=== PATIENT | female | born 1980 | race Caucasian/White ===

== ENCOUNTER 2022-03-02 19:25 | Emergency (ER) | payer MEDICAID, SELFPAY ==
[2022-03-02 19:26] VITALS: BP 137/86; PULSE 93; RESP 18; TEMP 36.4; O2SAT 100; BMI 21.9
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
--- NOTE | 2022-03-02 20:25 | RAD_ITS ---
EXAM: XR RIGHT RIBS AND AP CHEST, 3 OR MORE VIEWS CLINICAL INDICATION: Pain TECHNIQUE: Frontal and oblique views of the right ribs and frontal view of the chest. This report was created using [employer] report generation technology. COMPARISON: None. FINDINGS: LUNGS AND PLEURAL SPACES: Unremarkable. No consolidation or edema. No pneumothorax. No effusion. HEART: Unremarkable. Cardiac silhouette not enlarged. MEDIASTINUM: Central airways and mediastinal contour are unremarkable. BONES/JOINTS: Healed right rib fractures. RAD/Ribs Uni Min 3V w/PA Chest IMPRESSION: Healed right rib fractures. Electronically Signed: Tomer Hampton MD at 20:47 EST ,
--- NOTE | 2022-03-02 22:33 | ED.RN ---
Pt. requests pain medication, neck x rays and hip x rays when this RN went into discharge patient. Pt. educated that does not feel that these x rays are necessary and she can take ibuprofen for pain control.
== END 2022-03-02 22:34 | disposition home or self-care (01) ==
PROVIDERS: Emergency Provider Emergency Medicine; Visit Provider Emergency Medicine
DX: R07.81 Pleurodynia (principal); M79.672 Pain in left foot; M25.511 Pain in right shoulder; S16.1XXA Strain of muscle, fascia and tendon at neck level, initial encounter; F17.210 Nicotine dependence, cigarettes, uncomplicated; V89.2XXA Person injured in unspecified motor-vehicle accident, traffic, initial encounter
CPT/HCPCS: 71101; 73030; 73610; 99284

== ENCOUNTER 2022-03-04 13:25 | Emergency (ER) | payer MEDICAID, SELFPAY ==
[2022-03-04 13:27] VITALS: BP 126/85; PULSE 102; RESP 18; TEMP 36.4; O2SAT 99; BMI 22.8
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
[2022-03-04 15:50] VITALS: BP 110/76; PULSE 100; RESP 16; O2SAT 100
--- NOTE | 2022-03-04 16:16 | CM.ED ---
Social Work Consult: Resources Referral source: Dr. Stanley This social media director met with patient in room. Introduced self and social media director role. Patient agreeable to speak with this social media director. Patient reports to be homeless and to be looking for a group home that will accept patient and patient girlfriend along with patient therapy dog. Patient reports to have documentation to support patient therapy dog. Patient states to have been staying with patient father but patient father is unable to have them live in the home much longer due to landlord policy. Patient reports to have called multiple shelters in the surround area and no one has openings or will let my dog stay. This social media director contacting [facility], no openings, [facility], no openings, and [facility], no openings. This social media director provided patient with local resource guide and counseling resources. Patient reports to have recently moved to the area from [place]. This social media director encouraged patient to complete application with [employer] Patient voiced to have connection with a neurologist and to be working on getting set up with a psychiatrist. Patient reports to have transportation back to patient fathers home today. Patient plans to keep reaching out to shelters. Medical team updated. Mayito DURAND, ROSA
[2022-03-04] MEDS: Ibuprofen 600 MG Tablet PO (16:32)
[2022-03-04 16:34] VITALS: BP 111/86; PULSE 85; O2SAT 99
== END 2022-03-04 16:48 | disposition home or self-care (01) ==
PROVIDERS: Emergency Provider Emergency Medicine; Visit Provider Emergency Medicine
DX: S06.0X0A Concussion without loss of consciousness, initial encounter (principal); S40.021A Contusion of right upper arm, initial encounter; S70.311A Abrasion, right thigh, initial encounter; F17.210 Nicotine dependence, cigarettes, uncomplicated; Y04.8XXA Assault by other bodily force, initial encounter
CPT/HCPCS: 70450; 99285

== ENCOUNTER 2022-03-24 15:04 | Emergency (ER) | payer MEDICAID, SELFPAY ==
[2022-03-24] VITALS (8 sets, daily range): BP systolic 155–180; BP diastolic 79–120; PULSE 89–100; RESP 14–18; TEMP 36.4; O2SAT 99–100; BMI 19.4
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
[2022-03-24] MEDS: Ibuprofen 600 MG Tablet PO (16:18)
[2022-03-24] MEDS: clonazePAM 1 MG Tablet 2 MG PO (16:18)
[2022-03-24 16:34] LABS: Absolute Lymphocyte Count 2.05 X10^3/uL (0.83-4.51); Absolute Neutrophil Count 5.3 X10^3/uL (2.0-7.7); Basophil# 0.05 X10^3/uL; Basophil% 0.6 % (0-1); Eosinophil# 0.12 X10^3/uL; Eosinophils% 1.5 % (0-5); Hematocrit 43.9 % (37-47); Hemoglobin 15.8 g/dL (12.0-15.0); Lymphocyte # 2.05 X10^3/ul (0.83-4.51); Lymphocyte % 24.9 % (19-41); Mean Corpuscular Hgb 32.3 pg (27.0-32.0); Mean Corpuscular Volume 89.8 fL (81-99); Mean Platelet Vol. 11.2 fl (6.2-12.0); Monocyte# 0.66 X10^3/uL; NRBC Flagged by Analyzer 0 % (0-5); Neutrophil # 5.33 X10^3/uL (2.7-7.7); Neutrophil % 64.8 % (47-70); Platelet Count 384 K/mm3 (150-450); RBC Distribution Width CV 13.2 % (11.6-14.6); RBC Distribution Width SD 43.2 fl (35.1-43.9); Red Blood Count 4.89 M/mm3 (4.2-5.4); White Blood Count 8.2 K/mm3 (4.4-11.0)
[2022-03-24 16:49] LABS: Alcohol, Blood (Medical)-Serum < 3.0 mg/dL
[2022-03-24 16:55] LABS: Internal QC Validated? YES +Cl - CLEAR BKGD; Pregnancy, Serum, hCG Quali. NEGATIVE Negative
[2022-03-24 17:00] LABS: ALB/GLOB Ratio 1.2 RATIO (0.9-2.4); AST(SGOT) 17 U/L (15-37); Alanine Aminotransfer ALT/SGPT 30 U/L (13-56); Albumin, Serum 4.7 g/dL (3.2-5.0); Alkaline Phosphatase 83 U/L (45-117); Anion Gap 12 (5-15); BUN 21 mg/dL (7-18); BUN/Creat Ratio 22.1 RATIO (10-20); Calcium,Total 9.8 mg/dL (8.5-10.1); Chloride 109 mmol/L (98-107); Creatinine, Serum 0.95 mg/dL (0.55-1.02); EST Glomerular Filtration Rate 69 mL/min (>60); Est Glom Filt Rate - Afr Amer 83 mL/min (>60); Estimated Creatinine Clearance 65.29 ml/min; Globulin 3.9 g/dL (2.2-4.2); Glucose 110 mg/dL (74-106); Potassium 3.3 mmol/L (3.5-5.1); Protein, Total 8.6 g/dL (6.4-8.2); Sodium Level 139 mmol/L (136-145); Thyroid Stim Hormone (TSH) 1.21 uIU/mL (0.358-3.74)
[2022-03-24 17:59] LABS: Amphetamine Urine VISTA NEGATIVE (<1000 ng/mL); Barbiturate Urine VISTA NEGATIVE (< 200 ng/mL); Benzodiazepine Urine VISTA POSITIVE (< 200 ng/mL); Cocaine Urine VISTA NEGATIVE (< 300 ng/mL); Ecstacy Urine VISTA NEGATIVE (< 500 ng/mL); Methadone Urine VISTA NEGATIVE (< 300 ng/mL); PCP Urine VISTA NEGATIVE (< 25 ng/mL); THC Urine VISTA NEGATIVE (< 50 ng/mL); Vista UDS pH Range 4
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
--- NOTE | 2022-03-24 19:29 | CM.ED ---
Addendum entered by Jaycee Knight 03/24/22 22:22: Patient inquiring if she can smoke here; SW explained it is a smoke free campus but she could have something else like a patch. Patient declined. Patient inquired if SW could take her to the hospital with EMS, SW explained she would not be able to but explained the staff taking her will take good care of her. Patient was whispering something SW was unable to understand. Emotional support provided. CAROLINA Cisneros Addendum entered by Jaycee Knight 03/24/22 21:21: Patient accepted at [facility] per RN Aniceto. SW encouraged female EMS as patient's paranoia seems to be with men. SW met with patient to inform her she was accepted at [facility] in [place]. Patient was seated on hospital bed in street clothes and reported an understanding. Patient states she wants no one to be aware of where she is going and wants to meet whoever is transporting her. Patient whispered more but SW unable to understand, patient did not want to repeat. SW met with patient per patient's request. Patient held hospital phone in her hand to cover the oswaldo and only spoke in a whisper. SW unable to understand patient. Patient making statements about someone changing their name, a man still listening to her conversation and wanting to know where another hsopital patient went. SW informed patient she could not talk about other patients and remained patient she was getting transferred to another hospital. SW informed patient staff was trying to get female EMS to transport patient; patient stated she would go with females otherwise she wanted to meet the drivers. SW encouraged patient to change into hospital gown. Patient was tearful and continued to talk to manager social in whisper. ANDREW informed patient she was working on getting patient transported to another hospital. Plan: CAROLINA Bo Original Note: ANDREW Note ANDREW contacted [facility] to inquire about bed availability, informed some beds available and can fax referral. ANDREW contacted [facility] to inquire about bed availability, no beds available. ANDREW contacted [facility] twice, both times tried to connect to intake and the phone hung up after several rings. ANDREW contacted [facility] to inquire about bed availability, was informed the intake staff were not answering so an RN would contact ANDREW to review availability. ANDREW contacted [facility] to inquire about bed availability, informed there were beds available and referral can be sent via fax. Plan: referrals faxed to [facility] for review Jaycee DURAND, CAROLINA
[2022-03-24] MEDS: LORazepam 1 MG Tablet PO (22:18)
[2022-03-25 01:00] VITALS: BP 149/88; PULSE 89; RESP 19; O2SAT 100
[2022-03-25] MEDS: LORazepam 1 MG Tablet PO (01:55)
[2022-03-25 02:03] VITALS: RESP 16; O2SAT 99
--- NOTE | 2022-03-25 02:04 | ED.RN ---
report called to [facility] at [facility].
== END 2022-03-25 02:05 ==
PROVIDERS: Emergency Provider Emergency Medicine; Visit Provider Emergency Medicine
DX: R45.851 Suicidal ideations (principal); F22 Delusional disorders; F41.9 Anxiety disorder, unspecified; F17.210 Nicotine dependence, cigarettes, uncomplicated
CPT/HCPCS: 80053; 80307; 82077; 84443; 84703; 85025; 87811; 99285

== ENCOUNTER 2022-09-08 17:13 | Emergency (ER) | payer MEDICAID, SELFPAY ==
[2022-09-08 17:14] VITALS: BP 93/58; PULSE 75; RESP 16; TEMP 36.2; O2SAT 95
--- NOTE | 2022-09-08 17:20 | RAD_ITS ---
STUDY: X-RAY - LEFT KNEE REASON FOR EXAM: Female, 42 years old. FALL TECHNIQUE: 5 view(s) of the knee. COMPARISON: None. FINDINGS: Normal visualized distal femur. Normal visualized proximal tibia and fibula. Normal proximal tibiofibular articulation. Normal medial femorotibial compartment. Normal lateral femorotibial compartment. Normal patellofemoral articulation. The soft tissue structures are unremarkable. RAD/Knee 4 or More Views IMPRESSION: Normal x-ray examination of the knee. Electronically Signed: Kimo Mays MD at 17:52 EDT ,
--- NOTE | 2022-09-08 17:25 | RAD_ITS ---
STUDY: X-RAY - RIGHT ANKLE REASON FOR EXAM: Female, 42 years old. FALL TECHNIQUE: 3 view(s) of the ankle. COMPARISON: None. FINDINGS: Normal visualized distal tibia and fibula. Normal medial and lateral malleoli. Normal tibiotalar articulation and ankle mortise. Normal visualized talus and calcaneus. The visualized subtalar, talonavicular, calcaneocuboid and tarsal articulations are normal. Diffuse bimalleolar soft tissue swelling is noted.. RAD/Ankle min 3 Views IMPRESSION: Bimalleolar sprain. No acute fracture or dislocation. Electronically Signed: Kimo Mays MD at 17:50 EDT ,
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
--- NOTE | 2022-09-08 19:59 | ED.RN ---
Pt continues to ask for discharge paperwork, Dr. Delgado notified. Pt requesting pain medications yet pt is falling asleep in bed and refusing to walk with crutches. Discussed this with MD and MD aware of pt condition. RN went to discuss pain management @ home with pt and pt not in room, family took pt out of department before paperwork and instruction could be given.
--- NOTE | 2022-09-09 00:16 | EDS_ITS ---
HPI HPI - Fall History of Present Illness Chief Complaint: Fall Occured/Mechanism Occurred: Days Mechanism/Context: Yes same level fall Pain/Injury Location: Right ankle, left knee Worsened by: Weightbearing Relieved by: Nothing Associated Symptoms Associated Symptoms: Negative for Parasthesias, Weakness, Loss of function, Inability to ambulate or Loss of consciousness Narrative Narrative: Patient presents after a fall that occurred 2 days ago. Patient complains of pain in her right ankle and left knee. Patient did not hit her head or lose consciousness. Patient is sleeping on examination and does not answer questions. Patient does awaken to tactile stimuli. However, she still does not answer questions. Friend denies any fevers or chills. Friend states that the patient did not take any medications prior to arrival. [facility] Medical History PTSD (post-traumatic stress disorder) Home Medications ibuprofen 600 mg tablet 600 mg PO Q6H PRN PRN pain #20 TABLETS 03/04/22 [Rx Last Taken Unknown] Allergy/AdvReac Type Severity Reaction Status Date / Time acetaminophen [From Tylenol] Allergy Angioedema Verified 09/08/22 17:17 amoxicillin Allergy Anaphylaxis Verified 09/08/22 17:17 hydrocodone [From Vicodin] Allergy Angioedema Verified 09/08/22 17:17 morphine Allergy Hives Verified 09/08/22 17:17 no surgical history Social History household members: significant other Smoking Status: Current every day smoker tobacco type: cigarettes alcohol intake: current ROS ROS ED Review of Systems ROS Unobtainable: due to mental condition EXAM Physical Exam Const Vital Signs: 09/08/22 17:14 09/08/22 18:03 Temperature 97.2 F L Temperature Source Temporal Pulse Rate 75 Respiratory Rate 16 Respiratory Effort Normal Respiratory Depth Normal Respiratory Pattern Normal Blood Pressure 93/58 L Blood Pressure Mean 69 Pulse Ox 95 Oxygen Delivery Method Room Air Positive well nourished and well developed General Appearance ED: well developed and NAD HEENT Reports normocephalic Extremity Extremity Narrative: There is tenderness, erythema, and warmth over the anterior aspect of the left knee. There is no fluctuance. There is a superficial abrasion that is healing over this area. There is no active bleeding noted. There is tenderness, edema, and ecchymosis of the lateral aspect of the right ankle. There is no deformity noted. There is no pain with dorsiflexion and plantarflexion. There is some pain and laxity with inversion of the ankle. Pedal pulses are equal bilaterally. Neuro CN's II-XII intact bilaterally and no focal motor deficits Lonny Coma Scale: document GCS findings To Voice Localizes to Pain None 9 Motor Exam: general weakness Psych Psych Narrative: Patient is sleeping on examination and refuses to answer any questions or talk. Skin Skin Narrative: There is a superficial abrasion of the anterior of the left knee. There is no active bleeding noted. There is some surrounding erythema and warmth. MDM MDM MDM Narrative Medical decision making narrative: Differential diagnosis includes cellulitis, right ankle fracture, right ankle sp rain, left patella fracture, and left knee sprain. X-rays of the right ankle will be obtained to assess for fracture. X-rays of the left knee will be obtained to assess for fracture. Radiography Diagnostic Testing: Clinical Impression(s) from Imaging Studies Knee X-Ray 09/08/22 17:20 IMPRESSION: Normal x-ray examination of the knee. Electronically Signed: Kimo Mays MD at 17:52 EDT , Ankle X-Ray 09/08/22 17:25 IMPRESSION: Bimalleolar sprain. No acute fracture or dislocation. Electronically Signed: Kimo Mays MD at 17:50 EDT , X-rays of the left knee were obtained. There are 5 views. On my independent interpretation, there is no acute fracture or dislocation noted. There is no evidence of osteomyelitis. Radiologist also interpreted the x-rays and agrees. X-rays of the right ankle were obtained. There are 3 views. On my independent interpretation, there is no acute fracture or dislocation. There is moderate soft tissue swelling noted. Radiologist also interpreted the x-rays and agrees. Treatment and Re-Evaluation Narrative: Patient and significant other were advised of her findings. Patient was given an Aircast for her right ankle and crutches. I discussed the need for antibiotics for the cellulitis of her left leg. Patient and significant other left prior to receiving any antibiotics. Patient and significant other were instructed to keep the area clean. They were instructed return if worse in any way. Discharge Plan Triage Chief Complaint: Fall ED Provider: James Delgado Dx/Rx/DC Orders Clinical Impression: Contusion of left knee, Right ankle sprain, Cellulitis of knee, left Instructions: ED Cellulitis, ED Ankle Sprain (Adult) Prescriptions: No Action ibuprofen 600 mg tablet 600 mg PO Q6H PRN PRN (Reason: pain) Qty: 20 0RF Primary Care Provider: Care Physician,No Primary Referrals: Care Physician,No Primary [Primary Care Provider] - Disposition Disposition: Home, Self Care Discharge Date/Time: 09/08/22 20:01
== END 2022-09-08 20:01 | disposition home or self-care (01) ==
PROVIDERS: Emergency Provider Emergency Medicine; Visit Provider Emergency Medicine
DX: S80.02XA Contusion of left knee, initial encounter (principal); S93.401A Sprain of unspecified ligament of right ankle, initial encounter; L03.115 Cellulitis of right lower limb; F17.210 Nicotine dependence, cigarettes, uncomplicated; W18.30XA Fall on same level, unspecified, initial encounter
CPT/HCPCS: 73564; 73610; 99285

== ENCOUNTER 2022-09-13 10:38 | Inpatient (IN) | payer MEDICAID, SELFPAY ==
[2022-09-13] VITALS (11 sets, daily range): BP systolic 78–106; BP diastolic 44–65; PULSE 53–110; RESP 12–20; TEMP 36–37.1; O2SAT 97–98; BMI 23.7; BMI 21.7
--- NOTE | 2022-09-13 11:37 | ED.VIS.LOWEX ---
HPI History of Present Illness HPI Narrative: Patient presents with right ankle and left knee pain that began after a fall 3 days ago. Patient was seen here at that time. Patient had x-rays of her ankle done at that time which were negative. Patient left prior to receiving prescription for antibiotics. Patient states her pain has been getting progressively worse. Patient states her pain is sharp and stabbing. Patient states it is worse with any movement. Patient denies any paresthesias or weakness. Patient denies any other injuries. Chief Complaint: Lower Extremity Injury Informant: patient Occured/Mechanism Mechanism/Context: Yes fall Onset/Context/Timing Onset: Days (3) Context: Sudden Onset Timing: Continuous Quality of Pain: Sharp and Stabbing Location: Right ankle, left knee Worsened by: Movement, weightbearing Relieved by: Nothing Associated Symptoms Associated Symptoms: Negative for Parasthesia, Weakness or Loss of Funtion PFSH PFS Medical History PTSD (post-traumatic stress disorder) Home Medications ibuprofen 600 mg tablet 600 mg PO Q6H PRN PRN pain #20 TABLETS 03/04/22 [Rx Last Taken Unknown] Allergy/AdvReac Type Severity Reaction Status Date / Time amoxicillin Allergy Anaphylaxis Verified 09/13/22 10:46 hydrocodone [From Vicodin] Allergy Angioedema Verified 09/13/22 10:46 morphine Allergy Hives Verified 09/13/22 10:46 acetaminophen [From Tylenol] AdvReac Other Verified 09/13/22 10:47 no surgical history Social History household members: significant other Smoking Status: Current every day smoker tobacco type: cigarettes alcohol intake: current ROS ROS ED Constitutional Constitutional ED: Reports fever(s) and subjective; Denies chills Eyes Eyes: Denies blurry vision or change in vision ENT ENT ED: Denies rhinorrhea or sore throat Cardiovascular Cardiovascular: Denies chest pain or palpitations Respiratory/Chest Respiratory/Chest: Denies cough or dyspnea Gastrointestinal Gastrointestinal: Denies nausea or vomiting Genitourinary Genitourinary ED: Denies dysuria or hematuria Musculoskeletal Musculoskeletal: Denies back pain or neck pain Integumentary Denies abscess or rash Neurologic Neurologic: Denies headache(s) or weakness Allergic/Immunologic Allergic/Immunologic ED: Denies mouth swelling or urticaria EXAM Physical Exam Const Vital Signs: 09/13/22 10:39 Temperature 97.6 F L Temperature Source Oral Pulse Rate 53 L Respiratory Rate 16 Blood Pressure 78/49 L Blood Pressure Mean 58 Pulse Ox 98 Oxygen Delivery Method Room Air Positive well nourished and well developed General Appearance ED: well developed and NAD HEENT Reports moist mucous membranes Neck full ROM and supple Extremity Extremity Narrative: There is edema, ecchymosis, and erythema over the right ankle. There is no obvious deformity noted. Range of motion was limited in all motions of the right ankle secondary to pain. There is mild tenderness over the anterior aspect of the left knee. There is no effusion noted. There is no erythema or warmth noted. Range of motion was somewhat limited in complete flexion of the left knee secondary to pain. There is no laxity appreciated. Pedal pulses are equal bilaterally. Sensation was intact to light touch in all digits bilaterally. Strength is 5/5 bilaterally. Neuro oriented x3, CN's II-XII intact bilaterally, moves all extremities and no sensory deficits noted Sensorium / Orientation: alert Motor Exam: strength 5/5 throughout Psych Mood & Affect: anxious MDM MDM MDM Narrative Medical decision making narrative: Differential diagnosis includes occult fracture, cellulitis, sprain, and contusion. X-rays of the right ankle will be obtained to assess for fracture. X-rays of the left knee will be obtained to assess for fracture. CBC will be obtained to assess for leukocytosis and anemia. Basic metabolic profile will be obtained to assess for electrolyte abnormality and renal function. Treatment and Re-Evaluation Narrative: Patient was given a dose of ibuprofen here. Patient is allergic to morphine and hydrocodone. Patient was given a dose of clindamycin. Patient was given IV fluids. Discharge Plan Triage Chief Complaint: Lower Extremity Injury ED Provider: James Delgado Dx/Rx/DC Orders Prescriptions: No Action ibuprofen 600 mg tablet 600 mg PO Q6H PRN PRN (Reason: pain) Qty: 20 0RF Primary Care Provider: Care Physician,No Primary Referrals: Care Physician,No Primary [Primary Care Provider] -
--- NOTE | 2022-09-13 11:43 | RAD_ITS ---
STUDY: X-RAY - LEFT KNEE REASON FOR EXAM: Female, 42 years old. Injury/Pain TECHNIQUE: 4 view(s) of the knee. COMPARISON: None. FINDINGS: Normal visualized distal femur. Normal visualized proximal tibia and fibula. Normal proximal tibiofibular articulation. Normal medial femorotibial compartment. Normal lateral femorotibial compartment. Normal patellofemoral articulation. The soft tissue structures are unremarkable. RAD/Knee 4 or More Views IMPRESSION: Normal x-ray examination of the knee. Electronically Signed: Josef Alcazar MD at 12:52 EDT ,
[2022-09-13] MEDS: Ibuprofen 600 MG Tablet PO (12:04)
[2022-09-13] MEDS: Clindamycin 600 MG/50 ML BAG 100 MG IV (12:05)
[2022-09-13] MEDS: 0.9% Normal Saline 1,000 ML 1000 ML IV ×2 (12:05→13:06)
[2022-09-13 12:09] LABS: Absolute Lymphocyte Count 1.26 X10^3/uL (0.83-4.51); Absolute Neutrophil Count 11.7 X10^3/uL (2.0-7.7); Basophil% 0.7 % (0-1); Eosinophil# 0.28 X10^3/uL; Eosinophils% 1.9 % (0-5); Hematocrit 36.6 % (37-47); Hemoglobin 12.5 g/dL (12.0-15.0); Lymphocyte # 1.26 X10^3/ul (0.83-4.51); Lymphocyte % 8.5 % (19-41); Mean Corp Hgb Conc 34.2 g/dL (32-36); Mean Corpuscular Hgb 30.7 pg (27.0-32.0); Mean Corpuscular Volume 89.9 fL (81-99); Mean Platelet Vol. 11.7 fl (6.2-12.0); Monocyte# 1.31 X10^3/uL; Monocyte% 8.8 % (0-10); NRBC Flagged by Analyzer 0 % (0-5); Neutrophil # 11.67 X10^3/uL (2.7-7.7); Neutrophil % 78.8 % (47-70); Platelet Count 327 K/mm3 (150-450); RBC Distribution Width CV 13.1 % (11.6-14.6); RBC Distribution Width SD 43.2 fl (35.1-43.9); Red Blood Count 4.07 M/mm3 (4.2-5.4); White Blood Count 14.8 K/mm3 (4.4-11.0)
--- NOTE | 2022-09-13 12:22 | RAD_ITS ---
STUDY: X-RAY - RIGHT ANKLE REASON FOR EXAM: Female, 42 years old. Injury/Pain following a fall. TECHNIQUE: 3 view(s) of the ankle. COMPARISON: None. FINDINGS: Normal visualized distal tibia and fibula. Normal medial and lateral malleoli. Normal tibiotalar articulation and ankle mortise. Normal visualized talus and calcaneus. The visualized subtalar, talonavicular, calcaneocuboid and tarsal articulations are normal. Lateral soft tissue swelling. RAD/Ankle min 3 Views IMPRESSION: Lateral soft tissue swelling. Electronically Signed: Josef Alcazar MD at 12:50 EDT ,
[2022-09-13 12:26] LABS: Anion Gap 6 (5-15); BUN 26 mg/dL (7-18); BUN/Creat Ratio 15.7 RATIO (10-20); Calcium,Total 8.5 mg/dL (8.5-10.1); Chloride 103 mmol/L (98-107); Creatinine, Serum 1.66 mg/dL (0.55-1.02); EST Glomerular Filtration Rate 36 mL/min (>60); Est Glom Filt Rate - Afr Amer 44 mL/min (>60); Estimated Creatinine Clearance 39.73 ml/min; Glucose 116 mg/dL (74-106); Potassium 2.3 mmol/L (3.5-5.1); Sodium Level 138 mmol/L (136-145)
[2022-09-13] MEDS: Potassium Chloride Oral Tablet 20 MEQ 40 MEQ PO (13:06)
[2022-09-13 13:30] LABS: Erythrocyte Sedimentation Rate 95 mm/hr (0-30)
--- NOTE | 2022-09-13 14:52 | NURSING ---
DR TIFFANY MCCLAIN
--- NOTE | 2022-09-13 14:56 | HP.PCM.HOS_ITS ---
HPI - General General Date of Admission: 09/13/22 Date of Service: 09/13/22 Chief Complaint: Severe pain on the right ankle after fall 3 days ago HPI Narrative RAHEL MCKEON, is a 42 F came to ED with severe right ankle pain after she fa ll 3 days ago. She also has left knee pain but right ankle is the most painful and therefore coming to ED. She was seen in ED 3 days ago and x-rays are negative and therefore was supposed to be discharged but left before antibiotics were prescribed for cellulitis. She is crying with the pain, sudden onset, continuous 10/10 intensity, progressive, sharp in quality and stabbing and has been getting worse over last 3 days. She also had fever 102 Fahrenheit as per the patient. She has mild pain in the left knee. Right ankle especially the lateral side is very swollen, tender and red suggesti ve of cellulitis. Patient blood pressure was low but was also low 93/57 on 09/08/2022.Today, EMS vitals shows BP 80/50, 92/54 but normal heart rate and EGD BP 7 8/49, heart rate 53. Afebrile in ED. She also has headache and nausea but denies vomiting. [facility] Medical History (Updated 09/13/22 @ 16:[address] Geo Davila MD) Cellulitis PTSD (post-traumatic stress disorder) Home Medications Ambien 7.5 mg PO .hs promote sleep 09/13/22 [History Last Taken Unknown] clonazepam 2 mg tablet 2 mg PO TID mental health 09/13/22 [History Last Taken 09/13/22 10:00] duloxetine 60 mg capsule,delayed release (Cymbalta) 60 mg PO BID mental health 09/13/22 [History Last Taken Unknown] pregabalin 150 mg capsule (Lyrica) 150 mg PO BID pain 09/13/22 [History Last Taken Unknown] Allergy/AdvReac Type Severity Reaction Status Date / Time amoxicillin Allergy Anaphylaxis Verified 09/13/22 10:46 hydrocodone [From Vicodin] Allergy Angioedema Verified 09/13/22 10:46 morphine Allergy Hives Verified 09/13/22 10:46 acetaminophen [From Tylenol] AdvReac Other Verified 09/13/22 10:47 Surgical History no surgical history Social History household members: significant other Smoking Status: Current every day smoker tobacco type: cigarettes alcohol intake: current ROS ROS Narrative Constitutional: Reports fatigue and weakness. No fever. HEENT: Reports systems reviewed and no addt'l complaints, except as documented Respiratory/Chest: No acute shortness of breath or respiratory distress or wheezing. CVS: No chest pain or tightness. Gastrointestinal: Mild nausea. Denies coffee ground emesis, hematemesis or vomiting Genitourinary: Denies burning urination or new urinary tract symptoms Musculoskeletal: Severe right ankle pain and mild left knee pain as described in HPI. After recent fall. Neurologic: Denies seizure-like symptoms. Psychiatry: History of anxiety and depression on clonazepam. PTSD. skin: Redness over right ankle. Endocrinology: Reports systems reviewed and no addt'l complaints, except as documented Hematologic/Lymphatic: Reports systems reviewed and no addt'l complaints, except as documented Rest 14 ROS are negative except as mentioned in HPI Vital Signs Vital Signs Vital Signs: 09/13/22 10:39 09/13/22 12:07 09/13/22 13:02 Temperature 97.6 F L Temperature Source Oral Pulse Rate 53 L 57 L 59 L Respiratory Rate 16 Blood Pressure 78/49 L 84/59 L 82/45 L Blood Pressure Mean 58 67 57 Pulse Ox 98 Oxygen Delivery Method Room Air 09/13/22 13:03 09/13/22 13:26 09/13/22 13:26 Temperature 97.2 F L 96.8 F L Temperature Source Temporal Temporal Pulse Rate 59 L 61 61 Respiratory Rate 14 12 Blood Pressure 82/57 L 99/64 99/64 Blood Pressure Mean 65 75 75 Pulse Ox Oxygen Delivery Method 09/13/22 14:09 Temperature 97.1 F L Temperature Source Temporal Pulse Rate 63 Respiratory Rate 14 Blood Pressure 96/63 Blood Pressure Mean 74 Pulse Ox Oxygen Delivery Method Weight Weight: 142 lb 10.225 oz Body Mass Index (BMI) 23.7 Physical Exam Narrative General: Alert, Oriented x3, Cooperative HEENT: Atraumatic, PERRLA, EOMI, Normocephalic Oral: Oral mucosa dry. No Gingival or Mucosal Lesions/ Ulcerations Neck: Supple, No JVD, Negative Carotid Bruits Lungs: Air entry diminished in bilateral lung bases. No crepitation/rhonchi Cardiovascular: Regular rate, Regular Rhythm, Normal S1, Normal S2, No murmurs Abdomen: Bowel Sounds Present, Soft, Non Tender, Non-Distended : No renal angle tenderness. No suprapubic tenderness. Extremities: No edema, Capillary Refill Less than 3 Seconds Skin: Erythematous rash over right ankle predominantly over lateral aspect. Musculoskeletal: Large swelling redness tenderness over lateral aspect of right ankle. ROM of right ankle not attempted due to tenderness. History of left ankle surgery in the past. Neurological: Cranial nerves II-XII grossly intact, DTR 2+/4. No acute focal neurological defic Psych/Mental Status: Normal Affect, Appropriate. Results Lab / Micro Data 09/13/22 12:00 09/13/22 12:00 Labs: Laboratory Results - last 24 hr 09/13/22 12:00: WBC 14.8 H, RBC 4.07 L, Hgb 12.5, Hct 36.6 L, MCV 89.9, MCH 30.7, MCHC 34.2, RDW Std Deviation 43.2, RDW Coeff of Sylvia 13.1, Plt Count 327, MPV 11.7, Immature Gran % (Auto) 1.300 H, Neut % (Auto) 78.8 H, Lymph % (Auto) 8.5 L, [place] % (Auto) 8.8, Eos % (Auto) 1.9, Baso % (Auto) 0.7, Absolute Neuts (auto) 11.7 H, Absolute Lymphs (auto) 1.26, Nucleated RBC % 0, ESR 95 H, Sodium 138, Potassium 2.3 L*, Chloride 103, Carbon Dioxide 29.0, Anion Gap 6, BUN 26 H, Creatinine 1.66 H, Estim Creat Clear Calc 39.73, Est GFR (MDRD) Af Amer 44 L, Est GFR (MDRD) Non-Af 36 L, BUN/Creatinine Ratio 15.7, Glucose 116 H, Calcium 8.5, C-React Prot Ext Range 330.00 H Radiology Impression Knee X-Ray 09/13/22 11:43 IMPRESSION: Normal x-ray examination of the knee. Electronically Signed: Josef Alcazar MD at 12:52 EDT , Ankle X-Ray 09/13/22 12:22 IMPRESSION: Lateral soft tissue swelling. Electronically Signed: Josef Alcazar MD at 12:50 EDT , Assessment & Plan Assessment/Plan (1) Cellulitis: QUALIFIERS: Site of cellulitis: extremity Site of cellulitis of extremity: lower extremity Laterality: right Qualified Code(s): L03.115 - Cellulitis of right lower limb PLAN: Plan This is 42-year-old female who came to ED for fever pain, swelling, redness and tenderness over right ankle consistent with cellulitis 1. Right ankle cellulitis of skin and soft tissue: Patient is being admitted in PCU. She does not look toxic or very sick but BP is low probably due to high dose of clonazepam, pregabalin and duloxetine and Ambien. She got tramadol in ED. Patient has leukocytosis venous duplex ordered. Drill Sharpener Operator is consulted because of severe pain and soft tissue swelling, unable to bear weight but x-ray does not show fracture. Patient is allergic to amoxicillin with anaphylaxis, started on IV vancomycin and continue clindamycin started in ED. 2. Low blood pressure probably medication induced: BP is 92/44-99/64. It was 78/49 with heart rate 53 when she came to ED but her pressure was low 3 days ago when she came to ED.. Monitor BP. Clonazepam decreased to 1 mg 3 times daily. 3. History of PTSD, anxiety and depression, chronic cigarette smoking alcohol intake: As per the nursing staff in ED, patient girlfriend has substance use history but patient denies herself. U tox is ordered. Full code. Laboratory Results 09/13/22 12:00: WBC 14.8 H, RBC 4.07 L, Hgb 12.5, Hct 36.6 L, MCV 89.9, MCH 30.7, MCHC 34.2, RDW Std Deviation 43.2, RDW Coeff of Sylvia 13.1, Plt Count 327, MPV 11.7, Immature Gran % (Auto) 1.300 H, Neut % (Auto) 78.8 H, Lymph % (Auto) 8.5 L, [place] % (Auto) 8.8, Eos % (Auto) 1.9, Baso % (Auto) 0.7, Absolute Neuts (auto) 11.7 H, Absolute Lymphs (auto) 1.26, Nucleated RBC % 0, ESR 95 H, Sodium 138, Potassium 2.3 L*, Chloride 103, Carbon Dioxide 29.0, Anion Gap 6, BUN 26 H, Creatinine 1.66 H, Estim Creat Clear Calc 39.73, Est GFR (MDRD) Af Amer 44 L, Est GFR (MDRD) Non-Af 36 L, BUN/Creatinine Ratio 15.7, Glucose 116 H, Calcium 8.5, Phosphorus Pending, Magnesium Pending, C-React Prot Ext Range 330.00 H Clinical Impression(s) from Imaging Studies Knee X-Ray 09/13/22 11:43 IMPRESSION: Normal x-ray examination of the knee. Ankle X-Ray 09/13/22 12:22
[2022-09-13] MEDS: levoFLOXacin IV 750 MG/150 ML BAG 100 MG IV (15:07)
[2022-09-13] MEDS: traMADol 50 MG Tablet PO (15:17)
--- NOTE | 2022-09-13 15:40 | CM.ED ---
Social Work Patient or family member had entered doctor's station to request [employer] information and reported needing a phone. Physician referred patient to this SW. SW introduced self and role to patient and significant other. Pt very tearful and can barely be understood. SO reports they live in [employer] housing and it has bed bugs. SO requests specific director case management number. SW does not know who the individual is but provided [employer] pamphlet with contact numbers. Pt continues to cry and asks for food and pain meds. Pt then asks SW to sign a paper for the courts since she was supposed to be in court today. SW does not feel comfortable filling out such paperwork and is not familiar with the documentation. SW encouraged patient to discuss with medical staff. SO requests a phone to call [employer]. SW provided hospital portable phone to SO. Pt requesting pain meds again and food. Nurse notified. Pt asked nursing to get bilingual social worker to come sign court documents. SW informed nurse that this was explained to patient and it presents as being out of SW scope of practice. Jaleesa Gonzalez VALVE MECHANIC, SILVER LAP MACHINE TENDER
--- NOTE | 2022-09-13 16:32 | VDLE_ITS ---
Reason For Study: RLE Swelling RIGHT LEFT GSV is normal. GSV is normal. CFV is compressible, spontaneous, phasic, CFV is compressible, spontaneous, phasic, competent and demonstrates normal competent, and demonstrates normal augmentation. augmentation. FV is compressible, spontaneous, phasic, FV is compressible, spontaneous, phasic, competent and demonstrates normal competent and demonstrates normal augmentation. augmentation. POP V is compressible, spontaneous, phasic, POP V is compressible, spontaneous, phasic, competent and demonstrates normal competent and demonstrates normal augmentation. augmentation. T/P Trunk is compressible. T/P Trunk is compressible. PTV is compressible. PTV is compressible. RT PerV is compressible. LT PerV is compressible. Procedure This is a venous duplex using B-mode, color flow and spectral Doppler. Exam performed portable in patient room. The exam was diagnostic. A preliminary report was called and/or faxed to PCU production solderer Alex. VL/Venous Duplex US - Marcelo Extrem Interpretation Summary No evidence for acute deep venous thrombosis bilateral lower extremities with p atent and compressible bilateral great saphenous veins. Ordering Physician: Geo Davila Referring Physician: N/A Performed By: Donald Artis RVT
[2022-09-13 16:43] LABS: Phosphorus 3.8 mg/dL (2.5-4.9)
[2022-09-13 16:57] LABS: CPK Total, Creatine Kinase 38 U/L (26-192)
[2022-09-13] MEDS: HYDROmorphone 0.5 MG/0.5 ML SYRINGE IV ×2 (17:01→22:15)
[2022-09-13] MEDS: 0.9% Saline Lock 10 ML Syringe IV ×2 (17:02→17:31)
[2022-09-13] MEDS: Lactated Ringers 1,000 ML 999 ML IV ×2 (17:23→18:39)
[2022-09-13 17:24] LABS: AST(SGOT) 13 U/L (15-37); Alanine Aminotransfer ALT/SGPT 16 U/L (13-56); Albumin, Serum 1.9 g/dL (3.2-5.0); Alkaline Phosphatase 102 U/L (45-117); Bilirubin, Direct 0.43 mg/dL (0.00-0.30); GGTP 14 U/L (5-55); Globulin 4.4 g/dL (2.2-4.2); Protein, Total 6.3 g/dL (6.4-8.2)
[2022-09-13 17:29] LABS: International Normalized Ratio 1.3; Prothrombin Time (Protime)PT. 16.5 SECONDS (11.7-14.9)
[2022-09-13] MEDS: Vancomycin IV 1,000 MG/200 ML BAG 200 MG IV (17:31)
[2022-09-13] MEDS: Potassium Chloride 10mEq/100mL 10 MEQ/100 ML IV.SOLN. 100 MEQ IV BOLUS ×4 (17:34→22:12)
--- NOTE | 2022-09-13 17:39 | PCM.RX.CS ---
Consult Antibiotic Management Pharmacy has been consulted to manage selected antiobiotic: Vancomycin Type of Intervention Type of Consult: New start Suspected Infection Suspected Infection: Skin/Soft tissue Labs Labs: Sodium 138 mmol/L (136-145) 09/13/22 12:00 Potassium 2.3 mmol/L (3.5-5.1) L* 09/13/22 12:00 Chloride 103 mmol/L (98-107) 09/13/22 12:00 Carbon Dioxide 29.0 mmol/L (21.0-32.0) 09/13/22 12:00 Anion Gap 6 (5-15) 09/13/22 12:00 BUN 26 mg/dL (7-18) H 09/13/22 12:00 Creatinine 1.66 mg/dL (0.55-1.02) H 09/13/22 12:00 Est GFR (MDRD) Af Amer 44 mL/min (>60) L 09/13/22 12:00 Est GFR (MDRD) Non-Af 36 mL/min (>60) L 09/13/22 12:00 BUN/Creatinine Ratio 15.7 RATIO (10-20) 09/13/22 12:00 Glucose 116 mg/dL (74-106) H 09/13/22 12:00 Dosing Weight Weight used for dosin lb 4.691 oz Estimated Creatinine Clearance Estimated Creatinine Clearance: 39.7ML/MIN Goal Trough Goal Trough: 15-20 mcg/mL Pharmacy Plan for Drug Dosing Pharmacy Plan for Drug Dosing: Give standard initial dose of 1000mg IV x1, then continue with 500mg IV q12h per [facility] dosing protocol. Check a trough before the 4th total dose. Pharmacy Service will continue to monitor and adjust dosing as required. Follow-Up Labs Follow-Up Labs: Trough: Vancomycin Date/Time Labs Ordered Labs to be done on [date and time ordered]: 09/15/22 05:30
--- NOTE | 2022-09-13 18:14 | PCM.CONS.GEN ---
Assessment & Plan Assessment/Plan (1) Cellulitis of right lower limb: (2) Other secondary gout, right ankle and foot: (3) Ankle pain, right: PLAN: Plan Evaluation performed. Reviewed diagnostic data. Right ankle gout vs cellulitis/abscess - further evaluation is indicated. MRI right ankle was ordered. Also consent was obtained for aspiration of right ankle - details below. Patient has been started on IV antibiotics. Will follow closely. Thank you for consultation. Right ankle aspiration: After consent was obtained, the skin was cleansed with 70% Isopropyl alcohol. The right ankle was injected for a nerve block with 10mL of Lidocaine plain. The right ankle was aspirated and obtained 20mL of white chalky fluid - possible gout vs infection. This was sent to microbiology and pathology for further evaluation. Dexamethasone was not injected - we will consider a corticosteroid injection pending results of further testing. HPI Consult Data Date of Consult: 09/13/22 HPI Narrative Reason for Consultation: Right ankle pain HPI Narrative: RAHEL MCKEON, is a 42 F who presents with red, swollen, painful right ankle. She relates she did twist ankle several days ago. She was treated in ER. She presented back due to worsening pain and swelling. She relates pain is severe. She is resting in bed. WBC is elevated. Right ankle xrays have been obtained, negative for fracture. Her sister is at bedside. No fever. PFSH Medical History Bipolar disorder Cellulitis Depression Migraines Non-smoker Osteoporosis PTSD (post-traumatic stress disorder) Smoker Home Medications Ambien 7.5 mg PO .hs promote sleep 09/13/22 [History Last Taken Unknown] clonazepam 2 mg tablet 2 mg PO TID mental health 09/13/22 [History Last Taken 09/13/22 10:00] duloxetine 60 mg capsule,delayed release (Cymbalta) 60 mg PO BID mental health 09/13/22 [History Last Taken Unknown] pregabalin 150 mg capsule (Lyrica) 150 mg PO BID pain 09/13/22 [History Last Taken Unknown] Allergy/AdvReac Type Severity Reaction Status Date / Time amoxicillin Allergy Anaphylaxis Verified 09/13/22 10:46 hydrocodone [From Vicodin] Allergy Angioedema Verified 09/13/22 10:46 morphine Allergy Hives Verified 09/13/22 10:46 acetaminophen [From Tylenol] AdvReac Other Verified 09/13/22 10:47 Surgical History (Updated 09/13/22 @ 17:24 by Millicent Martinez) History of appendectomy History of cholecystectomy Surgical History no surgical history Social History household members: significant other Smoking Status: Current every day smoker tobacco type: cigarettes alcohol intake: current Physical Exam Narrative Right ankle with swelling, redness/erythema, and significant pain on palpation. There are no open lesions, no drainage, no maloder, no necrosis, no crepitus, no fluctuance to the right foot, ankle or leg. CFT < 2 seconds to all toes on the right foot with pedal pulses intact, sensation intact to the right foot/ankle. Left foot with no swelling, no open lesions, no drainage, no erythema. Const alert and oriented x3 Lab / Micro Data 09/13/22 12:00 09/13/22 12:00 Labs: Laboratory Results - last 24 hr 09/13/22 12:00: WBC 14.8 H, RBC 4.07 L, Hgb 12.5, Hct 36.6 L, MCV 89.9, MCH 30.7, MCHC 34.2, RDW Std Deviation 43.2, RDW Coeff of Sylvia 13.1, Plt Count 327, MPV 11.7, Immature Gran % (Auto) 1.300 H, Neut % (Auto) 78.8 H, Lymph % (Auto) 8.5 L, [place] % (Auto) 8.8, Eos % (Auto) 1.9, Baso % (Auto) 0.7, Absolute Neuts (auto) 11.7 H, Absolute Lymphs (auto) 1.26, Nucleated RBC % 0, ESR 95 H, Sodium 138, Potassium 2.3 L*, Chloride 103, Carbon Dioxide 29.0, Anion Gap 6, BUN 26 H, Creatinine 1.66 H, Estim Creat Clear Calc 39.73, Est GFR (MDRD) Af Amer 44 L, Est GFR (MDRD) Non-Af 36 L, BUN/Creatinine Ratio 15.7, Glucose 116 H, Calcium 8.5, Phosphorus 3.8, Magnesium 2.0, Total Bilirubin 0.80, Direct Bilirubin 0.43 H, GGT 14, AST 13 L, ALT 16, Alkaline Phosphatase 102, Total Creatine Kinase 38, C-React Prot Ext Range 330.00 H, Total Protein 6.3 L, Albumin 1.9 L, Globulin 4.4 H 09/13/22 16:57: PT 16.5 H, INR 1.3, APTT 44.0 H Radiology Impression Knee X-Ray 09/13/22 11:43 IMPRESSION: Normal x-ray examination of the knee. Electronically Signed: Josef Alcazar MD at 12:52 EDT , Ankle X-Ray 09/13/22 12:22 IMPRESSION: Lateral soft tissue swelling. Electronically Signed: Josef Alcazar MD at 12:50 EDT ,
[2022-09-13 18:29] LABS: Lactic Acid 2.2 mmol/L (0.4-1.9)
--- NOTE | 2022-09-13 18:51 | NURSING ---
Reviewed and agreed on charting with Navdeep Holloway RN
[2022-09-13 19:17] LABS: Pathologist Comment May follow
[2022-09-13 19:47] LABS: Alcohol, Blood (Medical)-Serum < 3.0 mg/dL
[2022-09-13 19:58] LABS: Uric Acid 4.4 mg/dL (2.6-6.0)
[2022-09-13 20:01] LABS: AUTO B FLUID DILUENT BKGD CT WBC <0.1 RBC <0.01 (W<.1,R<.01); Color / Synovial Fluid Yellow (Pale Yellow); Source- Body Fluid SYNOVIAL
[2022-09-13 20:02] LABS: Appearance /Synovial Fluid Turbid (CLEAR)
[2022-09-13 20:03] LABS: RBC /Synovial Fluid 0.056 10^6/uL (0)
[2022-09-13 20:05] LABS: Synovial Fld Mononuclear WBC % 13.4 %; Synovial Fld Polynuclear WBC % 86.6 %
[2022-09-13 20:33] LABS: M R Staph aureus DNA By PCR POSITIVE (Negative); Probe Check PASS
[2022-09-13 21:07] LABS: CRYSTALS, BODY FLUID See PATH REV; Neutrophil 90 % (0-25)
[2022-09-13 21:08] LABS: Body Fluid QC Type(s) BF1Q,BF2Q
[2022-09-13 21:12] LABS: Reflex Lactate? Y
[2022-09-13 21:25] LABS: M R Staph aureus DNA By PCR POSITIVE (Negative); Probe Check PASS; Staph aureus DNA By PCR POSITIVE (Negative)
[2022-09-13 21:41] LABS: Lactic Acid 1.3 mmol/L (0.4-1.9)
[2022-09-13 21:46] LABS: Lymph 0 %
[2022-09-13 21:47] LABS: Monocyte /Synovial Fluid 10 %
[2022-09-13] MEDS: clonazePAM 1 MG Tablet PO (22:15)
[2022-09-13] MEDS: Pregabalin 75 MG Capsule 150 MG PO (22:15)
[2022-09-13] MEDS: Zolpidem Tartrate 5 MG Tablet PO (22:52)
[2022-09-13 23:12] LABS: Red Blood Cells-Urine 0 SEEN /hpf (0-5)
[2022-09-13 23:13] LABS: Color, Urine Yellow (Yellow); Glucose, Dipstick Normal (Normal); Ketone-Dipstick Negative (Negative); Leukocyte Esterase-Dipstick 100 /ul (Negative); Nitrite-Dipstick Negative (Negative); Occult Blood-Urine Negative /ul (Negative); Protein-Dipstick 15 mg/dl (Negative); Specific Gravity, Urine 1.015 (1.002-1.030); Urine Bilirubin Dipstick Negative (Negative); Urine Clarity Clear (Clear); Urine Urobilinogen Normal (Normal)
[2022-09-13 23:19] LABS: Bacteria 1+ /hpf (None Seen); Mucous, Urine 1+ /hpf (<or=2+); Squamous Epithelial Cells - UA 0-5 SEEN /hpf (5-10); White Blood Cells 10-25 SEEN /hpf (0-5)
[2022-09-14] VITALS (18 sets, daily range): BP systolic 127–146; BP diastolic 70–96; PULSE 115–145; RESP 16–20; TEMP 36.6–39.2; O2SAT 95–99; BMI 21.7
[2022-09-14] MEDS: LORazepam 2 MG/ML Syringe 1 MG IV (00:50)
[2022-09-14] MEDS: 0.9% Saline Lock 10 ML Syringe IV ×8 (00:51→22:19)
[2022-09-14] MEDS: HYDROmorphone 0.5 MG/0.5 ML SYRINGE IV ×4 (02:38→23:41)
[2022-09-14] MEDS: Mag Hydrox/Al Hydrox/Simeth 30 ML UDC PO (03:12)
[2022-09-14] MEDS: Vancomycin IV 500 MG/100 ML BAG 100 MG IV (06:09)
[2022-09-14] MEDS: clonazePAM 1 MG Tablet PO ×2 (06:09→22:55)
[2022-09-14 06:21] LABS: Absolute Lymphocyte Count 1.45 X10^3/uL (0.83-4.51); Absolute Neutrophil Count 14.3 X10^3/uL (2.0-7.7); Basophil# 0.11 X10^3/uL; Basophil% 0.6 % (0-1); Eosinophil# 0.12 X10^3/uL; Eosinophils% 0.7 % (0-5); Hematocrit 38.8 % (37-47); Hemoglobin 13.5 g/dL (12.0-15.0); Lymphocyte # 1.45 X10^3/ul (0.83-4.51); Lymphocyte % 8.1 % (19-41); Mean Corp Hgb Conc 34.8 g/dL (32-36); Mean Corpuscular Hgb 31.1 pg (27.0-32.0); Mean Corpuscular Volume 89.4 fL (81-99); Mean Platelet Vol. 11.5 fl (6.2-12.0); Monocyte# 1.59 X10^3/uL; Monocyte% 8.9 % (0-10); NRBC Flagged by Analyzer 0 % (0-5); Neutrophil # 14.31 X10^3/uL (2.7-7.7); Neutrophil % 80.2 % (47-70); POSITIVE DIFFERENTIAL YES; Platelet Count 428 K/mm3 (150-450); RBC Distribution Width CV 13.2 % (11.6-14.6); RBC Distribution Width SD 43.5 fl (35.1-43.9); Red Blood Count 4.34 M/mm3 (4.2-5.4); White Blood Count 17.8 K/mm3 (4.4-11.0)
[2022-09-14 06:30] LABS: Differential Indicated SCAN CRITERIA MET
[2022-09-14 06:47] LABS: Differential Comment SCANNED
[2022-09-14 06:59] LABS: Anion Gap 6 (5-15); BUN 11 mg/dL (7-18); BUN/Creat Ratio 16.9 RATIO (10-20); Calcium,Total 8.6 mg/dL (8.5-10.1); Chloride 104 mmol/L (98-107); Creatinine, Serum 0.65 mg/dL (0.55-1.02); EST Glomerular Filtration Rate 106 mL/min (>60); Est Glom Filt Rate - Afr Amer 128 mL/min (>60); Estimated Creatinine Clearance 101.46 ml/min; Glucose 124 mg/dL (74-106); Magnesium 1.8 mg/dL (1.6-2.6); Potassium 3.3 mmol/L (3.5-5.1); Sodium Level 138 mmol/L (136-145)
--- NOTE | 2022-09-14 07:05 | PN_ITS ---
Subjective Subjective Patient was seen this morning for follow up on right ankle. She relates the ankle is painful. She is resting in bed. Her sister is at bedside. Patient's temp is 99.4F. WBC is 17. MRSA PCR from right ankle aspirate is positive. Objective Data Objective Data Vital Signs: Vital Signs Temp Pulse Resp BP Pulse Ox O2 Del Method 99.4 F H 120 H 19 H 146/81 H 96 Room Air 09/14/22 06:05 09/14/22 06:05 09/14/22 06:05 09/14/22 06:05 09/14/22 06:05 09/14/22 06:05 Oxygen Delivery Method Room Air Weight: 59.109 kg Body Mass Index (BMI) 21.7 Intake & Output: Intake and Output for Last 24 Hours 09/12/22 09/13/22 09/14/22 23:59 23:59 23:59 Intake Total 4950 / 4950 Output Total 150 / 150 200 / 200 Balance 4800 / 4800 -200 / -200 Lab / Micro Data 09/14/22 06:10 09/14/22 06:10 Labs: Laboratory Results - last 24 hr 09/13/22 12:00: WBC 14.8 H, RBC 4.07 L, Hgb 12.5, Hct 36.6 L, MCV 89.9, MCH 30.7, MCHC 34.2, RDW Std Deviation 43.2, RDW Coeff of Sylvia 13.1, Plt Count 327, MPV 11.7, Immature Gran % (Auto) 1.300 H, Neut % (Auto) 78.8 H, Lymph % (Auto) 8.5 L, [place] % (Auto) 8.8, Eos % (Auto) 1.9, Baso % (Auto) 0.7, Absolute Neuts (auto) 11.7 H, Absolute Lymphs (auto) 1.26, Nucleated RBC % 0, ESR 95 H, Sodium 138, Potassium 2.3 L*, Chloride 103, Carbon Dioxide 29.0, Anion Gap 6, BUN 26 H, Creatinine 1.66 H, Estim Creat Clear Calc 39.73, Est GFR (MDRD) Af Amer 44 L, Est GFR (MDRD) Non-Af 36 L, BUN/Creatinine Ratio 15.7, Glucose 116 H, Calcium 8.5, Phosphorus 3.8, Magnesium 2.0, Total Bilirubin 0.80, Direct Bilirubin 0.43 H, GGT 14, AST 13 L, ALT 16, Alkaline Phosphatase 102, Total Creatine Kinase 38, C-React Prot Ext Range 330.00 H, Total Protein 6.3 L, Albumin 1.9 L, Globulin 4.4 H 09/13/22 16:57: PT 16.5 H, INR 1.3, APTT 44.0 H, Lactic Acid 2.2 H* 09/13/22 17:30: MRSA (PCR) POSITIVE H 09/13/22 18:29: Ethyl Alcohol < 3.0 09/13/22 18:45: Fluid Crystals See PATH REV, Fluid Crystal Source SYNOVIAL, Fl Crystal Path Review Will follow, Synovial Source RGT ANKLE, Synovial Color Yellow, Synovial Appearance Turbid, Synovial WBC 298.5500 H, Synovial RBC 0.056 H, Synovial Tot Cell Ct 300.1000 H, Synov Polynuclear WBCs 248.173, Synov Mononuclear WBCs 38.514, Synovial Neutrophils 90 H, Synovial Lymphocytes 0, Synovial Monocytes 10, Synovial Polynuclear % 86.6, Synovial Mononuclear % 13.4, Synovial Path Comment May follow, S.aureus Protein A PCR POSITIVE H, MRSA (PCR) POSITIVE H 09/13/22 20:45: Lactic Acid 1.3 09/13/22 23:00: Urine Color Yellow, Urine Clarity Clear, Urine pH 6.0, Ur Specific [place] 1.015, Urine Protein 15 H, Urine Glucose (UA) Normal, Urine Ketones Negative, Urine Occult Blood Negative, Urine Nitrite Negative, Urine Bilirubin Negative, Urine Urobilinogen Normal, Ur Leukocyte Esterase 100 H, Urine RBC 0 SEEN, Urine WBC 10-25 SEEN, Ur Squamous Epith Cells 0-5 SEEN, Urine Bacteria 1+, Urine Mucus 1+ 09/13/22 : Uric Acid 4.4 09/14/22 06:10: WBC 17.8 H, RBC 4.34, Hgb 13.5, Hct 38.8, MCV 89.4, MCH 31.1, MCHC 34.8, RDW Std Deviation 43.5, RDW Coeff of Sylvia 13.2, Plt Count 428, MPV 11.5, Immature Gran % (Auto) 1.500 H, Neut % (Auto) 80.2 H, Lymph % (Auto) 8.1 L , [place] % (Auto) 8.9, Eos % (Auto) 0.7, Baso % (Auto) 0.6, Absolute Neuts (auto) 14.3 H, Absolute Lymphs (auto) 1.45, Nucleated RBC % 0, Differential Comment SCANNED, Diff Path Review May foll, Sodium 138, Potassium 3.3 L, Chloride 104, Carbon Dioxide 28.0, Anion Gap 6, BUN 11, Creatinine 0.65, Estim Creat Clear Calc 101.46, Est GFR (MDRD) Af Amer 128, Est GFR (MDRD) Non-Af 106, BUN/Creatinine Ratio 16.9, Glucose 124 H, Calcium 8.6, Phosphorus 3.0, Magnesium 1.8 Radiography Diagnostic Testing: Radiology Impression Knee X-Ray 09/13/22 11:43 IMPRESSION: Normal x-ray examination of the knee. Electronically Signed: Josef Alcazar MD at 12:52 EDT , Ankle X-Ray 09/13/22 12:22 IMPRESSION: Lateral soft tissue swelling. Electronically Signed: Josef Alcazar MD at 12:50 EDT , Physical Exam Narrative Right ankle with swelling, redness/erythema, and significant pain on palpation. There are no open lesions, no drainage, no maloder, no necrosis, no crepitus, no fluctuance to the right foot, ankle or leg. CFT < 2 seconds to all toes on the right foot with pedal pulses intact, sensation intact to the right foot/ankle. Left foot with no swelling, no open lesions, no drainage, no erythema. Const alert and oriented x3 Assessment & Plan Assessment/Plan (1) Ankle pain, right: (2) Cellulitis of right lower limb: (3) Other secondary gout, right ankle and foot: PLAN: Plan Evaluation performed. Reviewed diagnostic data. MRI has yet to be completed. Crystal analysis still pending. Gram stain still pending. But MRSA PCR positive from right ankle. Patient is on IV antibiotics - Vanc & Levofloxacin. Discussed I+D right ankle which we will plan to proceed with today. NPO order placed.
--- NOTE | 2022-09-14 08:02 | PCM.RX.CS ---
Consult Antibiotic Management Pharmacy has been consulted to manage selected antiobiotic: Vancomycin Type of Intervention Type of Consult: Follow-up Suspected Infection Suspected Infection: Skin/Soft tissue Prior Doses of Antibiotics Prior Doses of Antibiotics Received/Current Regimen: Vancomycin 1000 mg IV X 1 dose 09/13/22 @ 1731 Vancomycin 500 mg IV x 1 dose 09/14/22 @ 0609 Labs Labs: Sodium 138 mmol/L (136-145) 09/14/22 06:10 Potassium 3.3 mmol/L (3.5-5.1) L 09/14/22 06:10 Chloride 104 mmol/L (98-107) 09/14/22 06:10 Carbon Dioxide 28.0 mmol/L (21.0-32.0) 09/14/22 06:10 Anion Gap 6 (5-15) 09/14/22 06:10 BUN 11 mg/dL (7-18) 09/14/22 06:10 Creatinine 0.65 mg/dL (0.55-1.02) 09/14/22 06:10 Est GFR (MDRD) Af Amer 128 mL/min (>60) 09/14/22 06:10 Est GFR (MDRD) Non-Af 106 mL/min (>60) 09/14/22 06:10 BUN/Creatinine Ratio 16.9 RATIO (10-20) 09/14/22 06:10 Glucose 124 mg/dL (74-106) H 09/14/22 06:10 Dosing Weight Weight used for dosin.1 kg Estimated Creatinine Clearance Estimated Creatinine Clearance: 101 mL/min Goal Trough Goal Trough: 15-20 mcg/mL Pharmacy Plan for Drug Dosing Pharmacy Plan for Drug Dosing: Due to the significant increase in renal function will change dose from 500 mg Q12H to 750 mg Q8H starting at 1400 today. Trough prior to 5th total dose, prior to 3rd total dose of new regimen. Pharmacy Service will continue to monitor and adjust dosing as required. Follow-Up Labs Follow-Up Labs: Trough: Vancomycin Date/Time Labs Ordered Labs to be done on [date and time ordered]: 09/15/22 @ 4474
[2022-09-14] MEDS: Potassium Chloride Oral Tablet 20 MEQ 40 MEQ PO (09:23)
[2022-09-14] MEDS: levoFLOXacin IV 750 MG/150 ML BAG 100 MG IV (09:39)
--- NOTE | 2022-09-14 10:45 | CASEMGMT ---
NAHOMY CORNEJO Face to Face with patient for initial transition planning/care coordination assessment. RN CM introduced self and role at [facility]. Patient lying in bed, alert and oriented, significant other at bedside. Patient willing to participate in assessment and is able to answer all questions appropriately. Care providers, pharmacy, and demographics verified. Patient wishes to discharge home, will monitor for HHC vs SNF vs [facility] pending course of treatment. Patient states she has no further needs or concerns at this time. CM to follow for discharge planning needs that may arise. PCP: Susu Marquez Specialists: Psychiatrist at [facility] Preferred Pharmacy: [facility] Insurance: [employer] Prescription Benefit: yes Living Will/HPOA: yes, significant other Blanca Riggins LNOK: significant other, father Living Arrangements: Patient lives with significant other in a basement with 6-12 steps and railing to enter. Patient was independent at home but significant other has been helping patient with ADLs. Patient concerned with living conditions and to speak with [facility] CM, SW updated. Transportation: public or walk, NAHOMY CORNEJO updated patient regarding help with transport to appointments with insurance. DME/HHC: Patient has crutches at home. No previous HHC or SNF. Patient vapes daily, drinks 2-4 drink on weekends, and occasional marijuana use. Disposition Plan: TBD, will monitor course of treatment and progress with therapy for needs at discharge. Susu KO, RN, CM
[2022-09-14] MEDS: Bupivacaine 0.5% PF 10 ML VIAL ×2 (13:00→13:12)
[2022-09-14 13:04] LABS: Pathologist Review Reviewed
[2022-09-14 13:10] LABS: Pathologist Review Reviewed
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
[2022-09-14 16:22] LABS: Amphetamine Urine VISTA NEGATIVE (<1000 ng/mL); Barbiturate Urine VISTA NEGATIVE (< 200 ng/mL); Benzodiazepine Urine VISTA NEGATIVE (< 200 ng/mL); Cocaine Urine VISTA NEGATIVE (< 300 ng/mL); Ecstacy Urine VISTA NEGATIVE (< 500 ng/mL); Methadone Urine VISTA NEGATIVE (< 300 ng/mL); PCP Urine VISTA NEGATIVE (< 25 ng/mL); THC Urine VISTA POSITIVE (< 50 ng/mL); Vista UDS pH Range 5
--- NOTE | 2022-09-14 18:34 | PN.HOSP_ITS ---
Reason for Visit Reason for Visit: Diagnoses Cellulitis of right lower limb (09/13/22) Other secondary gout, right ankle and foot (09/13/22) Pain in right ankle and joints of right foot (09/13/22) Subjective Subjective Patient was seen and examined today, she underwent drainage of a right ankle abscess today, her blood cultures resulted positive for gram-positive cocci, patient's preliminary wound culture was positive for Staph aureus. Sensit ivities are to follow. Objective Data Objective Data Vital Signs: Vital Signs Temp Pulse Resp BP Pulse Ox O2 Del Method O2 Flow Rate 98.8 F 123 H 18 134/82 H 97 Room Air 1 09/14/22 17:02 09/14/22 17:02 09/14/22 17:02 09/14/22 17:02 09/14/22 17:02 09/14/22 17:02 09/14/22 15:03 Oxygen Flow Rate (L/min) 1 Oxygen Delivery Method Room Air Weight: 59.109 kg Body Mass Index (BMI) 21.7 Intake & Output: Intake and Output for Last 24 Hours 09/12/22 09/13/22 09/14/22 23:59 23:59 23:59 Intake Total 4950 / 4950 515 / 515 Output Total 150 / 150 200 / 200 Balance 4800 / 4800 315 / 315 Lab / Micro Data 09/14/22 06:10 09/14/22 06:10 Labs: Laboratory Results - last 24 hr 09/13/22 17:30: MRSA (PCR) POSITIVE H 09/13/22 18:29: Ethyl Alcohol < 3.0 09/13/22 18:45: Fluid Crystals See PATH REV, Fluid Crystal Source SYNOVIAL, Fl Crystal Path Review Reviewed, Synovial Source RGT ANKLE, Synovial Color Yellow, Synovial Appearance Turbid, Synovial WBC 298.5500 H, Synovial RBC 0.056 H, Synovial Tot Cell Ct 300.1000 H, Synov Polynuclear WBCs 248.173, Synov Mononuc lear WBCs 38.514, Synovial Neutrophils 90 H, Synovial Lymphocytes 0, Synovial Monocytes 10, Synovial Polynuclear % 86.6, Synovial Mononuclear % 13.4, Synovial Path Comment May follow, S.aureus Protein A PCR POSITIVE H, MRSA (PCR) POSITIVE H 09/13/22 20:45: Lactic Acid 1.3 09/13/22 23:00: Urine Color Yellow, Urine Clarity Clear, Urine pH 6.0, Ur Specific [place] 1.015, Urine Protein 15 H, Urine Glucose (UA) Normal, Urine Ketones Negative, Urine Occult Blood Negative, Urine Nitrite Negative, Urine Bilirubin Negative, Urine Urobilinogen Normal, Ur Leukocyte Esterase 100 H, Urine RBC 0 SEEN, Urine WBC 10-25 SEEN, Ur Squamous Epith Cells 0-5 SEEN, Urine Bacteria 1+, Urine Mucus 1+, Urine Opiates Screen POSITIVE H, Urine Methadone Screen NEGATIVE, Ur Barbiturates Screen NEGATIVE, Ur Phencyclidine Scrn NEGATIVE, Ur Amphetamines Screen NEGATIVE, MDMA (Ecstasy) Screen NEGATIVE, U Benzodiazepines Scrn NEGATIVE, Urine Cocaine Screen NEGATIVE, U Cannabinoids Screen POSITIVE H, Ur Drug Screen Comment 09/13/22 : Uric Acid 4.4 09/14/22 06:10: WBC 17.8 H, RBC 4.34, Hgb 13.5, Hct 38.8, MCV 89.4, MCH 31.1, MCHC 34.8, RDW Std Deviation 43.5, RDW Coeff of Sylvia 13.2, Plt Count 428, MPV 11.5, Immature Gran % (Auto) 1.500 H, Neut % (Auto) 80.2 H, Lymph % (Auto) 8.1 L , [place] % (Auto) 8.9, Eos % (Auto) 0.7, Baso % (Auto) 0.6, Absolute Neuts (auto) 14.3 H, Absolute Lymphs (auto) 1.45, Nucleated RBC % 0, Differential Comment SCANNED, Diff Path Review Reviewed, Sodium 138, Potassium 3.3 L, Chloride 104, Carbon Dioxide 28.0, Anion Gap 6, BUN 11, Creatinine 0.65, Estim Creat Clear Calc 101.46, Est GFR (MDRD) Af Amer 128, Est GFR (MDRD) Non-Af 106, BUN/Creatinine Ratio 16.9, Glucose 124 H, Calcium 8.6, Phosphorus 3.0, Magnesium 1.8 Micro: Microbiology 09/13/22 16:57 Blood Culture (Wb) - Other Blood Culture - Preliminary 09/13/22 18:45 Aspirate - Ankle Gram Stain - Final 09/13/22 18:45 Aspirate - Ankle Wound Culture - Preliminary Staphylococcus aureus Radiography Diagnostic Testing: Radiology Impression Venous Doppler Study 09/13/22 16:32 Interpretation Summary No evidence for acute deep venous thrombosis bilateral lower extremities with patent and compressible bilateral great saphenous veins. Ordering Physician: Geo Davila Referring Physician: N/A Performed By: Donald Artis RVT Physical Exam Const alert and oriented x3 Constitutional Narrative: Patient appears much older than her stated age General Appearance: cooperative and well developed Orientation / Consciousness: awake, oriented to person, oriented to place and oriented to time HEENT normocephalic, head/scalp atraumatic and moist oral mucous membranes Eyes PERRL, EOMs intact bilaterally and conjunctivae normal Neck supple, no JVD, thyroid normal and no carotid bruits General: trachea midline Resp normal respiratory effort, no retractions, no use of accessory muscles and clear to auscultation bilaterally Auscultation: Negative for rales, rhonchi or wheezes Cardio regular rate, regular rhythm, S1 normal heart sound, S2 normal heart sound, no murmurs, no rub and no gallops GI normal to inspection, nondistended, normoactive bowel sounds, soft to palpation, non-tender and non-distended Extremity Extremity Narrative: Swelling and tenderness of the right ankle area is noted on palpation Skin no rashes or lesions noted General Skin Exam: no breakdown Neuro oriented x3, CN's II-XII intact bilaterally, moves all extremities, no focal motor deficits and no sensory deficits noted Sensorium / Orientation: awake, alert, oriented to person and oriented to place Speech: speech normal Psych Psych Narrative: Patient appears anxious Assessment & Plan Assessment/Plan (1) Cellulitis: QUALIFIERS: Site of cellulitis: extremity Site of cellulitis of extremity: lower extremity Laterality: right Qualified Code(s): L03.115 - Cellulitis of right lower limb PLAN: Plan 1. Right ankle cellulitis/abscess-again patient underwent incision and drainage today by podiatry, I have elected to stop her Levaquin and place her on meropenem along with her vancomycin, I had nursing talk to her about what kind of reaction she had to amoxicillin, she could not recall any but she stated that she was unable to take amoxicillin, I also checked with pharmacy and they have no documentation that they were able to find that she has an anaphylactic reaction to amoxicillin. I will start the meropenem tonight and nursing will watch for any untoward reactions. #2 bacteremia with gram-positive cocci-this is likely staph, patient will remain on her present antibiotic coverage #3 bipolar disorder-complicates care, medical course, recovery, and prognosis, p misty is currently not on any medication for bipolar disorder Total clinical time spent by myself addressing the patient's medical issues, reviewing all of her data, and collaborating with patient's care team: 35 minutes Charges/Coding Visit Charges Inpatient E&M: 28484 Subs Hosp L2
--- NOTE | 2022-09-14 19:32 | NURSING ---
Reviewed charting with Navdeep Holloway RN
[2022-09-14] MEDS: Pregabalin 75 MG Capsule 150 MG PO (22:55)
[2022-09-14] MEDS: Zolpidem Tartrate 5 MG Tablet PO (22:55)
[2022-09-14] MEDS: DULoxetine Hcl 60 MG Capsule PO (22:55)
[2022-09-15] VITALS (11 sets, daily range): BP systolic 109–144; BP diastolic 73–114; PULSE 120–145; RESP 14–18; TEMP 37.1–39.6; O2SAT 92–96
[2022-09-15] MEDS: HYDROmorphone 0.5 MG/0.5 ML SYRINGE IV ×5 (03:49→21:38)
[2022-09-15] MEDS: 0.9% Saline Lock 10 ML Syringe IV ×3 (03:50→11:48)
[2022-09-15 05:07] LABS: Vancomycin, Trough Level 10.2 ug/mL (5.0-15.0)
[2022-09-15] MEDS: clonazePAM 1 MG Tablet PO ×2 (05:33→21:38)
--- NOTE | 2022-09-15 05:48 | PCM.RX.CS ---
Consult Antibiotic Management Pharmacy has been consulted to manage selected antiobiotic: Vancomycin Type of Intervention Type of Consult: Follow-up Suspected Infection Suspected Infection: Skin/Soft tissue Labs Labs: Sodium 138 mmol/L (136-145) 09/14/22 06:10 Potassium 3.3 mmol/L (3.5-5.1) L 09/14/22 06:10 Chloride 104 mmol/L (98-107) 09/14/22 06:10 Carbon Dioxide 28.0 mmol/L (21.0-32.0) 09/14/22 06:10 Anion Gap 6 (5-15) 09/14/22 06:10 BUN 11 mg/dL (7-18) 09/14/22 06:10 Creatinine 0.65 mg/dL (0.55-1.02) 09/14/22 06:10 Est GFR (MDRD) Af Amer 128 mL/min (>60) 09/14/22 06:10 Est GFR (MDRD) Non-Af 106 mL/min (>60) 09/14/22 06:10 BUN/Creatinine Ratio 16.9 RATIO (10-20) 09/14/22 06:10 Glucose 124 mg/dL (74-106) H 09/14/22 06:10 Vancomycin Trough 10.2 ug/mL (5.0-15.0) 09/15/22 04:36 Microbiology Microbiology: Microbiology 09/13/22 16:57 Blood Culture (Wb) - Other Bacteria Detection (PCR) - Preliminary Staphylococcus aureus mecA Resistance Marker 09/13/22 16:57 Blood Culture (Wb) - Other Blood Culture - Preliminary 09/13/22 18:45 Aspirate - Ankle Gram Stain - Final 09/13/22 18:45 Aspirate - Ankle Wound Culture - Preliminary Staphylococcus aureus Dosing Weight Weight used for dosin.1 kg Estimated Creatinine Clearance Estimated Creatinine Clearance: 101 Goal Trough Goal Trough: 15-20 mcg/mL Pharmacy Plan for Drug Dosing Pharmacy Plan for Drug Dosing: Vancomycin trough level of 10.2 was below the target range of 15-20. Will increase dose to 1250mg q8h, and re-draw a trough prior to 4th dose of the new regimen. Pharmacy Service will continue to monitor and adjust dosing as required. Follow-Up Labs Follow-Up Labs: Trough: Vancomycin Date/Time Labs Ordered Labs to be done on [date and time ordered]: 09/16/22 @1300
--- NOTE | 2022-09-15 05:50 | PCM.RX.CS ---
Consult Antibiotic Management Pharmacy has been consulted to manage selected antiobiotic: Vancomycin Type of Intervention Type of Consult: Follow-up Suspected Infection Suspected Infection: Skin/Soft tissue Labs Labs: Sodium 138 mmol/L (136-145) 09/14/22 06:10 Potassium 3.3 mmol/L (3.5-5.1) L 09/14/22 06:10 Chloride 104 mmol/L (98-107) 09/14/22 06:10 Carbon Dioxide 28.0 mmol/L (21.0-32.0) 09/14/22 06:10 Anion Gap 6 (5-15) 09/14/22 06:10 BUN 11 mg/dL (7-18) 09/14/22 06:10 Creatinine 0.65 mg/dL (0.55-1.02) 09/14/22 06:10 Est GFR (MDRD) Af Amer 128 mL/min (>60) 09/14/22 06:10 Est GFR (MDRD) Non-Af 106 mL/min (>60) 09/14/22 06:10 BUN/Creatinine Ratio 16.9 RATIO (10-20) 09/14/22 06:10 Glucose 124 mg/dL (74-106) H 09/14/22 06:10 Vancomycin Trough 10.2 ug/mL (5.0-15.0) 09/15/22 04:36 Microbiology Microbiology: Microbiology 09/13/22 16:57 Blood Culture (Wb) - Other Bacteria Detection (PCR) - Preliminary Staphylococcus aureus mecA Resistance Marker 09/13/22 16:57 Blood Culture (Wb) - Other Blood Culture - Preliminary 09/13/22 18:45 Aspirate - Ankle Gram Stain - Final 09/13/22 18:45 Aspirate - Ankle Wound Culture - Preliminary Staphylococcus aureus Dosing Weight Weight used for dosin.1 kg Estimated Creatinine Clearance Estimated Creatinine Clearance: 108 Goal Trough Goal Trough: 15-20 mcg/mL Pharmacy Plan for Drug Dosing Pharmacy Plan for Drug Dosing: Vancomycin random level which was drawn 16 hours post-dose was down to 8.7 from the high level of 22.4 earlier in the day. Per dosing calculator, a new dose of 1000mg, keeping the q8h schedule, should give an estimated trough of 16.9. Another level will be drawn prior to the fourth dose of the new regimen. Pharmacy Service will continue to monitor and adjust dosing as required. Follow-Up Labs Follow-Up Labs: Trough: Vancomycin Date/Time Labs Ordered Labs to be done on [date and time ordered]: 09/19/22 @2200
--- NOTE | 2022-09-15 06:57 | PN_ITS ---
Subjective Subjective Patient was seen this morning for follow up on right ankle. She is resting in bed. Temp is 99F. She relates ankle is painful. Objective Data Objective Data Vital Signs: Vital Signs Temp Pulse Resp BP Pulse Ox O2 Del Method O2 Flow Rate 100.2 F H 127 H 18 141/86 H 96 Nasal Cannula 2 09/15/22 05:28 09/15/22 05:28 09/15/22 05:28 09/15/22 05:28 09/15/22 05:28 09/15/22 05:28 09/15/22 05:28 Oxygen Flow Rate (L/min) 2 Oxygen Delivery Method Nasal Cannula Weight: 59.109 kg Body Mass Index (BMI) 21.7 Intake & Output: Intake and Output for Last 24 Hours 09/13/22 09/14/22 09/15/22 23:59 23:59 23:59 Intake Total 4950 / 4950 1180 / 1180 120 / 120 Output Total 150 / 150 200 / 200 Balance 4800 / 4800 980 / 980 120 / 120 Lab / Micro Data 09/14/22 06:10 09/14/22 06:10 Labs: Laboratory Results - last 24 hr 09/13/22 16:57: Lactic Acid 2.2 H* 09/13/22 18:45: Fl Crystal Path Review Reviewed, S.aureus Protein A PCR POSITIVE H, MRSA (PCR) POSITIVE H 09/13/22 23:00: Urine Opiates Screen POSITIVE H, Urine Methadone Screen NEGATIVE, Ur Barbiturates Screen NEGATIVE, Ur Phencyclidine Scrn NEGATIVE, Ur Amphetamines Screen NEGATIVE, MDMA (Ecstasy) Screen NEGATIVE, U Benzodiazepines Scrn NEGATIVE, Urine Cocaine Screen NEGATIVE, U Cannabinoids Screen POSITIVE H, Ur Drug Screen Comment 09/14/22 06:10: Diff Path Review Reviewed, Sodium 138, Potassium 3.3 L, Chloride 104, Carbon Dioxide 28.0, Anion Gap 6, BUN 11, Creatinine 0.65, Estim Creat Clear Calc 101.46, Est GFR (MDRD) Af Amer 128, Est GFR (MDRD) Non-Af 106, BUN/Creatinine Ratio 16.9, Glucose 124 H, Calcium 8.6, Phosphorus 3.0, Magnesium 1.8 09/15/22 04:36: Vancomycin Trough 10.2 Micro: Microbiology 09/13/22 16:57 Blood Culture (Wb) - Other Bacteria Detection (PCR) - Preliminary Staphylococcus aureus mecA Resistance Marker 09/13/22 16:57 Blood Culture (Wb) - Other Blood Culture - Preliminary 09/13/22 18:45 Aspirate - Ankle Gram Stain - Final 09/13/22 18:45 Aspirate - Ankle Wound Culture - Preliminary Staphylococcus aureus Radiography Diagnostic Testing: Radiology Impression Venous Doppler Study 09/13/22 16:32 Interpretation Summary No evidence for acute deep venous thrombosis bilateral lower extremities with patent and compressible bilateral great saphenous veins. Ordering Physician: Geo Davila Referring Physician: N/A Performed By: Donald Artis, [place] Physical Exam Narrative s/p right ankle I+D with incision medial and lateral ankle, there is noted to be swelling and redness/erythema but appears improved, she continues to relate to significant pain to site. Tissues right ankle do appear health and viable, no purulence, no maloder, no necrosis, no crepitus, no fluctuance to the right foot, ankle or leg. CFT < 2 seconds to all toes on the right foot with pedal pulses intact, sensation intact to the right foot/ankle. Left foot with no sw elling, no open lesions, no drainage, no erythema. Const alert and oriented x3 Assessment & Plan Assessment/Plan (1) Ankle pain, right: (2) Cellulitis of right lower limb: (3) Other secondary gout, right ankle and foot: PLAN: Plan Evaluation performed. s/p right ankle I+D on 09/14/22. Reviewed diagnostic data. Crystal analysis - no monosodium crystals noted per pathology report - culture growing MRSA. Patient is on IV antibiotics - Vanc & Meropenem. Wound care right ankle - dakin's gauze wet to dry daily dressing changes. Wound likely benefit from wound vac in the future. Keep right foot elevated. No weightbearing right foot. Podiatry will continue to follow.
[2022-09-15] MEDS: DAKIN'S SOL HALF STRENGTH (=0.25%) 1 APPLIC TOPICAL (07:54)
[2022-09-15 08:18] LABS: Absolute Lymphocyte Count 2.29 X10^3/uL (0.83-4.51); Absolute Neutrophil Count 9.9 X10^3/uL (2.0-7.7); Basophil# 0.06 X10^3/uL; Basophil% 0.4 % (0-1); Eosinophil# 0.12 X10^3/uL; Eosinophils% 0.8 % (0-5); Hematocrit 36.2 % (37-47); Hemoglobin 12.1 g/dL (12.0-15.0); Lymphocyte # 2.29 X10^3/ul (0.83-4.51); Lymphocyte % 16.1 % (19-41); Mean Corp Hgb Conc 33.4 g/dL (32-36); Mean Corpuscular Hgb 30.6 pg (27.0-32.0); Mean Corpuscular Volume 91.4 fL (81-99); Mean Platelet Vol. 11.4 fl (6.2-12.0); Monocyte# 1.62 X10^3/uL; Monocyte% 11.4 % (0-10); NRBC Flagged by Analyzer 0 % (0-5); Neutrophil # 9.88 X10^3/uL (2.7-7.7); Neutrophil % 69.4 % (47-70); POSITIVE DIFFERENTIAL YES; Platelet Count 438 K/mm3 (150-450); RBC Distribution Width CV 14.1 % (11.6-14.6); RBC Distribution Width SD 47.7 fl (35.1-43.9); Red Blood Count 3.96 M/mm3 (4.2-5.4); White Blood Count 14.2 K/mm3 (4.4-11.0)
[2022-09-15 08:20] LABS: Differential Indicated SCAN CRITERIA MET
--- NOTE | 2022-09-15 08:47 | WOUNDNOTE ---
wound photo: right medial ankle
--- NOTE | 2022-09-15 08:48 | WOUNDNOTE ---
wound photo: right lateral ankle
[2022-09-15] MEDS: DULoxetine Hcl 60 MG Capsule PO ×2 (11:48→22:25)
[2022-09-15] MEDS: Pregabalin 75 MG Capsule 150 MG PO ×2 (11:48→21:38)
--- NOTE | 2022-09-15 14:41 | ECHOD_ITS ---
Reason For Study: MURMUR Procedure This was a 2D Doppler, Color Flow transthoracic echocardiogram. Exam performed portable in patient room. Left Ventricle Normal LV size. The estimated ejection fraction is 70 %. No evidence for diastolic dysfunction. No regional wall motion abnormalities noted. Right Ventricle Normal RV size. Normal systolic function. Atria Normal left atrium. Normal right atrium. No doppler evidence for ASD. Mitral Valve There is no mitral valve stenosis. No mitral valve insufficiency. Tricuspid Valve There is no tricuspid stenosis. Mild tricuspid valve insufficiency. Pulmonary artery systolic pressure is 60 mmHg. Aortic Valve Trisinus/trileaflet aortic valve. There is no aortic stenosis. No aortic valve insufficiency. Pulmonic Valve There is no pulmonic valvular stenosis. No pulmonic valve insufficiency. Great Vessels Normal aortic root. Pericardium/Pleural No pericardial effusion. MMode/2D Measurements & Calculations LVIDd: 4.0 cm IVSd: 0.88 cm Ao root diam: 2.5 cm LVIDs: 2.8 cm LVPWd: 0.88 cm FS: 30.6 % LAV(MOD-bp): 36.0 ml LA A4 area: 13.8 cm2 LA dimension(2D): 3.2 cm LAV(MOD-bp) Indexed: 21.7 ml/m2 LAV(MOD-sp2): 32.8 ml LAV(MOD-sp4): 37.2 ml RA A4 area: 10.6 cm2 Time Measurements MV dec time: 0.13 sec Doppler Measurements & Calculations MV E max cornelius: 50.3 cm/sec Lat Peak E' Cornelius: 12.2 cm/sec Med Peak E' Cornelius: 9.4 cm/sec MV A max cornelius: 90.2 cm/sec E/E' lat: 4.1 E/E' med: 5.3 MV E/A: 0.56 MV dec slope: 601.4 cm/sec2 Ao V2 max: 156.6 cm/sec LV V1 max: 137.8 cm/sec Ao max P.8 mmHg LV V1 max P.6 mmHg Ao V2 mean: 116.5 cm/sec LV V1 mean P.5 mmHg Ao mean P.1 mmHg LV V1 mean: 100.7 cm/sec Ao V2 VTI: 24.0 cm LV V1 VTI: 18.0 cm AV (velocity ratio): 0.75 PA V2 max: 123.3 cm/sec TR max cornelius: 369.3 cm/sec TR max P.6 mmHg ECHO/Echo Complete Interpretation Summary The estimated ejection fraction is 70 %. No evidence for diastolic dysfunction. Pulmonary artery systolic pressure is 60 mmHg. Ordering Physician: Aidan Starks Referring Physician: OTD Performed By: Malika Hughes RDCS, RVT
--- NOTE | 2022-09-15 15:29 | PCM.CONS.GEN ---
Assessment & Plan Assessment/Plan (1) MRSA bacteremia: PLAN: MRSA bacteremia due to L ankle septic arthritis. Taken to OR 09/14/[address] Quinonez for I&D. Will stop slim. Cont vanc. Will check repeat bcx and TTE. Will follow, thank you (2) Septic arthritis of ankle: HPI Consult Data Date of Consult: 09/15/22 HPI Narrative Reason for Consultation: bacteremia HPI Narrative: RAHEL MCKEON, is a 42 F who presented 09/13 with 3 days of progressive L ankle pain, redness, swelling. Had associated fever and chills, also c/o L knee pain. No drainage present, no n/v/d. Admitted here, started on vanc/levaquin, then vanc/slim. Taken to OR by Dr. Quinonez 09/14 for I&D of L ankle. C/o ongoing pain. Full ROS performed and neg except as noted above. PFSH Medical History Bipolar disorder Cellulitis Depression Migraines Non-smoker Osteoporosis PTSD (post-traumatic stress disorder) Smoker Home Medications Ambien 7.5 mg PO .hs promote sleep 09/13/22 [History Last Taken Unknown] clonazepam 2 mg tablet 2 mg PO TID mental health 09/13/22 [History Last Taken 09/13/22 10:00] duloxetine 60 mg capsule,delayed release (Cymbalta) 60 mg PO BID mental health 09/13/22 [History Last Taken Unknown] pregabalin 150 mg capsule (Lyrica) 150 mg PO BID pain 09/13/22 [History Last Taken Unknown] Allergy/AdvReac Type Severity Reaction Status Date / Time amoxicillin Allergy Anaphylaxis Verified 09/14/22 11:18 hydrocodone [From Vicodin] Allergy Angioedema Verified 09/14/22 11:18 morphine Allergy Hives Verified 09/14/22 11:18 acetaminophen [From Tylenol] AdvReac Other Verified 09/14/22 11:18 Surgical History (Updated 09/13/22 @ 17:24 by Millicent Martinez) History of appendectomy History of cholecystectomy Surgical History no surgical history Social History household members: significant other Smoking Status: Current every day smoker tobacco type: cigarettes alcohol intake: current Physical Exam Const alert and oriented x3 Constitutional Narrative: in pain HEENT normocephalic and head/scalp atraumatic Eyes PERRL and EOMs intact bilaterally Neck supple and No nodes Resp normal air movement and clear to auscultation bilaterally Cardio no murmurs Rate: tachycardic GI soft to palpation, non-tender and non-distended Extremity General Extremity: Negative for edema Skin Skin Narrative: R ankle wrapped. L knee tender, no swelling/redness. No splinter hemorrhages on fingers. Neuro CN's II-XII intact bilaterally Lab / Micro Data Attestation: I reviewed the patient's lab results. 09/15/22 04:36 09/14/22 06:10 Labs: Laboratory Results - last 24 hr 09/13/22 16:57: Lactic Acid 2.2 H* 09/13/22 23:00: Urine Opiates Screen POSITIVE H, Urine Methadone Screen NEGATIVE, Ur Barbiturates Screen NEGATIVE, Ur Phencyclidine Scrn NEGATIVE, Ur Amphetamines Screen NEGATIVE, MDMA (Ecstasy) Screen NEGATIVE, U Benzodiazepines Scrn NEGATIVE, Urine Cocaine Screen NEGATIVE, U Cannabinoids Screen POSITIVE H, Ur Drug Screen Comment 09/15/22 04:36: WBC 14.2 H, RBC 3.96 L, Hgb 12.1, Hct 36.2 L, MCV 91.4, MCH 30.6, MCHC 33.4, RDW Std Deviation 47.7 H, RDW Coeff of Sylvia 14.1, Plt Count 438, MPV 11.4, Immature Gran % (Auto) 1.900 H, Neut % (Auto) 69.4, Lymph % (Auto) 16.1 L, [place] % (Auto) 11.4 H, Eos % (Auto) 0.8, Baso % (Auto) 0.4, Absolute Neuts (auto) 9.9 H, Absolute Lymphs (auto) 2.29, Nucleated RBC % 0, Differential Comment COMMENT, Diff Path Review May foll, Vancomycin Trough 10.2 Micro: Microbiology 09/14/22 13:07 Wound Abcess - Ankle Gram Stain - Final 09/14/22 13:07 Wound Abcess - Ankle Wound Culture - Preliminary Staphylococcus aureus 09/13/22 18:45 Aspirate - Ankle Gram Stain - Final 09/13/22 18:45 Aspirate - Ankle Wound Culture - Final Meth. resistant Staph. aureus 09/13/22 16:57 Blood Culture (Wb) - Other Bacteria Detection (PCR) - Final Meth. resistant Staph. aureus mecA Resistance Marker 09/13/22 16:57 Blood Culture (Wb) - Other Blood Culture - Preliminary
--- NOTE | 2022-09-15 17:53 | PN.HOSP_ITS ---
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) Pain in right ankle and joints of right foot (09/13/22) Bacteremia (09/13/22) Subjective Subjective Patient was seen and examined today, she requested pain medications, I had infectious diseases see the patient, they stopped her meropenem and maintained her on vancomycin. Objective Data Objective Data Vital Signs: Vital Signs Temp Pulse Resp BP Pulse Ox O2 Del Method O2 Flow Rate 98.8 F 123 H 16 116/88 H 92 Room Air 2 09/15/22 13:56 09/15/22 13:56 09/15/22 13:56 09/15/22 13:56 09/15/22 13:56 09/15/22 14:00 09/15/22 05:28 Oxygen Flow Rate (L/min) 2 Oxygen Delivery Method Room Air Weight: 59.109 kg Body Mass Index (BMI) 21.7 Intake & Output: Intake and Output for Last 24 Hours 09/13/22 09/14/22 09/15/22 23:59 23:59 23:59 Intake Total 4950 / 4950 1180 / 1180 1045.45 / 1045.45 Output Total 150 / 150 200 / 200 Balance 4800 / 4800 980 / 980 1045.45 / 1045.45 Lab / Micro Data 09/15/22 04:36 09/14/22 06:10 Labs: Laboratory Results - last 24 hr 09/13/22 16:57: Lactic Acid 2.2 H* 09/15/22 04:36: WBC 14.2 H, RBC 3.96 L, Hgb 12.1, Hct 36.2 L, MCV 91.4, MCH 30.6, MCHC 33.4, RDW Std Deviation 47.7 H, RDW Coeff of Sylvia 14.1, Plt Count 438, MPV 11.4, Immature Gran % (Auto) 1.900 H, Neut % (Auto) 69.4, Lymph % (Auto) 16.1 L, [place] % (Auto) 11.4 H, Eos % (Auto) 0.8, Baso % (Auto) 0.4, Absolute Neuts (auto) 9.9 H, Absolute Lymphs (auto) 2.29, Nucleated RBC % 0, Differential Comment COMMENT, Diff Path Review June foll, Vancomycin Trough 10.2 Micro: Microbiology 09/14/22 13:07 Wound Abcess - Ankle Gram Stain - Final 09/14/22 13:07 Wound Abcess - Ankle Wound Culture - Preliminary Staphylococcus aureus 09/13/22 18:45 Aspirate - Ankle Gram Stain - Final 09/13/22 18:45 Aspirate - Ankle Wound Culture - Final Meth. resistant Staph. aureus 09/13/22 16:57 Blood Culture (Wb) - Other Bacteria Detection (PCR) - Final Meth. resistant Staph. aureus mecA Resistance Marker 09/13/22 16:57 Blood Culture (Wb) - Other Blood Culture - Preliminary Radiography Diagnostic Testing: Radiology Impression Echocardiogram 09/15/22 14:41 Interpretation Summary The estimated ejection fraction is 70 %. No evidence for diastolic dysfunction. Pulmonary artery systolic pressure is 60 mmHg. Ordering Physician: Aidan Starks Referring Physician: OTD Performed By: Malika Hughes, DINH, RVT Physical Exam Narrative alert and oriented x3 Constitutional Narrative: Patient appears much older than her stated age General Appearance: cooperative and well developed Orientation / Consciousness: awake, oriented to person, oriented to place and oriented to time HEENT normocephalic, head/scalp atraumatic and moist oral mucous membranes Eyes PERRL, EOMs intact bilaterally and conjunctivae normal Neck supple, no JVD, thyroid normal and no carotid bruits General: trachea midline Resp normal respiratory effort, no retractions, no use of accessory muscles and clear to auscultation bilaterally Auscultation: Negative for rales, rhonchi or wheezes Cardio regular rate, regular rhythm, S1 normal heart sound, S2 normal heart sound, no murmurs, no rub and no gallops GI normal to inspection, nondistended, normoactive bowel sounds, soft to palpation, non-tender and non-distended Extremity Extremity Narrative: Patient's right ankle is wrapped with surgical dressing, this was not removed for examination of the area Skin There is generalized edema noted over the patient's right ankle and foot area, this area is covered with surgical dressing which was not removed for examination of the area Neuro oriented x3, CN's II-XII intact bilaterally, moves all extremities, no focal motor deficits and no sensory deficits noted Sensorium / Orientation: awake, alert, oriented to person and oriented to place Speech: speech normal Psych Psych Narrative: Patient appears anxious Assessment & Plan Assessment/Plan (1) Septic arthritis of ankle: (2) Cellulitis: QUALIFIERS: Site of cellulitis: extremity Site of cellulitis of extremity: lower extremity Laterality: right Qualified Code(s): L03.115 - Cellulitis of right lower limb PLAN: Plan 1. Sepsis secondary to septic right ankle with MRSA-continue antibiotic coverage per infectious diseases, podiatry is participating in her care #2 Chronic depression-patient is on Cymbalta #3 bipolar disorder-complicates care, medical course, recovery, and prognosis, patient is currently not on any medication for bipolar disorder Total clinical time spent by myself addressing the patient's medical issues, reviewing all of her data, and collaborating with patient's care team: 35 minutes Charges/Coding Visit Charges Inpatient E&M: 15025 Subs Hosp L2
[2022-09-15] MEDS: Zolpidem Tartrate 5 MG Tablet PO (21:38)
[2022-09-16] VITALS (8 sets, daily range): BP systolic 104–139; BP diastolic 63–94; PULSE 115–133; RESP 14–18; TEMP 37.3–38.2; O2SAT 92–96
[2022-09-16] MEDS: HYDROmorphone 0.5 MG/0.5 ML SYRINGE IV ×6 (01:43→22:59)
[2022-09-16] MEDS: clonazePAM 1 MG Tablet PO ×3 (05:52→21:07)
--- NOTE | 2022-09-16 07:44 | PN_ITS ---
Subjective Subjective Patient was seen this morning for follow up on right ankle. Patient is resting in bed. She relates to pain to the ankle. Temp is 100.2F. She is on Vancomycin. Objective Data Objective Data Vital Signs: Vital Signs Temp Pulse Resp BP Pulse Ox O2 Del Method O2 Flow Rate 100.7 F H 133 H 16 139/94 H 92 Room Air 2 09/16/22 06:00 09/16/22 06:00 09/16/22 06:00 09/16/22 06:00 09/16/22 06:00 09/16/22 06:00 09/15/22 05:28 Oxygen Flow Rate (L/min) 2 Oxygen Delivery Method Room Air Weight: 59.109 kg Body Mass Index (BMI) 21.7 Intake & Output: Intake and Output for Last 24 Hours 09/14/22 09/15/22 09/16/22 23:59 23:59 23:59 Intake Total 1180 / 1180 1560.45 / 1560.45 275 / 275 Output Total 200 / 200 0 / 0 Balance 980 / 980 1560.45 / 1560.45 275 / 275 Lab / Micro Data 09/15/22 04:36 09/14/22 06:10 Labs: Laboratory Results - last 24 hr 09/13/22 16:57: Lactic Acid 2.2 H* 09/15/22 04:36: WBC 14.2 H, RBC 3.96 L, Hgb 12.1, Hct 36.2 L, MCV 91.4, MCH 30.6, MCHC 33.4, RDW Std Deviation 47.7 H, RDW Coeff of Sylvia 14.1, Plt Count 438, MPV 11.4, Immature Gran % (Auto) 1.900 H, Neut % (Auto) 69.4, Lymph % (Auto) 16.1 L, [place] % (Auto) 11.4 H, Eos % (Auto) 0.8, Baso % (Auto) 0.4, Absolute Neuts (auto) 9.9 H, Absolute Lymphs (auto) 2.29, Nucleated RBC % 0, Differential Comment COMMENT, Diff Path Review May foll Micro: Microbiology 09/13/22 16:57 Blood Culture (Wb) - Other Bacteria Detection (PCR) - Final Meth. resistant Staph. aureus mecA Resistance Marker 09/13/22 16:57 Blood Culture (Wb) - Other Blood Culture - Preliminary Staphylococcus aureus 09/14/22 13:07 Wound Abcess - Ankle Gram Stain - Final 09/14/22 13:07 Wound Abcess - Ankle Wound Culture - Preliminary Staphylococcus aureus 09/13/22 18:45 Aspirate - Ankle Gram Stain - Final 09/13/22 18:45 Aspirate - Ankle Wound Culture - Final Meth. resistant Staph. aureus Radiography Diagnostic Testing: Radiology Impression Echocardiogram 09/15/22 14:41 Interpretation Summary The estimated ejection fraction is 70 %. No evidence for diastolic dysfunction. Pulmonary artery systolic pressure is 60 mmHg. Ordering Physician: Aidan Starks Referring Physician: OTD Performed By: Malika Hughes, DINH, RVT Physical Exam Narrative s/p right ankle I+D with incision medial and lateral ankle, there is noted to be swelling and redness/erythema - resolved medial ankle erythema, there is residual erythema to the lateral ankle, but appears improved, she continues to relate to significant pain to site. Tissues right ankle do appear healthy and viable, no purulence, no maloder, no necrosis, no crepitus, no fluctuance to the right foot, ankle or leg. CFT < 2 seconds to all toes on the right foot with pedal pulses intact, sensation intact to the right foot/ankle. Left foot with no swelling, no open lesions, no drainage, no erythema. Const alert and oriented x3 Assessment & Plan Assessment/Plan (1) Ankle pain, right: (2) Cellulitis of right lower limb: PLAN: Plan Evaluation performed. s/p right ankle I+D on 09/14/22. Reviewed diagnostic data. Crystal analysis - no monosodium crystals noted per pathology report - culture growing MRSA. Overall there has been improvement clinically to right ankle. We will continue with daily dressing changes, and patient is on IV antibiotic - Vancomycin at this time. Wound care right ankle - kyle's gauze wet to dry daily dressing changes. Wound likely benefit from wound vac in the future. Keep right foot elevated. No weightbearing right foot. Podiatry will continue to follow.
[2022-09-16] MEDS: 0.9% Saline Lock 10 ML Syringe IV (09:39)
[2022-09-16] MEDS: DULoxetine Hcl 60 MG Capsule PO ×2 (09:40→21:05)
[2022-09-16] MEDS: Pregabalin 75 MG Capsule 150 MG PO ×2 (09:40→21:03)
[2022-09-16] MEDS: DAKIN'S SOL HALF STRENGTH (=0.25%) 1 APPLIC TOPICAL (09:40)
[2022-09-16] MEDS: oxyCODONE CR 15 MG Tablet PO ×2 (09:54→21:03)
[2022-09-16 10:02] LABS: Pathologist Review Reviewed
--- NOTE | 2022-09-16 13:11 | CPS ---
pt had IS/PEP at bedside. was started previously on admission on 09/13/2022
[2022-09-16 13:49] LABS: Creatinine, Serum 0.61 mg/dL (0.55-1.02); EST Glomerular Filtration Rate 114 mL/min (>60); Est Glom Filt Rate - Afr Amer 138 mL/min (>60); Estimated Creatinine Clearance 108.11 ml/min
--- NOTE | 2022-09-16 13:52 | CASEMGMT ---
SW reviewed patient's chart and noted patient may need mcc at discharge. SW met with patient and her significant other. Introduced self and role at [facility]. SW discussed d/c plan and patient said she will go home. Patient's significant other told patient she should do what the doctors tell her she should do. SW explained patient does not need to decide right now. SW provided patient with a list of retirement facility?providers including quality and resource use data and consistent with patient?s preferred geographic region, medical needs, and insurance network were provided from the [employer] Guide. SW told patient she can think about it and discuss it with the doctor and her significant other. Loren Gan [employer] TECHNICIAN [place]
[2022-09-16 14:00] LABS: Vancomycin, Trough Level 18.8 ug/mL (5.0-15.0)
--- NOTE | 2022-09-16 14:26 | PCM.RX.CS ---
Consult Antibiotic Management Pharmacy has been consulted to manage selected antiobiotic: Vancomycin Type of Intervention Type of Consult: Follow-up Prior Doses of Antibiotics Prior Doses of Antibiotics Received/Current Regimen: current dose is vanc 1250mg IV q8h Labs Labs: Sodium 138 mmol/L (136-145) 09/14/22 06:10 Potassium 3.3 mmol/L (3.5-5.1) L 09/14/22 06:10 Chloride 104 mmol/L (98-107) 09/14/22 06:10 Carbon Dioxide 28.0 mmol/L (21.0-32.0) 09/14/22 06:10 Anion Gap 6 (5-15) 09/14/22 06:10 BUN 11 mg/dL (7-18) 09/14/22 06:10 Creatinine 0.61 mg/dL (0.55-1.02) 09/16/22 13:09 Est GFR (MDRD) Af Amer 138 mL/min (>60) 09/16/22 13:09 Est GFR (MDRD) Non-Af 114 mL/min (>60) 09/16/22 13:09 BUN/Creatinine Ratio 16.9 RATIO (10-20) 09/14/22 06:10 Glucose 124 mg/dL (74-106) H 09/14/22 06:10 Vancomycin Trough 18.8 ug/mL (5.0-15.0) H 09/16/22 13:09 Microbiology Microbiology: Microbiology 09/14/22 13:07 Wound Abcess - Ankle Gram Stain - Final 09/14/22 13:07 Wound Abcess - Ankle Wound Culture - Final Meth. resistant Staph. aureus 09/14/22 13:07 Wound Abcess - Ankle Anaerobic Culture - Final No anaerobic bacteria isolated. 09/13/22 18:45 Aspirate - Ankle Gram Stain - Final 09/13/22 18:45 Aspirate - Ankle Wound Culture - Final Meth. resistant Staph. aureus 09/13/22 18:45 Aspirate - Ankle Anaerobic Culture - Final No anaerobic bacteria isolated. 09/13/22 16:57 Blood Culture (Wb) - Other Bacteria Detection (PCR) - Final Meth. resistant Staph. aureus mecA Resistance Marker 09/13/22 16:57 Blood Culture (Wb) - Other Blood Culture - Preliminary Staphylococcus aureus Dosing Weight Weight used for dosin.1 kg Estimated Creatinine Clearance Estimated Creatinine Clearance: 108 ml/min Goal Trough Goal Trough: 15-20 mcg/mL Pharmacy Plan for Drug Dosing Pharmacy Plan for Drug Dosing: The vanc trough drawn at 13:09 today (approx 7.5 hours after the previous dose) was 18.8. This is within goal range so will keep same dose. Repeat a trough in 2 days per protocol. Pharmacy Service will continue to monitor and adjust dosing as required. Follow-Up Labs Follow-Up Labs: Trough: Vancomycin Date/Time Labs Ordered Labs to be done on [date and time ordered]: 09/18/22 13:00
--- NOTE | 2022-09-16 14:56 | PCM.PN.ID ---
Physical Exam Narrative Feeling better, no fever, foot less sore Const alert and no apparent distress General Appearance: cooperative Resp normal air movement and clear to auscultation bilaterally Cardio regular rate and regular rhythm GI soft to palpation, non-tender and non-distended Skin no rashes or lesions noted Skin Narrative: ankle wrapped ID ID: Route of nutrition/ use of supplements: [] Nutritional Intake: [] IV Site: [] Mark Catheter: [] Assessment & Plan Assessment/Plan (1) MRSA bacteremia: PLAN: MRSA bacteremia due to L ankle septic arthritis. Taken to OR 09/14/[address] Quinonez for I&D. Cont vanc. Will check repeat bcx today and tomorrow. No veg seen on TTE. Will follow (2) Septic arthritis of ankle:
--- NOTE | 2022-09-16 16:27 | PN.HOSP_ITS ---
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 Patient remains on IV vancomycin for anti biotic coverage. Objective Data Objective Data Vital Signs: Vital Signs Temp Pulse Resp BP Pulse Ox O2 Del Method O2 Flow Rate 99.1 F 119 H 15 121/68 H 94 Room Air 2 09/16/22 13:57 09/16/22 13:57 09/16/22 13:57 09/16/22 13:57 09/16/22 13:57 09/16/22 14:10 09/15/22 05:28 Oxygen Flow Rate (L/min) 2 Oxygen Delivery Method Room Air Weight: 59.109 kg Body Mass Index (BMI) 21.7 Intake & Output: Intake and Output for Last 24 Hours 09/14/22 09/15/22 09/16/22 23:59 23:59 23:59 Intake Total 1180 / 1180 1560.45 / 1560.45 1170 / 1170 Output Total 200 / 200 0 / 0 Balance 980 / 980 1560.45 / 1560.45 1170 / 1170 Lab / Micro Data 09/15/22 04:36 09/16/22 13:09 Labs: Laboratory Results - last 24 hr 09/13/22 16:57: Lactic Acid 2.2 H* 09/15/22 04:36: Diff Path Review Reviewed 09/16/22 13:09: Creatinine 0.61, Estim Creat Clear Calc 108.11, Est GFR (MDRD) Af Amer 138, Est GFR (MDRD) Non-Af 114, Vancomycin Trough 18.8 H Micro: Microbiology 09/13/22 16:57 Blood Culture (Wb) - Anticubital Left Blood Culture - Preliminary No growth in 48 hours. 09/14/22 13:07 Wound Abcess - Ankle Gram Stain - Final 09/14/22 13:07 Wound Abcess - Ankle Wound Culture - Final Meth. resistant Staph. aureus 09/14/22 13:07 Wound Abcess - Ankle Anaerobic Culture - Final No anaerobic bacteria isolated. 09/13/22 18:45 Aspirate - Ankle Gram Stain - Final 09/13/22 18:45 Aspirate - Ankle Wound Culture - Final Meth. resistant Staph. aureus 09/13/22 18:45 Aspirate - Ankle Anaerobic Culture - Final No anaerobic bacteria isolated. 09/13/22 16:57 Blood Culture (Wb) - Other Bacteria Detection (PCR) - Final Meth. resistant Staph. aureus mecA Resistance Marker 09/13/22 16:57 Blood Culture (Wb) - Other Blood Culture - Preliminary Staphylococcus aureus Radiography Diagnostic Testing: Radiology Impression Echocardiogram 09/15/22 14:41 Interpretation Summary The estimated ejection fraction is 70 %. No evidence for diastolic dysfunction. Pulmonary artery systolic pressure is 60 mmHg. Ordering Physician: Aidan Starks Referring Physician: OTD Performed By: Malika Hughes, DINH, RVT Physical Exam Narrative alert and oriented x3 Constitutional Narrative: Patient appears much older than her stated age General Appearance: cooperative and well developed Orientation / Consciousness: awake, oriented to person, oriented to place and oriented to time HEENT normocephalic, head/scalp atraumatic and moist oral mucous membranes Eyes PERRL, EOMs intact bilaterally and conjunctivae normal Neck supple, no JVD, thyroid normal and no carotid bruits General: trachea midline Resp normal respiratory effort, no retractions, no use of accessory muscles and clear to auscultation bilaterally Auscultation: Negative for rales, rhonchi or wheezes Cardio regular rate, regular rhythm, S1 normal heart sound, S2 normal heart sound, no murmurs, no rub and no gallops GI normal to inspection, nondistended, normoactive bowel sounds, soft to palpation, non-tender and non-distended Extremity Extremity Narrative: Patient's right ankle is wrapped with surgical dressing, this was not removed for examination of the area Skin There is generalized edema noted over the patient's right ankle and foot area, this area is covered with surgical dressing which was not removed for examination of the area Neuro oriented x3, CN's II-XII intact bilaterally, moves all extremities, no focal motor deficits and no sensory deficits noted Sensorium / Orientation: awake, alert, oriented to person and oriented to place Speech: speech normal Psych Psych Narrative: Patient appears anxious Assessment & Plan Assessment/Plan (1) Septic arthritis of ankle: (2) Cellulitis: QUALIFIERS: Site of cellulitis: extremity Site of cellulitis of extremity: lower extremity Laterality: right Qualified Code(s): L03.115 - Cellulitis of right lower limb PLAN: Plan 1. Sepsis secondary to septic right ankle with MRSA-continue antibiotic coverage per infectious diseases, podiatry is participating in her care #2 Chronic depression-patient is on Cymbalta #3 bipolar disorder-complicates care, medical course, recovery, and prognosis, patient is currently not on any medication for bipolar disorder #4 chronic pain-patient was placed on OxyContin and Oxy IR, we will try to limit use of IV Dilaudid. Total clinical time spent by myself addressing the patient's medical issues, reviewing all of her data, and collaborating with patient's care team: 25 minutes Charges/Coding Visit Charges Inpatient E&M: 53971 Subs Hosp L2
[2022-09-16] MEDS: Zolpidem Tartrate 5 MG Tablet PO (21:03)
[2022-09-17 03:00] VITALS: BP 126/79; PULSE 124; RESP 18; TEMP 37.4; O2SAT 95
[2022-09-17] MEDS: oxyCODONE 5 MG Tablet 10 MG PO ×3 (03:36→13:48)
[2022-09-17] MEDS: clonazePAM 1 MG Tablet PO ×3 (05:52→21:03)
[2022-09-17] MEDS: HYDROmorphone 0.5 MG/0.5 ML SYRINGE IV ×2 (06:19→16:12)
[2022-09-17 06:24] VITALS: BP 120/76
--- NOTE | 2022-09-17 08:57 | PCM.PROGNOTE ---
Subjective Subjective Patient was seen this morning for follow up on right ankle. She relates she she continues to have pain to the right ankle but she is not sure if pain is better, worse or the same to right ankle. She is resting in bed. Temp is 101.8F. She is on IV Vanomycin. Objective Data Objective Data Vital Signs: Vital Signs Temp Pulse Resp BP Pulse Ox O2 Del Method O2 Flow Rate 99.3 F H 124 H 18 120/76 95 Room Air 2 09/17/22 03:00 09/17/22 03:00 09/17/22 03:00 09/17/22 06:24 09/17/22 03:00 09/17/22 08:00 09/15/22 05:28 Oxygen Flow Rate (L/min) 2 Oxygen Delivery Method Room Air Weight: 59.109 kg Body Mass Index (BMI) 21.7 Intake & Output: Intake and Output for Last 24 Hours 09/15/22 09/16/22 09/17/22 23:59 23:59 23:59 Intake Total 1560.45 / 1560.45 1445 / 1445 275 / 275 Output Total 0 / 0 Balance 1560.45 / 1560.45 1445 / 1445 275 / 275 Lab / Micro Data 09/15/22 04:36 09/16/22 13:09 Labs: Laboratory Results - last 24 hr 09/15/22 04:36: Diff Path Review Reviewed 09/16/22 13:09: Creatinine 0.61, Estim Creat Clear Calc 108.11, Est GFR (MDRD) Af Amer 138, Est GFR (MDRD) Non-Af 114, Vancomycin Trough 18.8 H Micro: Microbiology 09/13/22 16:57 Blood Culture (Wb) - Other Bacteria Detection (PCR) - Final Meth. resistant Staph. aureus mecA Resistance Marker 09/13/22 16:57 Blood Culture (Wb) - Other Blood Culture - Final Meth. resistant Staph. aureus 09/13/22 16:57 Blood Culture (Wb) - Anticubital Left Blood Culture - Preliminary No growth in 48 hours. 09/14/22 13:07 Wound Abcess - Ankle Gram Stain - Final 09/14/22 13:07 Wound Abcess - Ankle Wound Culture - Final Meth. resistant Staph. aureus 09/14/22 13:07 Wound Abcess - Ankle Anaerobic Culture - Final No anaerobic bacteria isolated. 09/13/22 18:45 Aspirate - Ankle Gram Stain - Final 09/13/22 18:45 Aspirate - Ankle Wound Culture - Final Meth. resistant Staph. aureus 09/13/22 18:45 Aspirate - Ankle Anaerobic Culture - Final No anaerobic bacteria isolated. Physical Exam Narrative s/p right ankle I+D with incision medial and lateral ankle, there is noted to be swelling and redness/erythema - resolved erythema from medial ankle erythema, there is residual erythema to the lateral ankle, but continued improvement noted, she continues to relate to significant pain to site. Tissues right ankle do appear healthy and viable, no purulence, no maloder, no necrosis, no crepitus, no fluctuance to the right foot, ankle or leg. CFT < 2 seconds to all toes on the right foot with pedal pulses intact, sensation intact to the right foot/ankle. Left foot with no swelling, no open lesions, no drainage, no erythema. Const alert and oriented x3 Assessment & Plan Assessment/Plan (1) Ankle pain, right: (2) Cellulitis of right lower limb: PLAN: Plan Evaluation performed. s/p right ankle I+D on 09/14/22. Reviewed diagnostic data. Crystal analysis - no monosodium crystals noted per pathology report - culture growing MRSA. Overall there has been continued improvement clinically to right ankle - less erythema, tissues are healthy and viable. We will continue with daily dressing changes, and patient is on IV antibiotic - Vancomycin at this time. Wound care right ankle - dakin's gauze wet to dry daily dressing changes. Wound likely benefit from wound vac in the future. Keep right foot elevated. No weightbearing right foot. Pain management per hospital medicine. Podiatry will continue to follow.
[2022-09-17 09:00] VITALS: BP 120/73; PULSE 122; RESP 16; TEMP 38.8; O2SAT 94
[2022-09-17] MEDS: oxyCODONE CR 15 MG Tablet PO (09:01)
[2022-09-17] MEDS: Pregabalin 75 MG Capsule 150 MG PO ×2 (09:01→21:04)
[2022-09-17] MEDS: DULoxetine Hcl 60 MG Capsule PO ×2 (09:02→21:03)
[2022-09-17] MEDS: DAKIN'S SOL HALF STRENGTH (=0.25%) 1 APPLIC TOPICAL (09:02)
[2022-09-17] MEDS: Acetaminophen 325 MG Tablet 650 MG PO (09:48)
--- NOTE | 2022-09-17 10:05 | PCM.PN.HOSP ---
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 Patient complains of continued pain in her right ankle, I have elected to increase her OxyContin to 20 mg twice daily. Objective Data Objective Data Vital Signs: Vital Signs Temp Pulse Resp BP Pulse Ox O2 Del Method O2 Flow Rate 101.8 F H 122 H 16 120/73 94 Room Air 2 09/17/22 09:00 09/17/22 09:00 09/17/22 09:00 09/17/22 09:00 09/17/22 09:00 09/17/22 09:00 09/15/22 05:28 Oxygen Flow Rate (L/min) 2 Oxygen Delivery Method Room Air Weight: 59.109 kg Body Mass Index (BMI) 21.7 Intake & Output: Intake and Output for Last 24 Hours 09/15/22 09/16/22 09/17/22 23:59 23:59 23:59 Intake Total 1560.45 / 1560.45 1445 / 1445 275 / 275 Output Total 0 / 0 Balance 1560.45 / 1560.45 1445 / 1445 275 / 275 Lab / Micro Data 09/15/22 04:36 09/16/22 13:09 Labs: Laboratory Results - last 24 hr 09/16/22 13:09: Creatinine 0.61, Estim Creat Clear Calc 108.11, Est GFR (MDRD) Af Amer 138, Est GFR (MDRD) Non-Af 114, Vancomycin Trough 18.8 H Micro: Microbiology 09/13/22 16:57 Blood Culture (Wb) - Other Bacteria Detection (PCR) - Final Meth. resistant Staph. aureus mecA Resistance Marker 09/13/22 16:57 Blood Culture (Wb) - Other Blood Culture - Final Meth. resistant Staph. aureus 09/13/22 16:57 Blood Culture (Wb) - Anticubital Left Blood Culture - Preliminary No growth in 48 hours. 09/14/22 13:07 Wound Abcess - Ankle Gram Stain - Final 09/14/22 13:07 Wound Abcess - Ankle Wound Culture - Final Meth. resistant Staph. aureus 09/14/22 13:07 Wound Abcess - Ankle Anaerobic Culture - Final No anaerobic bacteria isolated. 09/13/22 18:45 Aspirate - Ankle Gram Stain - Final 09/13/22 18:45 Aspirate - Ankle Wound Culture - Final Meth. resistant Staph. aureus 09/13/22 18:45 Aspirate - Ankle Anaerobic Culture - Final No anaerobic bacteria isolated. Physical Exam Narrative alert and oriented x3 Constitutional Narrative: Patient appears much older than her stated age General Appearance: cooperative and well developed Orientation / Consciousness: awake, oriented to person, oriented to place and oriented to time HEENT normocephalic, head/scalp atraumatic and moist oral mucous membranes Eyes PERRL, EOMs intact bilaterally and conjunctivae normal Neck supple, no JVD, thyroid normal and no carotid bruits General: trachea midline Resp normal respiratory effort, no retractions, no use of accessory muscles and clear to auscultation bilaterally Auscultation: Negative for rales, rhonchi or wheezes Cardio regular rate, regular rhythm, S1 normal heart sound, S2 normal heart sound, no murmurs, no rub and no gallops GI normal to inspection, nondistended, normoactive bowel sounds, soft to palpation, non-tender and non-distended Extremity Extremity Narrative: Patient's right ankle is wrapped with surgical dressing, this was not removed for examination of the area Skin There is generalized edema noted over the patient's right ankle and foot area, this area is covered with surgical dressing which was not removed for examination of the area Neuro oriented x3, CN's II-XII intact bilaterally, moves all extremities, no focal motor deficits and no sensory deficits noted Sensorium / Orientation: awake, alert, oriented to person and oriented to place Speech: speech normal Psych Psych Narrative: Patient appears anxious Assessment & Plan Assessment/Plan (1) Septic arthritis of ankle: PLAN: Plan 1. Sepsis secondary to septic right ankle with MRSA-continue antibiotic coverage per infectious diseases, podiatry is participating in her care, due to the patient's temperature spike today have decided to draw a blood culture. #2 Chronic depression-patient is on Cymbalta #3 bipolar disorder-complicates care, medical course, recovery, and prognosis, patient is currently not on any medication for bipolar disorder #4 chronic pain-I have elected to increase the patient's OxyContin today to 20 mg twice daily Total clinical time spent by myself addressing the patient's medical issues, reviewing all of her data, and collaborating with patient's care team: 25 minutes Charges/Coding Visit Charges Inpatient E&M: 46878 Subs Hosp L1
[2022-09-17 15:00] VITALS: BP 111/76; PULSE 103; RESP 16; TEMP 36.7; O2SAT 94
--- NOTE | 2022-09-17 15:00 | NURSING ---
This RN is taking over care at this time.
--- NOTE | 2022-09-17 16:06 | CASEMGMT ---
Social Work SW met with patient and introduced self and role as [facility] SW. Patient lying on hospital bed and recalls working with SW in the past; patient was apologetic about her interaction with SW previously. SW engaged patient in conversation about her current stay and recommendation for SNF. Patient states she felt threatened by therapy today because pt was told if she can't get up and walk to the chair she isn't going home. SW provided emotional support and inquired about patient's interest in going to SNF for therapy at d/c. Patient states she decided she wants to go home and not to a SNF. SW encouraged patient to consider recommendations for patient's safety. Patient adamant she will be okay at home. Patient then voiced concerns regarding pain medication. Patient informed SW of her Tylenol allergy that impacts what pain medication she can have, further stating, she is allowed to request pain medication whenever she needs it. Patient reports she is calling her PCP Monday to encourage them to call [facility] doctor about her pain medication needs. SW continued to provide support and explained she would review those concerns with the supervisor [employer]. Patient voiced no other needs. SW to continue to follow along for D/C needs. SW updated supervisor [employer] of interaction. Jaycee Knight SCALLOPER ,[place]
[2022-09-17] MEDS: 0.9% Saline Lock 10 ML Syringe IV ×3 (16:12→22:40)
[2022-09-17] MEDS: oxyCODONE HCl Cr 10 MG Tablet 20 MG PO (21:03)
[2022-09-17] MEDS: Zolpidem Tartrate 5 MG Tablet PO (21:04)
[2022-09-17 21:10] VITALS: BP 135/90; PULSE 100; RESP 18; TEMP 36.2; O2SAT 98
[2022-09-18] MEDS: HYDROmorphone 0.5 MG/0.5 ML SYRINGE IV ×2 (00:35→08:33)
[2022-09-18] MEDS: 0.9% Saline Lock 10 ML Syringe IV ×3 (00:35→23:16)
[2022-09-18 00:52] VITALS: TEMP 38.3
[2022-09-18] MEDS: Ibuprofen 200 MG Tablet PO (01:02)
[2022-09-18] MEDS: oxyCODONE 5 MG Tablet 10 MG PO ×3 (04:17→18:34)
[2022-09-18 04:25] VITALS: BP 118/85; PULSE 115; RESP 18; TEMP 38.3; O2SAT 95
[2022-09-18] MEDS: clonazePAM 1 MG Tablet PO ×3 (05:24→20:53)
[2022-09-18] MEDS: DAKIN'S SOL HALF STRENGTH (=0.25%) 1 APPLIC TOPICAL (08:50)
[2022-09-18] MEDS: oxyCODONE HCl Cr 10 MG Tablet 20 MG PO ×2 (10:09→20:52)
[2022-09-18] MEDS: DULoxetine Hcl 60 MG Capsule PO ×2 (10:09→20:54)
[2022-09-18] MEDS: Pregabalin 75 MG Capsule 150 MG PO ×2 (10:09→20:52)
[2022-09-18 10:12] VITALS: BP 113/70; PULSE 100; RESP 18; TEMP 36.2; TEMP 36.5; O2SAT 98
--- NOTE | 2022-09-18 11:28 | PCM.PROGNOTE ---
Subjective Subjective Patient was seen this morning for follow up on right ankle. She was able to eat breakfast. She did spike a fever overnight. No current f/c/n/v. Objective Data Objective Data Vital Signs: Vital Signs Temp Pulse Resp BP Pulse Ox O2 Del Method O2 Flow Rate 97.7 F L 100 18 113/70 98 Room Air 2 09/18/22 10:12 09/18/22 10:12 09/18/22 10:12 09/18/22 10:12 09/18/22 10:12 09/18/22 10:12 09/15/22 05:28 Oxygen Flow Rate (L/min) 2 Oxygen Delivery Method Room Air Weight: 59.109 kg Body Mass Index (BMI) 21.7 Intake & Output: Intake and Output for Last 24 Hours 09/16/22 09/17/22 09/18/22 23:59 23:59 23:59 Intake Total 1445 / 1445 1605 / 1845 515 / 515 Output Total 0 / 0 400 / 400 Balance 1445 / 1445 1605 / 1845 115 / 115 Lab / Micro Data 09/15/22 04:36 09/16/22 13:09 Micro: Microbiology 09/15/22 15:56 Blood Culture (Wb) - Right Hand Blood Culture - Preliminary No growth in 48 hours. 09/13/22 16:57 Blood Culture (Wb) - Other Bacteria Detection (PCR) - Final Meth. resistant Staph. aureus mecA Resistance Marker 09/13/22 16:57 Blood Culture (Wb) - Other Blood Culture - Final Meth. resistant Staph. aureus 09/13/22 16:57 Blood Culture (Wb) - Anticubital Left Blood Culture - Preliminary No growth in 48 hours. 09/14/22 13:07 Wound Abcess - Ankle Gram Stain - Final 09/14/22 13:07 Wound Abcess - Ankle Wound Culture - Final Meth. resistant Staph. aureus 09/14/22 13:07 Wound Abcess - Ankle Anaerobic Culture - Final No anaerobic bacteria isolated. 09/13/22 18:45 Aspirate - Ankle Gram Stain - Final 09/13/22 18:45 Aspirate - Ankle Wound Culture - Final Meth. resistant Staph. aureus 09/13/22 18:45 Aspirate - Ankle Anaerobic Culture - Final No anaerobic bacteria isolated. Physical Exam Narrative s/p right ankle I+D with incision medial and lateral ankle, there is noted to be swelling and redness/erythema - but overall improved noted, she continues to relate to significant pain to site, but appears less painful today. Tissues right ankle do appear healthy and viable, no purulence, no maloder, no necrosis, no crepitus, no fluctuance to the right foot, ankle or leg. CFT < 2 seconds to all toes on the right foot with pedal pulses intact, sensation intact to the right foot/ankle. Left foot with no swelling, no open lesions, no drainage, no erythema. Const alert and oriented x3 Assessment & Plan Assessment/Plan (1) Ankle pain, right: (2) Cellulitis of right lower limb: PLAN: Plan Evaluation performed. s/p right ankle I+D on 09/14/22. Reviewed diagnostic data. Crystal analysis - no monosodium crystals noted per pathology report - culture growing MRSA. Continued improvement clinically to right ankle - less erythema, tissues are healthy and viable, less swelling. We will continue with daily dressing changes, and patient is on IV antibiotic - Vancomycin at this time. Wound care right ankle - dakin's gauze wet to dry daily dressing changes. Wound likely benefit from wound vac in the future. Keep right foot elevated. No weightbearing right foot. Pain management per hospital medicine. Podiatry will continue to follow.
--- NOTE | 2022-09-18 12:29 | PN.HOSP_ITS ---
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 Patient still complains of pain but it is improved since her pain meds were increased yesterday. Objective Data Objective Data Vital Signs: Vital Signs Temp Pulse Resp BP Pulse Ox O2 Del Method O2 Flow Rate 97.7 F L 100 18 113/70 98 Room Air 2 09/18/22 10:12 09/18/22 10:12 09/18/22 10:12 09/18/22 10:12 09/18/22 10:12 09/18/22 10:12 09/15/22 05:28 Oxygen Flow Rate (L/min) 2 Oxygen Delivery Method Room Air Weight: 59.109 kg Body Mass Index (BMI) 21.7 Intake & Output: Intake and Output for Last 24 Hours 09/16/22 09/17/22 09/18/22 23:59 23:59 23:59 Intake Total 1445 / 1445 1605 / 1845 515 / 515 Output Total 0 / 0 400 / 400 Balance 1445 / 1445 1605 / 1845 115 / 115 Lab / Micro Data 09/15/22 04:36 09/16/22 13:09 Micro: Microbiology 09/15/22 15:56 Blood Culture (Wb) - Right Hand Blood Culture - Preliminary No growth in 48 hours. 09/13/22 16:57 Blood Culture (Wb) - Other Bacteria Detection (PCR) - Final Meth. resistant Staph. aureus mecA Resistance Marker 09/13/22 16:57 Blood Culture (Wb) - Other Blood Culture - Final Meth. resistant Staph. aureus 09/13/22 16:57 Blood Culture (Wb) - Anticubital Left Blood Culture - Preliminary No growth in 48 hours. 09/14/22 13:07 Wound Abcess - Ankle Gram Stain - Final 09/14/22 13:07 Wound Abcess - Ankle Wound Culture - Final Meth. resistant Staph. aureus 09/14/22 13:07 Wound Abcess - Ankle Anaerobic Culture - Final No anaerobic bacteria isolated. 09/13/22 18:45 Aspirate - Ankle Gram Stain - Final 09/13/22 18:45 Aspirate - Ankle Wound Culture - Final Meth. resistant Staph. aureus 09/13/22 18:45 Aspirate - Ankle Anaerobic Culture - Final No anaerobic bacteria isolated. Physical Exam Narrative alert and oriented x3 Constitutional Narrative: Patient appears much older than her stated age General Appearance: cooperative and well developed Orientation / Consciousness: awake, oriented to person, oriented to place and oriented to time HEENT normocephalic, head/scalp atraumatic and moist oral mucous membranes Eyes PERRL, EOMs intact bilaterally and conjunctivae normal Neck supple, no JVD, thyroid normal and no carotid bruits General: trachea midline Resp normal respiratory effort, no retractions, no use of accessory muscles and clear to auscultation bilaterally Auscultation: Negative for rales, rhonchi or wheezes Cardio regular rate, regular rhythm, S1 normal heart sound, S2 normal heart sound, no murmurs, no rub and no gallops GI normal to inspection, nondistended, normoactive bowel sounds, soft to palpation, non-tender and non-distended Extremity Extremity Narrative: Patient's right ankle is wrapped with surgical dressing, this was not removed for examination of the area Skin There is generalized edema noted over the patient's right ankle and foot area, this area is covered with surgical dressing which was not removed for examination of the area Neuro oriented x3, CN's II-XII intact bilaterally, moves all extremities, no focal mo tor deficits and no sensory deficits noted Sensorium / Orientation: awake, alert, oriented to person and oriented to place Speech: speech normal Psych Psych Narrative: Patient appears anxious Assessment & Plan Assessment/Plan (1) Septic arthritis of ankle: PLAN: Plan 1. Sepsis secondary to septic right ankle with MRSA-continue antibiotic coverage per infectious diseases, podiatry is participating in her care, due to the patient's temperature spike today have decided to draw a blood culture. Patient may have to go home on IV antibiotics, decision will have to be made by infectious diseases. #2 Chronic depression-patient is on Cymbalta #3 bipolar disorder-complicates care, medical course, recovery, and prognosis, patient is currently not on any medication for bipolar disorder #4 chronic pain-I have elected to increase the patient's OxyContin today to 20 mg twice daily Total clinical time spent by myself addressing the patient's medical issues, reviewing all of her data, and collaborating with patient's care team: 25 minutes Charges/Coding Visit Charges Inpatient E&M: 13021 Subs Hosp L1
[2022-09-18 13:17] LABS: Vancomycin, Trough Level 22.4 ug/mL (5.0-15.0)
--- NOTE | 2022-09-18 13:54 | PCM.RX.CS ---
Consult Antibiotic Management Pharmacy has been consulted to manage selected antiobiotic: Vancomycin Type of Intervention Type of Consult: Follow-up Labs Labs: Sodium 138 mmol/L (136-145) 09/14/22 06:10 Potassium 3.3 mmol/L (3.5-5.1) L 09/14/22 06:10 Chloride 104 mmol/L (98-107) 09/14/22 06:10 Carbon Dioxide 28.0 mmol/L (21.0-32.0) 09/14/22 06:10 Anion Gap 6 (5-15) 09/14/22 06:10 BUN 11 mg/dL (7-18) 09/14/22 06:10 Creatinine 0.61 mg/dL (0.55-1.02) 09/16/22 13:09 Est GFR (MDRD) Af Amer 138 mL/min (>60) 09/16/22 13:09 Est GFR (MDRD) Non-Af 114 mL/min (>60) 09/16/22 13:09 BUN/Creatinine Ratio 16.9 RATIO (10-20) 09/14/22 06:10 Glucose 124 mg/dL (74-106) H 09/14/22 06:10 Vancomycin Trough 22.4 ug/mL (5.0-15.0) H 09/18/22 12:34 Microbiology Microbiology: Microbiology 09/15/22 15:56 Blood Culture (Wb) - Right Hand Blood Culture - Preliminary No growth in 48 hours. 09/13/22 16:57 Blood Culture (Wb) - Other Bacteria Detection (PCR) - Final Meth. resistant Staph. aureus mecA Resistance Marker 09/13/22 16:57 Blood Culture (Wb) - Other Blood Culture - Final Meth. resistant Staph. aureus 09/13/22 16:57 Blood Culture (Wb) - Anticubital Left Blood Culture - Preliminary No growth in 48 hours. 09/14/22 13:07 Wound Abcess - Ankle Gram Stain - Final 09/14/22 13:07 Wound Abcess - Ankle Wound Culture - Final Meth. resistant Staph. aureus 09/14/22 13:07 Wound Abcess - Ankle Anaerobic Culture - Final No anaerobic bacteria isolated. 09/13/22 18:45 Aspirate - Ankle Gram Stain - Final 09/13/22 18:45 Aspirate - Ankle Wound Culture - Final Meth. resistant Staph. aureus 09/13/22 18:45 Aspirate - Ankle Anaerobic Culture - Final No anaerobic bacteria isolated. Goal Trough Goal Trough: 15-20 mcg/mL Pharmacy Plan for Drug Dosing Pharmacy Plan for Drug Dosing: VANCOMYCIN LEVEL RECEIVED Current Vancomycin Dose: 1250MG IV Q8H Number of Doses Received: 9 Vancomycin Level: 22.4 Hours Since Last Dose: 7HR Renal Function: 0.61 Renal Function Trend: stable Lab/Micro: WCx from 09/14 (+) MRSA, sensitive to vancomycin Vancomycin Plan/Comments: patient had a trough drawn which resulted in a value of 22.4 (Goal 15-20). Trough was ordered and drawn appropriately. Since trough is above goal, will hold current vancomycin dose at this time. Contacted nursing, the patient's 1330 dose had not been hung at time of trough result. Advised nurse to hold dose and dc'd scheduled dosing order at this time. Will HOLD current dose and recheck a trough tonight at 2100. Patient likely will need Q12hr dosing based on trend in trough values. Will restart vancomycin once trough is below 20. Pending Level: *RANDOM* level 09/18/22 @2100 Pharmacy Service will continue to monitor and adjust dosing as required.
[2022-09-18 14:00] VITALS: BP 111/53; PULSE 121; RESP 18; TEMP 36.9; O2SAT 96
--- NOTE | 2022-09-18 14:00 | NURSING ---
Report given to Kaity COREA at 1400
--- NOTE | 2022-09-18 15:04 | NURSING ---
Reviewed charting with Navdeep Holloway RN
[2022-09-18 20:50] VITALS: BP 110/68; PULSE 116; RESP 18; TEMP 36.1; O2SAT 97
[2022-09-18] MEDS: Zolpidem Tartrate 5 MG Tablet PO (20:52)
[2022-09-18 21:49] LABS: Vancomycin, Random Level 8.7 ug/mL (0.0-15.0)
[2022-09-18] MEDS: Vancomycin IV 1,000 MG/200 ML BAG 200 MG IV (23:15)
[2022-09-18] MEDS: oxyCODONE 5 MG Tablet 15 MG PO (23:18)
[2022-09-19 03:30] VITALS: BP 109/68; PULSE 106; RESP 18; TEMP 36.6; O2SAT 93
[2022-09-19] MEDS: oxyCODONE 5 MG Tablet 15 MG PO ×3 (03:37→17:00)
[2022-09-19] MEDS: Vancomycin IV 1,000 MG/200 ML BAG 200 MG IV ×2 (05:29→20:59)
[2022-09-19] MEDS: clonazePAM 1 MG Tablet PO ×3 (05:29→21:01)
[2022-09-19] MEDS: 0.9% Saline Lock 10 ML Syringe IV (05:29)
[2022-09-19 08:36] VITALS: BP 121/78; PULSE 112; RESP 20; TEMP 37.1; O2SAT 93
[2022-09-19] MEDS: HYDROmorphone 0.5 MG/0.5 ML SYRINGE IV ×2 (08:37→23:35)
[2022-09-19] MEDS: DAKIN'S SOL HALF STRENGTH (=0.25%) 1 APPLIC TOPICAL (08:43)
--- NOTE | 2022-09-19 08:45 | PN.HOSP_ITS ---
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) Pain in right ankle and joints of right foot (09/13/22) Bacteremia (09/13/22) Subjective Subjective Patient is a 42-year-old lady admitted with sepsis secondary to right ankle septic arthritis started on broad-spectrum antibiotics underwent I&D blood c ultures positive for MRSA Objective Data Objective Data Vital Signs: Vital Signs Temp Pulse Resp BP Pulse Ox O2 Del Method O2 Flow Rate 98.7 F 112 H 20 H 121/78 H 93 Room Air 2 09/19/22 08:36 09/19/22 08:36 09/19/22 08:36 09/19/22 08:36 09/19/22 08:36 09/19/22 08:36 09/15/22 05:28 Oxygen Flow Rate (L/min) 2 Oxygen Delivery Method Room Air Weight: 59.109 kg Body Mass Index (BMI) 21.7 Intake & Output: Intake and Output for Last 24 Hours 09/17/22 09/18/22 09/19/22 23:59 23:59 23:59 Intake Total 1605 / 1845 1015 / 1015 400 / 400 Output Total 400 / 400 350 / 350 Balance 1605 / 1845 615 / 615 50 / 50 Lab / Micro Data 09/15/22 04:36 09/16/22 13:09 Labs: Laboratory Results - last 24 hr 09/18/22 12:34: Vancomycin Trough 22.4 H 09/18/22 21:14: Random Vancomycin 8.7 Micro: Microbiology 09/13/22 16:57 Blood Culture (Wb) - Anticubital Left Blood Culture - Final No growth in 5 days. 09/16/22 10:40 Blood Culture (Wb) - Left Hand Blood Culture - Preliminary No growth in 48 hours. 09/15/22 15:56 Blood Culture (Wb) - Right Hand Blood Culture - Preliminary No growth in 48 hours. 09/13/22 16:57 Blood Culture (Wb) - Other Bacteria Detection (PCR) - Final Meth. resistant Staph. aureus mecA Resistance Marker 09/13/22 16:57 Blood Culture (Wb) - Other Blood Culture - Final Meth. resistant Staph. aureus 09/14/22 13:07 Wound Abcess - Ankle Gram Stain - Final 09/14/22 13:07 Wound Abcess - Ankle Wound Culture - Final Meth. resistant Staph. aureus 09/14/22 13:07 Wound Abcess - Ankle Anaerobic Culture - Final No anaerobic bacteria isolated. 09/13/22 18:45 Aspirate - Ankle Gram Stain - Final 09/13/22 18:45 Aspirate - Ankle Wound Culture - Final Meth. resistant Staph. aureus 09/13/22 18:45 Aspirate - Ankle Anaerobic Culture - Final No anaerobic bacteria isolated. Physical Exam Narrative GENERAL: cooperative HEENT: Atraumatic; normocephalic EYES; Anicteric, Normal Conjunctiva NECK; supple, normal thyroid, RESPIRATORY: Diminished to auscultation CARDIOVASCULAR: Regular S1 S2, GI: soft, normoactive bowel sounds, : No Renal angle tenderness; EXTREMITIES: Right ankle in surgical dressing MUSCULOSKELETAL: no muscle wasting NEURO: Awake; no lateralizing signs. SKIN: No Rash PSYCH; Flat affect Assessment & Plan Assessment/Plan (1) Septic arthritis of ankle: QUALIFIERS: Septic arthritis organism: staphylococcal Laterality: right Qualified Code(s): M00.071 - Staphylococcal arthritis, right ankle and foot PLAN: Plan Patient is a 42-year-old lady admitted with sepsis secondary to right ankle septic arthritis started on broad-spectrum antibiotics underwent I&D blood cultures positive for MRSA 1. Sepsis secondary to septic arthritis involving the right ankle with MRSA bacteremia ? Patient underwent Incision and drainage right ankle by Dr. Rojas on 09/14/2022. Remains on broad-spectrum antibiotic therapy. Consult placed to ID 2. Depression ? Patient is on Cymbalta discontinued 3. Bipolar disorder ? Complicating patient's care 4. DVT prophylaxis ? SC Lovenox Time spent in the patient's overall evaluation,decision-making process, review of diagnostic data, adjustment of management, discussion with other providers, nursing nursing and ancillary staff involved in patient's care documentation, 35 Minutes Charges/Coding Visit Charges Inpatient E&M: 89895 Subs Hosp L2
[2022-09-19] MEDS: Pregabalin 75 MG Capsule 150 MG PO ×2 (08:53→21:00)
--- NOTE | 2022-09-19 08:53 | PCM.PROGNOTE ---
Objective Data Objective Data Vital Signs: Vital Signs Temp Pulse Resp BP Pulse Ox O2 Del Method O2 Flow Rate 98.7 F 112 H 20 H 121/78 H 93 Room Air 2 09/19/22 08:36 09/19/22 08:36 09/19/22 08:36 09/19/22 08:36 09/19/22 08:36 09/19/22 08:36 09/15/22 05:28 Oxygen Flow Rate (L/min) 2 Oxygen Delivery Method Room Air Weight: 59.109 kg Body Mass Index (BMI) 21.7 Intake & Output: Intake and Output for Last 24 Hours 09/17/22 09/18/22 09/19/22 23:59 23:59 23:59 Intake Total 1605 / 1845 1015 / 1015 400 / 400 Output Total 400 / 400 350 / 350 Balance 1605 / 1845 615 / 615 50 / 50 Lab / Micro Data 09/15/22 04:36 09/16/22 13:09 Labs: Laboratory Results - last 24 hr 09/18/22 12:34: Vancomycin Trough 22.4 H 09/18/22 21:14: Random Vancomycin 8.7 Micro: Microbiology 09/13/22 16:57 Blood Culture (Wb) - Anticubital Left Blood Culture - Final No growth in 5 days. 09/16/22 10:40 Blood Culture (Wb) - Left Hand Blood Culture - Preliminary No growth in 48 hours. 09/15/22 15:56 Blood Culture (Wb) - Right Hand Blood Culture - Preliminary No growth in 48 hours. 09/13/22 16:57 Blood Culture (Wb) - Other Bacteria Detection (PCR) - Final Meth. resistant Staph. aureus mecA Resistance Marker 09/13/22 16:57 Blood Culture (Wb) - Other Blood Culture - Final Meth. resistant Staph. aureus 09/14/22 13:07 Wound Abcess - Ankle Gram Stain - Final 09/14/22 13:07 Wound Abcess - Ankle Wound Culture - Final Meth. resistant Staph. aureus 09/14/22 13:07 Wound Abcess - Ankle Anaerobic Culture - Final No anaerobic bacteria isolated. 09/13/22 18:45 Aspirate - Ankle Gram Stain - Final 09/13/22 18:45 Aspirate - Ankle Wound Culture - Final Meth. resistant Staph. aureus 09/13/22 18:45 Aspirate - Ankle Anaerobic Culture - Final No anaerobic bacteria isolated. Physical Exam Narrative s/p right ankle I+D with incision medial and lateral ankle, there is noted to be swelling and redness/erythema - but overall improved noted, she continues to relate to significant pain to site, but appears less painful today. Tissues right ankle do appear healthy and viable, no purulence, no maloder, no necrosis, no crepitus, no fluctuance to the right foot, ankle or leg. CFT < 2 seconds to all toes on the right foot with pedal pulses intact, sensation intact to the right foot/ankle. Left foot with no swelling, no open lesions, no drainage, no erythema. Const alert and oriented x3 Assessment & Plan Assessment/Plan (1) Ankle pain, right: (2) Cellulitis of right lower limb: PLAN: Plan Evaluation performed. s/p right ankle I+D on 09/14/22. Reviewed diagnostic data. Crystal analysis - no monosodium crystals noted per pathology report - culture growing MRSA. Continued improvement clinically to right ankle - less erythema, tissues are healthy and viable, less swelling. We will continue with daily dressing changes, and patient is on IV antibiotic - Vancomycin at this time. Wound care right ankle - dakin's gauze wet to dry daily dressing changes. Wound likely benefit from wound vac in the future. Keep right foot elevated. No weightbearing right foot. Pain management per hospital medicine. Podiatry will continue to follow.
[2022-09-19] MEDS: DULoxetine Hcl 60 MG Capsule PO ×2 (08:54→21:01)
--- NOTE | 2022-09-19 10:22 | CASEMGMT ---
NAHOMY CORNEJO: Call received from CLEMENTE Miller with [facility]. Update provided on discharge planning. Angela may be reached at [phone] if assistance is needed. Demarcus Lopez RN CM
[2022-09-19] MEDS: oxyCODONE HCl Cr 10 MG Tablet 20 MG PO ×2 (10:39→21:00)
--- NOTE | 2022-09-19 12:39 | CASEMGMT ---
Patient needed SW to fax a note indicating she is in the hospital. SW faxed a letter to [facility] indicating when patient was admitted and that her d/c date is currently unknown. SW then spoke with patient about going to a correction facility at discharge. Patient said she, her significant other and dog will all need to go somewhere. SW explained SW cannot get her significant other into a retirement it would just be for the patient. 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 SW told her the retirement would be taking care of her. Patient said she and her significant other will need to talk and SW can check back. Loren Gan PAPER SUPERVISOR [place]
[2022-09-19 13:13] VITALS: BP 114/79; PULSE 114; RESP 16; TEMP 36.8; O2SAT 93
--- NOTE | 2022-09-19 14:09 | PCM.PN.ID ---
Physical Exam Narrative C/o significant pain in leg. No fever Const alert Resp normal air movement and clear to auscultation bilaterally Cardio regular rate and regular rhythm GI soft to palpation, non-tender and non-distended Skin Skin Narrative: ankle wrapped ID ID: Route of nutrition/ use of supplements: [] Nutritional Intake: [] IV Site: [] Mark Catheter: [] Assessment & Plan Assessment/Plan (1) MRSA bacteremia: PLAN: MRSA bacteremia due to L ankle septic arthritis. Taken to OR 09/14/[address] Quinonez for I&D. Cont vanc. Bcx cleared 09/15. No veg seen on TTE. Will order picc, 4 weeks iv vanc, stop date 10/13/22 with weekly labs and ID followup in 2 weeks. Plan on ECF given ? h/o ivdu; will also check hep and hiv. Will follow, d/w division human resources manager. Wrote rx. (2) Septic arthritis of ankle: QUALIFIERS: Septic arthritis organism: staphylococcal Laterality: right Qualified Code(s): M00.071 - Staphylococcal arthritis, right ankle and foot
--- NOTE | 2022-09-19 14:19 | WOUNDNOTE ---
wound photo: right medial ankle
--- NOTE | 2022-09-19 14:20 | WOUNDNOTE ---
wound photo: right lateral ankle
--- NOTE | 2022-09-19 15:46 | CASEMGMT ---
SW met with patient and her significant other Blanca. SW asked if they have discussed patient going to a usp. Blanca said they have and their 2 choices would be [facility] and [facility]. SW let them know SW will work on referrals. ANDREW asked Antonieta sahu/tana system planning engineer to send referrals. Loren Gan MSW [place]
--- NOTE | 2022-09-19 16:06 | CASEMGMT ---
Discharge Planning Referral sent to both [facility] and [facility] via [facility]. Antonieta Cardona, Discharge Planning Asst.
--- NOTE | 2022-09-19 16:14 | CASEMGMT ---
Discharge Planning [facility] declined. SW notified. Antonieta Cardona, Discharge Planning Asst.
[2022-09-19 18:00] VITALS: BP 116/74; PULSE 110; RESP 16; TEMP 37.7; O2SAT 93
[2022-09-19 20:49] LABS: Absolute Lymphocyte Count 2.18 X10^3/uL (0.83-4.51); Absolute Neutrophil Count 5.6 X10^3/uL (2.0-7.7); Basophil# 0.07 X10^3/uL; Basophil% 0.7 % (0-1); Eosinophils% 4.2 % (0-5); Hematocrit 34.6 % (37-47); Hemoglobin 11.1 g/dL (12.0-15.0); Lymphocyte # 2.18 X10^3/ul (0.83-4.51); Lymphocyte % 22.9 % (19-41); Mean Corp Hgb Conc 32.1 g/dL (32-36); Mean Corpuscular Volume 93.5 fL (81-99); Mean Platelet Vol. 10.8 fl (6.2-12.0); Monocyte# 1.12 X10^3/uL; Monocyte% 11.8 % (0-10); NRBC Flagged by Analyzer 0 % (0-5); Neutrophil # 5.61 X10^3/uL (2.7-7.7); Neutrophil % 58.8 % (47-70); Platelet Count 673 K/mm3 (150-450); RBC Distribution Width CV 13.3 % (11.6-14.6); RBC Distribution Width SD 45.9 fl (35.1-43.9); White Blood Count 9.5 K/mm3 (4.4-11.0)
[2022-09-19] MEDS: Zolpidem Tartrate 5 MG Tablet PO (21:00)
[2022-09-19] MEDS: Senna/Docusate Sodium 1 Tablet 2 TABLET PO (21:01)
[2022-09-19 22:30] VITALS: BP 113/76; PULSE 105; RESP 16; TEMP 37.1; O2SAT 94
[2022-09-20] VITALS (7 sets, daily range): BP systolic 104–121; BP diastolic 69–77; PULSE 94–110; RESP 14–18; TEMP 36.4–37.7; O2SAT 93–95
[2022-09-20] MEDS: clonazePAM 1 MG Tablet PO ×3 (05:05→21:25)
[2022-09-20] MEDS: Vancomycin IV 1,000 MG/200 ML BAG 200 MG IV ×3 (05:05→21:25)
[2022-09-20] MEDS: HYDROmorphone 0.5 MG/0.5 ML SYRINGE IV ×2 (05:07→11:53)
[2022-09-20 06:12] LABS: Absolute Lymphocyte Count 2.58 X10^3/uL (0.83-4.51); Basophil# 0.06 X10^3/uL; Basophil% 0.7 % (0-1); Eosinophil# 0.34 X10^3/uL; Eosinophils% 3.8 % (0-5); Hematocrit 35.7 % (37-47); Hemoglobin 11.2 g/dL (12.0-15.0); Lymphocyte # 2.58 X10^3/ul (0.83-4.51); Lymphocyte % 28.7 % (19-41); Mean Corp Hgb Conc 31.4 g/dL (32-36); Mean Corpuscular Hgb 29.9 pg (27.0-32.0); Mean Corpuscular Volume 95.2 fL (81-99); Mean Platelet Vol. 11.1 fl (6.2-12.0); Monocyte# 0.95 X10^3/uL; Monocyte% 10.6 % (0-10); NRBC Flagged by Analyzer 0 % (0-5); Neutrophil # 4.95 X10^3/uL (2.7-7.7); Neutrophil % 54.9 % (47-70); Platelet Count 725 K/mm3 (150-450); RBC Distribution Width CV 13.4 % (11.6-14.6); RBC Distribution Width SD 47.4 fl (35.1-43.9); Red Blood Count 3.75 M/mm3 (4.2-5.4)
[2022-09-20 06:53] LABS: Anion Gap 6 (5-15); BUN 5 mg/dL (7-18); BUN/Creat Ratio 7.7 RATIO (10-20); Calcium,Total 8.6 mg/dL (8.5-10.1); Chloride 99 mmol/L (98-107); Creatinine, Serum 0.65 mg/dL (0.55-1.02); EST Glomerular Filtration Rate 106 mL/min (>60); Est Glom Filt Rate - Afr Amer 128 mL/min (>60); Estimated Creatinine Clearance 101.46 ml/min; Glucose 90 mg/dL (74-106); Magnesium 2.3 mg/dL (1.6-2.6); Phosphorus 3.5 mg/dL (2.5-4.9); Potassium 3.7 mmol/L (3.5-5.1); Sodium Level 135 mmol/L (136-145)
--- NOTE | 2022-09-20 08:16 | CASEMGMT ---
Discharge Planning Patient has been declined by [facility] but accepted by [facility]. Asked that pre-cert be submitted. Antonieta Cardona, Discharge Planning Asst.
[2022-09-20] MEDS: oxyCODONE 5 MG Tablet 15 MG PO ×2 (08:20→14:50)
--- NOTE | 2022-09-20 08:20 | PCM.PN.HOSP ---
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 Patient will be discharged with 4 weeks of IV antibiotics Objective Data Objective Data Vital Signs: Vital Signs Temp Pulse Resp BP Pulse Ox O2 Del Method O2 Flow Rate 99.5 F H 103 H 16 115/69 95 Room Air 2 09/20/22 06:00 09/20/22 06:00 09/20/22 06:00 09/20/22 06:00 09/20/22 06:00 09/20/22 06:00 09/15/22 05:28 Oxygen Flow Rate (L/min) 2 Oxygen Delivery Method Room Air Weight: 59.109 kg Body Mass Index (BMI) 21.7 Intake & Output: Intake and Output for Last 24 Hours 09/18/22 09/19/22 09/20/22 23:59 23:59 23:59 Intake Total 1015 / 1015 1250 / 1490 440 / 440 Output Total 400 / 400 350 / 350 Balance 615 / 615 900 / 1140 440 / 440 Lab / Micro Data 09/20/22 05:07 09/20/22 05:07 Labs: Laboratory Results - last 24 hr 09/19/22 20:20: WBC 9.5, RBC 3.70 L, Hgb 11.1 L, Hct 34.6 L, MCV 93.5, MCH 30.0, MCHC 32.1, RDW Std Deviation 45.9 H, RDW Coeff of Sylvia 13.3, Plt Count 673 H, MPV 10.8, Immature Gran % (Auto) 1.600 H, Neut % (Auto) 58.8, Lymph % (Auto) 22.9, [place] % (Auto) 11.8 H, Eos % (Auto) 4.2, Baso % (Auto) 0.7, Absolute Neuts (auto) 5.6, Absolute Lymphs (auto) 2.18, Nucleated RBC % 0, C-React Prot Ext Range 119.00 H 09/20/22 05:07: WBC 9.0, RBC 3.75 L, Hgb 11.2 L, Hct 35.7 L, MCV 95.2, MCH 29.9, MCHC 31.4 L, RDW Std Deviation 47.4 H, RDW Coeff of Sylvia 13.4, Plt Count 725 H, MPV 11.1, Immature Gran % (Auto) 1.300 H, Neut % (Auto) 54.9, Lymph % (Auto) 28.7, [place] % (Auto) 10.6 H, Eos % (Auto) 3.8, Baso % (Auto) 0.7, Absolute Neuts (auto) 5.0, Absolute Lymphs (auto) 2.58, Nucleated RBC % 0, Sodium 135 L, Potassium 3.7, Chloride 99, Carbon Dioxide 30.0, Anion Gap 6, BUN 5 L, Creatinine 0.65, Estim Creat Clear Calc 101.46, Est GFR (MDRD) Af Amer 128, Est GFR (MDRD) Non-Af 106, BUN/Creatinine Ratio 7.7 L, Glucose 90, Calcium 8.6, Phosphorus 3.5, Magnesium 2.3 Micro: Microbiology 09/17/22 10:00 Blood Culture (Wb) - Venous Blood Culture - Preliminary No growth in 48 hours. 09/13/22 16:57 Blood Culture (Wb) - Anticubital Left Blood Culture - Final No growth in 5 days. 09/16/22 10:40 Blood Culture (Wb) - Left Hand Blood Culture - Preliminary No growth in 48 hours. 09/15/22 15:56 Blood Culture (Wb) - Right Hand Blood Culture - Preliminary No growth in 48 hours. 09/13/22 16:57 Blood Culture (Wb) - Other Bacteria Detection (PCR) - Final Meth. resistant Staph. aureus mecA Resistance Marker 09/13/22 16:57 Blood Culture (Wb) - Other Blood Culture - Final Meth. resistant Staph. aureus 09/14/22 13:07 Wound Abcess - Ankle Gram Stain - Final 09/14/22 13:07 Wound Abcess - Ankle Wound Culture - Final Meth. resistant Staph. aureus 09/14/22 13:07 Wound Abcess - Ankle Anaerobic Culture - Final No anaerobic bacteria isolated. 09/13/22 18:45 Aspirate - Ankle Gram Stain - Final 09/13/22 18:45 Aspirate - Ankle Wound Culture - Final Meth. resistant Staph. aureus 09/13/22 18:45 Aspirate - Ankle Anaerobic Culture - Final No anaerobic bacteria isolated. Physical Exam Narrative GENERAL: cooperative HEENT: Atraumatic; normocephalic EYES; Anicteric, Normal Conjunctiva NECK; supple, normal thyroid, RESPIRATORY: Diminished to auscultation CARDIOVASCULAR: Regular S1 S2, GI: soft, normoactive bowel sounds, : No Renal angle tenderness; EXTREMITIES: Right ankle in surgical dressing MUSCULOSKELETAL: no muscle wasting NEURO: Awake; no lateralizing signs. SKIN: No Rash PSYCH; Flat affect Assessment & Plan Assessment/Plan (1) Septic arthritis of ankle: QUALIFIERS: Laterality: right Septic arthritis organism: staphylococcal Qualified Code(s): M00.071 - Staphylococcal arthritis, right ankle and foot PLAN: Plan Patient is a 42-year-old lady admitted with sepsis secondary to right ankle septic arthritis started on broad-spectrum antibiotics underwent I&D blood cultures positive for MRSA 1. Sepsis secondary to septic arthritis involving the right ankle with MRSA bacteremia ? Patient underwent Incision and drainage right ankle by Dr. Rojas on 09/14/2022. Remains on broad-spectrum antibiotic therapy. Consult placed to ID ? 09/20/2022 patient was seen in consultation by Dr. Starks with infectious disease recommendation is for patient to be discharged with 4 weeks of IV antibiotics?vancomycin 2. Depression ? Patient is on Cymbalta discontinued 3. Bipolar disorder ? Complicating patient's care 4. DVT prophylaxis ? SC Lovenox Time spent in the patient's overall evaluation,decision-making process, review of diagnostic data, adjustment of management, discussion with other providers, nursing nursing and ancillary staff involved in patient's care documentation, 35 Minutes Charges/Coding Visit Charges Inpatient E&M: 95140 Subs Hosp L2
[2022-09-20] MEDS: Acetaminophen 325 MG Tablet 650 MG PO ×2 (08:21→22:39)
[2022-09-20 09:19] LABS: HIV - WCH Non-Reactive (Nonreactive)
[2022-09-20] MEDS: DULoxetine Hcl 60 MG Capsule PO ×2 (10:00→21:26)
[2022-09-20] MEDS: Pregabalin 75 MG Capsule 150 MG PO ×2 (10:00→21:25)
[2022-09-20] MEDS: oxyCODONE HCl Cr 10 MG Tablet 20 MG PO ×2 (10:00→21:25)
[2022-09-20] MEDS: DAKIN'S SOL HALF STRENGTH (=0.25%) 1 APPLIC TOPICAL (10:02)
[2022-09-20] MEDS: Senna/Docusate Sodium 1 Tablet 2 TABLET PO (10:04)
[2022-09-20 13:14] LABS: Vancomycin, Trough Level 12.7 ug/mL (5.0-15.0)
--- NOTE | 2022-09-20 13:16 | PN_ITS ---
Subjective Subjective Pain improved today denies constitutionals no other changes patient adamently refusing SNF now Objective Data Objective Data Vital Signs: Vital Signs Temp Pulse Resp BP Pulse Ox O2 Del Method O2 Flow Rate 98.1 F 95 14 111/72 93 Room Air 2 09/20/22 10:00 09/20/22 10:00 09/20/22 10:00 09/20/22 10:00 09/20/22 10:00 09/20/22 10:00 09/15/22 05:28 Oxygen Flow Rate (L/min) 2 Oxygen Delivery Method Room Air Weight: 59.109 kg Body Mass Index (BMI) 21.7 Intake & Output: Intake and Output for Last 24 Hours 09/18/22 09/19/22 09/20/22 23:59 23:59 23:59 Intake Total 1015 / 1015 1250 / 1490 440 / 440 Output Total 400 / 400 350 / 350 Balance 615 / 615 900 / 1140 440 / 440 Lab / Micro Data 09/20/22 05:07 09/20/22 05:07 Labs: Laboratory Results - last 24 hr 09/19/22 20:20: WBC 9.5, RBC 3.70 L, Hgb 11.1 L, Hct 34.6 L, MCV 93.5, MCH 30.0, MCHC 32.1, RDW Std Deviation 45.9 H, RDW Coeff of Sylvia 13.3, Plt Count 673 H, MPV 10.8, Immature Gran % (Auto) 1.600 H, Neut % (Auto) 58.8, Lymph % (Auto) 22.9, [place] % (Auto) 11.8 H, Eos % (Auto) 4.2, Baso % (Auto) 0.7, Absolute Neuts (auto) 5.6, Absolute Lymphs (auto) 2.18, Nucleated RBC % 0, C-React Prot Ext Range 119.00 H 09/20/22 05:07: WBC 9.0, RBC 3.75 L, Hgb 11.2 L, Hct 35.7 L, MCV 95.2, MCH 29.9, MCHC 31.4 L, RDW Std Deviation 47.4 H, RDW Coeff of Sylvia 13.4, Plt Count 725 H, MPV 11.1, Immature Gran % (Auto) 1.300 H, Neut % (Auto) 54.9, Lymph % (Auto) 28.7, [place] % (Auto) 10.6 H, Eos % (Auto) 3.8, Baso % (Auto) 0.7, Absolute Neuts (auto) 5.0, Absolute Lymphs (auto) 2.58, Nucleated RBC % 0, Sodium 135 L, Potassium 3.7, Chloride 99, Carbon Dioxide 30.0, Anion Gap 6, BUN 5 L, Creatinine 0.65, Estim Creat Clear Calc 101.46, Est GFR (MDRD) Af Amer 128, Est GFR (MDRD) Non-Af 106, BUN/Creatinine Ratio 7.7 L, Glucose 90, Calcium 8.6, Phosphorus 3.5, Magnesium 2.3, HIV 1&2 Antibody Non-Reactive 09/20/22 12:30: Vancomycin Trough 12.7 Micro: Microbiology 09/17/22 10:00 Blood Culture (Wb) - Venous Blood Culture - Preliminary No growth in 48 hours. 09/13/22 16:57 Blood Culture (Wb) - Anticubital Left Blood Culture - Final No growth in 5 days. 09/16/22 10:40 Blood Culture (Wb) - Left Hand Blood Culture - Preliminary No growth in 48 hours. 09/15/22 15:56 Blood Culture (Wb) - Right Hand Blood Culture - Preliminary No growth in 48 hours. 09/13/22 16:57 Blood Culture (Wb) - Other Bacteria Detection (PCR) - Final Meth. resistant Staph. aureus mecA Resistance Marker 09/13/22 16:57 Blood Culture (Wb) - Other Blood Culture - Final Meth. resistant Staph. aureus 09/14/22 13:07 Wound Abcess - Ankle Gram Stain - Final 09/14/22 13:07 Wound Abcess - Ankle Wound Culture - Final Meth. resistant Staph. aureus 09/14/22 13:07 Wound Abcess - Ankle Anaerobic Culture - Final No anaerobic bacteria isolated. 09/13/22 18:45 Aspirate - Ankle Gram Stain - Final 09/13/22 18:45 Aspirate - Ankle Wound Culture - Final Meth. resistant Staph. aureus 09/13/22 18:45 Aspirate - Ankle Anaerobic Culture - Final No anaerobic bacteria isolated. Physical Exam Narrative s/p right ankle I+D with incision medial and lateral ankle, there is noted to be swelling and redness/erythema - but overall improved noted, she continues to relate to significant pain to site, but appears less painful today. Tissues right ankle do appear healthy and viable, no purulence, no maloder, no necrosis, no crepitus, no fluctuance to the right foot, ankle or leg. CFT < 2 seconds to all toes on the right foot with pedal pulses intact, sensation intact to the right foot/ankle. Left foot with no swelling, no open lesions, no drainage, no erythema. Const alert and oriented x3 Assessment & Plan Assessment/Plan (1) Ankle pain, right: (2) Cellulitis of right lower limb: PLAN: Plan Evaluation performed. s/p right ankle I+D on 09/14/22. Reviewed diagnostic data. Crystal analysis - no monosodium crystals noted per pathology report - culture growing MRSA. Continued improvement clinically to right ankle - less erythema, tissues are healthy and viable, less swelling. We will continue with daily dressing changes, and patient is on IV antibiotic - Vancomycin at this time. ID on board - PICC line ordered. leukocytosis resolved, vital signs stable Wound care right ankle - adaptic, dakin's gauze wet to dry daily dressing changes. Wound likely benefit from wound vac in the future. Keep right foot elevated. No weightbearing right foot. Pain management per hospital medicine. pain, erythema/edema improved today. patient refusing SNF placement now AMA. I discussed risk for loss of limb and loss of life if patient does not get a high level of care for her right ankle wounds/infection. Patient still refusing stating she has to get something from her house. Podiatry will continue to follow.
--- NOTE | 2022-09-20 13:39 | CASEMGMT ---
Physician and wound RN were talking with patient about her d/c plan. SW went to patient's room and let patient now [facility] is unable to take her, but [facility] is able to take her. Patient said that is not the one she chose. SW reminded patient that yesterday she and her significant other chose this as her second choice. Patient is now refusing to go to a fci. Patient is asking for home care. SW, wound RN, and physcian told patient that home health RN will only be out maybe once a week and she needs to be seen more often in order to make sure her wound is getting proper attention. Physician told patient she could lose her leg. Patient was adamant she is fine for home stating she has had MRSA before. Patient wants to talk with her primary care doctor as she wants a second opinion. Physician offered to call patient's PCP and patient was agreeable to this. SW will talk with patient when her significant other is present. Loren Gan RESTAURANT WORKER [place]
--- NOTE | 2022-09-20 13:44 | PCM.RX.CS ---
Consult Antibiotic Management Pharmacy has been consulted to manage selected antiobiotic: Vancomycin Type of Intervention Type of Consult: Follow-up Labs Labs: Sodium 135 mmol/L (136-145) L 09/20/22 05:07 Potassium 3.7 mmol/L (3.5-5.1) 09/20/22 05:07 Chloride 99 mmol/L (98-107) 09/20/22 05:07 Carbon Dioxide 30.0 mmol/L (21.0-32.0) 09/20/22 05:07 Anion Gap 6 (5-15) 09/20/22 05:07 BUN 5 mg/dL (7-18) L 09/20/22 05:07 Creatinine 0.65 mg/dL (0.55-1.02) 09/20/22 05:07 Est GFR (MDRD) Af Amer 128 mL/min (>60) 09/20/22 05:07 Est GFR (MDRD) Non-Af 106 mL/min (>60) 09/20/22 05:07 BUN/Creatinine Ratio 7.7 RATIO (10-20) L 09/20/22 05:07 Glucose 90 mg/dL (74-106) 09/20/22 05:07 Vancomycin Trough 12.7 ug/mL (5.0-15.0) 09/20/22 12:30 Random Vancomycin 8.7 ug/mL (0.0-15.0) 09/18/22 21:14 Microbiology Microbiology: Microbiology 09/17/22 10:00 Blood Culture (Wb) - Venous Blood Culture - Preliminary No growth in 48 hours. 09/13/22 16:57 Blood Culture (Wb) - Anticubital Left Blood Culture - Final No growth in 5 days. 09/16/22 10:40 Blood Culture (Wb) - Left Hand Blood Culture - Preliminary No growth in 48 hours. 09/15/22 15:56 Blood Culture (Wb) - Right Hand Blood Culture - Preliminary No growth in 48 hours. 09/13/22 16:57 Blood Culture (Wb) - Other Bacteria Detection (PCR) - Final Meth. resistant Staph. aureus mecA Resistance Marker 09/13/22 16:57 Blood Culture (Wb) - Other Blood Culture - Final Meth. resistant Staph. aureus 09/14/22 13:07 Wound Abcess - Ankle Gram Stain - Final 09/14/22 13:07 Wound Abcess - Ankle Wound Culture - Final Meth. resistant Staph. aureus 09/14/22 13:07 Wound Abcess - Ankle Anaerobic Culture - Final No anaerobic bacteria isolated. 09/13/22 18:45 Aspirate - Ankle Gram Stain - Final 09/13/22 18:45 Aspirate - Ankle Wound Culture - Final Meth. resistant Staph. aureus 09/13/22 18:45 Aspirate - Ankle Anaerobic Culture - Final No anaerobic bacteria isolated. Goal Trough Goal Trough: 15-20 mcg/mL Pharmacy Plan for Drug Dosing Pharmacy Plan for Drug Dosing: VANCOMYCIN LEVEL RECEIVED Current Vancomycin Dose: 1000mg IV Q8h Number of Doses Received: 3 Vancomycin Level: 12.7 Hours Since Last Dose: 7.5hr Renal Function: 0.65 Renal Function Trend: stable Lab/Micro: No new Cx, Cx (+) MRSA Vancomycin Plan/Comments: patient had a trough drawn which resulted in a value of 12.7 (Goal 15-20). Patient had lost access and missed a dose after previously having a supratherapeutic dose requiring meds to be held. In light of this, will continue current dose and recheck a level in 24hr after the patient has been on regular dosing for another day. Pending Level: 09/21/22 @1230 Pharmacy Service will continue to monitor and adjust dosing as required.
[2022-09-20] MEDS: Zolpidem Tartrate 5 MG Tablet PO (21:25)
[2022-09-21] VITALS: BP 114/77; PULSE 94; RESP 18; TEMP 37.2; O2SAT 94
[2022-09-21] MEDS: oxyCODONE 5 MG Tablet 15 MG PO ×5 (00:19→23:16)
[2022-09-21] MEDS: Vancomycin IV 1,000 MG/200 ML BAG 200 MG IV ×3 (04:15→20:03)
[2022-09-21 05:07] LABS: HEPATITIS B SURFACE AG Negative (Negative); Hep C Antibodies Non Reactive (Non Reactive); Hepatitis A IgM Antibody Negative (Negative); Hepatitis B Core AB IgM Negative (Negative)
[2022-09-21] MEDS: clonazePAM 1 MG Tablet PO ×3 (05:32→21:02)
[2022-09-21 06:00] VITALS: BP 119/75; PULSE 91; RESP 18; TEMP 36.8; O2SAT 94
[2022-09-21 06:27] LABS: Absolute Lymphocyte Count 2.38 X10^3/uL (0.83-4.51); Absolute Neutrophil Count 3.8 X10^3/uL (2.0-7.7); Basophil# 0.05 X10^3/uL; Basophil% 0.7 % (0-1); Eosinophil# 0.28 X10^3/uL; Eosinophils% 3.7 % (0-5); Hematocrit 37.5 % (37-47); Hemoglobin 11.9 g/dL (12.0-15.0); Lymphocyte # 2.38 X10^3/ul (0.83-4.51); Lymphocyte % 31.9 % (19-41); Mean Corp Hgb Conc 31.7 g/dL (32-36); Mean Corpuscular Hgb 30.5 pg (27.0-32.0); Mean Corpuscular Volume 96.2 fL (81-99); Monocyte# 0.85 X10^3/uL; Monocyte% 11.4 % (0-10); NRBC Flagged by Analyzer 0 % (0-5); Neutrophil # 3.84 X10^3/uL (2.7-7.7); Neutrophil % 51.4 % (47-70); POSITIVE COUNT YES; Platelet Count 753 K/mm3 (150-450); RBC Distribution Width CV 13.3 % (11.6-14.6); RBC Distribution Width SD 47.7 fl (35.1-43.9); White Blood Count 7.5 K/mm3 (4.4-11.0)
[2022-09-21 06:37] LABS: Differential Indicated SCAN CRITERIA MET
[2022-09-21 06:55] LABS: Anion Gap 2 (5-15); BUN 6 mg/dL (7-18); BUN/Creat Ratio 9.8 RATIO (10-20); Calcium,Total 8.5 mg/dL (8.5-10.1); Chloride 99 mmol/L (98-107); Creatinine, Serum 0.61 mg/dL (0.55-1.02); EST Glomerular Filtration Rate 114 mL/min (>60); Est Glom Filt Rate - Afr Amer 138 mL/min (>60); Estimated Creatinine Clearance 108.11 ml/min; Glucose 77 mg/dL (74-106); Potassium 3.1 mmol/L (3.5-5.1); Sodium Level 136 mmol/L (136-145)
[2022-09-21 06:59] LABS: Platelet Estimate MKD INC (ADEQ)
--- NOTE | 2022-09-21 07:14 | PCM.PN.HOSP ---
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 Potassium 3.1 and replacement initial Objective Data Objective Data Vital Signs: Vital Signs Temp Pulse Resp BP Pulse Ox O2 Del Method O2 Flow Rate 98.3 F 91 18 119/75 94 Room Air 2 09/21/22 06:00 09/21/22 06:00 09/21/22 06:00 09/21/22 06:00 09/21/22 06:00 09/21/22 06:00 09/15/22 05:28 Oxygen Flow Rate (L/min) 2 Oxygen Delivery Method Room Air Weight: 59.109 kg Body Mass Index (BMI) 21.7 Intake & Output: Intake and Output for Last 24 Hours 09/19/22 09/20/22 09/21/22 23:59 23:59 23:59 Intake Total 1250 / 1490 1640 / 1880 550 / 550 Output Total 350 / 350 550 / 800 500 / 500 Balance 900 / 1140 1090 / 1080 50 / 50 Lab / Micro Data 09/21/22 05:03 09/21/22 05:03 Labs: Laboratory Results - last 24 hr 09/20/22 05:07: Hepatitis A IgM Ab Negative, Hep Bs Antigen Negative, Hep B Core IgM Ab Negative, Hepatitis C Ab (EIA) Non Reactive, Hep C Ab Comment Comment, HIV 1&2 Antibody Non-Reactive 09/20/22 12:30: Vancomycin Trough 12.7 09/21/22 05:03: WBC 7.5, RBC 3.90 L, Hgb 11.9 L, Hct 37.5, MCV 96.2, MCH 30.5, MCHC 31.7 L, RDW Std Deviation 47.7 H, RDW Coeff of Sylvia 13.3, Plt Count 753 H*, MPV 11.0, Immature Gran % (Auto) 0.900, Neut % (Auto) 51.4, Lymph % (Auto) 31.9, [place] % (Auto) 11.4 H, Eos % (Auto) 3.7, Baso % (Auto) 0.7, Absolute Neuts (auto) 3.8, Absolute Lymphs (auto) 2.38, Nucleated RBC % 0, Diff Path Review May foll, Platelet Estimate MKD INC, Sodium 136, Potassium 3.1 L, Chloride 99, Carbon Dioxide 35.0 H, Anion Gap 2 L, BUN 6 L, Creatinine 0.61, Estim Creat Clear Calc 108.11, Est GFR (MDRD) Af Amer 138, Est GFR (MDRD) Non-Af 114, BUN/Creatinine Ratio 9.8 L, Glucose 77, Calcium 8.5 Micro: Microbiology 09/17/22 10:00 Blood Culture (Wb) - Venous Blood Culture - Preliminary No growth in 48 hours. 09/13/22 16:57 Blood Culture (Wb) - Anticubital Left Blood Culture - Final No growth in 5 days. 09/16/22 10:40 Blood Culture (Wb) - Left Hand Blood Culture - Preliminary No growth in 48 hours. 09/15/22 15:56 Blood Culture (Wb) - Right Hand Blood Culture - Preliminary No growth in 48 hours. 09/13/22 16:57 Blood Culture (Wb) - Other Bacteria Detection (PCR) - Final Meth. resistant Staph. aureus mecA Resistance Marker 09/13/22 16:57 Blood Culture (Wb) - Other Blood Culture - Final Meth. resistant Staph. aureus 09/14/22 13:07 Wound Abcess - Ankle Gram Stain - Final 09/14/22 13:07 Wound Abcess - Ankle Wound Culture - Final Meth. resistant Staph. aureus 09/14/22 13:07 Wound Abcess - Ankle Anaerobic Culture - Final No anaerobic bacteria isolated. 09/13/22 18:45 Aspirate - Ankle Gram Stain - Final 09/13/22 18:45 Aspirate - Ankle Wound Culture - Final Meth. resistant Staph. aureus 09/13/22 18:45 Aspirate - Ankle Anaerobic Culture - Final No anaerobic bacteria isolated. Physical Exam Narrative GENERAL: cooperative HEENT: Atraumatic; normocephalic EYES; Anicteric, Normal Conjunctiva NECK; supple, normal thyroid, RESPIRATORY: Diminished to auscultation CARDIOVASCULAR: Regular S1 S2, GI: soft, normoactive bowel sounds, : No Renal angle tenderness; EXTREMITIES: Right ankle in surgical dressing MUSCULOSKELETAL: no muscle wasting NEURO: Awake; no lateralizing signs. SKIN: No Rash PSYCH; Flat affect Assessment & Plan Assessment/Plan (1) Septic arthritis of ankle: QUALIFIERS: Laterality: right Septic arthritis organism: staphylococcal Qualified Code(s): M00.071 - Staphylococcal arthritis, right ankle and foot PLAN: Plan Patient is a 42-year-old lady admitted with sepsis secondary to right ankle septic arthritis started on broad-spectrum antibiotics underwent I&D blood cultures positive for MRSA 1. Sepsis secondary to septic arthritis involving the right ankle with MRSA bacteremia ? Patient underwent Incision and drainage right ankle by Dr. Rojas on 09/14/2022. Remains on broad-spectrum antibiotic therapy. Consult placed to ID ? 09/20/2022 patient was seen in consultation by Dr. Starks with infectious disease recommendation is for patient to be discharged with 4 weeks of IV antibiotics?vancomycin 2. Depression ? Patient is on Cymbalta discontinued 3. Bipolar disorder ? Complicating patient's care 4. DVT prophylaxis ? SC Lovenox 5. Hypokalemia -Corrected per protocol Time spent in the patient's overall evaluation,decision-making process, review of diagnostic data, adjustment of management, discussion with other providers, nursing nursing and ancillary staff involved in patient's care documentation, 35 Minutes Charges/Coding Visit Charges Inpatient E&M: 65100 [facility] Hosp L2
[2022-09-21 08:22] VITALS: BP 104/65; PULSE 96; RESP 14; TEMP 36.6; O2SAT 94
[2022-09-21] MEDS: DAKIN'S SOL HALF STRENGTH (=0.25%) 1 APPLIC TOPICAL ×2 (09:45→10:05)
[2022-09-21] MEDS: Pregabalin 75 MG Capsule 150 MG PO ×2 (10:04→21:02)
[2022-09-21] MEDS: Potassium Chloride Oral Tablet 20 MEQ 60 MEQ PO (10:04)
[2022-09-21] MEDS: oxyCODONE HCl Cr 10 MG Tablet 20 MG PO ×2 (10:04→21:01)
[2022-09-21] MEDS: Senna/Docusate Sodium 1 Tablet 2 TABLET PO ×2 (10:05→21:01)
[2022-09-21] MEDS: DULoxetine Hcl 60 MG Capsule PO ×2 (10:05→21:03)
[2022-09-21] MEDS: HYDROmorphone 0.5 MG/0.5 ML SYRINGE IV (10:08)
--- NOTE | 2022-09-21 10:40 | WOUNDNOTE ---
wound photo: right medial ankle
--- NOTE | 2022-09-21 10:41 | WOUNDNOTE ---
wound photo: right lateral ankle
--- NOTE | 2022-09-21 11:01 | CASEMGMT ---
SW spent an extensive amount of time with patient. Patient shared her history with social work. Patient has been through a lot. SW listened and provided emotional support. SW broached the subject of a chcf facility. Patient told SW she is going home and would like a nurse to come out. Patient said she spoke with her landlord and he was very apologetic for how things have been at their home. Patient said her landlord is willing to help her with whatever she needs help with. Patient said she and her significant other will take care of her wound and antibiotics. SW told patient that SW and physicians really feel like patient needs to go to the longterm at least for a little bit so her wound can have a good start on healing. Patient verbalized understanding and was adamant she is going home. SW asked patient if her girlfriend is coming in and she said she will be in later. Loren Gan [employer]SET PRESSMAN [place]
[2022-09-21 13:11] LABS: Vancomycin, Trough Level 17.1 ug/mL (5.0-15.0)
--- NOTE | 2022-09-21 14:16 | PCM.RX.CS ---
Consult Antibiotic Management Pharmacy has been consulted to manage selected antiobiotic: Vancomycin Type of Intervention Type of Consult: Follow-up Suspected Infection Suspected Infection: Skin/Soft tissue Prior Doses of Antibiotics Prior Doses of Antibiotics Received/Current Regimen: Vancomycin 1000 mg given: 09/20 @ 1249, 09/20 @ 2125, 09/21 @ 0419 Labs Labs: Sodium 136 mmol/L (136-145) 09/21/22 05:03 Potassium 3.1 mmol/L (3.5-5.1) L 09/21/22 05:03 Chloride 99 mmol/L (98-107) 09/21/22 05:03 Carbon Dioxide 35.0 mmol/L (21.0-32.0) H 09/21/22 05:03 Anion Gap 2 (5-15) L 09/21/22 05:03 BUN 6 mg/dL (7-18) L 09/21/22 05:03 Creatinine 0.61 mg/dL (0.55-1.02) 09/21/22 05:03 Est GFR (MDRD) Af Amer 138 mL/min (>60) 09/21/22 05:03 Est GFR (MDRD) Non-Af 114 mL/min (>60) 09/21/22 05:03 BUN/Creatinine Ratio 9.8 RATIO (10-20) L 09/21/22 05:03 Glucose 77 mg/dL (74-106) 09/21/22 05:03 Vancomycin Trough 17.1 ug/mL (5.0-15.0) H 09/21/22 12:32 Random Vancomycin 8.7 ug/mL (0.0-15.0) 09/18/22 21:14 Microbiology Microbiology: Microbiology 09/16/22 10:40 Blood Culture (Wb) - Left Hand Blood Culture - Final No growth in 5 days. 09/15/22 15:56 Blood Culture (Wb) - Right Hand Blood Culture - Final No growth in 5 days. 09/17/22 10:00 Blood Culture (Wb) - Venous Blood Culture - Preliminary No growth in 48 hours. 09/13/22 16:57 Blood Culture (Wb) - Anticubital Left Blood Culture - Final No growth in 5 days. 09/13/22 16:57 Blood Culture (Wb) - Other Bacteria Detection (PCR) - Final Meth. resistant Staph. aureus mecA Resistance Marker 09/13/22 16:57 Blood Culture (Wb) - Other Blood Culture - Final Meth. resistant Staph. aureus 09/14/22 13:07 Wound Abcess - Ankle Gram Stain - Final 09/14/22 13:07 Wound Abcess - Ankle Wound Culture - Final Meth. resistant Staph. aureus 09/14/22 13:07 Wound Abcess - Ankle Anaerobic Culture - Final No anaerobic bacteria isolated. 09/13/22 18:45 Aspirate - Ankle Gram Stain - Final 09/13/22 18:45 Aspirate - Ankle Wound Culture - Final Meth. resistant Staph. aureus 09/13/22 18:45 Aspirate - Ankle Anaerobic Culture - Final No anaerobic bacteria isolated. Dosing Weight Weight used for dosin.1 kg Goal Trough Goal Trough: 15-20 mcg/mL Pharmacy Plan for Drug Dosing Pharmacy Plan for Drug Dosing: Trough today is 17.1 within goal, continue current dosing with a trough in 2 days. Pharmacy Service will continue to monitor and adjust dosing as required. Follow-Up Labs Follow-Up Labs: Trough: Vancomycin Date/Time Labs Ordered Labs to be done on [date and time ordered]: 09/23 @ 8865
--- NOTE | 2022-09-21 15:47 | CASEMGMT ---
ANDREW met with patient and her significant other Blanca. SW explained to Blanca that SW was in earlier and spoke with patient. SW let Blanca know patient is really wanting to go home at discharge. ANDREW did explain that [facility] did accept patient and currently we are waiting on insurance approval. SW let them know SW has not canceled any of this so it is still an option. Patient said they are going to be talking with their landlord soon about what she needs. Patient also said her Dr e-mailed her and she does think she should go to a jail. Patient said, I haven't actually talked with her so she does not know what all is going on. SW told both to really think about this decision. Loren FIGUEROA
[2022-09-21 17:57] VITALS: BP 125/77; PULSE 109; RESP 16; TEMP 36.8; O2SAT 96
[2022-09-21] MEDS: Zolpidem Tartrate 5 MG Tablet PO (21:02)
[2022-09-21 21:40] VITALS: BP 111/76; PULSE 99; RESP 16; TEMP 36.7; O2SAT 94
[2022-09-22] VITALS: BP 119/75; PULSE 92; RESP 16; TEMP 36.8; O2SAT 96
[2022-09-22 03:40] VITALS: BP 107/66; PULSE 95; RESP 14; TEMP 36.7; O2SAT 93
[2022-09-22] MEDS: Vancomycin IV 1,000 MG/200 ML BAG 200 MG IV ×3 (04:54→20:32)
[2022-09-22] MEDS: oxyCODONE 5 MG Tablet 15 MG PO ×3 (04:56→22:36)
[2022-09-22] MEDS: clonazePAM 1 MG Tablet PO ×3 (05:00→20:08)
[2022-09-22 06:00] VITALS: BP 113/71; PULSE 91; RESP 16; TEMP 36.8; O2SAT 95
[2022-09-22 06:04] LABS: Absolute Lymphocyte Count 2.65 X10^3/uL (0.83-4.51); Absolute Neutrophil Count 4.4 X10^3/uL (2.0-7.7); Basophil# 0.04 X10^3/uL; Basophil% 0.5 % (0-1); Eosinophil# 0.31 X10^3/uL; Eosinophils% 3.8 % (0-5); Hematocrit 33.3 % (37-47); Hemoglobin 10.7 g/dL (12.0-15.0); Lymphocyte # 2.65 X10^3/ul (0.83-4.51); Lymphocyte % 32.1 % (19-41); Mean Corp Hgb Conc 32.1 g/dL (32-36); Mean Corpuscular Hgb 29.9 pg (27.0-32.0); Mean Platelet Vol. 10.7 fl (6.2-12.0); Monocyte# 0.84 X10^3/uL; Monocyte% 10.2 % (0-10); NRBC Flagged by Analyzer 0 % (0-5); Neutrophil # 4.37 X10^3/uL (2.7-7.7); Neutrophil % 52.8 % (47-70); POSITIVE COUNT YES; Platelet Count 840 K/mm3 (150-450); RBC Distribution Width CV 13.2 % (11.6-14.6); RBC Distribution Width SD 45.2 fl (35.1-43.9); Red Blood Count 3.58 M/mm3 (4.2-5.4); White Blood Count 8.3 K/mm3 (4.4-11.0)
[2022-09-22 06:18] LABS: Differential Indicated SCAN CRITERIA MET
[2022-09-22 07:00] LABS: Platelet Estimate MKD INC (ADEQ)
[2022-09-22 07:03] LABS: Anion Gap 3 (5-15); BUN 6 mg/dL (7-18); BUN/Creat Ratio 9.6 RATIO (10-20); Calcium,Total 8.7 mg/dL (8.5-10.1); Chloride 100 mmol/L (98-107); Creatinine, Serum 0.62 mg/dL (0.55-1.02); EST Glomerular Filtration Rate 111 mL/min (>60); Est Glom Filt Rate - Afr Amer 134 mL/min (>60); Estimated Creatinine Clearance 106.36 ml/min; Glucose 94 mg/dL (74-106); Potassium 4.3 mmol/L (3.5-5.1); Sodium Level 135 mmol/L (136-145)
--- NOTE | 2022-09-22 07:52 | CASEMGMT ---
Social Work SW sent updates via [employer] to [facility], asked them to keep SW informed regarding precert. ROSA Miles
--- NOTE | 2022-09-22 08:16 | PCM.PN.HOSP ---
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) Pain in right ankle and joints of right foot (09/13/22) Bacteremia (09/13/22) Objective Data Objective Data Vital Signs: Vital Signs Temp Pulse Resp BP Pulse Ox O2 Del Method O2 Flow Rate 98.3 F 91 16 113/71 95 Room Air 2 09/22/22 06:00 09/22/22 06:00 09/22/22 06:00 09/22/22 06:00 09/22/22 06:00 09/22/22 06:00 09/15/22 05:28 Oxygen Flow Rate (L/min) 2 Oxygen Delivery Method Room Air Weight: 130 lb 5.009 oz Body Mass Index (BMI) 21.7 Intake & Output: Intake and Output for Last 24 Hours 09/20/22 09/21/22 09/22/22 23:59 23:59 23:59 Intake Total 1640 / 1880 1560 / 1800 590 / 590 Output Total 550 / 800 800 / 800 Balance 1090 / 1080 760 / 1000 590 / 590 Lab / Micro Data 09/22/22 05:04 09/22/22 05:04 Labs: Laboratory Results - last 24 hr 09/21/22 12:32: Vancomycin Trough 17.1 H 09/22/22 05:04: WBC 8.3, RBC 3.58 L, Hgb 10.7 L, Hct 33.3 L, MCV 93.0, MCH 29.9, MCHC 32.1, RDW Std Deviation 45.2 H, RDW Coeff of Sylvia 13.2, Plt Count 840 H*, MPV 10.7, Immature Gran % (Auto) 0.600, Neut % (Auto) 52.8, Lymph % (Auto) 32.1, [place] % (Auto) 10.2 H, Eos % (Auto) 3.8, Baso % (Auto) 0.5, Absolute Neuts (auto) 4.4, Absolute Lymphs (auto) 2.65, Nucleated RBC % 0, Diff Path Review May foll, Platelet Estimate MKD INC, Sodium 135 L, Potassium 4.3, Chloride 100, Carbon Dioxide 32.0, Anion Gap 3 L, BUN 6 L, Creatinine 0.62, Estim Creat Clear Calc 106.36, Est GFR (MDRD) Af Amer 134, Est GFR (MDRD) Non-Af 111, BUN/Creatinine Ratio 9.6 L, Glucose 94, Calcium 8.7 Micro: Microbiology 09/16/22 10:40 Blood Culture (Wb) - Left Hand Blood Culture - Final No growth in 5 days. 09/15/22 15:56 Blood Culture (Wb) - Right Hand Blood Culture - Final No growth in 5 days. 09/17/22 10:00 Blood Culture (Wb) - Venous Blood Culture - Preliminary No growth in 48 hours. 09/13/22 16:57 Blood Culture (Wb) - Anticubital Left Blood Culture - Final No growth in 5 days. 09/13/22 16:57 Blood Culture (Wb) - Other Bacteria Detection (PCR) - Final Meth. resistant Staph. aureus mecA Resistance Marker 09/13/22 16:57 Blood Culture (Wb) - Other Blood Culture - Final Meth. resistant Staph. aureus 09/14/22 13:07 Wound Abcess - Ankle Gram Stain - Final 09/14/22 13:07 Wound Abcess - Ankle Wound Culture - Final Meth. resistant Staph. aureus 09/14/22 13:07 Wound Abcess - Ankle Anaerobic Culture - Final No anaerobic bacteria isolated. 09/13/22 18:45 Aspirate - Ankle Gram Stain - Final 09/13/22 18:45 Aspirate - Ankle Wound Culture - Final Meth. resistant Staph. aureus 09/13/22 18:45 Aspirate - Ankle Anaerobic Culture - Final No anaerobic bacteria isolated. Physical Exam Narrative Seen and examined. Patient wants to go home. I emphasized that her right ankle is still raw and unstable to go home. Patient had incision and drainage of septic right ankle. Physical exam General: Alert, Oriented x3, Cooperative HEENT: Atraumatic, PERRLA, EOMI, Normocephalic Oral: Oral mucosa moist. No Gingival or Mucosal Lesions/ Ulcerations Neck: Supple, No JVD, Negative Carotid Bruits Lungs: Air entry diminished in bilateral lung bases. No crepitation/rhonchi Cardiovascular: Regular rate, Regular Rhythm, Normal S1, Normal S2, No murmurs Abdomen: Bowel Sounds Present, Soft, Non Tender, Non-Distended : No renal angle tenderness. No suprapubic tenderness. Extremities: No edema, Capillary Refill Less than 3 Seconds Skin: Right ankle with Rajan wrap bandage. Swollen. Musculoskeletal: Mild tenderness around right ankle ROM restricted. Neurological: Cranial nerves II-XII grossly intact, DTR 2+/4. No acute focal neurological deficit. Psych/Mental Status: Normal Affect, Appropriate. HEENT normocephalic, head/scalp atraumatic and moist oral mucous membranes Eyes PERRL, EOMs intact bilaterally and conjunctivae normal Neck supple, no JVD, thyroid normal and no carotid bruits General: trachea midline Resp normal respiratory effort, no retractions, no use of accessory muscles and clear to auscultation bilaterally Auscultation: Negative for rales, rhonchi or wheezes Cardio regular rate, regular rhythm, S1 normal heart sound, S2 normal heart sound, no murmurs, no rub and no gallops GI normal to inspection, nondistended, normoactive bowel sounds, soft to palpation, non-tender and non-distended Extremity Extremity Narrative: Swelling and tenderness of the right ankle area is noted on palpation Skin no rashes or lesions noted General Skin Exam: no breakdown Neuro oriented x3, CN's II-XII intact bilaterally, moves all extremities, no focal motor deficits and no sensory deficits noted Sensorium / Orientation: awake, alert, oriented to person and oriented to place Speech: speech normal Psych Psych Narrative: Patient appears anxious Assessment & Plan Assessment/Plan (1) Septic arthritis of ankle: QUALIFIERS: Laterality: right Septic arthritis organism: staphylococcal Qualified Code(s): M00.071 - Staphylococcal arthritis, right ankle and foot PLAN: Plan Patient is a 42-year-old lady admitted with sepsis secondary to right ankle septic arthritis started on broad-spectrum antibiotics underwent I&D blood cultures positive for MRSA 1. Sepsis secondary to septic arthritis involving the right ankle with MRSA bacteremia ? Patient underwent Incision and drainage right ankle by Dr. Rojas on 09/14/2022. Remains on broad-spectrum antibiotic therapy. Consult placed to ID ? 09/20/2022 patient was seen by Dr. Starks with infectious disease recommendation is for patient to be discharged with 4 weeks of IV antibiotics?vancomycin 09/22: Discussed with the ID Dr. Starks. Right now patient insisting to go home but with history of IVDA not comfortable sending home with IV/PICC line. As per social security specialist needle was found in the bed also when patient was defensive. The other option will be linezolid 600 mg p.o. twice daily and increase the dose of duloxetine to 60 mg daily. Patient on other neurological medications clonazepam, Ambien and pregabalin but does not strong interaction with linezolid 2. Depression ? Patient is on Cymbalta discontinued 3. Bipolar disorder ? Complicating patient's care. As mentioned above patient on clonazepam 2 mg 3 times daily and Ambien. 4. DVT prophylaxis ? SC Lovenox 5. Hypokalemia -Corrected per protocol Total time of the visit including total time spent in counseling or coordination of care, (more than 50% of the total time, spent in obtaining medical information from nurses and other ancillary care providers,explaining to the patient about labs, imaging, diagnosis and management of active complex medical conditions), regarding social issues of discharge plan, review of labs and imaging is 45 minutes. Patient declining to go to prison/rehab Charges/Coding Visit Charges Inpatient E&M: 82240 Subs Hosp L2
--- NOTE | 2022-09-22 09:39 | CASEMGMT ---
SW went to patient's room per her request. Patient asked SW to send her landlord an e-mail indicating her wound was caused by bed bugs, what needs to happen for her to return home as far as cleaning, and what would happen to her leg if she returns to an unclean environment. Patient also asked SW to contact the courts as they still have a warrant out for her arrest. Patient said she has spoken to them, but they would not listen to her. SW called [facility] Pharmacist Helper of Courts to inquire about patient's situation. ANDREW was informed that the letter ANDREW sent is on record, but the lip reading teacher denied the motion to postpone the hearing. ANDREW was told the best thing patient can do is go the senior living when she gets out and turn herself in. Patient may be let out on her own recognizance, pay her faith, or they will keep her. SW will talk with patient about this. Loren Gan TELEVISION ANTENNA INSTALLER [place]
[2022-09-22 10:31] LABS: Pathologist Review Reviewed
[2022-09-22] MEDS: HYDROmorphone 0.5 MG/0.5 ML SYRINGE IV (10:58)
[2022-09-22] MEDS: Senna/Docusate Sodium 1 Tablet 2 TABLET PO ×2 (10:58→20:07)
[2022-09-22] MEDS: Pregabalin 75 MG Capsule 150 MG PO ×2 (10:58→20:08)
[2022-09-22] MEDS: DULoxetine Hcl 60 MG Capsule PO ×2 (10:58→20:07)
[2022-09-22] MEDS: oxyCODONE HCl Cr 10 MG Tablet 20 MG PO ×2 (10:58→20:07)
[2022-09-22] MEDS: 0.9% Saline Lock 10 ML Syringe IV (10:59)
--- NOTE | 2022-09-22 11:49 | CASEMGMT ---
ANDREW let patient know what the Mechanist of Courts told SW. ANDREW also had patient sign a release of [facility] and [facility]. Patient did cross out on the release of information that SW would release patient's discharge date. Patient did not want SW to share this information. SW let patient know SW will call her landlord Angelo, but will not send him an e-mail with information. Patient was okay with this. Patient asked SW to call the Mica Washer Gluer's office as they will help her file a motion to postpone her court date. SW spoke with the Mica Washer Gluer's office and patient missed her arraignment. [employer]enders do not get involved prior to an individual having their arraignment. ANDREW received a phone call from patient's landlord Angelo. Angelo asked if patient's infection was caused by the bed bugs. ANDREW told Angelo that we cannot prove her infection is from bed bugs. Angelo said he would like to accommodate patient as much as they can. Patient is asking for a new mattress, bed frame, and television. ANDREW told him that would be up to him if he would provide this. Angelo said the home was bombed for bed bugs Monday. They came back and did not find any bed bugs in patient's room. They will come back next Monday as there are still bed bugs in one of the other rooms in the house. ANDREW let Angelo know SW did e-mail him education on MRSA that [facility] provides to patients. Angelo said patient told him she was being discharged today. ANDREW let Angelo know ANDREW is not sure about this and that it is being recommended patient go to a halfway, but she is not agreeable. Angelo thanked ANDREW for the information and he will follow up with patient. ANDREW received an e-mail response from Angelo Taveras thanking ANDREW for the MRSA information. Angelo also told ANDREW that he will have to treat the home one maybe two more times. When this is done residents will have to be out of the home for at least 8 hours. Angelo said he texted patient and encouraged her to accept the care. Angelo will call patient later as well. ANDREW will let patient know this information. Loren FIGUEROA
[2022-09-22 12:00] VITALS: BP 94/66; PULSE 98; RESP 16; TEMP 37.1; O2SAT 98
--- NOTE | 2022-09-22 12:43 | PCM.PROGNOTE ---
Subjective Subjective Denies constitutional Patient more calm today pain much more improved No changes over night Patient more agreeable for SNF today Objective Data Objective Data Vital Signs: Vital Signs Temp Pulse Resp BP Pulse Ox O2 Del Method O2 Flow Rate 98.7 F 98 16 94/66 98 Room Air 2 09/22/22 12:00 09/22/22 12:00 09/22/22 12:00 09/22/22 12:00 09/22/22 12:00 09/22/22 12:00 09/15/22 05:28 Oxygen Flow Rate (L/min) 2 Oxygen Delivery Method Room Air Weight: 59.109 kg Body Mass Index (BMI) 21.7 Intake & Output: Intake and Output for Last 24 Hours 09/20/22 09/21/22 09/22/22 23:59 23:59 23:59 Intake Total 1640 / 1880 1560 / 1800 590 / 590 Output Total 550 / 800 800 / 800 Balance 1090 / 1080 760 / 1000 590 / 590 Lab / Micro Data 09/22/22 05:04 09/22/22 05:04 Labs: Laboratory Results - last 24 hr 09/21/22 05:03: Diff Path Review Reviewed 09/21/22 12:32: Vancomycin Trough 17.1 H 09/22/22 05:04: WBC 8.3, RBC 3.58 L, Hgb 10.7 L, Hct 33.3 L, MCV 93.0, MCH 29.9, MCHC 32.1, RDW Std Deviation 45.2 H, RDW Coeff of Sylvia 13.2, Plt Count 840 H*, MPV 10.7, Immature Gran % (Auto) 0.600, Neut % (Auto) 52.8, Lymph % (Auto) 32.1, [place] % (Auto) 10.2 H, Eos % (Auto) 3.8, Baso % (Auto) 0.5, Absolute Neuts (auto) 4.4, Absolute Lymphs (auto) 2.65, Nucleated RBC % 0, Diff Path Review May foll, Platelet Estimate MKD INC, Sodium 135 L, Potassium 4.3, Chloride 100, Carbon Dioxide 32.0, Anion Gap 3 L, BUN 6 L, Creatinine 0.62, Estim Creat Clear Calc 106.36, Est GFR (MDRD) Af Amer 134, Est GFR (MDRD) Non-Af 111, BUN/Creatinine Ratio 9.6 L, Glucose 94, Calcium 8.7 Micro: Microbiology 09/17/22 10:00 Blood Culture (Wb) - Venous Blood Culture - Final No growth in 5 days. 09/16/22 10:40 Blood Culture (Wb) - Left Hand Blood Culture - Final No growth in 5 days. 09/15/22 15:56 Blood Culture (Wb) - Right Hand Blood Culture - Final No growth in 5 days. 09/13/22 16:57 Blood Culture (Wb) - Anticubital Left Blood Culture - Final No growth in 5 days. 09/13/22 16:57 Blood Culture (Wb) - Other Bacteria Detection (PCR) - Final Meth. resistant Staph. aureus mecA Resistance Marker 09/13/22 16:57 Blood Culture (Wb) - Other Blood Culture - Final Meth. resistant Staph. aureus 09/14/22 13:07 Wound Abcess - Ankle Gram Stain - Final 09/14/22 13:07 Wound Abcess - Ankle Wound Culture - Final Meth. resistant Staph. aureus 09/14/22 13:07 Wound Abcess - Ankle Anaerobic Culture - Final No anaerobic bacteria isolated. 09/13/22 18:45 Aspirate - Ankle Gram Stain - Final 09/13/22 18:45 Aspirate - Ankle Wound Culture - Final Meth. resistant Staph. aureus 09/13/22 18:45 Aspirate - Ankle Anaerobic Culture - Final No anaerobic bacteria isolated. Physical Exam Narrative s/p right ankle I+D with incision medial and lateral ankle, t improved pain swelling and redness today. Tissues right ankle do appear healthy and viable, no purulence, no maloder, no necrosis, no crepitus, no fluctuance to the right foot, ankle or leg. CFT < 2 seconds to all toes on the right foot with pedal pulses intact, sensation intact to the right foot/ankle. Left foot with no swelling, no open lesions, no drainage, no erythema. Const alert and oriented x3 Assessment & Plan Assessment/Plan (1) Ankle pain, right: (2) Cellulitis of right lower limb: PLAN: Plan Evaluation performed. s/p right ankle I+D on 09/14/22. Reviewed diagnostic data. Crystal analysis - no monosodium crystals noted per pathology report - culture growing MRSA. Continued improvement clinically to right ankle - less erythema, tissues are healthy and viable, less swelling. We will continue with daily dressing changes, and patient is on IV antibiotic - Vancomycin at this time. ID on board - PICC placed. Recommending 4 weeks additional IV vancomycin leukocytosis resolved, vital signs stable Wound care right ankle - adaptic, dakin's gauze wet to dry daily dressing changes. Wound likely benefit from wound vac in the future. Keep right foot elevated. No weightbearing right foot. Pain management per hospital medicine. pain, erythema/edema improved today. Patient seems more agreeable for SNF today. Continue current treatment. Infection appears to be improving significantly. Podiatry will continue to follow.
--- NOTE | 2022-09-22 12:44 | CASEMGMT ---
Physician and wound RN told SW patient is now thinking about going to the [facility]dc for a month. SW went to patient's room per her request. Patient said she is considering about going to the [facility]dc for a month. Patient said she is not positive, but it depends on things at home. Patient said right now she needs a nap. ANDREW told patient SW will let her rest and check back with her later. Loren FIGUEROA
[2022-09-22 12:55] LABS: Pathologist Review Reviewed
[2022-09-22 18:00] VITALS: BP 107/70; PULSE 95; RESP 14; TEMP 36.6; O2SAT 94
[2022-09-22] MEDS: Zolpidem Tartrate 5 MG Tablet PO (20:08)
[2022-09-22 21:00] VITALS: BP 115/82; PULSE 99; RESP 20; TEMP 36.8; O2SAT 95
[2022-09-23] VITALS: BP 115/76; PULSE 98; RESP 18; TEMP 36.4
[2022-09-23] MEDS: oxyCODONE 5 MG Tablet 15 MG PO ×3 (02:55→17:26)
[2022-09-23 03:00] VITALS: BP 102/68; PULSE 100; RESP 16; TEMP 36.6; O2SAT 93
[2022-09-23] MEDS: Vancomycin IV 1,000 MG/200 ML BAG 200 MG IV ×2 (04:27→12:38)
[2022-09-23] MEDS: clonazePAM 1 MG Tablet PO (04:30)
[2022-09-23 05:20] LABS: Absolute Lymphocyte Count 2.43 X10^3/uL (0.83-4.51); Absolute Neutrophil Count 4.4 X10^3/uL (2.0-7.7); Basophil# 0.06 X10^3/uL; Basophil% 0.7 % (0-1); Eosinophil# 0.46 X10^3/uL; Eosinophils% 5.7 % (0-5); Hematocrit 33.1 % (37-47); Hemoglobin 10.8 g/dL (12.0-15.0); Lymphocyte # 2.43 X10^3/ul (0.83-4.51); Lymphocyte % 29.9 % (19-41); Mean Corp Hgb Conc 32.6 g/dL (32-36); Mean Corpuscular Hgb 30.2 pg (27.0-32.0); Mean Corpuscular Volume 92.5 fL (81-99); Mean Platelet Vol. 10.2 fl (6.2-12.0); Monocyte# 0.73 X10^3/uL; NRBC Flagged by Analyzer 0 % (0-5); Neutrophil # 4.44 X10^3/uL (2.7-7.7); Neutrophil % 54.5 % (47-70); POSITIVE COUNT YES; Platelet Count 790 K/mm3 (150-450); RBC Distribution Width CV 12.9 % (11.6-14.6); RBC Distribution Width SD 43.7 fl (35.1-43.9); Red Blood Count 3.58 M/mm3 (4.2-5.4); White Blood Count 8.1 K/mm3 (4.4-11.0)
[2022-09-23 05:25] LABS: Differential Indicated SCAN CRITERIA MET
[2022-09-23 05:31] VITALS: BP 102/68; PULSE 100; RESP 16; TEMP 36.6; O2SAT 93
[2022-09-23 05:42] LABS: Platelet Estimate MKD INC (ADEQ)
[2022-09-23 05:57] LABS: Anion Gap 5 (5-15); BUN 6 mg/dL (7-18); BUN/Creat Ratio 9.1 RATIO (10-20); Calcium,Total 8.7 mg/dL (8.5-10.1); Chloride 101 mmol/L (98-107); Creatinine, Serum 0.66 mg/dL (0.55-1.02); EST Glomerular Filtration Rate 105 mL/min (>60); Est Glom Filt Rate - Afr Amer 127 mL/min (>60); Estimated Creatinine Clearance 99.92 ml/min; Glucose 98 mg/dL (74-106); Sodium Level 138 mmol/L (136-145)
--- NOTE | 2022-09-23 08:10 | TREXTCAR_ITS ---
Diet Diet Order/Speech Therapy: 09/20/22 18:19 Diet: Regular - General Is pt able to select menu?: Yes Routine Orders/Code Status Enema Frequency: Daily PRN Suppository Type: Dulcolax 10mg Wound(s) L knee: Wound Type: Abrasion R ankle: Wound Type: Surgical Incision right medial ankle: Wound Type: open surgical wound s/p I&D Dressing Change: Adaptic with Dakins moistened gauze right lateral ankle: Wound Type: open surgical wound s/p I&D Dressing Change: Adaptic with Dakins moistened gauze Therapies Weight Bearing: Weight bearing as tolerated Extremity Affected:: Right Lower Physical Therapy: Eval and Treat Occupational Therapy: Eval and Treat Problem/Diagnosis (1) Septic arthritis of ankle: Status: Acute Code(s): M00.9 - Pyogenic arthritis, unspecified Plan Patient is a 42-year-old lady admitted with sepsis secondary to right ankle septic arthritis started on broad-spectrum antibiotics underwent I&D blood cultures positive for MRSA 1. Sepsis secondary to septic arthritis involving the right ankle with MRSA bacteremia ? Patient underwent Incision and drainage right ankle by Dr. Rojas on 09/14/2022. Remains on broad-spectrum antibiotic therapy. Consult placed to ID ? 09/20/2022 patient was seen by Dr. Starks with infectious disease recommendation is for patient to be discharged with 4 weeks of IV antibiotics?vancomycin 09/22: Discussed with the ID Dr. Starks. Right now patient insisting to go home but with history of IVDA not comfortable sending home with IV/PICC line. As per social service worker needle was found in the bed also when patient was defensive. The other option will be linezolid 600 mg p.o. twice daily and increase the dose of duloxetine to 60 mg daily. Patient on other neurological medications clonazepam, Ambien and pregabalin but does not strong interaction with linezolid 2. Depression ? Patient is on Cymbalta discontinued 3. Bipolar disorder ? Complicating patient's care. As mentioned above patient on clonazepam 2 mg 3 times daily and Ambien. 4. DVT prophylaxis ? SC Lovenox 5. Hypokalemia -Corrected per protocol Total time of the visit including total time spent in counseling or coordination of care, (more than 50% of the total time, spent in obtaining medical information from nurses and other ancillary care providers,explaining to the patient about labs, imaging, diagnosis and management of active complex medical conditions), regarding social issues of discharge plan, review of labs and imaging is 45 minutes. Patient declining to go to long-term/rehab Allergies/Procedures Done in Hospital Allergies amoxicillin Allergy (Verified 09/14/22 11:18) Anaphylaxis hydrocodone [From Vicodin] Allergy (Verified 09/14/22 11:18) Angioedema morphine Allergy (Verified 09/14/22 11:18) Hives acetaminophen [From Tylenol] Adverse Reaction (Verified 09/14/22 11:18) Other UPSET STOMACH Type of Care/Length of Stay Estimated LOS: Convalescent Care Less Than 30 days Type of Care Needed: Skilled Rehab Potential: Good Prognosis: Good Additional Orders/Day of Discharge Day of Discharge: 09/23/22 Dietary and Speech Recommendations Dietitian Recommendations/Changes: Continue Regular diet to optimize oral intakes. Offer ONS as needed if PO established inadequate at meals. Discharge Plan Admission Admit Date/Time: 09/13/22 14:53 Primary Reason for Your Visit: Right ankle septic arthritis Attending Provider: Geo Davila Primary Care Provider: SEBASTIAN MOORE Consulting Providers: Geo Davila; Kimo Quinonez; Aidan Starks; Bradley Morelos; Tee Denis Discharge Orders/Prescriptions Prescriptions: New vancomycin 1,000 mg recon soln 1 g IV Q8H 24 Days Qty: 72 0RF Rx Instructions: stop date 10/13/22 dx: MRSA bacteremia weekly bmp, cbc, and vanc trough. Fax to [phone] routine picc care acetaminophen 325 mg Tablet 650 mg PO Q6H PRN PRN (Reason: TEMP > 100.5 F) Qty: 0 0RF clonazepam 1 mg Tablet 1 mg PO TID Qty: 0 0RF oxycodone 5 mg Tablet 15 mg PO Q4H PRN PRN (Reason: Pain Score 6-10) 3 Days Qty: 7 0RF Continued Ambien 7.5 mg PO .hs pregabalin [Lyrica] 150 mg capsule 150 mg PO BID Changed duloxetine [Cymbalta] 60 mg capsule,delayed release(DR/EC) 60 mg PO DAILY 30 Days Qty: 0 0RF Discontinued clonazepam 2 mg tablet 2 mg PO TID Patient Comments: take 1 tablet by mouth three times daily as needed for anxiety Referrals / Follow Up: SEBASTIAN MOORE [Other] Care Physician,No Primary [Non-Staff] - Within 2 Weeks Disposition Disposition (needs filled in before D/C Order can be placed): Assisted Facility (1) Septic arthritis of ankle Qualifiers: Laterality: right Septic arthritis organism: staphylococcal Qualified Code(s): M00.071 - Staphylococcal arthritis, right ankle and foot
[2022-09-23 08:30] VITALS: BP 101/60; PULSE 95; RESP 18; TEMP 37.1; O2SAT 98
[2022-09-23] MEDS: oxyCODONE HCl Cr 10 MG Tablet 20 MG PO (08:32)
[2022-09-23] MEDS: DULoxetine Hcl 60 MG Capsule PO (08:32)
[2022-09-23] MEDS: Pregabalin 75 MG Capsule 150 MG PO (08:32)
[2022-09-23] MEDS: Senna/Docusate Sodium 1 Tablet 2 TABLET PO (08:32)
[2022-09-23] MEDS: DAKIN'S SOL HALF STRENGTH (=0.25%) 1 APPLIC TOPICAL (08:33)
--- NOTE | 2022-09-23 09:02 | DS.PCM_ITS ---
Providers Date of Admission: 09/13/22 Date of Discharge: 09/23/22 Primary Care Physician: SEBASTIAN MEDEL Consultations 09/14/22 13:13 Consult: Onc/Wound/newspaper delivery counselor Routine Comment: Reason for Consult:: wound right ankle 09/15/22 07:30 Consult: Podiatry Routine Consulting Provider: Kimo Quinonez Reason for Consult: right ankle edema EMERGENT Consult: No MD Notified: Yes Date Notified: 09/13/22 Time Notified: 13:00 Method of Notification: Verbal 09/15/22 07:57 Consult: Infectious Disease Routine Consulting Provider: Aidan Starks Reason for Consult: MRSA bacteremia EMERGENT Consult: No Notified: Yes Date Notified: 09/15/22 Time Notified: 07:57 Method of Notification: Verbal Reason For Visit: CELLULITIS Diagnosis Discharge Diagnosis (1) Septic arthritis of ankle: Status: Acute Code(s): M00.9 - Pyogenic arthritis, unspecified Qualifiers: Laterality: right Septic arthritis organism: staphylococcal Qualified Code(s): M00.071 - Staphylococcal arthritis, right ankle and foot Plan Patient is a 42-year-old lady admitted with sepsis secondary to right ankle septic arthritis started on broad-spectrum antibiotics underwent I&D blood cultures positive for MRSA 1. Sepsis secondary to septic arthritis involving the right ankle with MRSA bacteremia ? Patient underwent Incision and drainage right ankle by Dr. Rojas on 09/14/2022. Remains on broad-spectrum antibiotic therapy. Consult placed to ID ? 09/20/2022 patient was seen by Dr. Starks with infectious disease recommendation is for patient to be discharged with 4 weeks of IV antibiotics?vancomycin 09/22: Discussed with the ID Dr. Starks. Right now patient insisting to go home but with history of IVDA not comfortable sending home with IV/PICC line. As per social media coordinator needle was found in the bed also when patient was defensive. 09/23: Patient agreed for going long term. In the morning, her insurance and is approved for long term as they asked for discharge instruction after hours and complete form 7000/PAS RRR. The form was completed by social media coordinator and completed transfer summary as soon as possible in the morning. I had [id number] review with patient's insurance doctor and he approved for the long term. Patient will go to long term today. Patient is discharged on vancomycin. I decreased the dose of clonazepam 1 mg 3 times daily which she tolerated well in the hospital. Prescription for oxycodone, 5 mg total 7 tablets given. OARRS reviewed, overdose risk score 630 with narcotic score 300. Follow-up closely in long term. Follow-up with ID and wire mill rover 2. Depression ? Patient is on Cymbalta discontinued 3. Bipolar disorder ? Complicating patient's care. As mentioned above patient on clonazepam 2 mg 3 times daily and Ambien. 4. DVT prophylaxis ? SC Lovenox 5. Hypokalemia -Corrected per protocol Discharge medication reconciliation done. Discharge follow-up instructions completed. Discharge process discussed with the patient and all questions were answered to patient's satisfaction. Total time spent, exact 35 minutes on discharge meds reconciliation, examination, coordination of care with nurses and ancillary staff, review of imaging and blood test and discussion with the patient on follow-up instructions. Medications at Discharge Home Medications Ambien 7.5 mg PO .hs promote sleep 09/13/22 pregabalin 150 mg capsule (Lyrica) 150 mg PO BID pain 09/13/22 acetaminophen 325 mg tablet 650 mg (2 x 325 mg) PO Q6H PRN PRN TEMP > 100.5 F #0 tabs 09/23/22 clonazepam 1 mg tablet 1 mg PO TID #0 tabs 09/23/22 duloxetine 60 mg capsule,delayed release (Cymbalta) 60 mg PO DAILY mental health 30 days #0 caps 09/23/22 oxycodone 5 mg tablet 15 mg (3 x 5 mg) PO Q4H PRN PRN Pain Score 6-10 3 days #7 tabs 09/23/22 vancomycin 750 mg intravenous solution 750 mg IV Q8H 20 days #60 ea 09/23/22 Physical Exam Narrative Seen and examined. Patient is stated that she has severe pain and started crying around the operative site. No clinical manager exchange right ankle with no swelling, bleeding or tenderness. Right ankle patient had incision and drainage of septic right ankle. Physical exam General: Alert, Oriented x3, Cooperative HEENT: Atraumatic, PERRLA, EOMI, Normocephalic Oral: Oral mucosa moist. No Gingival or Mucosal Lesions/ Ulcerations Neck: Supple, No JVD, Negative Carotid Bruits Lungs: Air entry diminished in bilateral lung bases. No crepitation/rhonchi Cardiovascular: Regular rate, Regular Rhythm, Normal S1, Normal S2, No murmurs Abdomen: Bowel Sounds Present, Soft, Non Tender, Non-Distended : No renal angle tenderness. No suprapubic tenderness. Extremities: No edema, Capillary Refill Less than 3 Seconds Skin: Right ankle with Rajan wrap bandage. Swelling and tenderness has decreased. Musculoskeletal: Mild tenderness around right ankle ROM restricted. Neurological: Cranial nerves II-XII grossly intact, DTR 2+/4. No acute focal neurological deficit. Psych/Mental Status: Flat affect. Weight / BMI Weight Weight: 130 lb 5.009 oz Body Mass Index (BMI) 21.7 ABG / Lab / Microbiology Data 09/23/22 04:51 09/23/22 04:51 Laboratory: Laboratory Results - last 24 hr 09/21/22 05:03: Diff Path Review Reviewed 09/22/22 05:04: Diff Path Review Reviewed 09/23/22 04:51: WBC 8.1, RBC 3.58 L, Hgb 10.8 L, Hct 33.1 L, MCV 92.5, MCH 30.2, MCHC 32.6, RDW Std Deviation 43.7, RDW Coeff of Sylvia 12.9, Plt Count 790 H*, MPV 10.2, Immature Gran % (Auto) 0.200, Neut % (Auto) 54.5, Lymph % (Auto) 29.9, [place] % (Auto) 9.0, Eos % (Auto) 5.7 H, Baso % (Auto) 0.7, Absolute Neuts (auto) 4.4, Absolute Lymphs (auto) 2.43, Nucleated RBC % 0, Diff Path Review June, Platelet Estimate MKD INC, Sodium 138, Potassium 5.0, Chloride 101, Carbon Dioxide 32.0, Anion Gap 5, BUN 6 L, Creatinine 0.66, Estim Creat Clear Calc 99.92, Est GFR (MDRD) Af Amer 127, Est GFR (MDRD) Non-Af 105, BUN/Creatinine Ratio 9.1 L, Glucose 98, Calcium 8.7 Microbiology: Microbiology 09/17/22 10:00 Blood Culture (Wb) - Venous Blood Culture - Final No growth in 5 days. 09/16/22 10:40 Blood Culture (Wb) - Left Hand Blood Culture - Final No growth in 5 days. 09/15/22 15:56 Blood Culture (Wb) - Right Hand Blood Culture - Final No growth in 5 days. 09/13/22 16:57 Blood Culture (Wb) - Anticubital Left Blood Culture - Final No growth in 5 days. 09/13/22 16:57 Blood Culture (Wb) - Other Bacteria Detection (PCR) - Final Meth. resistant Staph. aureus mecA Resistance Marker 09/13/22 16:57 Blood Culture (Wb) - Other Blood Culture - Final Meth. resistant Staph. aureus 09/14/22 13:07 Wound Abcess - Ankle Gram Stain - Final 09/14/22 13:07 Wound Abcess - Ankle Wound Culture - Final Meth. resistant Staph. aureus 09/14/22 13:07 Wound Abcess - Ankle Anaerobic Culture - Final No anaerobic bacteria isolated. 09/13/22 18:45 Aspirate - Ankle Gram Stain - Final 09/13/22 18:45 Aspirate - Ankle Wound Culture - Final Meth. resistant Staph. aureus 09/13/22 18:45 Aspirate - Ankle Anaerobic Culture - Final No anaerobic bacteria isolated. Meaningful Use Info Meaningful Use Diagnoses (Choose all that apply): None applicable Discharge Plan Admission Admit Date/Time: 09/13/22 14:53 Primary Reason for Your Visit: Right ankle septic arthritis Attending Provider: Geo Davila Primary Care Provider: SEBASTIAN MOORE Consulting Providers: Geo Davila; Kimo Quinonez; Aidan Starks; Bradley Morelos; Tee Denis Instructions Additional Instructions / Restrictions: Recommend daily versus every other daily dressing changes while at retirement facility consisting of Adaptic, Dakin soaked gauze, ABD pads, 4 x 4's Kerlix and Rajan bandage to right lower extremity. Patient should remain nonweightbearing to right lower extremity. Continue antibiotics per infectious disease. Discharge Orders/Prescriptions Prescriptions: New vancomycin 1,000 mg recon soln 1 g IV Q8H 24 Days Qty: 72 0RF Rx Instructions: stop date 10/13/22 dx: MRSA bacteremia weekly bmp, cbc, and vanc trough. Fax to [phone] routine picc care acetaminophen 325 mg Tablet 650 mg PO Q6H PRN PRN (Reason: TEMP > 100.5 F) Qty: 0 0RF clonazepam 1 mg Tablet 1 mg PO TID Qty: 0 0RF oxycodone 5 mg Tablet 15 mg PO Q4H PRN PRN (Reason: Pain Score 6-10) 3 Days Qty: 7 0RF Continued Ambien 7.5 mg PO .hs pregabalin [Lyrica] 150 mg capsule 150 mg PO BID Changed duloxetine [Cymbalta] 60 mg capsule,delayed release(DR/EC) 60 mg PO DAILY 30 Days Qty: 0 0RF Discontinued clonazepam 2 mg tablet 2 mg PO TID Patient Comments: take 1 tablet by mouth three times daily as needed for anxiety Referrals / Follow Up: SEBASTIAN MOORE [Other] Care Physician,No Primary [Non-Staff] - Within 2 Weeks Kimo Quinonez DPM [Med Staff - Active Staff] - Within 1 Week Aidan Starks MD [Med Staff - Active Staff] - Within 1 Month Disposition Disposition (needs filled in before D/C Order can be placed): Care Home Facility Charges/Coding Visit Charges Inpatient E&M: 45821 Disch Hosp >30min
--- NOTE | 2022-09-23 09:17 | CASEMGMT ---
[facility] requesting the 700 or PASRR. ANDREW asked physician to complete d/c orders. ANDREW then completed 7000 in [facility] and notified [facility]. Loren FIGUEROA
--- NOTE | 2022-09-23 10:03 | PHA.DC.MR.R ---
Pharmacy [place] Med Reconciliation Pharmacy Service has performed discharge medication reconciliation for this patient. The patient's discharge medication list was reviewed for discrepancies and discrepancies were resolved. Medications at Discharge Home Medications Ambien 7.5 mg PO .hs promote sleep 09/13/22 pregabalin 150 mg capsule (Lyrica) 150 mg PO BID pain 09/13/22 vancomycin 1,000 mg intravenous injection 1 g IV Q8H 24 days #72 ea 09/19/22 acetaminophen 325 mg tablet 650 mg (2 x 325 mg) PO Q6H PRN PRN TEMP > 100.5 F #0 tabs 09/23/22 clonazepam 1 mg tablet 1 mg PO TID #0 tabs 09/23/22 duloxetine 60 mg capsule,delayed release (Cymbalta) 60 mg PO DAILY mental health 30 days #0 caps 09/23/22 oxycodone 5 mg tablet 15 mg (3 x 5 mg) PO Q4H PRN PRN Pain Score 6-10 3 days #7 tabs 09/23/22
--- NOTE | 2022-09-23 10:29 | CASEMGMT ---
ANDREW received a message from [facility] that insurance is now denying patient due to the 7000/PASRR not being turned in by 8a today. A peer to peer is an option. Phone number for peer to peer is . ANDREW called the number and set up a peer to peer for Dr Davila for today between 1230 and 1p. SW notified physician and he was in agreement. SW spoke with patient per her request. Patient told SW she will go to the snf for a month. SW commended patient and told her that is a munoz decision for her to make and SW knows it was a hard one for her. SW let patient we are working out some details with insurance, but we will likely get her over there today. Patient told SW her landlord needs SW to send him an e-mail that she needs to be next to a bathroom or he will not move her to a room upstairs. SW let patient know SW spoke with guard supervisor and SW will not e-mail her landlord, but ANDREW can talk with him on the phone. Plan: d/c to [facility] pending details to be worked out with insurance. Loren Gan SPIKEMAKING SUPERVISOR [place]
[2022-09-23 11:31] VITALS: BP 102/68; PULSE 100; RESP 16; TEMP 36.6; O2SAT 93
--- NOTE | 2022-09-23 12:45 | CASEMGMT ---
Physician did peer to peer and patient was approved. SW notified [facility] and as soon as they get the approval patient can be transferred to [facility]. Loren Gan MSW [place]
--- NOTE | 2022-09-23 13:06 | PCM.RX.CS ---
Consult Antibiotic Management Pharmacy has been consulted to manage selected antiobiotic: Vancomycin Type of Intervention Type of Consult: Follow-up Suspected Infection Suspected Infection: Skin/Soft tissue Prior Doses of Antibiotics Prior Doses of Antibiotics Received/Current Regimen: Vancomycin 1000 mg iv given: 09/21 @ 1328, 09/22 @ 0454, 1258, 09/23 @ 0421 Labs Labs: Sodium 138 mmol/L (136-145) 09/23/22 04:51 Potassium 5.0 mmol/L (3.5-5.1) 09/23/22 04:51 Chloride 101 mmol/L (98-107) 09/23/22 04:51 Carbon Dioxide 32.0 mmol/L (21.0-32.0) 09/23/22 04:51 Anion Gap 5 (5-15) 09/23/22 04:51 BUN 6 mg/dL (7-18) L 09/23/22 04:51 Creatinine 0.66 mg/dL (0.55-1.02) 09/23/22 04:51 Est GFR (MDRD) Af Amer 127 mL/min (>60) 09/23/22 04:51 Est GFR (MDRD) Non-Af 105 mL/min (>60) 09/23/22 04:51 BUN/Creatinine Ratio 9.1 RATIO (10-20) L 09/23/22 04:51 Glucose 98 mg/dL (74-106) 09/23/22 04:51 Vancomycin Trough 26.0 ug/mL (5.0-15.0) H 09/23/22 12:07 Random Vancomycin 8.7 ug/mL (0.0-15.0) 09/18/22 21:14 Microbiology Microbiology: Microbiology 09/17/22 10:00 Blood Culture (Wb) - Venous Blood Culture - Final No growth in 5 days. 09/16/22 10:40 Blood Culture (Wb) - Left Hand Blood Culture - Final No growth in 5 days. 09/15/22 15:56 Blood Culture (Wb) - Right Hand Blood Culture - Final No growth in 5 days. 09/13/22 16:57 Blood Culture (Wb) - Anticubital Left Blood Culture - Final No growth in 5 days. 09/13/22 16:57 Blood Culture (Wb) - Other Bacteria Detection (PCR) - Final Meth. resistant Staph. aureus mecA Resistance Marker 09/13/22 16:57 Blood Culture (Wb) - Other Blood Culture - Final Meth. resistant Staph. aureus 09/14/22 13:07 Wound Abcess - Ankle Gram Stain - Final 09/14/22 13:07 Wound Abcess - Ankle Wound Culture - Final Meth. resistant Staph. aureus 09/14/22 13:07 Wound Abcess - Ankle Anaerobic Culture - Final No anaerobic bacteria isolated. 09/13/22 18:45 Aspirate - Ankle Gram Stain - Final 09/13/22 18:45 Aspirate - Ankle Wound Culture - Final Meth. resistant Staph. aureus 09/13/22 18:45 Aspirate - Ankle Anaerobic Culture - Final No anaerobic bacteria isolated. Dosing Weight Weight used for dosin lb 1.164 oz Goal Trough Goal Trough: 15-20 mcg/mL Pharmacy Plan for Drug Dosing Pharmacy Plan for Drug Dosing: Vancomycin trough came back high at 26.0 and was drawn ~8.5 hours after previous dose. Patient has active discharge order, vancomycin script for outpatient has also been sent. Called and discussed with Dr. Starks and he will change outpatient script. He also requested to change inpatient dose unless she does not discharge, and agreed upon starting 750 mg IV Q8H dose tomorrow morning if patient is not discharged. Pharmacy Service will continue to monitor and adjust dosing as required. Follow-Up Labs Follow-Up Labs: Trough: Vancomycin Date/Time Labs Ordered Labs to be done on [date and time ordered]: 09/25/22 @ 0433
[2022-09-23 14:22] LABS: Pathologist Review Reviewed
[2022-09-23 14:30] VITALS: BP 102/55; PULSE 87; RESP 16; TEMP 36.9; O2SAT 94
--- NOTE | 2022-09-23 15:14 | CASEMGMT ---
Discharge Planning Discharge orders/packet, and signed med list sent to [facility] via [employer]. Antonieta Cardona, Discharge Planning Asst.
--- NOTE | 2022-09-23 15:20 | CASEMGMT ---
ANDREW called the peer to peer line for [facility]. ANDREW spoke with Chelsi in the Utilization Department. Chelsi said she sees in the system where the physician overturned the denial. The reviewer needs to update it in the system and she has not done so yet. Chelsi said she will send the reviewer a message to please update this in the system katalina. ANDREW thanked Chelsi for her assistance. Loren FIGUEROA
--- NOTE | 2022-09-23 17:19 | NURSING ---
Report called to nurse Gross at [facility] for pt to be d/c. Pt scheduled to be p\u at 1900.
--- NOTE | 2022-09-24 06:35 | NURSING ---
Pt refused Klonopin 1mg on 09/23/22 1400. This nurse failed to document in APR. Med placed in return bin, verified w/ nurse Lisbeth Dorman.
== END 2022-09-23 21:25 | disposition skilled nursing facility (03) | DRG 710 ==
LOC: ED 11:37 → PCU 15:42
PROVIDERS: Family Medicine; Internal Medicine; Internal Medicine Infectious Disease; Podiatrist; Admitting Provider Internal Medicine; Emergency Provider Emergency Medicine; Visit Provider Internal Medicine
PROC: 0SBF0ZZ Excision of Right Ankle Joint, Open Approach (ICD-10-PCS; principal; 2022-09-14 11:50)
DX: A41.02 Sepsis due to Methicillin resistant Staphylococcus aureus (principal); M00.071 Staphylococcal arthritis, right ankle and foot; N17.9 Acute kidney failure, unspecified; L02.415 Cutaneous abscess of right lower limb; M10.471 Other secondary gout, right ankle and foot; L03.115 Cellulitis of right lower limb; F31.9 Bipolar disorder, unspecified; F17.210 Nicotine dependence, cigarettes, uncomplicated; E87.6 Hypokalemia; F41.9 Anxiety disorder, unspecified; F17.290 Nicotine dependence, other tobacco product, uncomplicated; F43.12 Post-traumatic stress disorder, chronic; G89.29 Other chronic pain; Z79.899 Other long term (current) drug therapy
CPT/HCPCS: 36415; 36569; 73564; 73610; 80048; 80074; 80076; 80202; 80307; 81001; 82077; 82550; 82565; 82977; 83605; 83735; 84100; 84550; 85025; 85610; 85652; 85730; 86140; 86703; 87040; 87070; 87075; 87077; 87102; 87149; 87186; 87205; 87206; 87640; 87641; 89050; 89051; 89060; 93306; 93970; 94762; 97110; 97162; 97166; 97530; 97535; 97802; 97803; 99285; 99406; J2185; J7030; J7040; J7050; J7120; A4216; J2405

== ENCOUNTER → 2022-09-26 | Outpatient (REF) | payer MEDICAID, SELFPAY ==
[2022-09-26 09:35] LABS: Hematocrit 33.9 % (37-47); Hemoglobin 10.7 g/dL (12.0-15.0); Mean Corp Hgb Conc 31.6 g/dL (32-36); Mean Corpuscular Hgb 29.8 pg (27.0-32.0); Mean Corpuscular Volume 94.4 fL (81-99); Mean Platelet Vol. 10.1 fl (6.2-12.0); POSITIVE COUNT YES; Platelet Count 816 K/mm3 (150-450); RBC Distribution Width CV 12.9 % (11.6-14.6); RBC Distribution Width SD 44.8 fl (35.1-43.9); Red Blood Count 3.59 M/mm3 (4.2-5.4); White Blood Count 8.6 K/mm3 (4.4-11.0)
[2022-09-26 09:45] LABS: Scan Indicated on CBC? Y/N YES- FLAGS NOTED
[2022-09-26 09:59] LABS: Anion Gap 4 (5-15); BUN 10 mg/dL (7-18); BUN/Creat Ratio 12.7 RATIO (10-20); Calcium,Total 9.1 mg/dL (8.5-10.1); Chloride 101 mmol/L (98-107); Creatinine, Serum 0.79 mg/dL (0.55-1.02); EST Glomerular Filtration Rate 85 mL/min (>60); Est Glom Filt Rate - Afr Amer 103 mL/min (>60); Glucose 102 mg/dL (74-106); Sodium Level 139 mmol/L (136-145)
[2022-09-26 10:22] LABS: Vancomycin, Trough Level 17.7 ug/mL (5.0-15.0)
[2022-09-26 11:54] LABS: Hematocrit 32.9 % (37-47); Hemoglobin 10.9 g/dL (12.0-15.0); Mean Corp Hgb Conc 33.1 g/dL (32-36); Mean Corpuscular Hgb 31.1 pg (27.0-32.0); Mean Platelet Vol. 9.8 fl (6.2-12.0); POSITIVE COUNT YES; Platelet Count 828 K/mm3 (150-450); RBC Distribution Width CV 12.9 % (11.6-14.6); RBC Distribution Width SD 44.3 fl (35.1-43.9); White Blood Count 11.1 K/mm3 (4.4-11.0)
[2022-09-26 11:58] LABS: Scan Indicated on CBC? Y/N YES- FLAGS NOTED
[2022-09-27 13:14] LABS: Pathologist Review Reviewed
[2022-09-27 13:19] LABS: Pathologist Review Reviewed
== END | disposition home or self-care (01) ==
LOC: OLS.SW 05:00
PROVIDERS: Visit Provider Internal Medicine
DX: B95.62 Methicillin resistant Staphylococcus aureus infection as the cause of diseases classified elsewhere (principal)
CPT/HCPCS: 36415; 80048; 80202; 85027

== ENCOUNTER 2022-09-27 23:48 | Inpatient (IN) | payer MEDICAID, SELFPAY ==
[2022-09-27 23:49] VITALS: BP 147/86; PULSE 79; RESP 18; TEMP 38.1; O2SAT 95; BMI 24.0
[2022-09-27 23:54] VITALS: BP 127/86; PULSE 84; RESP 18; TEMP 38.1; O2SAT 97
[2022-09-28] VITALS (9 sets, daily range): BP systolic 96–121; BP diastolic 64–84; PULSE 68–97; RESP 16–18; TEMP 36.3–37.5; O2SAT 94–98; BMI 22.6
--- NOTE | 2022-09-28 00:16 | RAD_ITS ---
INDICATION: ? osteo EXAMINATION/TECHNIQUE: X-RAY - RIGHT XR Ankle Min 3 Views 3 VIEWS COMPARISON: FINDINGS: SOFT TISSUES: There is marked soft tissue swelling at the medial aspect and anterior aspect of the ankle suggesting edema. No radiopaque foreign body. BONES/JOINTS: Possible bone erosions at the medial malleolus suggesting osteomyelitis. RAD/Ankle min 3 Views IMPRESSION: Osteomyelitis of the medial malleolus. Electronically Signed: Magalys Cross MD at 2:30 EDT ,
--- NOTE | 2022-09-28 00:16 | RAD_ITS ---
INDICATION: fever EXAMINATION/TECHNIQUE: X-RAY - XR Chest 1 View COMPARISON: No relevant prior comparison study available FINDINGS: LINES/DEVICES: None. LUNGS: Ill-defined airspace opacity in the right upper lobe suggesting pneumonia. MEDIASTINUM AND CARDIOVASCULAR STRUCTURES: Cardiac silhouette not enlarged. Central airways and mediastinal contour are unremarkable. BONES AND SOFT TISSUES: Unremarkable. RAD/Chest 1 View (Portable) IMPRESSION: Ill-defined airspace opacity in the right upper lobe suggesting pneumonia. Electronically Signed: Magalys Cross MD at 2:23 EDT ,
[2022-09-28 00:55] LABS: Absolute Lymphocyte Count 1.91 X10^3/uL (0.83-4.51); Absolute Neutrophil Count 8.5 X10^3/uL (2.0-7.7); Basophil# 0.05 X10^3/uL; Basophil% 0.4 % (0-1); Eosinophil# 0.25 X10^3/uL; Eosinophils% 2.2 % (0-5); Hematocrit 32.6 % (37-47); Hemoglobin 10.7 g/dL (12.0-15.0); Lymphocyte # 1.91 X10^3/ul (0.83-4.51); Lymphocyte % 16.6 % (19-41); Mean Corp Hgb Conc 32.8 g/dL (32-36); Mean Corpuscular Hgb 30.1 pg (27.0-32.0); Mean Corpuscular Volume 91.8 fL (81-99); Mean Platelet Vol. 10.1 fl (6.2-12.0); Monocyte# 0.81 X10^3/uL; NRBC Flagged by Analyzer 0 % (0-5); Neutrophil # 8.47 X10^3/uL (2.7-7.7); Neutrophil % 73.5 % (47-70); Platelet Count 722 K/mm3 (150-450); RBC Distribution Width CV 12.7 % (11.6-14.6); RBC Distribution Width SD 42.6 fl (35.1-43.9); Red Blood Count 3.55 M/mm3 (4.2-5.4); White Blood Count 11.5 K/mm3 (4.4-11.0)
[2022-09-28 01:08] LABS: Anion Gap 7 (5-15); BUN 10 mg/dL (7-18); BUN/Creat Ratio 12.3 RATIO (10-20); Chloride 100 mmol/L (98-107); Creatinine, Serum 0.81 mg/dL (0.55-1.02); D-Dimer Quantitative (DVT/PE) 3.11 FEU/ug/m (0.27-0.49); EST Glomerular Filtration Rate 82 mL/min (>60); Est Glom Filt Rate - Afr Amer 99 mL/min (>60); Estimated Creatinine Clearance 81.41 ml/min; Glucose 137 mg/dL (74-106); Potassium 3.6 mmol/L (3.5-5.1); Sodium Level 135 mmol/L (136-145)
[2022-09-28 01:18] LABS: Lactic Acid 1.9 mmol/L (0.4-1.9)
[2022-09-28] MEDS: 0.9% Normal Saline 1,000 ML 999 ML IV (01:30)
--- NOTE | 2022-09-28 01:30 | CT_ITS ---
STUDY: CTA CHEST REASON FOR EXAM: Female, 42 years old. elevated d-dimer RADIATION DOSAGE (If Supplied By Facility): CTDIvol = ( 14.14 ) mGy, DLP = ( 294.04 ) mGycm TECHNIQUE: The examination was performed with the intravenous administration of IV 100mL Isovue-370. Post-processing of the angiographic images was performed, with multiplanar reformation and 3D reconstruction. Individualized dose optimization techniques were used for this CT. COMPARISON: 09/27/2022 FINDINGS: Normal enhancement of the main pulmonary artery and right and left pulmonary arteries. Normal enhancement of the bilateral peripheral pulmonary arteries. There is no demonstrated pulmonary embolism. Normal thoracic aorta and visualized great vessels. There is no demonstrated aortic dissection. Normal heart and pericardium. Normal mediastinum. Normal hilar regions. Normal visualized trachea and bronchi. Ill-defined airspace opacities are seen in the right upper lobe, right lower lobe suggesting pneumonia. Normal chest wall structures. Normal osseous structures. Normal visualized upper abdomen. CT/CTA Chest W/WO Contrast IMPRESSION: Pneumonia in the right upper lobe and right lower lobe. No demonstrated pulmonary embolism or arterial dissection. Electronically Signed: Magalys Cross MD at 3:58 EDT ,
[2022-09-28 01:52] LABS: Mucous, Urine 0 SEEN /hpf (<or=2+); Squamous Epithelial Cells - UA 0 SEEN /hpf (5-10)
[2022-09-28 01:55] LABS: Color, Urine Yellow (Yellow); Glucose, Dipstick Normal (Normal); Ketone-Dipstick Negative (Negative); Leukocyte Esterase-Dipstick 500 /ul (Negative); Nitrite-Dipstick Negative (Negative); Occult Blood-Urine 10 /ul (Negative); Protein-Dipstick Negative (Negative); Specific Gravity, Urine 1.015 (1.002-1.030); Urine Bilirubin Dipstick Negative (Negative); Urine Clarity Clear (Clear); Urine Urobilinogen Normal (Normal); Urine pH 6.5 (5.0 - 8.0)
[2022-09-28 02:00] LABS: Bacteria 2+ /hpf (None Seen); Red Blood Cells-Urine 0-5 SEEN /hpf (0-5); White Blood Cells 25-50 SEEN /hpf (0-5)
[2022-09-28 02:03] LABS: Alcohol, Blood (Medical)-Serum < 3.0 mg/dL
[2022-09-28 02:04] LABS: International Normalized Ratio 1.1; Prothrombin Time (Protime)PT. 14.5 SECONDS (11.7-14.9)
[2022-09-28 02:05] LABS: Partial Thromboplast Time 38.6 Seconds (24.1-36.2)
[2022-09-28 02:14] LABS: Amphetamine Urine VISTA NEGATIVE (<1000 ng/mL); Barbiturate Urine VISTA NEGATIVE (< 200 ng/mL); Benzodiazepine Urine VISTA POSITIVE (< 200 ng/mL); Cocaine Urine VISTA NEGATIVE (< 300 ng/mL); Ecstacy Urine VISTA NEGATIVE (< 500 ng/mL); Methadone Urine VISTA NEGATIVE (< 300 ng/mL); PCP Urine VISTA NEGATIVE (< 25 ng/mL); THC Urine VISTA POSITIVE (< 50 ng/mL); Vista UDS pH Range 6
[2022-09-28] MEDS: Clindamycin 600 MG/50 ML BAG 100 MG IV (03:03)
[2022-09-28] MEDS: fentaNYL 100 MCG/2 ML Ampul 25 MCG IV (03:19)
[2022-09-28] MEDS: Ondansetron 4 MG/2 ML Vial IV (03:19)
[2022-09-28] MEDS: Vancomycin IV 1,000 MG/200 ML BAG 167 MG IV (03:54)
--- NOTE | 2022-09-28 04:45 | HP.PCM.HOS_ITS ---
HPI - General General Date of Admission: 09/28/22 Date of Service: 09/28/22 Chief Complaint: Painful right foot HPI Narrative RAHEL MCKEON, is a 42 F with a significant history of septic arthritis involving the right ankle with MRSA bacteremia who [facility]/2022; previous methamphetamine use presenting to the emergency department with excruciating pain of her right foot. Reportedly patient was discharged from the penitentiary because Haldol was found in her trash. Subsequently she went into her house which is actually a boardinghouse. Reportedly she lives at a crowded facility. She denies of fever or chills at home. She denies anorexia. She had I&D when she was recently admitted at the hospital. She was seen by podiatry and ID. [facility] Medical History Bipolar disorder Cellulitis Depression Migraines MRSA (methicillin resistant Staphylococcus aureus) Non-smoker Osteoporosis PTSD (post-traumatic stress disorder) Smoker Home Medications Ambien 7.5 mg PO .hs promote sleep 09/13/22 [History Last Taken Unknown] pregabalin 150 mg capsule (Lyrica) 150 mg PO BID pain 09/13/22 [History Last Taken Unknown] acetaminophen 325 mg tablet 650 mg (2 x 325 mg) PO Q6H PRN PRN TEMP > 100.5 F #0 tabs 09/23/22 [Rx Last Taken Unknown] clonazepam 1 mg tablet 1 mg PO TID #0 tabs 09/23/22 [Rx Last Taken Unknown] duloxetine 60 mg capsule,delayed release (Cymbalta) 60 mg PO DAILY mental health 30 days #0 caps 09/23/22 [Rx Last Taken Unknown] oxycodone 5 mg tablet 15 mg (3 x 5 mg) PO Q4H PRN PRN Pain Score 6-10 3 days #7 tabs 09/23/22 [Rx Last Taken Unknown] brexpiprazole 2 mg tablet (Rexulti) 2 mg PO DAILY 09/27/22 [History Last Taken Unknown] omeprazole 40 mg capsule,delayed release 40 mg PO DAILY 09/27/22 [History Last Taken Unknown] tizanidine 4 mg tablet 4 mg PO Q12H 09/27/22 [History Last Taken Unknown] Allergy/AdvReac Type Severity Reaction Status Date / Time amoxicillin Allergy Anaphylaxis Verified 09/28/22 00:10 hydrocodone [From Vicodin] Allergy Angioedema Verified 09/28/22 00:10 ibuprofen Allergy Itching Verified 09/28/22 00:10 morphine Allergy Hives Verified 09/28/22 00:10 acetaminophen [From Tylenol] AdvReac Other Verified 09/28/22 00:10 Family History (Updated 09/28/22 @ 06:[address] Rj Meng MD) Other Cancer Depression Diabetes Heart disease Thyroid disorder Surgical History History of appendectomy History of cholecystectomy Status post right foot surgery Social History household members: significant other Smoking Status: Current every day smoker tobacco type: cigarettes alcohol intake: current ROS ROS Narrative Pertinent positives and pertinent negatives as noted in HPI. All other systems were reviewed and are negative Vital Signs Vital Signs Vital Signs: 09/27/22 23:49 09/27/22 23:54 09/28/22 01:00 Temperature 100.5 F H 100.5 F H 99.5 F H Temperature Source Oral Oral Oral Pulse Rate 79 84 80 Respiratory Rate 18 18 18 Blood Pressure 147/86 H 127/86 H 103/64 Blood Pressure Mean 106 99 77 Pulse Ox 95 97 97 Oxygen Delivery Method Room Air Room Air Room Air 09/28/22 02:00 Temperature 99.5 F H Temperature Source Oral Pulse Rate 81 Respiratory Rate 18 Blood Pressure 121/84 H Blood Pressure Mean 96 Pulse Ox 98 Oxygen Delivery Method Room Air Weight Weight: 65.7 kg Body Mass Index (BMI) 24.0 Physical Exam Narrative Physical exam: General: Crying secondary to pain Head: Normocephalic, atraumatic, no tenderness Eyes: Vision is grossly intact. EOMI ENT, no trauma, moist mucous membranes, no rhinorrhea Neck: Nontender, No thyromegaly. CVS: Regular rate and rhythm. S1-S2 present. No murmur, gallop or rub. Respiratory : clear to auscultation bilaterally, chest wall nontender Abdomen: Soft, nontender, nondistended, normal bowel sounds, no masses : Deferred Back: Nontender, no CVA tenderness, no midline spinal tenderness, deformities, step-offs Extremities: Right foot swelling and tenderness. Right ankle with open wound. Skin: Normal color, no trauma, abrasions Neuro: Alert, oriented, cranial nerves II through XII grossly intact. Psychiatry: Normal mood. Normal affect. Not depressed. Not anxious. Results Lab / Micro Data 09/28/22 00:45 09/28/22 00:45 Labs: Laboratory Results - last 24 hr 09/28/22 00:45: WBC 11.5 H, RBC 3.55 L, Hgb 10.7 L, Hct 32.6 L, MCV 91.8, MCH 30.1, MCHC 32.8, RDW Std Deviation 42.6, RDW Coeff of Sylvia 12.7, Plt Count 722 H, MPV 10.1, Immature Gran % (Auto) 0.300, Neut % (Auto) 73.5 H, Lymph % (Auto) 16.6 L, [place] % (Auto) 7.0, Eos % (Auto) 2.2, Baso % (Auto) 0.4, Absolute Neuts (auto) 8.5 H, Absolute Lymphs (auto) 1.91, Nucleated RBC % 0, PT 14.5, INR 1.1, APTT 38.6 H, D-Dimer Quant (PE/DVT) 3.11 H*, Sodium 135 L, Potassium 3.6, Chloride 100, Carbon Dioxide 28.0, Anion Gap 7, BUN 10, Creatinine 0.81, Estim Creat Clear Calc 81.41, Est GFR (MDRD) Af Amer 99, Est GFR (MDRD) Non-Af 82, BUN/Creatinine Ratio 12.3, Glucose 137 H, Lactic Acid 1.9, Calcium 9.0 09/28/22 01:30: Ethyl Alcohol < 3.0 09/28/22 01:45: Urine Color Yellow, Urine Clarity Clear, Urine pH 6.5, Ur Specific [place] 1.015, Urine Protein Negative, Urine Glucose (UA) Normal, Urine Ketones Negative, Urine Occult Blood 10 H, Urine Nitrite Negative, Urine Bilirubin Negative, Urine Urobilinogen Normal, Ur Leukocyte Esterase 500 H, Urine RBC 0-5 SEEN, Urine WBC 25-50 SEEN, Ur Squamous Epith Cells 0 SEEN, Urine Bacteria 2+, Urine Mucus 0 SEEN, Urine Opiates Screen POSITIVE H, Urine Methadone Screen NEGATIVE, Ur Barbiturates Screen NEGATIVE, Ur Phencyclidine Scrn NEGATIVE, Ur Amphetamines Screen NEGATIVE, MDMA (Ecstasy) Screen NEGATIVE, U Benzodiazepines Scrn POSITIVE H, Urine Cocaine Screen NEGATIVE, U Cannabinoids Screen POSITIVE H, Ur Drug Screen Comment Radiology Impression Ankle X-Ray 09/28/22 00:16 IMPRESSION: Osteomyelitis of the medial malleolus. Electronically Signed: Magalys Cross MD at 2:30 EDT , Chest X-Ray 09/28/22 00:16 IMPRESSION: Ill-defined airspace opacity in the right upper lobe suggesting pneumonia. Electronically Signed: Magalys Cross MD at 2:23 EDT , Chest CTA 09/28/22 01:30 IMPRESSION: Pneumonia in the right upper lobe and right lower lobe. No demonstrated pulmonary embolism or arterial dissection. Electronically Signed: Magalys Cross MD at 3:58 EDT , Assessment & Plan Assessment/Plan (1) MRSA bacteremia: (2) Osteomyelitis: QUALIFIERS: Osteomyelitis type: acute hematogenous Osteomyelitis location: foot Laterality: right Qualified Code(s): M86.071 - Acute hematogenous osteomyelitis, right ankle and foot (3) Septic embolism: PLAN: Plan Right foot osteomyelitis Radiology impression of ankle x-ray: Osteomyelitis of the medial malleolus. Independently interpreted by hospitalist, luis m. Patient is allergic to penicillins (anaphylaxis); vancomycin IV, ciprofloxacin IV and clindamycin IV started emergency department and continued. Review of labs showed white count of 11.5 with thrombocytosis, neutrophilia and lymphopenia. Trend CBC Tmax of 100.5 Fahrenheit. Pulse rate is below 96; respiratory rate is below 20. Patient is not hypotensive. Sepsis ruled out With reported pneumonia on imaging we will investigate further for septic emboli. Echocardiogram ordered. Echocardiogram at that time did not show infective endocarditis. Also EF was normal. Podiatry and ID consulted. Pain control with po and IV narcotics. NPO except meds ESR and CRP ordered. Review of notes of recent admission showed MRSA bacteremia UTI Urinalysis is abnormal Urine cx ordered at the ED Antibiotics as above Pneumonia MRSA pneumonia most likely Chest CTA with pneumonia in the right upper lobe and right lower lobe. No PE or aortic dissection. Time spent in the patient's overall evaluation,decision-making process, review of diagnostic data, adjustment of management, discussion with other providers, nursing nursing and ancillary staff involved in patient's care documentation, 70 minutes. Charges/Coding Visit Charges Inpatient E&M: 63197 Init Hosp L3
[2022-09-28] MEDS: Ciprofloxacin 400 MG/200 ML BAG 200 MG IV (05:02)
--- NOTE | 2022-09-28 05:24 | EX.ED.DYSGE1 ---
HPI History of Present Illness Chief Complaint: Lower Extremity Injury Narrative Narrative: Patient is a 42-year-old female with past medical history of IV drug abuse who was recently admitted to the hospital at the end of August early September secondary to right ankle cellulitis with abscess. On September 14 she underwent surgical debridement by podiatry. She was kept in the hospital and then ended up being discharged to a long-term. PICC line was not inserted according to the discharge summary because of her history of IV drug abuse. Patient reportedly was found to have Haldol in her room which was not prescribed for her and secondary to this the long-term fired her or expelled her from there facility. Reportedly patient was then living in a crawl space of the basement and unsanitary conditions and called EMS because of increased pain to the right ankle. EMS states when they arrived that the patient was truly in unsanitary conditions. PFSH PFSH Medical History Bipolar disorder Cellulitis Depression Migraines MRSA (methicillin resistant Staphylococcus aureus) Non-smoker Osteoporosis PTSD (post-traumatic stress disorder) Smoker Home Medications Ambien 7.5 mg PO .hs promote sleep 09/13/22 [History Last Taken 09/25/22] pregabalin 150 mg capsule (Lyrica) 150 mg PO BID pain 09/13/22 [History Last Taken 09/25/22] acetaminophen 325 mg tablet 650 mg (2 x 325 mg) PO Q6H PRN PRN TEMP > 100.5 F #0 tabs 09/23/22 [Rx Last Taken Unknown] duloxetine 60 mg capsule,delayed release (Cymbalta) 60 mg PO DAILY mental health 30 days #0 caps 09/23/22 [Rx Last Taken 09/27/22] oxycodone 5 mg tablet 15 mg (3 x 5 mg) PO Q4H PRN PRN Pain Score 6-10 3 days #7 tabs 09/23/22 [Rx Last Taken 09/27/22] brexpiprazole 2 mg tablet (Rexulti) 2 mg PO DAILY anxiety 09/27/22 [History Last Taken 09/27/22] omeprazole 40 mg capsule,delayed release 40 mg PO DAILY gerd 09/27/22 [History Last Taken 09/27/22] tizanidine 4 mg tablet 4 mg PO Q12H spasm 09/27/22 [History Last Taken 09/25/22] clonazepam 1 mg tablet 2 mg PO TID depression 09/28/22 [History Last Taken 09/25/22] Allergy/AdvReac Type Severity Reaction Status Date / Time amoxicillin Allergy Anaphylaxis Verified 09/28/22 00:10 hydrocodone [From Vicodin] Allergy Angioedema Verified 09/28/22 00:10 ibuprofen Allergy Itching Verified 09/28/22 00:10 morphine Allergy Hives Verified 09/28/22 00:10 acetaminophen [From Tylenol] AdvReac Other Verified 09/28/22 00:10 Family History (Updated 09/28/22 @ 06:[address] Rj Meng MD) Other Cancer Depression Diabetes Heart disease Thyroid disorder Surgical History History of appendectomy History of cholecystectomy Status post right foot surgery Social History household members: significant other Smoking Status: Current every day smoker tobacco type: cigarettes alcohol intake: current ROS ROS ED Constitutional Constitutional ED: Denies chills or fever(s) ENT ENT ED: Denies sore throat Cardiovascular Cardiovascular: Denies chest pain Respiratory/Chest Respiratory/Chest: Denies cough or dyspnea Gastrointestinal Gastrointestinal: Denies abdominal pain, diarrhea, nausea or vomiting Genitourinary Genitourinary ED: Denies dysuria Musculoskeletal Musculoskeletal: Reports other Details: Positive right ankle pain ; Denies myalgias Integumentary Reports other Details: Positive right ankle wound ; Denies rash Neurologic Neurologic: Denies headache(s) Hematologic/Lymphatic Hematologic/Lymphatic: Denies easy bleeding or easy bruising EXAM Physical Exam Const Vital Signs: 09/27/22 23:49 09/27/22 23:54 09/28/22 01:00 Temperature 100.5 F H 100.5 F H 99.5 F H Temperature Source Oral Oral Oral Pulse Rate 79 84 80 Respiratory Rate 18 18 18 Blood Pressure 147/86 H 127/86 H 103/64 Blood Pressure Mean 106 99 77 Pulse Ox 95 97 97 Oxygen Delivery Method Room Air Room Air Room Air 09/28/22 02:00 Temperature 99.5 F H Temperature Source Oral Pulse Rate 81 Respiratory Rate 18 Blood Pressure 121/84 H Blood Pressure Mean 96 Pulse Ox 98 Oxygen Delivery Method Room Air Positive well nourished and well developed General Appearance ED: well developed HEENT HEENT Narrative: No signs of infection in the posterior pharynx Mucous membranes are mildly dry and tacky Eyes PERRL and EOMs intact bilaterally Neck supple Neck Narrative: No nuchal rigidity or meningeal signs noted Resp normal respiratory effort and clear to auscultation bilaterally Cardio regular rate and regular rhythm Rate: other Other Details: Radial pulses are equal and symmetric GI normal to inspection, nondistended, normoactive bowel sounds, non-tender, non-distended and no masses GI Narrative: No voluntary guarding no rigidity no pulsatile mass or fluid wave Auscultation: normoactive bowel sounds Palpation: soft Extremity Extremity Narrative: Right knee is neurovascular intact. Patient has postoperative changes to the medial lateral ankle that do not show overt changes consistent with infection. There is soft tissue swelling around the ankle as well as the foot but there is no erythema warmth purulent discharge or lymphangitic streaking noted., Neuro oriented x3 and CN's II-XII intact bilaterally Neuro Narrative: Patient has a GCS of 14. She appears obtunded but awakes to voice and follows commands with no focal neurologic deficit but then quickly falls back asleep Sensorium / Orientation: orientation impaired Psych Psych Narrative: Depressed mental status as documented above Skin Skin Narrative: Postoperative wounds to the right ankle as documented above MDM MDM MDM Narrative Medical decision making narrative: Patient presented to the ER with febrile at 100.5 but otherwise with stable vitals. Her wound appears clean dry and intact without secondary surrounding infectious changes. However as she has a true fever 100.5 there is concern for failure of outpatient antibiotics with progression to osteomyelitis and even a pulmonary embolus as she has had recent surgery. Patient blood work was obtained which shows mild leukocytosis and a drastically elevated D-dimer but otherwise no clinically significant findings. A CTA was then added because of the elevated D-dimer and it confirms changes consistent with pneumonia. X-ray of the ankle was added because of potential osteomyelitis and this was compared to September 13 and at this time there are now changes concerning for the bony infection. Patient was given IV vancomycin and clindamycin and ciprofloxacin as she has a penicillin allergy. As she will require further antibiotic treatment the case was discussed with medicine on-call and they do agree to accept the patient at this time History & Record Review Discussion w/independent historian: EMS personnel and Patient Lab Data Attestation: I reviewed the patient's lab results. Labs: Laboratory Results - last 24 hr 09/28/22 09/28/22 09/28/22 00:45 01:30 01:45 WBC 11.5 H RBC 3.55 L Hgb 10.7 L Hct 32.6 L MCV 91.8 MCH 30.1 MCHC 32.8 RDW Std Deviation 42.6 RDW Coeff of Sylvia 12.7 Plt Count 722 H MPV 10.1 Immature Gran % (Auto) 0.300 Neut % (Auto) 73.5 H Lymph % (Auto) 16.6 L [place] % (Auto) 7.0 Eos % (Auto) 2.2 Baso % (Auto) 0.4 Absolute Neuts (auto) 8.5 H Absolute Lymphs (auto) 1.91 Nucleated RBC % 0 ESR 67 H PT 14.5 INR 1.1 APTT 38.6 H D-Dimer Quant (PE/DVT) 3.11 H* Sodium 135 L Potassium 3.6 Chloride 100 Carbon Dioxide 28.0 Anion Gap 7 BUN 10 Creatinine 0.81 Estim Creat Clear Calc 81.41 Est GFR (MDRD) Af Amer 99 Est GFR (MDRD) Non-Af 82 BUN/Creatinine Ratio 12.3 Glucose 137 H Lactic Acid 1.9 Calcium 9.0 C-React Prot Ext Range 73.90 H Urine Color Yellow Urine Clarity Clear Urine pH 6.5 Ur Specific [place] 1.015 Urine Protein Negative Urine Glucose (UA) Normal Urine Ketones Negative Urine Occult Blood 10 H Urine Nitrite Negative Urine Bilirubin Negative Urine Urobilinogen Normal Ur Leukocyte Esterase 500 H Urine RBC 0-5 SEEN Urine WBC 25-50 SEEN Ur Squamous Epith Cells 0 SEEN Urine Bacteria 2+ Urine Mucus 0 SEEN Urine Opiates Screen POSITIVE H Urine Methadone Screen NEGATIVE Ur Barbiturates Screen NEGATIVE Ur Phencyclidine Scrn NEGATIVE Ur Amphetamines Screen NEGATIVE MDMA (Ecstasy) Screen NEGATIVE U Benzodiazepines Scrn POSITIVE H Urine Cocaine Screen NEGATIVE U Cannabinoids Screen POSITIVE H Ur Drug Screen Comment Ethyl Alcohol < 3.0 Radiography Diagnostic Testing: Clinical Impression(s) from Imaging Studies Ankle X-Ray 09/28/22 00:16 IMPRESSION: Osteomyelitis of the medial malleolus. Electronically Signed: Magalys Cross MD at 2:30 EDT Reading Location ID and State: [facility] / [place] Tel , Service support , Chest X-Ray 09/28/22 00:16 IMPRESSION: Ill-defined airspace opacity in the right upper lobe suggesting pneumonia. Electronically Signed: Magalys Cross MD at 2:23 EDT , Chest CTA 09/28/22 01:30 IMPRESSION: Pneumonia in the right upper lobe and right lower lobe. No demonstrated pulmonary embolism or arterial dissection. Electronically Signed: Magalys Cross MD at 3:58 EDT , Right ankle x-rays interpreted by the emergency medicine physician reveals haziness along the medial malleolus concerning for osteomyelitis 1 view chest x-ray as interpreted by the emergency medicine physician reveals hazy opacities in the right upper lobe concerning for pneumonia Management Discussion w/another healthcare provider: Hospitalist Discharge Plan Dx/Rx/DC Orders Clinical Impression: MRSA bacteremia, Septic embolism, Ankle osteomyelitis, right Disposition Disposition: Acute Care Hospital [facility] Discharge Date/Time: 09/28/22 06:24
[2022-09-28] MEDS: fentaNYL 100 MCG/2 ML Ampul 50 MCG IV (06:17)
--- NOTE | 2022-09-28 06:21 | ED.RN ---
WALKED IN TO PT ROOM AND SMELLED LIKE FRESH SMOKE. QUESTIONED PT AND SHE REPORTS I DON'T SMOKE THAT MUCH, I JUST HAD MY SMOKES OUT TO SHOW THE DOCTOR. PT CONTINUOUSLY STATES SHE DIDN'T SMOKE IN HER ROOM. MS3 CHARGE INFORMED OF SAME.
--- NOTE | 2022-09-28 06:24 | MRI_ITS ---
STUDY: MRI RIGHT ANKLE WITHOUT CONTRAST REASON FOR EXAM: Female, 42 years old. History of debridement September 13, 2022. Evaluate for osteomyelitis. TECHNIQUE: Standardized fat and water weighted pulse sequences were obtained in all 3 orthogonal planes. COMPARISON: Right ankle x-rays dated September 28, 2022. FINDINGS: Extensive circumferential diffuse subcutaneous soft tissue edema compatible with extensive cellulitis. Focal fluid collection on the plantar surface of the foot beneath the anterior process of the calcaneus measuring 2.1 cm x 1.4 cm x 1.1 cm. This fluid collection is compatible with a focal abscess. Diffuse subcutaneous soft tissue edema within the plantar musculature and soft tissues of the dorsal aspect of the foot and ankle are also noted, compatible with cellulitis. Loss of articular cartilage of the tibiotalar joint with a large tibiotalar joint effusion. Extensive bone marrow edema in the distal tibia, distal fibula and in the talus. This combination of findings is compatible with septic arthritis with adjacent osteomyelitis (sagittal series 4 images 4-18). MRI/Lower Ext Joint Only (Routine) IMPRESSION: Extensive circumferential diffuse subcutaneous soft tissue edema compatible with cellulitis. Focal fluid collection compatible with abscess on the plantar surface of the foot as described. Loss of articular cartilage of the tibiotalar joint with tibiotalar joint effusion and extensive bone marrow edema in the distal tibia, distal fibula and talus. Given the distribution of the bone marrow edema, this is likely secondary to septic arthritis with adjacent osteomyelitis. Electronically Signed: Obi Patterson MD at 10:48 EDT ,
--- NOTE | 2022-09-28 06:24 | ECHOLC_ITS ---
Reason For Study: EMBOLI Procedure This was a limited 2D transthoracic echocardiogram. Techniclly difficult study due to uncooperative patient. Patient scanned supine. Contrast injection was performed. Exam performed portable in patient room. Left Ventricle Normal LV size. Left ventricular systolic function is normal. The estimated ejection fraction is 60 %. No regional wall motion abnormalities noted. Right Ventricle Normal RV size. Normal systolic function. Atria Normal left atrium. Normal right atrium. Mitral Valve The mitral valve is structurally normal. No prolapse or stenosis seen. Trivial mitral valve insufficiency. Tricuspid Valve Normal tricuspid valve. Mild (1+) tricuspid valve insufficiency. Right ventricular systolic pressure estimated to be 25 mmHg. Aortic Valve Trisinus/trileaflet aortic valve. Mild (1+) aortic valve insufficiency. Pulmonic Valve Normal pulmonic valve. Great Vessels Normal aortic root. Pericardium/Pleural No pericardial effusion. Medication Diluted definity 2ml given slow IV push to enhance endocardial definition. MMode/2D Measurements & Calculations LVIDd: 4.6 cm IVSd: 0.76 cm Ao root diam: 2.5 cm LVIDs: 3.1 cm LVPWd: 0.98 cm FS: 32.9 % LAV(MOD-bp): 27.7 ml LVAd ap4: 26.9 cm2 LVAd ap2: 32.1 cm2 LAV(MOD-bp) Indexed: 16.1 ml/m2 LVLd ap4: 7.0 cm LVLd ap2: 8.0 cm LAV(MOD-sp2): 26.0 ml EDV(MOD-sp4): 83.0 ml EDV(MOD-sp2): 107.8 ml LAV(MOD-sp4): 29.3 ml EDV(sp4-el): 87.3 ml EDV(sp2-el): 108.9 ml LVAs ap4: 13.6 cm2 LVAs ap2: 17.0 cm2 LVLs ap4: 5.4 cm LVLs ap2: 6.4 cm ESV(MOD-sp4): 28.8 ml ESV(MOD-sp2): 39.4 ml ESV(sp4-el): 29.4 ml ESV(sp2-el): 38.4 ml EF(MOD-sp4): 65.3 % EF(MOD-sp2): 63.4 % EF(sp4-el): 66.3 % SV(MOD-sp4): 54.2 ml SV(MOD-sp2): 68.4 ml SV(sp4-el): 57.8 ml LA A4 area: 12.5 cm2 LA dimension(2D): 3.0 cm RA A4 area: 9.5 cm2 Doppler Measurements & Calculations TR max lety: 236.8 cm/sec TR max P.4 mmHg ECHO/Echo Limited w/Contrast Interpretation Summary LV systolic function is normal Contrast study using Definity. The estimated ejection fraction is 60 %. Trivial mitral valve insufficiency. Mild (1+) tricuspid valve insufficiency. Right ventricular systolic pressure estimated to be 25 mmHg. Mild (1+) aortic valve insufficiency. Compared to previous echo 09/15/22, the right ventricular systolic pressure has r educed. There is no definitive evidence for barcterial endocarditis. RV free wall is no t well visualized In comparison to previous echocardiogram no significant change noted. Contrast injection was performed. Ordering Physician: Rj Meng Referring Physician: MAGALI PCP Performed By: Deonna Hodges RCS
[2022-09-28 06:45] LABS: Erythrocyte Sedimentation Rate 67 mm/hr (0-30)
[2022-09-28] MEDS: 0.9% Saline Lock 10 ML Syringe IV ×2 (06:48→11:10)
--- NOTE | 2022-09-28 08:52 | PCM.RX.CS ---
Consult Antibiotic Management Pharmacy has been consulted to manage selected antiobiotic: Vancomycin Type of Intervention Type of Consult: New start Suspected Infection Suspected Infection: Osteomyelitis, Pneumonia and Bacteremia Prior Doses of Antibiotics Prior Doses of Antibiotics Received/Current Regimen: received vanc 1000mg IV x1 in E.R. starting at 03:54 today Labs Labs: Sodium 135 mmol/L (136-145) L 09/28/22 00:45 Potassium 3.6 mmol/L (3.5-5.1) 09/28/22 00:45 Chloride 100 mmol/L (98-107) 09/28/22 00:45 Carbon Dioxide 28.0 mmol/L (21.0-32.0) 09/28/22 00:45 Anion Gap 7 (5-15) 09/28/22 00:45 BUN 10 mg/dL (7-18) 09/28/22 00:45 Creatinine 0.81 mg/dL (0.55-1.02) 09/28/22 00:45 Est GFR (MDRD) Af Amer 99 mL/min (>60) 09/28/22 00:45 Est GFR (MDRD) Non-Af 82 mL/min (>60) 09/28/22 00:45 BUN/Creatinine Ratio 12.3 RATIO (10-20) 09/28/22 00:45 Glucose 137 mg/dL (74-106) H 09/28/22 00:45 Dosing Weight Weight used for dosin.6 kg Estimated Creatinine Clearance Estimated Creatinine Clearance: 81.4ml/min Goal Trough Goal Trough: 15-20 mcg/mL Pharmacy Plan for Drug Dosing Pharmacy Plan for Drug Dosing: The patient had been on vanc here at [facility] a few days ago with various doses with a q8h frequency, the most recent being 750mg IV q8h. However, the trough had been up and down with q8h dosing so will start new dosing today at 1000mg IV q12h. The patient had recently been expelled from the senior living and had not been currently receiving vancomycin after that happened. Will check a trough before the 4th dose tomorrow. Pharmacy Service will continue to monitor and adjust dosing as required. Follow-Up Labs Follow-Up Labs: Trough: Vancomycin Date/Time Labs Ordered Labs to be done on [date and time ordered]: 09/29/22 15:30
--- NOTE | 2022-09-28 08:53 | CASEMGMT ---
Discharge Planning A list of SNF providers including quality and resource use data and consistent with the patient?s preferred geographic region, medical needs, and insurance network was created in [employer] Guide. This list was provided to the (RN CM, SW). Antonieta Cardona, Discharge Planning Asst.
--- NOTE | 2022-09-28 08:57 | WOUNDNOTE ---
wound photo: right medial ankle
--- NOTE | 2022-09-28 08:58 | WOUNDNOTE ---
wound photo: right lateral ankle
[2022-09-28] MEDS: oxyCODONE 5 MG Tablet 15 MG PO ×2 (11:09→19:31)
[2022-09-28] MEDS: DULoxetine Hcl 60 MG Capsule PO (11:09)
[2022-09-28] MEDS: Pregabalin 75 MG Capsule 150 MG PO ×2 (11:09→20:51)
[2022-09-28] MEDS: Pantoprazole Sodium 40 MG Tablet PO (11:10)
--- NOTE | 2022-09-28 11:16 | CASEMGMT ---
Social Work SW attempted to speak w/pt regarding discharge plan. Pt sleeping soundly and did not easily awaken. SW will continue to follow. ROSA Miles
[2022-09-28] MEDS: BREXPIPRAZOLE 2 MG TABLET PO (11:43)
[2022-09-28] MEDS: Ciprofloxacin 200 MG/100 ML BAG 100 MG IV (11:43)
--- NOTE | 2022-09-28 11:51 | CASEMGMT ---
Social Work SW met w/pt in regard to discharge plan. Pt tearful throughout conversation. Pt states she was at [facility] and was kicked out, only managed to stay home for a few hours and came in due to the pain. She states they were mean to her. She states they did not give her pain medication, and the food is horrible. SW inquired about the Haldol found in the trash. Pt states it was found next to the trash, and was asked about it. Pt states she does not take Haldol. She thinks someone at the custodial planted it there. Pt states she wants to return home. SW asked about the home conditions as SW informed it's not clean. Pt states there are bed bugs from another tenant that made it into their home. She states however her landlord is willing to move she and her fimatthiase Giana to a room upstairs next to the tub, where it is filter screen cleaner. She states it would be better for her to be on the same floor as the tub because of her foot. She states the steps upstairs are less steep than the steps to the basement. As per pt, if SW calls or emails the landlord(Angelo Taveras, [phone], [email or web address]) to say she needs to be moved to this room, he will do it. ANDREW also asked about home health, pt states that [facility] did set this up but they did not tell her which company. SW called [facility], message left inquiring about home health, message left. Pt also states she needs a walker to go home. ANDREW/CLEMENTE will continue to follow, waiting for call back from [facility] regarding home health. ROSA Miles
--- NOTE | 2022-09-28 13:28 | CON.PCM.ID_ITS ---
Assessment & Plan Assessment/Plan (1) Ankle osteomyelitis, right: (2) MRSA bacteremia: PLAN: MRSA bacteremia due to R ankle septic arthritis. Taken to OR 09/14/[address] Quinonez for I&D. Treated with vanc. Bcx cleared 09/15. No veg seen on TTE. Discharged to ECF on 4 weeks iv vanc, stop date 10/13/22 with weekly labs and ID followup in 2 weeks. 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 Returned after having to leave ECF, picc was removed. Now with pneumonia seen on imaging, concern for possible aspiration. Bcx pending. Will check sputum cx and UAgs. Ankle wounds appear to be doing well, but new xray with reported osteo. Podiatry consulted. Cont vanc. Will stop clinda. Will cover for pneumonia with ceftriaxone/flagyl for now. Will follow, thank you, d/w adult protective caseworker HPI Consult Data Date of Consult: 09/28/22 HPI Narrative Reason for Consultation: osteo HPI Narrative: RAHEL MCKEON, is a 42 F h/o IVDU with recent admission for MRSA bacteremia and R ankle septic arthritis. Discharged 09/23 on iv vanc for planned 4 week course, stop date 10/13/22, to ECF. Found to have haldol in her room, had to leave ECF. Picc was removed. Came back to ED overnight with one day h/o increased ankle pain, thinks she was bitten by a spider. No fever, no cough or SOB. Denies any drug use. Admitted here, started on vanc/clinda/cipro. C/o being hungry this afternoon. Full ROS performed and neg except as noted above. PFSH Medical History Bipolar disorder Cellulitis Depression Migraines MRSA (methicillin resistant Staphylococcus aureus) Non-smoker Osteoporosis PTSD (post-traumatic stress disorder) Smoker Home Medications Ambien 7.5 mg PO .hs promote sleep 09/13/22 [History Last Taken 09/25/22] pregabalin 150 mg capsule (Lyrica) 150 mg PO BID pain 09/13/22 [History Last Taken 09/25/22] acetaminophen 325 mg tablet 650 mg (2 x 325 mg) PO Q6H PRN PRN TEMP > 100.5 F #0 tabs 09/23/22 [Rx Last Taken Unknown] duloxetine 60 mg capsule,delayed release (Cymbalta) 60 mg PO DAILY mental health 30 days #0 caps 09/23/22 [Rx Last Taken 09/27/22] oxycodone 5 mg tablet 15 mg (3 x 5 mg) PO Q4H PRN PRN Pain Score 6-10 3 days #7 tabs 09/23/22 [Rx Last Taken 09/27/22] brexpiprazole 2 mg tablet (Rexulti) 2 mg PO DAILY anxiety 09/27/22 [History Last Taken 09/27/22] omeprazole 40 mg capsule,delayed release 40 mg PO DAILY gerd 09/27/22 [History Last Taken 09/27/22] tizanidine 4 mg tablet 4 mg PO Q12H spasm 09/27/22 [History Last Taken 09/25/22] clonazepam 1 mg tablet 2 mg PO TID depression 09/28/22 [History Last Taken 09/25/22] Allergy/AdvReac Type Severity Reaction Status Date / Time amoxicillin Allergy Anaphylaxis Verified 09/28/22 00:10 hydrocodone [From Vicodin] Allergy Angioedema Verified 09/28/22 00:10 ibuprofen Allergy Itching Verified 09/28/22 00:10 morphine Allergy Hives Verified 09/28/22 00:10 acetaminophen [From Tylenol] AdvReac Other Verified 09/28/22 00:10 Family History (Updated 09/28/22 @ 06:[address] Rj Meng MD) Other Cancer Depression Diabetes Heart disease Thyroid disorder Surgical History History of appendectomy History of cholecystectomy Status post right foot surgery Social History household members: significant other Smoking Status: Current every day smoker tobacco type: cigarettes alcohol intake: current Physical Exam Const alert, oriented x3 and no apparent distress General Appearance: cooperative HEENT normocephalic and head/scalp atraumatic Eyes PERRL and EOMs intact bilaterally Neck supple and No nodes Resp normal air movement Auscultation: diminished lung sounds Cardio regular rate and regular rhythm GI soft to palpation, non-tender and non-distended Extremity General Extremity: Negative for edema Skin Skin Narrative: R ankle incisions with no redness or drainage Neuro CN's II-XII intact bilaterally Lab / Micro Data Attestation: I reviewed the patient's lab results. 09/28/22 00:45 09/28/22 00:45 Labs: Laboratory Results - last 24 hr 09/28/22 00:45: WBC 11.5 H, RBC 3.55 L, Hgb 10.7 L, Hct 32.6 L, MCV 91.8, MCH 30.1, MCHC 32.8, RDW Std Deviation 42.6, RDW Coeff of Sylvia 12.7, Plt Count 722 H, MPV 10.1, Immature Gran % (Auto) 0.300, Neut % (Auto) 73.5 H, Lymph % (Auto) 16.6 L, [place] % (Auto) 7.0, Eos % (Auto) 2.2, Baso % (Auto) 0.4, Absolute Neuts (auto) 8.5 H, Absolute Lymphs (auto) 1.91, Nucleated RBC % 0, ESR 67 H, PT 14.5, INR 1.1, APTT 38.6 H, D-Dimer Quant (PE/DVT) 3.11 H*, Sodium 135 L, Potassium 3.6, Chloride 100, Carbon Dioxide 28.0, Anion Gap 7, BUN 10, Creatinine 0.81, Estim Creat Clear Calc 81.41, Est GFR (MDRD) Af Amer 99, Est GFR (MDRD) Non-Af 82, BUN/Creatinine Ratio 12.3, Glucose 137 H, Lactic Acid 1.9, Calcium 9.0, C- React Prot Ext Range 73.90 H 09/28/22 01:30: Ethyl Alcohol < 3.0 09/28/22 01:45: Urine Color Yellow, Urine Clarity Clear, Urine pH 6.5, Ur Specific [place] 1.015, Urine Protein Negative, Urine Glucose (UA) Normal, Urine Ketones Negative, Urine Occult Blood 10 H, Urine Nitrite Negative, Urine Bilirubin Negative, Urine Urobilinogen Normal, Ur Leukocyte Esterase 500 H, Urine RBC 0-5 SEEN, Urine WBC 25-50 SEEN, Ur Squamous Epith Cells 0 SEEN, Urine Bacteria 2+, Urine Mucus 0 SEEN, Urine Opiates Screen POSITIVE H, Urine Methadone Screen NEGATIVE, Ur Barbiturates Screen NEGATIVE, Ur Phencyclidine Scrn NEGATIVE, Ur Amphetamines Screen NEGATIVE, MDMA (Ecstasy) Screen NEGATIVE, U Benzodiazepines Scrn POSITIVE H, Urine Cocaine Screen NEGATIVE, U Cannabinoids Screen POSITIVE H, Ur Drug Screen Comment Micro: Microbiology 09/28/22 01:45 Urine Catheter - Catheter Urine Culture - Preliminary Culture exhibits no growth. Radiology Impression Ankle X-Ray 09/28/22 00:16 IMPRESSION: Osteomyelitis of the medial malleolus. Electronically Signed: Magalys Cross MD at 2:30 EDT , Chest X-Ray 09/28/22 00:16 IMPRESSION: Ill-defined airspace opacity in the right upper lobe suggesting pneumonia. Electronically Signed: Magalys Cross MD at 2:23 EDT , Chest CTA 09/28/22 01:30 IMPRESSION: Pneumonia in the right upper lobe and right lower lobe. No demonstrated pulmonary embolism or arterial dissection. Electronically Signed: Magalys Cross MD at 3:58 EDT ,
--- NOTE | 2022-09-28 13:44 | CON.PCM_ITS ---
Assessment & Plan Assessment/Plan (1) Wound of right ankle: (2) Non-pressure chronic ulcer of right ankle with fat layer exposed: (3) Ankle pain, right: (4) Ankle osteomyelitis, right: PLAN: Plan Patient seen and evaluated Patient is s/p I&D of the right ankle abscess on 09/14/[address] Quinonez. POD #14 There are 2 wounds noted to the right ankle, 1 medial and 1 lateral. Wound bed healthy and granular in appearance. No signs of localized infection. No palpable fluctuance/bogginess, no visible abscess formation. There is some mild edema to the forefoot secondary to improper bandaging via Rajan wrap compression. I reviewed diagnostic data. WBC 11.5, CRP 73.90, ESR 67, lactic acid 1.9, D-dimer 3.11, APTT 38.6. Patient did have positive urine testing for opioids, benzodiazepines, and cannabinoids. Patient did have CTA with no evidence of PE. Impression noted pneumonia right upper and lower lobe. Patient did have abnormal urine culture. Radiograph right ankle 09/28/2022 demonstrates soft tissue swelling anterior and medial ankle. There are possible bony erosions at the medial malleolus suggestive of osteomyelitis. Impression: Osteomyelitis of the medial malleolus. I did review these radiographs which does demonstrate subtle erosive changes of the medial malleolus versus previous imaging study from 09/13/2022. MRI was ordered and she will undergo study tomorrow. Currently on IV vancomycin, ceftriaxone, Flagyl. Dressing changed with Adaptic and Dakin's wet-to-dry, Kerlix, 4 inch Rajan wrap rolled onto the foot. She is to remain nonweightbearing to the right lower extremity with assistance of crutches or walker. She is to elevate right lower extremity at all times of rest for edema control Medicine team currently following for medical management, they are greatly appreciated. Infectious disease currently following for antibiotic management. Their management is appreciated. Wound nurse assisting in dressing changes, she is appreciated. Currently ankle demonstrates no localized signs of infection and wounds are granulating in well and healthy in appearance. MRI was ordered and will await study for further intervention. Please not hesitate to call with any questions or concerns. Jr. Nina DrakeP.M. [facility] [phone] HPI Consult Data Date of Consult: 09/28/22 HPI Narrative Reason for Consultation: Right lower extremity wound x 2 and possible Osteomyelitis HPI Narrative: RAHEL MCKEON, is a 42 F who presents to [facility] for pain in Right Ankle with swelling. Patient last admitted to [facility] for cellulitis and abscess of the Right ankle and underwent I&D on 09/14/[address] Quinonez. Culture results demonstrated MRSA. Patient does have history of substance abuse. Improvement was noted and she was to continue IV Abx, Vancomycin for 4 weeks per ID recommendation. She was discharged to SNF on 09/23/22 but was subsequently discharged due to Haldol found in her trash in room. She subsequently returned to her crowded boarding house. She denies N/V/F/chills. Does admit to pain about the ankle. PFSH Medical History Bipolar disorder Cellulitis Depression Migraines MRSA (methicillin resistant Staphylococcus aureus) Non-smoker Osteoporosis PTSD (post-traumatic stress disorder) Smoker Home Medications Ambien 7.5 mg PO .hs promote sleep 09/13/22 [History Last Taken 09/25/22] pregabalin 150 mg capsule (Lyrica) 150 mg PO BID pain 09/13/22 [History Last Taken 09/25/22] acetaminophen 325 mg tablet 650 mg (2 x 325 mg) PO Q6H PRN PRN TEMP > 100.5 F #0 tabs 09/23/22 [Rx Last Taken Unknown] duloxetine 60 mg capsule,delayed release (Cymbalta) 60 mg PO DAILY mental health 30 days #0 caps 09/23/22 [Rx Last Taken 09/27/22] oxycodone 5 mg tablet 15 mg (3 x 5 mg) PO Q4H PRN PRN Pain Score 6-10 3 days #7 tabs 09/23/22 [Rx Last Taken 09/27/22] brexpiprazole 2 mg tablet (Rexulti) 2 mg PO DAILY anxiety 09/27/22 [History Last Taken 09/27/22] omeprazole 40 mg capsule,delayed release 40 mg PO DAILY gerd 09/27/22 [History Last Taken 09/27/22] tizanidine 4 mg tablet 4 mg PO Q12H spasm 09/27/22 [History Last Taken 09/25/22] clonazepam 1 mg tablet 2 mg PO TID depression 09/28/22 [History Last Taken 09/25/22] Allergy/AdvReac Type Severity Reaction Status Date / Time amoxicillin Allergy Anaphylaxis Verified 09/28/22 00:10 hydrocodone [From Vicodin] Allergy Angioedema Verified 09/28/22 00:10 ibuprofen Allergy Itching Verified 09/28/22 00:10 morphine Allergy Hives Verified 09/28/22 00:10 acetaminophen [From Tylenol] AdvReac Other Verified 09/28/22 00:10 Family History (Updated 09/28/22 @ 06:[address] Rj Meng MD) Other Cancer Depression Diabetes Heart disease Thyroid disorder Surgical History History of appendectomy History of cholecystectomy Status post right foot surgery Social History household members: significant other Smoking Status: Current every day smoker tobacco type: cigarettes alcohol intake: current ROS Constitutional Constitutional: Denies body ache(s), chills or fever(s) Eyes Eyes: Denies diplopia, erythema or loss of vision ENT HEENT: Denies dysphagia, nasal discharge or sore throat Cardiovascular Cardiovascular: Denies chest pain, claudication or palpitations Respiratory/Chest Respiratory/Chest: Denies cough, dyspnea or shortness of breath at rest Gastrointestinal Gastrointestinal: Denies abdominal pain, constipation, diarrhea, nausea or vomiting Genitourinary Genitourinary: Denies dysuria, urinary incontinence or urinary urgency Musculoskeletal Musculoskeletal: Denies joint pain, joint stiffness or joint swelling Integumentary Integumentary: Denies lesions, pruritus or rash Neurologic Neurologic: Denies dizziness, numbness or seizures Endocrine Endocrinology: Denies cold intolerance or heat intolerance Hematologic/Lymphatic Hematologic/Lymphatic: Denies easy bleeding or easy bruising Allergic/Immunologic Allergic/Immunologic: Denies wheezing Physical Exam Const alert, oriented x3 and no apparent distress General Appearance: cooperative HEENT normocephalic Eyes General Eye: normal appearance of both eyes Neck General: normal visual inspection Lymph Lymphatic: no lymphadenopathy noted and no lymphedema noted Resp normal respiratory effort Cardio regular rate and regular rhythm Extremity normal capillary refill and no calf tenderness Extremity Narrative: DP and PT pulses palpable. CFT < 2 seconds to digits of foot. Dermatological: There is granulating wounds noted to the medial and lateral ankle s/p I&D. Wounds demonstrate healthy granular base with goose-pimple texture. No local erythema, no purulent draiange, no malodor, no palpable fluctuance/bogginess, no visible abscess formation, no lymphangitic streaking. There is mild to moderate edema of the forefoot secondary to inadequate RAJAN compression wrap application. Musculoskeletal: Muscle strength 5/5 and age appropriate. Pain to palpation about the medial and lateral ankle about wound margins. Skin no rashes or lesions noted, skin turgor normal and no jaundice Neuro moves all extremities Lab / Micro Data 09/28/22 00:45 09/28/22 00:45 Labs: Laboratory Results - last 24 hr 09/28/22 00:45: WBC 11.5 H, RBC 3.55 L, Hgb 10.7 L, Hct 32.6 L, MCV 91.8, MCH 30.1, MCHC 32.8, RDW Std Deviation 42.6, RDW Coeff of Sylvia 12.7, Plt Count 722 H, MPV 10.1, Immature Gran % (Auto) 0.300, Neut % (Auto) 73.5 H, Lymph % (Auto) 16.6 L, [place] % (Auto) 7.0, Eos % (Auto) 2.2, Baso % (Auto) 0.4, Absolute Neuts (auto) 8.5 H, Absolute Lymphs (auto) 1.91, Nucleated RBC % 0, ESR 67 H, PT 14.5, INR 1.1, APTT 38.6 H, D-Dimer Quant (PE/DVT) 3.11 H*, Sodium 135 L, Potassium 3.6, Chloride 100, Carbon Dioxide 28.0, Anion Gap 7, BUN 10, Creatinine 0.81, Estim Creat Clear Calc 81.41, Est GFR (MDRD) Af Amer 99, Est GFR (MDRD) Non-Af 82, BUN/Creatinine Ratio 12.3, Glucose 137 H, Lactic Acid 1.9, Calcium 9.0, C- React Prot Ext Range 73.90 H 09/28/22 01:30: Ethyl Alcohol < 3.0 09/28/22 01:45: Urine Color Yellow, Urine Clarity Clear, Urine pH 6.5, Ur Specific [place] 1.015, Urine Protein Negative, Urine Glucose (UA) Normal, Urine Ketones Negative, Urine Occult Blood 10 H, Urine Nitrite Negative, Urine Bilirubin Negative, Urine Urobilinogen Normal, Ur Leukocyte Esterase 500 H, Urine RBC 0-5 SEEN, Urine WBC 25-50 SEEN, Ur Squamous Epith Cells 0 SEEN, Urine Bacteria 2+, Urine Mucus 0 SEEN, Urine Opiates Screen POSITIVE H, Urine Methadone Screen NEGATIVE, Ur Barbiturates Screen NEGATIVE, Ur Phencyclidine Scrn NEGATIVE, Ur Amphetamines Screen NEGATIVE, MDMA (Ecstasy) Screen NEGATIVE, U Benzodiazepines Scrn POSITIVE H, Urine Cocaine Screen NEGATIVE, U Cannabinoids Screen POSITIVE H, Ur Drug Screen Comment Micro: Microbiology 09/28/22 01:45 Urine Catheter - Catheter Urine Culture - Preliminary Culture exhibits no growth. Radiology Impression Ankle X-Ray 09/28/22 00:16 IMPRESSION: Osteomyelitis of the medial malleolus. Electronically Signed: Magalys Cross MD at 2:30 EDT Reading Location ID and State: [facility] / [place] Tel , Service support , Chest X-Ray 09/28/22 00:16 IMPRESSION: Ill-defined airspace opacity in the right upper lobe suggesting pneumonia. Electronically Signed: Magalys Cross MD at 2:23 EDT , Chest CTA 09/28/22 01:30 IMPRESSION: Pneumonia in the right upper lobe and right lower lobe. No demonstrated pulmonary embolism or arterial dissection. Electronically Signed: Magalys Cross MD at 3:58 EDT ,
--- NOTE | 2022-09-28 13:52 | CASEMGMT ---
Social Work SW received call from [facility] regarding Home Health. [facility] reports home health was arranged for patient with [facility]ev[facility]. Jaleesa Gonzalez [employer], [employer]ICAL SALES ASSOCIATE
[2022-09-28] MEDS: clonazePAM 1 MG Tablet PO (13:59)
[2022-09-28] MEDS: metroNIDAZOLE 500 MG Tablet PO ×2 (13:59→20:50)
[2022-09-28] MEDS: Ceftriaxone 1 GM/50 ML BAG IV (15:00)
--- NOTE | 2022-09-28 15:09 | CASEMGMT ---
RN CM: This RN CM noted from Jaleesa that [facility] had returned call and reported to have set up HHC with [facility]. This RN CM contacted [facility] and confirmed pt was listed as a patient in their system but they had not yet started care. A new referral would be needed if HHC needed from this NH. Dr. Starks stated to this RN CM that pt would be discharged on PO Atb. This RN CM met with pt face to face to discuss discharge needs. Pt states she would be interested in having HHC at discharge to assist with wound care and states [facility] is preferred. Will provide a list of other HHC providers for additional preferences if needed. Plan[facility] Demarcus Lopez RN CM
--- NOTE | 2022-09-28 16:26 | PN.HOSP_ITS ---
Hospitalist Note Patient was seen briefly today, she was resting quietly, I talked with infectious diseases about her care, I also talked to the wound care nurse tana oncerning her care. Infectious diseases feels that the best option for antibiotic treatment would be Zyvox orally. Continue antibiotic coverage per infectious diseases.
[2022-09-28] MEDS: Vancomycin IV 1,000 MG/200 ML BAG 200 MG IV (16:38)
--- NOTE | 2022-09-28 16:40 | CASEMGMT ---
RN CM: List of home healthcare providers including resource use and quality data and consistent with pt's medical needs, preferred geographic area and insurance network was provided to patient for reference if her preferred provider [facility] is unable to accept. Demarcus Lopez RN CM
--- NOTE | 2022-09-28 16:45 | CASEMGMT ---
Discharge Planning Referral made to Rosaura LLANOS via [facility]. Antonieta Cardona, Discharge Planning Asst.
--- NOTE | 2022-09-28 17:56 | NURSING ---
talked with pressroom supervisor regarding conversation and concerns voiced by Dr. Spangler and primary RN regarding visitors, pain medications, and behavior. Aware Dr. Spangler requesting visitation be restricted. aware per [facility] Cycle Specialist she will reach out to community support associate Adry about concern and physician's request. aware per Dr. Spangler pt has been paging him and calling his office asking him to make nursing staff give her additional narcotics.
--- NOTE | 2022-09-28 18:58 | NURSING ---
talked with warehouse logistics coordinator Eleonora. aware she talked with Adry Palma real estate operations manager. Aware unable to limit visitors at this time. aware pt calling pt advocate line requesting more narcotics. Discussed with warehouse logistics coordinator vital signs and medication orders discussed conversation had with primary RN janice and aware no IV dilaudid with SBP under 100. aware Oxyir is not due at the time of conversation. Talked with Dr. Morelos regarding narotics- aware all Pain medication is to be held if SBP under 90.
--- NOTE | 2022-09-28 19:32 | CASEMGMT ---
NAHOMY CORNEJO Readmission Review: Index: 09/13 thru 09/23/22, Dx: septic arthritis w/MRSA bacteremia Readmission: 09/28/22, Dx: MRSA bacteremia, osteomyelitis, septic embolism, likely MRSA pneumonia Pt with comorbiities including bipolar, migraines, MRSA, osteoporosis, and PTSA was admitted on the above noted dates for the corresponding dx. Pt was discharged to [facility] for continuation of IV Atb and wound care. Please see note for details regarding pt's discharge from [facility], hx of substance abuse, and unsanitary housing conditions. Pt presented back to [facility] with c/o pain to her right foot with evidence of progression of her MRSA. Pt has not received her IV antibiotics since discharge from [facility]. See previous notes re: HHC which had not yet been initiated. Root cause of readmission is related to cessation of treatment and return to prior living conditions related to suspected substance abuse. Demarcus Lopez RN CM
[2022-09-28] MEDS: HYDROmorphone 0.5 MG/0.5 ML SYRINGE IV (20:50)
[2022-09-29] MEDS: Zolpidem Tartrate 5 MG Tablet PO ×2 (00:39→22:47)
[2022-09-29 03:11] VITALS: BP 106/76; PULSE 91; RESP 18; TEMP 36.5; O2SAT 96
[2022-09-29] MEDS: oxyCODONE 5 MG Tablet 15 MG PO ×2 (03:34→13:55)
[2022-09-29] MEDS: Vancomycin IV 1,000 MG/200 ML BAG 200 MG IV ×2 (03:38→15:54)
[2022-09-29] MEDS: HYDROmorphone 0.5 MG/0.5 ML SYRINGE IV ×4 (06:17→23:13)
[2022-09-29] MEDS: metroNIDAZOLE 500 MG Tablet PO ×3 (06:22→22:46)
[2022-09-29 06:41] LABS: Absolute Lymphocyte Count 2.15 X10^3/uL (0.83-4.51); Absolute Neutrophil Count 1.9 X10^3/uL (2.0-7.7); Basophil# 0.06 X10^3/uL; Basophil% 1.2 % (0-1); Eosinophil# 0.38 X10^3/uL; Eosinophils% 7.4 % (0-5); Hematocrit 33.4 % (37-47); Hemoglobin 10.6 g/dL (12.0-15.0); Lymphocyte # 2.15 X10^3/ul (0.83-4.51); Lymphocyte % 41.6 % (19-41); Mean Corp Hgb Conc 31.7 g/dL (32-36); Mean Corpuscular Hgb 29.3 pg (27.0-32.0); Mean Corpuscular Volume 92.3 fL (81-99); Mean Platelet Vol. 10.2 fl (6.2-12.0); Monocyte# 0.64 X10^3/uL; Monocyte% 12.4 % (0-10); NRBC Flagged by Analyzer 0 % (0-5); Neutrophil # 1.93 X10^3/uL (2.7-7.7); Neutrophil % 37.2 % (47-70); Platelet Count 609 K/mm3 (150-450); RBC Distribution Width CV 12.7 % (11.6-14.6); Red Blood Count 3.62 M/mm3 (4.2-5.4); White Blood Count 5.2 K/mm3 (4.4-11.0)
[2022-09-29 07:45] LABS: Anion Gap 5 (5-15); BUN 10 mg/dL (7-18); BUN/Creat Ratio 14.2 RATIO (10-20); Calcium,Total 8.8 mg/dL (8.5-10.1); Chloride 104 mmol/L (98-107); EST Glomerular Filtration Rate 97 mL/min (>60); Est Glom Filt Rate - Afr Amer 117 mL/min (>60); Estimated Creatinine Clearance 94.21 ml/min; Glucose 92 mg/dL (74-106); Potassium 3.7 mmol/L (3.5-5.1); Sodium Level 138 mmol/L (136-145)
[2022-09-29] MEDS: Pantoprazole Sodium 40 MG Tablet PO (08:08)
[2022-09-29] MEDS: BREXPIPRAZOLE 2 MG TABLET PO (08:08)
[2022-09-29] MEDS: DULoxetine Hcl 60 MG Capsule PO (08:08)
[2022-09-29] MEDS: Pregabalin 75 MG Capsule 150 MG PO ×2 (08:10→22:46)
[2022-09-29 08:39] VITALS: BP 106/64; PULSE 86; RESP 16; TEMP 37; O2SAT 94
--- NOTE | 2022-09-29 09:15 | PN.HOSP_ITS ---
Reason for Visit Reason for Visit: Diagnoses Methicillin resistant Staphylococcus aureus infection as the cause of diseases classified elsewhere (09/28/22) Septic arterial embolism (09/28/22) Non-pressure chronic ulcer of right ankle with fat layer exposed (09/28/22) Pain in right ankle and joints of right foot (09/28/22) Acute hematogenous osteomyelitis, right ankle and foot (09/28/22) Osteomyelitis, unspecified (09/28/22) Bacteremia (09/28/22) Unspecified open wound, right ankle, initial encounter (09/28/22) Objective Data Objective Data Vital Signs: Vital Signs Temp Pulse Resp BP Pulse Ox O2 Del Method 98.6 F 86 16 106/64 94 Room Air 09/29/22 08:39 09/29/22 08:39 09/29/22 08:39 09/29/22 08:39 09/29/22 08:39 09/29/22 08:39 Oxygen Delivery Method Room Air Weight: 135 lb 12.876 oz Body Mass Index (BMI) 22.6 Intake & Output: Intake and Output for Last 24 Hours 09/27/22 09/28/22 09/29/22 23:59 23:59 23:59 Intake Total 2040 / 2040 800 / 800 Output Total 900 / 900 Balance 2039 / 2039 -100 / -100 Lab / Micro Data 09/29/22 06:25 09/29/22 06:25 Labs: Laboratory Results - last 24 hr 09/29/22 06:25: WBC 5.2, RBC 3.62 L, Hgb 10.6 L, Hct 33.4 L, MCV 92.3, MCH 29.3, MCHC 31.7 L, RDW Std Deviation 43.0, RDW Coeff of Sylvia 12.7, Plt Count 609 H, MPV 10.2, Immature Gran % (Auto) 0.200, Neut % (Auto) 37.2 L, Lymph % (Auto) 41.6 H, Lassen % (Auto) 12.4 H, Eos % (Auto) 7.4 H, Baso % (Auto) 1.2 H, Absolute Neuts (auto) 1.9 L, Absolute Lymphs (auto) 2.15, Nucleated RBC % 0, Sodium 138, Potass ium 3.7, Chloride 104, Carbon Dioxide 29.0, Anion Gap 5, BUN 10, Creatinine 0.70, Estim Creat Clear Calc 94.21, Est GFR (MDRD) Af Amer 117, Est GFR (MDRD) Non-Af 97, BUN/Creatinine Ratio 14.2, Glucose 92, Calcium 8.8 Micro: Microbiology 09/29/22 00:45 Urine, Clean Catch Legionella Antigen - Final 09/29/22 00:45 Urine, Clean Catch Streptococcus pneumoniae Antigen (M - Final 09/28/22 01:45 Urine Catheter - Catheter Urine Culture - Preliminary Culture exhibits no growth. Radiography Diagnostic Testing: Radiology Impression Echocardiogram 09/28/22 06:24 Interpretation Summary LV systolic function is normal Contrast study using Definity. The estimated ejection fraction is 60 %. Trivial mitral valve insufficiency. Mild (1+) tricuspid valve insufficiency. Right ventricular systolic pressure estimated to be 25 mmHg. Mild (1+) aortic valve insufficiency. Compared to previous echo 09/15/22, the right ventricular systolic pressure has reduced. There is no definitive evidence for barcterial endocarditis. RV free wall is not well visualized In comparison to previous echocardiogram no significant change noted. Contrast injection was performed. Ordering Physician: Rj Meng Referring Physician: MAGALI PCP Performed By: Deonna Hodges RCS Physical Exam Narrative Patient complains of pain but it does not match with her facial expression. Wants more Dilaudid. Patient denied use of Haldol in penitentiary. Physical exam General: Alert, Oriented x3, Cooperative HEENT: Atraumatic, PERRLA, EOMI, Normocephalic Oral: Oral mucosa moist. No Gingival or Mucosal Lesions/ Ulcerations Neck: Supple, No JVD, Negative Carotid Bruits Lungs: Air entry diminished in bilateral lung bases. No crepitation/rhonchi Cardiovascular: Regular rate, Regular Rhythm, Normal S1, Normal S2, No murmurs Abdomen: Bowel Sounds Present, Soft, Non Tender, Non-Distended : No renal angle tenderness. No suprapubic tenderness. Extremities: No edema, Capillary Refill Less than 3 Seconds Skin: Right ankle with Rajan wrap bandage. Wounds look better Musculoskeletal: Mild tenderness around right ankle ROM restricted. Neurological: Cranial nerves II-XII grossly intact, DTR 2+/4. No acute focal neurological deficit. Psych/Mental Status: Anxiety Assessment & Plan Assessment/Plan (1) MRSA bacteremia: (2) Osteomyelitis: QUALIFIERS: Osteomyelitis type: acute hematogenous Osteomyelitis location: foot Laterality: right Qualified Code(s): M86.071 - Acute hematogenous osteomyelitis, right ankle and foot (3) Septic embolism: PLAN: Plan 1. Right foot osteomyelitis Ankle of x-ray independently reviewed and shows osteomyelitis of the medial malleolus. Patient is allergic to penicillins (anaphylaxis); vancomycin IV, ciprofloxacin IV and clindamycin IV started emergency department. ID consult was changed antibiotic changed to ceftriaxone and metronidazole oral. Vancomycin to continue. Review of labs showed white count of 11.5 with thrombocytosis, neutrophilia and lymphopenia Tmax of 100.5 Fahrenheit. Pulse rate is below 96; respiratory rate is below 20. Patient is not hypotensive. Sepsis ruled out With reported pneumonia on imaging we will investigate further for septic emboli. Echocardiogram reviewed does not show evidence of vegetation. Podiatry and ID were consulted and reviewed and appreciated Pain control with po and IV narcotics. ESR and CRP elevated MRI of the foot shows extensive circumferential diffuse subcutaneous soft tissue edema compatible with cellulitis, focal fluid collection compatible with abscess on the plantar surface of the foot. Loss of articular cartilage of the tibiotalar with tibiotalar joint effusion and extensive bone marrow edema of the distal tibia fibula and talus. Patient was recently admitted for sepsis due to septic arthritis complicated with MRSA bacteremia UTI Urinalysis is abnormal Urine cx ordered at the ED Antibiotics as above Pneumonia MRSA pneumonia most likely Chest CTA with pneumonia in the right upper lobe and right lower lobe. No PE or aortic dissection. Clinical Impression(s) from Imaging Studies Ankle X-Ray 09/28/22 00:16 IMPRESSION: Osteomyelitis of the medial malleolus. Electronically Signed: Magalys Cross MD at 2:30 EDT Reading Location ID and State: [facility] / [place] Tel , Service support , Chest X-Ray 09/28/22 00:16 IMPRESSION: Ill-defined airspace opacity in the right upper lobe suggesting pneumonia. Lower Extremity MRI 09/28/22 06:24 IMPRESSION: Extensive circumferential diffuse subcutaneous soft tissue edema compatible with cellulitis. Focal fluid collection compatible with abscess on the plantar surface of the foot as described. Loss of articular cartilage of the tibiotalar joint with tibiotalar joint effusion and extensive bone marrow edema in the distal tibia, distal fibula and talus. Given the distribution of the bone marrow edema, this is likely secondary to septic arthritis with adjacent osteomyelitis. Chest CTA 09/28/22 01:30 IMPRESSION: Pneumonia in the right upper lobe and right lower lobe. No demonstrated pulmonary embolism or arterial dissection. Electronically Signed: Magalys Cross MD at 3:58 EDT Reading Location ID and State: [facility] / [place] Tel , Service support , Echocardiogram 09/28/22 06:24 Interpretation Summary LV systolic function is normal Contrast study using Definity. The estimated ejection fraction is 60 %. Trivial mitral valve insufficiency. Mild (1+) tricuspid valve insufficiency. Right ventricular systolic pressure estimated to be 25 mmHg. Mild (1+) aortic valve insufficiency. Compared to previous echo 09/15/22, the right ventricular systolic pressure has reduced. There is no definitive evidence for barcterial endocarditis. RV free wall is not well visualized In comparison to previous echocardiogram no significant change noted. Contrast injection was performed. Charges/Coding Visit Charges Inpatient E&M: 75163 Subs Hosp L2
[2022-09-29] MEDS: Ceftriaxone 1 GM/50 ML BAG IV (10:26)
[2022-09-29 11:34] VITALS: BP 103/74; PULSE 79; RESP 16; TEMP 36.6; O2SAT 94
--- NOTE | 2022-09-29 11:35 | CASEMGMT ---
Discharge Planning Patient has been accepted by Rosaura [facility]. RN CM updated. Antonieta Cardona, Discharge Planning Asst.
--- NOTE | 2022-09-29 13:19 | PCM.PROGNOTE ---
Subjective Subjective Patient seen early this a.m. with significant other present. She had received dose of pain medication to prepare for dressing change. She states overall she is feeling better today. Nursing states she will undergo MRI today. Denies constitutional symptoms. Denies further complaints. Objective Data Objective Data Vital Signs: Vital Signs Temp Pulse Resp BP Pulse Ox O2 Del Method 97.9 F 79 16 103/74 94 Room Air 09/29/22 11:34 09/29/22 11:34 09/29/22 11:34 09/29/22 11:34 09/29/22 11:34 09/29/22 11:34 Oxygen Delivery Method Room Air Weight: 61.6 kg Body Mass Index (BMI) 22.6 Intake & Output: Intake and Output for Last 24 Hours 09/27/22 09/28/22 09/29/22 23:59 23:59 23:59 Intake Total 0 / 0 1150 / 1150 Output Total 900 / 900 Balance 2039 / 0 250 / 250 Lab / Micro Data 09/29/22 06:25 09/29/22 06:25 Labs: Laboratory Results - last 24 hr 09/29/22 06:25: WBC 5.2, RBC 3.62 L, Hgb 10.6 L, Hct 33.4 L, MCV 92.3, MCH 29.3, MCHC 31.7 L, RDW Std Deviation 43.0, RDW Coeff of Sylvia 12.7, Plt Count 609 H, MPV 10.2, Immature Gran % (Auto) 0.200, Neut % (Auto) 37.2 L, Lymph % (Auto) 41.6 H, Norton % (Auto) 12.4 H, Eos % (Auto) 7.4 H, Baso % (Auto) 1.2 H, Absolute Neuts (auto) 1.9 L, Absolute Lymphs (auto) 2.15, Nucleated RBC % 0, Sodium 138, Potassium 3.7, Chloride 104, Carbon Dioxide 29.0, Anion Gap 5, BUN 10, Creatinine 0.70, Estim Creat Clear Calc 94.21, Est GFR (MDRD) Af Amer 117, Est GFR (MDRD) Non-Af 97, BUN/Creatinine Ratio 14.2, Glucose 92, Calcium 8.8 Micro: Microbiology 09/29/22 00:45 Urine, Clean Catch Legionella Antigen - Final 09/29/22 00:45 Urine, Clean Catch Streptococcus pneumoniae Antigen (M - Final 09/28/22 01:45 Urine Catheter - Catheter Urine Culture - Preliminary Culture exhibits no growth. Radiography Diagnostic Testing: Radiology Impression Echocardiogram 09/28/22 06:24 Interpretation Summary LV systolic function is normal Contrast study using Definity. The estimated ejection fraction is 60 %. Trivial mitral valve insufficiency. Mild (1+) tricuspid valve insufficiency. Right ventricular systolic pressure estimated to be 25 mmHg. Mild (1+) aortic valve insufficiency. Compared to previous echo 09/15/22, the right ventricular systolic pressure has reduced. There is no definitive evidence for barcterial endocarditis. RV free wall is not well visualized In comparison to previous echocardiogram no significant change noted. Contrast injection was performed. Ordering Physician: Rj Meng Referring Physician: NO PCP Performed By: Deonna Hodges RCS Lower Extremity MRI 09/28/22 06:24 IMPRESSION: Extensive circumferential diffuse subcutaneous soft tissue edema compatible with cellulitis. Focal fluid collection compatible with abscess on the plantar surface of the foot as described. Loss of articular cartilage of the tibiotalar joint with tibiotalar joint effusion and extensive bone marrow edema in the distal tibia, distal fibula and talus. Given the distribution of the bone marrow edema, this is likely secondary to septic arthritis with adjacent osteomyelitis. Electronically Signed: Obi Patterson MD at 10:48 EDT , Physical Exam Const alert, oriented x3 and no apparent distress General Appearance: cooperative HEENT normocephalic Eyes General Eye: normal appearance of both eyes Neck General: normal visual inspection Lymph Lymphatic: no lymphadenopathy noted and no lymphedema noted Resp normal respiratory effort Cardio regular rate and regular rhythm Extremity normal capillary refill and no calf tenderness Extremity Narrative: DP and PT pulses palpable. CFT < 2 seconds to digits of foot. Dermatological: There is granulating wounds noted to the medial and lateral ankle s/p I&D. Wounds demonstrate healthy granular base with goose-pimple texture. No local erythema, no purulent draiange, no malodor, no palpable fluctuance/bogginess, no visible abscess formation, no lymphangitic streaking. There is mild to moderate edema of the forefoot secondary to inadequate RAJAN compression wrap application. Musculoskeletal: Muscle strength 5/5 and age appropriate. Pain to palpation about the medial and lateral ankle about wound margins. Skin no rashes or lesions noted, skin turgor normal and no jaundice Neuro moves all extremities Assessment & Plan Assessment/Plan (1) Wound of right ankle: (2) Non-pressure chronic ulcer of right ankle with fat layer exposed: (3) Ankle pain, right: (4) Ankle osteomyelitis, right: PLAN: Plan Patient seen and evaluated Patient is s/p I&D of the right ankle abscess on 09/14/[address] Quinonez. POD #15 There are 2 wounds noted to the right ankle, 1 medial and 1 lateral. Wound bed healthy and granular in appearance. No signs of localized infection. No palpable fluctuance/bogginess, no visible abscess formation. There is some mild edema to the forefoot secondary to improper bandaging via Rajan wrap compression. I reviewed diagnostic data. WBC decreased to 5.2 from 11.5, CRP 73.90, ESR 67, lactic acid 1.9, D-dimer 3.11, APTT 38.6. Patient did have positive urine testing for opioids, benzodiazepines, and cannabinoids. Patient did have CTA with no evidence of PE. Impression noted pneumonia right upper and lower lobe. Radiograph right ankle 09/28/2022 demonstrates soft tissue swelling anterior and medial ankle. There are possible bony erosions at the medial malleolus suggestive of osteomyelitis. Impression: Osteomyelitis of the medial malleolus. I did review these radiographs which does demonstrate subtle erosive changes of the medial malleolus versus previous imaging study from 09/13/2022. MRI performed 09/29/2022 demonstrates extensive circumferential diffuse subcutaneous soft tissue edema compatible with extensive cellulitis. Focal fluid collection on the plantar surface of the foot beneath the anterior process of the calcaneus measuring 2.1 cm x 1.4 cm x 1.1 cm. This fluid collection is compatible with focal abscess. Diffuse subcutaneous soft tissue edema within the plantar musculature and soft tissues of the dorsal aspect of the foot and ankle are noted compatible with cellulitis. Loss of articular cartilage of the tibiotalar joint with large tibiotalar joint effusion. Extensive bone marrow edema in distal tibia, distal fibula, and in the talus. This combination of findings is compatible with septic arthritis with adjacent osteomyelitis (sagittal series 4 images 4?18). Currently on IV vancomycin, ceftriaxone, Flagyl. Dressing changed with Adaptic and Dakin's wet-to-dry, Kerlix, 4 inch Rajan wrap rolled onto the foot. She is to remain nonweightbearing to the right lower extremity with assistance of crutches or walker. She is to elevate right lower extremity at all times of rest for edema control Medicine team currently following for medical management, they are greatly appreciated. Infectious disease currently following for antibiotic management. Their management is appreciated. Wound nurse assisting in dressing changes, she is appreciated. Currently ankle demonstrates no localized signs of infection and wounds are granulating in well and healthy in appearance. MRI was ordered demonstrating osteomyelitis of the fibula, talus, and tibia with likely septic arthritis and small abscess plantar foot. I discussed these findings with the patient today. Discussed all options with her today in great detail. Discussed returning to the OR for I&D of the right ankle and foot with bone biopsy of the tibia, fibula, and talus. Discussed if positive for osteomyelitis the likelihood of salvage does decrease. Discussed that she would require long-term IV antibiotics and SNF placement in addition to multiple surgical procedures and possible fusion of the ankle. Also discussed risk of amputation in the event of salvage being unsuccessful following multiple surgical interventions. Discussed option of BKA of the right lower extremity for definitive clearance of infection. Patient did ask what would occur if she refused surgical intervention and IV antibiotics only, this was discussed in detail as well. Discussed risk of infection spreading which may require more proximal amputation or in the event of sepsis the loss of life may occur. Patient states I do not want to lose my leg, I want to do everything I can to save this leg. I discussed with patient taking time to consider all possible options in her treatment course and that I would return tomorrow to further discuss with her and significant other present. Given patient's prior history of substance abuse this does complicate treatment and placement for continued healing. Pending her decision she will be kept n.p.o. after midnight for possible I&D of the right ankle and foot with bone biopsy of the right ankle. Please not hesitate to call with any questions or concerns. Shekhar Baig Jr. Fazal.P.M. [facility] [phone]
--- NOTE | 2022-09-29 14:23 | CASEMGMT ---
NAHOMY CORNEJO into pt room as EMERY WHEEL MOLDER notified pt asked from NAHOMY CORNEJO. Pt very drowsy, she is aware that [facility] accepted her for HH. Pt denies any further questions at this time and proceeds to close her eyes.
--- NOTE | 2022-09-29 14:33 | CASEMGMT ---
Discharge Planning HH and wound orders sent to [facility] via [facility]. Antonieta Cardona, Discharge Planning Asst.
--- NOTE | 2022-09-29 14:52 | CASEMGMT ---
Pt had questioned receiving a letter to be moved to the second floor of the home. Discussed with therapy, SW and hospitalist. There are concerns for safety and pt being Non wt bearing with being on the second floor. Hospitalist unwilling to write letter in this regards. Attempted to meet with pt to discuss, pt could not keep her eyes open.
[2022-09-29 15:33] VITALS: BP 104/68; PULSE 94; RESP 16; TEMP 36.6; O2SAT 94
[2022-09-29 16:40] LABS: Vancomycin, Trough Level 15.3 ug/mL (5.0-15.0)
--- NOTE | 2022-09-29 17:08 | PCM.RX.CS ---
Consult Antibiotic Management Pharmacy has been consulted to manage selected antiobiotic: Vancomycin Type of Intervention Type of Consult: Follow-up Suspected Infection Suspected Infection: Osteomyelitis Prior Doses of Antibiotics Prior Doses of Antibiotics Received/Current Regimen: Vancomycin 1000 mg given: 09/28 @ 0354, 09/28 @ 1638, 09/29 @ 0339, 09/29 @ 1555 Labs Labs: Sodium 138 mmol/L (136-145) 09/29/22 06:25 Potassium 3.7 mmol/L (3.5-5.1) 09/29/22 06:25 Chloride 104 mmol/L (98-107) 09/29/22 06:25 Carbon Dioxide 29.0 mmol/L (21.0-32.0) 09/29/22 06:25 Anion Gap 5 (5-15) 09/29/22 06:25 BUN 10 mg/dL (7-18) 09/29/22 06:25 Creatinine 0.70 mg/dL (0.55-1.02) 09/29/22 06:25 Est GFR (MDRD) Af Amer 117 mL/min (>60) 09/29/22 06:25 Est GFR (MDRD) Non-Af 97 mL/min (>60) 09/29/22 06:25 BUN/Creatinine Ratio 14.2 RATIO (10-20) 09/29/22 06:25 Glucose 92 mg/dL (74-106) 09/29/22 06:25 Vancomycin Trough 15.3 ug/mL (5.0-15.0) H 09/29/22 15:14 Microbiology Microbiology: Microbiology 09/29/22 00:45 Urine, Clean Catch Legionella Antigen - Final 09/29/22 00:45 Urine, Clean Catch Streptococcus pneumoniae Antigen (M - Final 09/28/22 01:45 Urine Catheter - Catheter Urine Culture - Preliminary Culture exhibits no growth. Dosing Weight Weight used for dosin.6 kg Estimated Creatinine Clearance Estimated Creatinine Clearance: 94 Goal Trough Goal Trough: 15-20 mcg/mL Pharmacy Plan for Drug Dosing Pharmacy Plan for Drug Dosing: Vancomycin trough today = 15.3, continue current dosing of 1000 mg Q12H, trough in 2 days. Pharmacy Service will continue to monitor and adjust dosing as required. Follow-Up Labs Follow-Up Labs: Trough: Vancomycin Date/Time Labs Ordered Labs to be done on [date and time ordered]: 10/01/22 @ 1530
--- NOTE | 2022-09-29 18:51 | NURSING ---
sig. other called and requesting pt transferred to [facility] dr donahue and nabila notified. dr dahl stated that pt is unable to be transferred because we can provide the care she needs here. and if she wants to leave [facility] she can go to [facility] and be admitted there. explained to pt her options. pt willing to stay here tonight and talk to in am.
[2022-09-29 22:24] VITALS: BP 120/73; PULSE 83; RESP 16; TEMP 37.1; O2SAT 97
[2022-09-30] VITALS (10 sets, daily range): BP systolic 117–137; BP diastolic 73–98; PULSE 79–106; RESP 16–18; TEMP 36.6–37.2; O2SAT 93–99
--- NOTE | 2022-09-30 | BON_PTH ---
PATIENT: RAHEL MCKEON LOC: [facility] U#:[id number] AGE/SX: 42/F ROOM: MA317 RE09/28/[address]: Dr. Tiffanie Melo MD : 1980 BED: 1 DIS: 10/06/2022 SPEC #: [id number] RECD: 10/03/22 10:33 STATUS: HIRO REQ #: [id number] LOUIS: 09/30/22 00:[address]: Shekhar Baig DEPT: SURGICAL PATHOLOGY RECD BY: Aaron Santacruz ENTERED: 10/03/22 10:34 SP TYPE: Bone OTHR DR: MD Dr. Shekhar Woods, MOUSTAPHAM DO Dr. Tiffanie Campbell MD Dr. Prakash Chand, MD Dr. Robert Leininger, MD Tissues: A - Bone of lower extremity, NOS B - Bone of lower extremity, NOS Procedures: Decalcification bone/plaque Surgery Specimen Level V Comments: @ Ordering doctor for DEC edited from to DR.MMARS Catherine MCKINLEY at 10/03/22 141 @ Ordering doctor for SUV edited from to @ satnam MCKINLEY at 10/03/22 141Rony @ Submitting doctor edited from to DR.MMARS Catherine MCKINLEY at 10/03/22 1417 HEADER OPERATION: I 7 D ankle, bone biopsy PRE-OP DIAGNOSIS: Septic arthritis right ankle, osteomyelitis TISSUE SUBMITTED: A - Right medial tibia, B - Right lateral tibia MICROSCOPIC DIAGNOSIS Right medial tibia, bone core biopsy: Chronic reparative and reactive change. No evidence of osteomyelitis. Right lateral tibia, bone core biopsy: Chronic reparative and reactive change. No evidence of osteomyelitis. SMITA/smita 10/05/22 MICROSCOPIC DESCRIPTION Slides are reviewed. GROSS DESCRIPTION A - Received in fixative is one container labeled with the patient's name and designated right medial tibia. The specimen consists of a core biopsy of garcia bone measuring 7.0 cm in length and 2.0 cm in diameter. The specimen is totally submitted in one cassette after decalcification. B - Received in fixative is one container labeled with the patient's name and designated right lateral tibia. The specimen consists of a core biopsy of garcia bone measuring 0.6 cm in length and 0.2 cm in diameter. The specimen is totally submitted in one cassette after decalcification. / AM:keegan 10/03/2022 TC:5 CPT:16572j4, [id number]
[2022-09-30] MEDS: HYDROmorphone 0.5 MG/0.5 ML SYRINGE IV ×4 (03:08→20:18)
[2022-09-30] MEDS: Vancomycin IV 1,000 MG/200 ML BAG 200 MG IV ×2 (03:09→15:41)
[2022-09-30] MEDS: oxyCODONE 5 MG Tablet 15 MG PO ×2 (06:21→22:45)
[2022-09-30] MEDS: metroNIDAZOLE 500 MG Tablet PO ×2 (06:21→22:46)
[2022-09-30 07:21] LABS: Absolute Lymphocyte Count 2.23 X10^3/uL (0.83-4.51); Absolute Neutrophil Count 2.2 X10^3/uL (2.0-7.7); Basophil# 0.05 X10^3/uL; Basophil% 0.9 % (0-1); Eosinophils% 7.3 % (0-5); Hematocrit 33.6 % (37-47); Hemoglobin 10.8 g/dL (12.0-15.0); Lymphocyte # 2.23 X10^3/ul (0.83-4.51); Lymphocyte % 40.8 % (19-41); Mean Corp Hgb Conc 32.1 g/dL (32-36); Mean Corpuscular Hgb 29.5 pg (27.0-32.0); Mean Corpuscular Volume 91.8 fL (81-99); Mean Platelet Vol. 10.5 fl (6.2-12.0); Monocyte# 0.52 X10^3/uL; Monocyte% 9.5 % (0-10); NRBC Flagged by Analyzer 0 % (0-5); Neutrophil # 2.24 X10^3/uL (2.7-7.7); Platelet Count 598 K/mm3 (150-450); RBC Distribution Width CV 12.6 % (11.6-14.6); RBC Distribution Width SD 42.4 fl (35.1-43.9); Red Blood Count 3.66 M/mm3 (4.2-5.4); White Blood Count 5.5 K/mm3 (4.4-11.0)
[2022-09-30 07:52] LABS: Anion Gap 3 (5-15); BUN 15 mg/dL (7-18); BUN/Creat Ratio 24.2 RATIO (10-20); Calcium,Total 8.9 mg/dL (8.5-10.1); Chloride 105 mmol/L (98-107); Creatinine, Serum 0.62 mg/dL (0.55-1.02); EST Glomerular Filtration Rate 112 mL/min (>60); Est Glom Filt Rate - Afr Amer 136 mL/min (>60); Estimated Creatinine Clearance 106.36 ml/min; Glucose 101 mg/dL (74-106); Sodium Level 138 mmol/L (136-145)
[2022-09-30] MEDS: BREXPIPRAZOLE 2 MG TABLET PO (07:53)
[2022-09-30] MEDS: Pantoprazole Sodium 40 MG Tablet PO (07:53)
[2022-09-30] MEDS: DULoxetine Hcl 60 MG Capsule PO (07:53)
[2022-09-30] MEDS: Pregabalin 75 MG Capsule 150 MG PO ×2 (07:56→22:45)
--- NOTE | 2022-09-30 08:36 | PN_ITS ---
Subjective Subjective Patient seen early this a.m. with significant other present. Discussion was had in detail of options for limb salvage, treatment course and risk of BKA. Patient is requesting transfer to [facility] but is considering all options for salvage would like to proceed with washout of her foot and ankle today. Patient denies constitutional symptoms. Patient does admit to pain in ankle. Denies further complaints. Objective Data Objective Data Vital Signs: Vital Signs Temp Pulse Resp BP Pulse Ox O2 Del Method 98.5 F 94 16 117/73 96 Room Air 09/30/22 03:00 09/30/22 03:00 09/30/22 03:00 09/30/22 03:00 09/30/22 03:00 09/30/22 03:30 Oxygen Delivery Method Room Air Weight: 61.6 kg Body Mass Index (BMI) 22.6 Intake & Output: Intake and Output for Last 24 Hours 09/28/22 09/29/22 09/30/22 23:59 23:59 23:59 Intake Total 2040 / 2040 1750 / 1750 200 / 200 Output Total 900 / 900 Balance 2040 / 2040 850 / 850 200 / 200 Lab / Micro Data 09/30/22 07:05 09/30/22 07:05 Labs: Laboratory Results - last 24 hr 09/29/22 15:14: Vancomycin Trough 15.3 H 09/30/22 07:05: WBC 5.5, RBC 3.66 L, Hgb 10.8 L, Hct 33.6 L, MCV 91.8, MCH 29.5, MCHC 32.1, RDW Std Deviation 42.4, RDW Coeff of Sylvia 12.6, Plt Count 598 H, MPV 10.5, Immature Gran % (Auto) 0.500, Neut % (Auto) 41.0 L, Lymph % (Auto) 40.8, [place] % (Auto) 9.5, Eos % (Auto) 7.3 H, Baso % (Auto) 0.9, Absolute Neuts (auto) 2.2, Absolute Lymphs (auto) 2.23, Nucleated RBC % 0, Sodium 138, Potassium 4.0, Chloride 105, Carbon Dioxide 30.0, Anion Gap 3 L, BUN 15, Creatinine 0.62, Estim Creat Clear Calc 106.36, Est GFR (MDRD) Af Amer 136, Est GFR (MDRD) Non-Af 112, BUN/Creatinine Ratio 24.2 H, Glucose 101, Calcium 8.9 Micro: Microbiology 09/28/22 01:45 Urine Catheter - Catheter Urine Culture - Final Culture exhibits no growth. 09/29/22 00:45 Urine, Clean Catch Legionella Antigen - Final 09/29/22 00:45 Urine, Clean Catch Streptococcus pneumoniae Antigen (M - Final Radiography Diagnostic Testing: Radiology Impression Lower Extremity MRI 09/28/22 06:24 IMPRESSION: Extensive circumferential diffuse subcutaneous soft tissue edema compatible with cellulitis. Focal fluid collection compatible with abscess on the plantar surface of the foot as described. Loss of articular cartilage of the tibiotalar joint with tibiotalar joint effusion and extensive bone marrow edema in the distal tibia, distal fibula and talus. Given the distribution of the bone marrow edema, this is likely secondary to septic arthritis with adjacent osteomyelitis. Electronically Signed: Obi Patterson MD at 10:48 EDT , Physical Exam Const alert, oriented x3 and no apparent distress General Appearance: cooperative HEENT normocephalic Eyes General Eye: normal appearance of both eyes Neck General: normal visual inspection Lymph Lymphatic: no lymphadenopathy noted and no lymphedema noted Resp normal respiratory effort Cardio regular rate and regular rhythm Extremity normal capillary refill and no calf tenderness Extremity Narrative: DP and PT pulses palpable. CFT < 2 seconds to digits of foot. Dermatological: There is granulating wounds noted to the medial and lateral ankle s/p I&D. Wounds demonstrate healthy granular base with goose-pimple texture. No local erythema, no purulent draiange, no malodor, no palpable fluctuance/bogginess, no visible abscess formation, no lymphangitic streaking. There is mild to moderate edema of the forefoot secondary to inadequate RAJAN compression wrap application. Musculoskeletal: Muscle strength 5/5 and age appropriate. Pain to palpation about the medial and lateral ankle about wound margins. Skin no rashes or lesions noted, skin turgor normal and no jaundice Neuro moves all extremities Assessment & Plan Assessment/Plan (1) Wound of right ankle: (2) Non-pressure chronic ulcer of right ankle with fat layer exposed: (3) Ankle pain, right: (4) Ankle osteomyelitis, right: PLAN: Plan Patient seen and evaluated Patient is s/p I&D of the right ankle abscess on 09/14/[address] Quinonez. POD #16 There are 2 wounds noted to the right ankle, 1 medial and 1 lateral. Wound bed healthy and granular in appearance. No signs of localized infection. No palpable fluctuance/bogginess, no visible abscess formation. There is some mild edema to the forefoot secondary to improper bandaging via Rajan wrap compression. I reviewed diagnostic data. WBC decreased to 5.2 from 11.5, CRP 73.90, ESR 67, lactic acid 1.9, D-dimer 3.11, APTT 38.6. Patient did have positive urine testing for opioids, benzodiazepines, and cannabinoids. Patient did have CTA with no evidence of PE. Impression noted pneumonia right upper and lower lobe. Radiograph right ankle 09/28/2022 demonstrates soft tissue swelling anterior and medial ankle. There are possible bony erosions at the medial malleolus suggestive of osteomyelitis. Impression: Osteomyelitis of the medial malleolus. I did review these radiographs which does demonstrate subtle e rosive changes of the medial malleolus versus previous imaging study from 09/13/2022. MRI performed 09/29/2022 demonstrates extensive circumferential diffuse subcutaneous soft tissue edema compatible with extensive cellulitis. Focal fluid collection on the plantar surface of the foot beneath the anterior process of the calcaneus measuring 2.1 cm x 1.4 cm x 1.1 cm. This fluid collection is compatible with focal abscess. Diffuse subcutaneous soft tissue edema within the plantar musculature and soft tissues of the dorsal aspect of the foot and ankle are noted compatible with cellulitis. Loss of articular cartilage of the tibiotalar joint with large tibiotalar joint effusion. Extensive bone marrow edema in distal tibia, distal fibula, and in the talus. This combination of findings is compatible with septic arthritis with adjacent osteomyelitis (sagittal series 4 images 4?18). Currently on IV vancomycin, ceftriaxone, Flagyl. Dressing changed with Adaptic and Darcy's wet-to-dry, Kerlix, 4 inch Rajan wrap rolled onto the foot. She is to remain nonweightbearing to the right lower extremity with assistance of crutches or walker. She is to elevate right lower extremity at all times of rest for edema control Medicine team currently following for medical management, they are greatly appreciated. Infectious disease currently following for antibiotic management. Their management is appreciated. Wound nurse assisting in dressing changes, she is appreciated. Currently ankle demonstrates no localized signs of infection and wounds are granulating in well and healthy in appearance. MRI was ordered demonstrating osteomyelitis of the fibula, talus, and tibia with likely septic arthritis and small abscess plantar foot. I discussed these findings with the patient and significant other today. Discussed all options with her today in great detail. Discussed returning to the OR for I&D of the right ankle and foot with bone biopsy of the tibia. Discussed if positive for osteomyelitis the likelihood of salvage does decrease. Discussed that she would require long-term IV antibiotics and SNF placement in addition to multiple surgical procedures and possible fusion of the ankle. Also discussed risk of amputation in the event of salvage being unsuccessful following multiple surgical interventions. Discussed option of BKA of the right lower extremity for definitive clearance of infection. Patient did ask what would occur if she refused surgical intervention and IV antibiotics only, this was discussed in detail as well. Discussed risk of infection spreading which may require more proximal amputation or in the event of sepsis the loss of life may occur. Patient states I do not want to lose my leg, I want to do everything I can to save this leg. I discussed these options again with the patient and significant other early this a.m. and patient and significant other are requesting limb salvage. I again discussed all risks and benefits of the procedure. Discussed the procedure in great detail. Discussed that this is not an elective procedure and this is a limb salvage procedure. They voiced understanding of this today. Discussed risks of the procedure include but are not limited to the following: Pain, continued pain, complex regional pain syndrome, infection, numbness/neuritis, delayed healing/nonhealing, swelling, scarring, poor cosmetic result, bleeding, need for further surgical surgery/procedures, fracture, dehiscence, blood clots, allergic reaction, postoperative arthritis, shoe gear problems, inability to walk, inability to wear shoes, heart attack, addiction to pain medication, loss of function, loss of limb, loss of life. Patient and significant other voiced understanding of these and were able to repeat these back. All alternative options were discussed and reviewed with the patient in great detail and reviewed the risks and benefits of these possible interventions with the patient. Typical postoperative course was reviewed. Patient expressed understanding and agreement of this and wishes to proceed forward with limb salvage procedure today. The consent forms were reviewed and she signed them freely. No promises were made. No guarantees were given. She has been kept n.p.o. after midnight for I&D of the right ankle and foot with bone biopsy of the right ankle. I&D of the right ankle and bone biopsy of the tibia x4 was performed on 09/30/2022. Postoperative update: Patient did receive local proximal distal tibial block for postoperative pain control. Patient did tolerate procedure and anesthesia well. She will remain nonweightbearing to the right lower extremity. She will continue to elevate right lower extremity at all times of rest for postoperative edema control. During procedure ankle and tissues were irrigated copiously with Irrisept, followed by 3000 cc pulse lavage. 1 g of vancomycin powder was placed throughout ankle and soft tissues of the ankle and foot and Betadine soaked iodoform packing gauze was placed along the medial ankle at previous abscess site. Nursing may reinforce dressings for strikethrough as needed. Please not hesitate to call with any questions or concerns. Shekhar Baig Jr. D.P.M. [facility] [phone]
[2022-09-30] MEDS: Ceftriaxone 1 GM/50 ML BAG IV (09:31)
[2022-09-30] MEDS: 0.9% Saline Lock 10 ML Syringe IV ×2 (09:33→20:19)
--- NOTE | 2022-09-30 11:04 | CASEMGMT ---
Addendum entered by Ngozi Daniels 09/30/22 11:12: NAHOMY CORNEJO into pt room, pt significant other present with eyes closed. Pt is aware that if she should chose to sign out AMA, [facility] is not able to provide transportation for her. Pt became angry and asked if she was going to be thrown out on the streets. Pt states she needs a FWW. Made her aware that [place] Pt states no preference in DME company. Pt angry and woke up her significant other. Neither have further questions and verbalize understanding of information given. Original Note: TC to [facility] as NAHOMY CORNEJO was made aware in rounds that pt may want to leave AMA to go to [facility], per [place] [facility] does not provide transportation services if a pt leaves AMA.
--- NOTE | 2022-09-30 11:57 | PN.ID_ITS ---
Physical Exam Narrative Tearful, afraid she'll lose her leg. No fever. Const alert; Negative for no apparent distress Resp normal air movement and clear to auscultation bilaterally Cardio regular rate and regular rhythm GI soft to palpation, non-tender and non-distended Skin Skin Narrative: leg wrapped ID ID: Route of nutrition/ use of supplements: [] Nutritional Intake: [] IV Site: [] Mark Catheter: [] Assessment & Plan Assessment/Plan (1) Ankle osteomyelitis, right: (2) MRSA bacteremia: PLAN: MRSA bacteremia due to R ankle septic arthritis. Taken to OR 09/14/[address] Quinonez for I&D. Treated with vanc. Bcx cleared 09/15. No veg seen on TTE. Discharged to [facility] on 4 weeks iv vanc, stop date 10/13/22 with weekly labs and ID followup in 2 weeks. 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 Returned after having to leave ECF, picc was removed, abx stopped. Came back with worsening RLE pain and with pneumonia seen on imaging, concern for possible aspiration. Bcx neg here. Neg UAgs. Ankle wounds appear to be doing well, but new xray with reported osteo. Podiatry consulted. Cont vanc. Cont to cover for pneumonia with ceftriaxone/flagyl for now. MRI shows new abscess and osteo. Plan is for OR today for I&D. Will follow, d/w classification case manager
--- NOTE | 2022-09-30 14:06 | PN.HOSP_ITS ---
Reason for Visit Reason for Visit: Diagnoses Methicillin resistant Staphylococcus aureus infection as the cause of diseases classified elsewhere (09/28/22) Septic arterial embolism (09/28/22) Non-pressure chronic ulcer of right ankle with fat layer exposed (09/28/22) Pain in right ankle and joints of right foot (09/28/22) Acute hematogenous osteomyelitis, right ankle and foot (09/28/22) Osteomyelitis, unspecified (09/28/22) Bacteremia (09/28/22) Unspecified open wound, right ankle, initial encounter (09/28/22) Subjective Subjective Follow-up for right ankle osteomyelitis and abscess. Objective Data Objective Data Vital Signs: Vital Signs Temp Pulse Resp BP Pulse Ox O2 Del Method 98.6 F 84 16 119/78 99 Room Air 09/30/22 12:06 09/30/22 12:06 09/30/22 12:06 09/30/22 12:06 09/30/22 12:06 09/30/22 12:06 Oxygen Delivery Method Room Air Weight: 135 lb 12.876 oz Body Mass Index (BMI) 22.6 Intake & Output: Intake and Output for Last 24 Hours 09/28/22 09/29/22 09/30/22 23:59 23:59 23:59 Intake Total 2040 / 2040 1750 / 1750 250 / 250 Output Total 900 / 900 Balance 2040 / 2040 850 / 850 250 / 250 Lab / Micro Data 09/30/22 07:05 09/30/22 07:05 Labs: Laboratory Results - last 24 hr 09/29/22 15:14: Vancomycin Trough 15.3 H 09/30/22 07:05: WBC 5.5, RBC 3.66 L, Hgb 10.8 L, Hct 33.6 L, MCV 91.8, MCH 29.5, MCHC 32.1, RDW Std Deviation 42.4, RDW Coeff of Sylvia 12.6, Plt Count 598 H, MPV 10.5, Immature Gran % (Auto) 0.500, Neut % (Auto) 41.0 L, Lymph % (Auto) 40.8, [place] % (Auto) 9.5, Eos % (Auto) 7.3 H, Baso % (Auto) 0.9, Absolute Neuts (auto) 2.2, Absolute Lymphs (auto) 2.23, Nucleated RBC % 0, Sodium 138, Potassium 4.0, Chloride 105, Carbon Dioxide 30.0, Anion Gap 3 L, BUN 15, Creatinine 0.62, Estim Creat Clear Calc 106.36, Est GFR (MDRD) Af Amer 136, Est GFR (MDRD) Non-Af 112, BUN/Creatinine Ratio 24.2 H, Glucose 101, Calcium 8.9 Micro: Microbiology 09/28/22 00:45 Blood Culture (Wb) - Anticubital Right Blood Culture - Preliminary No growth in 48 hours. 09/28/22 01:15 Blood Culture (Wb) - Anticubital Right Blood Culture - Prel iminary No growth in 48 hours. 09/28/22 01:45 Urine Catheter - Catheter Urine Culture - Final Culture exhibits no growth. 09/29/22 00:45 Urine, Clean Catch Legionella Antigen - Final 09/29/22 00:45 Urine, Clean Catch Streptococcus pneumoniae Antigen (M - Final Physical Exam Narrative Patient complains of pain and crying in the morning. Cotton Converter saw the patient in the morning explained elevator operator saw the patient in the morning explained options about local debridement and abscess drainage with prolonged IV antibiotic and further surgery, ankle fusion or amputation. As per nursing staff and patient herself she is asking for transfer to [facility] as per patient request including clinic does not address patient request transfer more sober when we have called prior to service here Patient denied use of Haldol in [facility]. I also talked to patient's PCP Physical exam General: Alert, Oriented x3, Cooperative HEENT: Atraumatic, PERRLA, EOMI, Normocephalic Oral: Oral mucosa moist. No Gingival or Mucosal Lesions/ Ulcerations Neck: Supple, No JVD, Negative Carotid Bruits Lungs: Air entry diminished in bilateral lung bases. No crepitation/rhonchi Cardiovascular: Regular rate, Regular Rhythm, Normal S1, Normal S2, No murmurs Abdomen: Bowel Sounds Present, Soft, Non Tender, Non-Distended : No renal angle tenderness. No suprapubic tenderness. Extremities: No edema, Capillary Refill Less than 3 Seconds Skin: Right ankle with Rajan wrap bandage. Wounds look better Musculoskeletal: Mild tenderness around right ankle ROM restricted. Swelling over right ankle. Neurological: Cranial nerves II-XII grossly intact, DTR 2+/4. No acute focal neurological deficit. Psych/Mental Status: Anxiety Assessment & Plan Assessment/Plan (1) MRSA bacteremia: (2) Osteomyelitis: QUALIFIERS: Osteomyelitis type: acute hematogenous Osteomyelitis location: foot Laterality: right Qualified Code(s): M86.071 - Acute hematogenous osteomyelitis, right ankle and foot (3) Septic embolism: PLAN: Plan 1. Right foot osteomyelitis Ankle of x-ray independently reviewed and shows osteomyelitis of the medial malleolus. Patient is allergic to penicillins (anaphylaxis); vancomycin IV, ciprofloxacin IV and clindamycin IV started emergency department. ID consult was changed antibiotic changed to ceftriaxone and metronidazole oral. Vancomycin to continue. Review of labs showed white count of 11.5 with thrombocytosis, neutrophilia and lymphopenia Tmax of 100.5 Fahrenheit. Pulse rate is below 96; respiratory rate is below 20. Patient is not hypotensive. Sepsis ruled out With reported pneumonia on imaging we will investigate further for septic emboli. Echocardiogram reviewed does not show evidence of vegetation. Podiatry and ID were consulted and reviewed and appreciated Pain control with po and IV narcotics. 07/30: ESR and CRP elevated MRI of the foot shows extensive circumferential diffuse subcutaneous soft tissue edema compatible with cellulitis, focal fluid collection compatible with abscess on the plantar surface of the foot. Loss of articular cartilage of the tibiotalar with tibiotalar joint effusion and extensive bone marrow edema of the distal tibia fibula and talus. Patient was recently admitted for sepsis due to septic arthritis complicated with MRSA bacteremia 07/31: Different surgical options were discussed with the podiatry surgeon including limb salvage option with incision and drainage, bone biopsy prolonged IV antibiotic and possible fusion of the ankle. Another option will be BKA of right lower extremity for definitive clearance of infection. Patient is also not good candidate for PICC line with home health discharge as she has history of IVDA. On patient request I talked to patient's PCP Alma Burton [phone]. Her PCP agrees with the option that if patient wants transfer to [facility] she has to do by herself and signed AMA. By hospital bylaws, regulations and policies, patient cannot be discharged or transferred to [facility] but she can sign AMA and directly go to the [facility] ED. She also said that she does not have many for over her private vehicle/transport therefore asked case picker to arrange transport from hospital to PCP office and PCP will arrange transport from her office to [facility] which PCP declined. At last, patient agreed for OR today. ID is following. UTI Urinalysis is abnormal Urine cx ordered at the ED Antibiotics as above Pneumonia MRSA pneumonia most likely Chest CTA with pneumonia in the right upper lobe and right lower lobe. No PE or aortic dissection. Clinical Impression(s) from Imaging Studies Ankle X-Ray 09/28/22 00:16 IMPRESSION: Osteomyelitis of the medial malleolus. Electronically Signed: Magalys Cross MD at 2:30 EDT , Chest X-Ray 09/28/22 00:16 IMPRESSION: Ill-defined airspace opacity in the right upper lobe suggesting pneumonia. Lower Extremity MRI 09/28/22 06:24 IMPRESSION: Extensive circumferential diffuse subcutaneous soft tissue edema compatible with cellulitis. Focal fluid collection compatible with abscess on the plantar surface of the foot as described. Loss of articular cartilage of the tibiotalar joint with tibiotalar joint effusion and extensive bone marrow edema in the distal tibia, distal fibula and talus. Given the distribution of the bone marrow edema, this is likely secondary to septic arthritis with adjacent osteomyelitis. Chest CTA 09/28/22 01:30 IMPRESSION: Pneumonia in the right upper lobe and right lower lobe. No demonstrated pulmonary embolism or arterial dissection. Electronically Signed: Magalys Cross MD at 3:58 EDT , Echocardiogram 09/28/22 06:24 Interpretation Summary LV systolic function is normal Contrast study using Definity. The estimated ejection fraction is 60 %. Trivial mitral valve insufficiency. Mild (1+) tricuspid valve insufficiency. Right ventricular systolic pressure estimated to be 25 mmHg. Mild (1+) aortic valve insufficiency. Compared to previous echo 09/15/22, the right ventricular systolic pressure has reduced. There is no definitive evidence for barcterial endocarditis. RV free wall is not well visualized In comparison to previous echocardiogram no significant change noted. Contrast injection was performed. Charges/Coding Addendum Addendum: Total time of the visit including total time spent in counseling or coordination of care, (more than 50% of the total time, spent in obtaining medical information from nurses and other ancillary care providers,explaining to the patient about labs, imaging, MRI, diagnosis and management of active complex medical conditions), question with elevator operator and ID, clinical update given to patient's girlfriend at the bedside and discussion with PCP, review of labs and imaging is 50 minutes. Visit Charges Inpatient E&M: 28965 Subs Hosp L3
--- NOTE | 2022-09-30 15:01 | RAD_ITS ---
STUDY: X-RAY - RIGHT ANKLE REASON FOR EXAM: Female, 42 years old. BONE BIOPSY TECHNIQUE: 2 fluoroscopic view(s) of the ankle. Dose area product: 6.39 cGycm2 COMPARISON: None. FINDINGS: Fluor scopic images straight localization of the medial malleolus for biopsy . RAD/Ankle 2 Views IMPRESSION: Fluoroscopic guidance for medial malleolus biopsy Electronically Signed: Dex Finnegan (Brooks), at 19:32 EDT ,
--- NOTE | 2022-09-30 15:05 | NURSING ---
pt to surgery
[2022-09-30] MEDS: Bupivacaine Mpf 0.5% 30 ML VIAL (15:50)
[2022-09-30] MEDS: Lactated Ringers 1,000 ML 15 ML IV (16:00)
[2022-09-30] MEDS: Vancomycin IV 1,000 MG/20 ML Vial 1000 MG OPERA.SITE (16:46)
--- NOTE | 2022-09-30 20:37 | PCM.OPRPT ---
Problems Associated Problem List Diagnoses (1) Non-pressure chronic ulcer of right ankle with fat layer exposed: (2) Wound of right ankle: (3) Ankle osteomyelitis, right: (4) Septic arthritis of ankle: (5) MRSA bacteremia: (6) Ankle pain, right: Report of Operation Date of Procedure: 09/30/22 Pre-Operative Diagnosis: 1. Septic Arthritis Right Ankle 2. Abscess right foot and ankle 3. Osteomyelitis tibia, fibula, and talus right foot/Ankle Post-Operative Diagnosis: 1. Septic Arthritis Right Ankle 2. Abscess right foot and ankle 3. Osteomyelitis tibia, fibula, and talus right foot/Ankle Surgery/Procedure Performed:: 1. Incision and drainage with wide debridement of the right ankle and foot 2. Bone biopsy distal tibia x4 right foot Description of Surgical Findings:: See operative note for findings Surgeon: Shekhar Baig conference reservationist: Betty Rene DPM PGY-2 Type of Anesthesia: General and Local (20 cc one-to-one mixture 1% lidocaine plain and 0.5% Marcaine plain) Specimen's removed: Bone distal tibia right ankle x4 Drains: None Estimated Blood Loss (mL): < 5mL Description of Procedure: HPI/indication: Patient is a 42-year-old female with history of IVDA who developed MRSA infection of the right ankle and underwent I&D with wide debridement of the right ankle on 09/14/[address] Devi DPM. Patient WBC was decreasing and patient was vitally stable and thus discharged with PICC line to SNF unit for continued IV antibiotics on 09/23/2022. Due to substance abuse while in while in SNF patient was discharged with PICC line removed and return to [facility] ED on 09/28/2022. Upon readmission WBC was 11.5 and decreased to 5.2 on IV antibiotics. Right ankle did demonstrate healthy granulating tissue of postsurgical wound to the medial and lateral ankle. MRI was obtained and demonstrated focal abscess pocket plantar foot near the anterior process of the calcaneus in addition to septic arthritis and osteomyelitis of the distal third of the tibia, fibula, and talus of the right ankle. Thorough discussion was had with patient and significant other pertaining to surgical options for treatment of the right lower extremity. Patient does not want amputation of the right leg and thus wishes to proceed forward with limb salvage via I&D with wide debridement and washout of the right ankle and foot until they can arrange possible transport where she would like to undergo limb salvage at the [facility] due to prior treatments at this facility. Discussion was had with patient and complicated history of IVDA and dismissal from SNF unit and pertaining to performing an incision and drainage with wide debridement follow with long-term IV antibiotics. Thorough discussion was had with how this complicates care moving forward. Patient still states they would prefer to salvage the right ankle and leg. I discussed with them that this is a limb salvage procedure for an incision and drainage of the right ankle and foot in addition to obtaining a bone biopsy of the distal tibia. They are in agreement with this procedure today. I discussed the procedure in great detail. I discussed risks and benefits of procedure in detail and potential complications in detail. Advised patient risks include but are not limited to the following: Pain, continued pain, complex regional pain syndrome, deformity, continued deformity, numbness/neuritis, swelling, scarring, poor cosmetic result, bleeding, need for further surgery/procedures, fracture, nonhealing/delayed healing, dehiscence, infection, blood clots, allergic reaction, postoperative arthritis, weakness, shoe gear problems, inability to walk, inability to wear shoes, stroke, heart attack, addiction to pain medication, loss of function, loss of limb, loss of life. Also discussed despite thorough washout and debridement bone infection confirmed on MRI will still persist and may require long-term IV antibiotics, multiple surgical procedures, and possibly may still and in amputation of the right leg. They voiced understanding of this but states we will do everything to keep this leg. Patient was able to repeat all of these back with understanding. Postoperative course was reviewed. Patient expressed understanding and agreement. Consent forms were reviewed and patient freely signed them. No promises were made. No guarantees were given. All diagnostic data was was reviewed prior to entering the OR. Operative limb was signed prior to entering the OR. Patient was scheduled for incision and drainage with wide debridement of the right ankle and foot and bone biopsy of the distal tibia of the right ankle at [facility] on 09/30/2022. Procedure: Under mild sedation patient brought into the operating placed on table in supine position. Following induction of IV anesthetic and general anesthesia a pneumatic thigh tourniquet was placed about the patient's right thigh. A blanket bump was placed under the right hip and right leg. A local anesthetic block was performed about the distal tibia proximal to prior incision sites consisting of 20 cc one-to-one mixture 1% lidocaine plain and 0.5% Marcaine plain. The foot was scrubbed, prepped, and draped in the usual aseptic manner. Right foot was then elevated and the pneumatic thigh tourniquet was inflated to 300 mmHg. At this time attention was directed to the right medial ankle where a wound was noted at the prior incision site. A linear incision was made through the granular tissue and scar tissue. There was some necrotic tissue below the wound that was noted and this was debrided via sharp dissection. All granular wound tissue was debrided via sharp dissection to healthy tissue. The posterior tibial tendon was visualized and neurovascular structures were identified and protected throughout the duration of this case. The plantar foot was milked proximally towards the incision with scant purulence noted following the flexor tendons into the julisa pedis. At this time swab cultures were obtained of the purulence and deep abscess within the tarsal tunnel into the plantar foot. Next, site was copiously irrigated with normal sterile saline and the abscess was broken up via hemostats, Ray-Rafi sponge, and suction. Site was again copiously irrigated with normal sterile saline. Following irrigation no further purulence was expressible and surrounding tissue appeared healthy. Next, attention was directed to the lateral ankle wound where an incision was made directly through the granular tissue and the granular tissue was debrided utilizing sharp dissection to healthy tissue no expressible purulence/abscess was noted about the lateral ankle. There was some necrotic tissue and hematoma at the lateral ankle just distal to the fibula along the lateral talar body and this was debrided via sharp dissection to healthy tissue. Next, lateral ankle incision site flushed with copious amounts of normal sterile saline. Next, attention was directed to the medial ankle under the guidance of fluoroscopy confirming position of bone biopsy of the medial malleolus. Bone biopsy x2 was taken from the medial malleolus via Jamshidi needle. Next, attention was directed to the central anterior aspect of the ankle where a linear incision was made overlying the ankle joint lateral to the anterior tibial, dorsalis pedis artery, and just medial to the extensor tendons. Incision was deepened utilizing sharp and blunt dissection and care was taken to identify and retract all vital neurovascular structures. Upon deepening of the incision site edematous fluid was expressible from the ankle and surrounding tissues without purulence noted. At this time ankle joint capsule was identified and noted to be distended and discolored secondary to infection. The capsule was linearly incised utilizing a #15 blade and edematous fluid without evidence of purulence was expressed from the ankle joint. The ankle joint was inspected and the cartilage of the talus was noted to be dusky in appearance and lacking shiny, spongy cartilage consistent with septic arthritis and osteomyelitis of the talus. Utilizing fluoroscopy the [employer] needle was utilized to obtain a bone biopsy x2 of the anterior lateral distal tibia. It is noted that upon bone biopsy from both medial and lateral tibia sites the bone was noted to be soft in consistency and dusky and moon in color consistent with osteomyelitis. Sample was easily obtainable due to the soft nature of tibial bone. Bone samples of the distal tibia were sent to microbiology and pathology for culture and analysis. Next, ankle joint and medial ankle was copiously irrigated with Irrisept and following 1 minute timeout the site was again copiously irrigated with 3000 cc pulse lavage to the anterior, lateral, and medial incision sites. Next, 1 g of vancomycin powder was placed throughout incision sites and packed into the plantar foot along the flexor tendons into the julisa pedis. Lateral ankle incision site deep tissues closed with 2-0 Vicryl. Subcutaneous tissue closed with 4-0 Monocryl and skin reapproximated with 3-0 Prolene in simple interrupted fashion. Next, anterior ankle joint capsule closed with 2-0 Vicryl. Subcutaneous tissue closed with 4-0 Monocryl. Skin reapproximated with 3-0 Prolene in simple interrupted fashion. At this time the pneumatic thigh tourniquet was deflated and a prompt hyperemic response was noted to the digits of the right foot and healthy bleeding tissue noted medially with intact neurovascular structures. Next, medial incision site underwent packing into the julisa pedis at previous abscess site and proximally along flexor tendons with half-inch iodoform packing gauze soaked in Betadine. The deep tissues were then closed with 2-0 Vicryl. The skin was then reapproximated with 2-0 Prolene in simple interrupted fashion. Incision sites were then dressed with Betadine soaked Adaptic, 4 x 4 gauze, ABD x2, Kerlix x2, 4 inch Rajan wrap rolled onto the foot and 6 inch Rajan wrap rolled onto the foot and leg to secure dressing. The patient tolerated the procedure and anesthesia well and was transported the PACU with vital signs stable vascular status intact to the right foot. The patient will return to the floor once anesthesia protocol has been met and will continue to receive IV antibiotics. Podiatry will continue to follow while in house. Grafts/Implants Used: 1 g vancomycin powder and half-inch iodoform packing gauze medial ankle Complications None Admit VTE Documentation VTE Present on Admission: Yes VTE Mechan Device Prophylaxis: SCD's VTE Pharm Prophylaxis ordered?: No Reason prophylaxis not ordered:: Procedure Not Indicated
[2022-09-30] MEDS: Zolpidem Tartrate 5 MG Tablet PO (22:46)
[2022-10-01] VITALS (7 sets, daily range): BP systolic 116–137; BP diastolic 75–99; PULSE 102–120; RESP 12–18; TEMP 37.2–38.2; O2SAT 93–97
[2022-10-01] MEDS: Vancomycin IV 1,000 MG/200 ML BAG 200 MG IV ×2 (04:19→15:39)
[2022-10-01] MEDS: HYDROmorphone 0.5 MG/0.5 ML SYRINGE IV ×3 (04:25→21:28)
[2022-10-01] MEDS: 0.9% Saline Lock 10 ML Syringe IV ×3 (04:26→21:29)
[2022-10-01] MEDS: oxyCODONE 5 MG Tablet 15 MG PO ×2 (06:42→15:41)
[2022-10-01] MEDS: metroNIDAZOLE 500 MG Tablet PO ×3 (06:42→21:28)
[2022-10-01 08:27] LABS: Absolute Lymphocyte Count 2.22 X10^3/uL (0.83-4.51); Basophil# 0.03 X10^3/uL; Basophil% 0.3 % (0-1); Eosinophil# 0.06 X10^3/uL; Eosinophils% 0.7 % (0-5); Hematocrit 37.2 % (37-47); Hemoglobin 11.9 g/dL (12.0-15.0); Lymphocyte # 2.22 X10^3/ul (0.83-4.51); Lymphocyte % 24.1 % (19-41); Mean Corpuscular Hgb 29.5 pg (27.0-32.0); Mean Corpuscular Volume 92.1 fL (81-99); Mean Platelet Vol. 10.8 fl (6.2-12.0); Monocyte# 0.81 X10^3/uL; Monocyte% 8.8 % (0-10); NRBC Flagged by Analyzer 0 % (0-5); Neutrophil # 6.04 X10^3/uL (2.7-7.7); Neutrophil % 65.7 % (47-70); Platelet Count 638 K/mm3 (150-450); RBC Distribution Width CV 12.9 % (11.6-14.6); RBC Distribution Width SD 43.4 fl (35.1-43.9); Red Blood Count 4.04 M/mm3 (4.2-5.4); White Blood Count 9.2 K/mm3 (4.4-11.0)
[2022-10-01] MEDS: Pantoprazole Sodium 40 MG Tablet PO (08:32)
[2022-10-01] MEDS: DULoxetine Hcl 60 MG Capsule PO (08:32)
[2022-10-01] MEDS: BREXPIPRAZOLE 2 MG TABLET PO (08:32)
[2022-10-01 08:50] LABS: Anion Gap 6 (5-15); BUN 7 mg/dL (7-18); BUN/Creat Ratio 10.4 RATIO (10-20); Calcium,Total 8.7 mg/dL (8.5-10.1); Chloride 103 mmol/L (98-107); Creatinine, Serum 0.67 mg/dL (0.55-1.02); EST Glomerular Filtration Rate 103 mL/min (>60); Est Glom Filt Rate - Afr Amer 124 mL/min (>60); Estimated Creatinine Clearance 98.43 ml/min; Glucose 102 mg/dL (74-106); Potassium 3.7 mmol/L (3.5-5.1); Sodium Level 139 mmol/L (136-145)
--- NOTE | 2022-10-01 09:57 | NURSING ---
0950 pt noted on camera to have significant other bedside. [employer] also at nurses' station. Noted patient and significant other leaning over pt's IV site arm. Primary RN Ayana called to go to room and see what pt and visitor doing with IV arm. Noted on camera when nurse entered the room visitor put something into her pocket and then went into patient's bathroom. Discussed with boiling house oiler nurse and HRO Pedro Mcclelland called to the unit. Discussed with HRO, while HRO at the desk say patient using Vape pen. HRO in to escort visitor from unit. Dr. Davila informed of situation [id number]. Requesting No visitor. May be whole room check with bathroom looking for suspicous stuff food production supervisor aware. HRO back into room with primary RN as visitor states patient has a second vape still.
[2022-10-01] MEDS: Ceftriaxone 1 GM/50 ML BAG IV (10:09)
--- NOTE | 2022-10-01 11:01 | NURSING ---
10:05 call from Maria De Jesus COREAdry pan charger nurse stating pt visitor was leaning over her and doing something that looked suspicious. When this RN walked into the room I turned on the lights and asked what they were doing. They stated they were just trying to get her bra on and was all tangled up. I disconnected the IV and continuous pulse ox and untangled the pt. However the bra was already in place on the pt. I then proceeded to reattached the wires and IV. Pt noted to still have slurred words at this time as she did as well on her morning assessment. This RN then went back up to the charge desk where the Anni Velasquez was awaiting. They had went in and asked that the visitor leave and at that time were informed that the pt still had a vape pen on her. The RN, Anni security guard supervisor, and Ron all went back into pt room to ask her about the vape pen which she denied that she had. Ron then asked her if I could take a look on her and in her bed. At that time I found a vape pen tucked in side of her bed sheets. It was taken from pt and locked up in the med drawer and she was informed she will get it back at discharge.
--- NOTE | 2022-10-01 11:27 | PCM.PN.HOSP ---
Reason for Visit Reason for Visit: Diagnoses Methicillin resistant Staphylococcus aureus infection as the cause of diseases classified elsewhere (09/28/22) Septic arterial embolism (09/28/22) Non-pressure chronic ulcer of right ankle with fat layer exposed (09/28/22) Staphylococcal arthritis, right ankle and foot (09/28/22) Pain in right ankle and joints of right foot (09/28/22) Acute hematogenous osteomyelitis, right ankle and foot (09/28/22) Osteomyelitis, unspecified (09/28/22) Bacteremia (09/28/22) Unspecified open wound, right ankle, initial encounter (09/28/22) Subjective Subjective Follow-up for osteomyelitis, abscess on right ankle. Objective Data Objective Data Vital Signs: Vital Signs Temp Pulse Resp BP Pulse Ox O2 Del Method 99.9 F H 120 H 18 118/83 H 97 Room Air 10/01/22 08:25 10/01/22 08:25 10/01/22 08:25 10/01/22 08:25 10/01/22 08:25 10/01/22 08:38 Oxygen Delivery Method Room Air Weight: 135 lb 12.876 oz Body Mass Index (BMI) 22.6 Intake & Output: Intake and Output for Last 24 Hours 09/29/22 09/30/22 10/01/22 23:59 23:59 23:59 Intake Total 1750 / 1750 1450 / 1810 1193.5 / 1193.5 Output Total 900 / 900 220 / 420 650 / 650 Balance 850 / 850 1230 / 1390 543.5 / 543.5 Lab / Micro Data 10/01/22 07:49 10/01/22 07:49 Labs: Laboratory Results - last 24 hr 10/01/22 07:49: WBC 9.2, RBC 4.04 L, Hgb 11.9 L, Hct 37.2, MCV 92.1, MCH 29.5, MCHC 32.0, RDW Std Deviation 43.4, RDW Coeff of Sylvia 12.9, Plt Count 638 H, MPV 10.8, Immature Gran % (Auto) 0.400, Neut % (Auto) 65.7, Lymph % (Auto) 24.1, [place] % (Auto) 8.8, Eos % (Auto) 0.7, Baso % (Auto) 0.3, Absolute Neuts (auto) 6.0, Absolute Lymphs (auto) 2.22, Nucleated RBC % 0, Sodium 139, Potassium 3.7, Chloride 103, Carbon Dioxide 30.0, Anion Gap 6, BUN 7, Creatinine 0.67, Estim Creat Clear Calc 98.43, Est GFR (MDRD) Af Amer 124, Est GFR (MDRD) Non-Af 103, BUN/Creatinine Ratio 10.4, Glucose 102, Calcium 8.7 Micro: Microbiology 09/28/22 00:45 Blood Culture (Wb) - Anticubital Right Blood Culture - Preliminary No growth in 48 hours. 09/28/22 01:15 Blood Culture (Wb) - Anticubital Right Blood Culture - Preliminary No growth in 48 hours. 09/28/22 01:45 Urine Catheter - Catheter Urine Culture - Final Culture exhibits no growth. 09/29/22 00:45 Urine, Clean Catch Legionella Antigen - Final 09/29/22 00:45 Urine, Clean Catch Streptococcus pneumoniae Antigen (M - Final Physical Exam Narrative Seen and examined Nursing staff getting the report that she is very drowsy, obtunded and was difficult to wake up in the morning. Later in the day, the nursing staff saw some suspicious activity in the camera and concern for messing with the IV PICC line. Patient has history of IVDA. House resource officer, [facility], police and nursing reduction plant supervisor present Patient admitted that she had bowel movement. Physical exam General: drowsy, lethargy but answers simple question. Eyebrows are raised HEENT: Atraumatic, PERRLA, EOMI, Normocephalic Oral: Oral mucosa moist. No Gingival or Mucosal Lesions/ Ulcerations Neck: Supple, No JVD, Negative Carotid Bruits Lungs: Air entry diminished in bilateral lung bases. No crepitation/rhonchi Cardiovascular: Regular rate, Regular Rhythm, Normal S1, Normal S2, No murmurs Abdomen: Bowel Sounds Present, Soft, Non Tender, Non-Distended : No renal angle tenderness. No suprapubic tenderness. Extremities: No edema, Capillary Refill Less than 3 Seconds Skin: Right ankle with Rajan wrap bandage. Wounds look better Musculoskeletal: Mild tenderness around right ankle ROM restricted. Swelling over right ankle. Neurological: Cranial nerves II-XII grossly intact, DTR 2+/4. No acute focal neurological deficit. Psych/Mental Status: Anxiety Assessment & Plan Assessment/Plan (1) MRSA bacteremia: (2) Osteomyelitis: QUALIFIERS: Osteomyelitis type: acute hematogenous Osteomyelitis location: foot Laterality: right Qualified Code(s): M86.071 - Acute hematogenous osteomyelitis, right ankle and foot (3) Septic embolism: PLAN: Plan 1. Right foot osteomyelitis Ankle of x-ray independently reviewed and shows osteomyelitis of the medial malleolus. Patient is allergic to penicillins (anaphylaxis); vancomycin IV, ciprofloxacin IV and clindamycin IV started emergency department. ID consult was changed antibiotic changed to ceftriaxone and metronidazole oral. Vancomycin to continue. Review of labs showed white count of 11.5 with thrombocytosis, neutrophilia and lymphopenia Tmax of 100.5 Fahrenheit. Pulse rate is below 96; respiratory rate is below 20. Patient is not hypotensive. Sepsis ruled out With reported pneumonia on imaging we will investigate further for septic emboli. Echocardiogram reviewed does not show evidence of vegetation. Podiatry and ID were consulted and reviewed and appreciated Pain control with po and IV narcotics. 07/30: ESR and CRP elevated MRI of the foot shows extensive circumferential diffuse subcutaneous soft tissue edema compatible with cellulitis, focal fluid collection compatible with abscess on the plantar surface of the foot. Loss of articular cartilage of the tibiotalar with tibiotalar joint effusion and extensive bone marrow edema of the distal tibia fibula and talus. Patient was recently admitted for sepsis due to septic arthritis complicated with MRSA bacteremia 07/31: Different surgical options were discussed with the podiatry surgeon including limb salvage option with incision and drainage, bone biopsy prolonged IV antibiotic and possible fusion of the ankle. Another option will be BKA of right lower extremity for definitive clearance of infection. Patient is also not good candidate for PICC line with home health discharge as she has history of IVDA. On patient request I talked to patient's PCP Alma Burton [phone]. Her PCP agrees with the option that if patient wants transfer to [facility] she has to do by herself and signed AMA. By hospital bylaws, regulations and policies, patient cannot be discharged or transferred to [facility] but she can sign AMA and directly go to the [facility] ED. She also said that she does not have many for over her private vehicle/transport therefore asked residential case manager to arrange transport from hospital to PCP office and PCP will arrange transport from her office to [facility] which PCP declined. At last, patient agreed for OR today. ID is following. 08/01: The patient had incision and drainage with debridement of right ankle and foot with bone biopsy of distal tibia x4 right foot on 09/30. Postop day 1. Continue IV antibiotic as per ID recommendation. UTI Urinalysis is abnormal Urine cx ordered at the ED Antibiotics as above Pneumonia MRSA pneumonia most likely Chest CTA with pneumonia in the right upper lobe and right lower lobe. No PE or aortic dissection. IVDA history: As per nursing staff, patient had suspicious activity in halfway and Haldol was found in the halfway and probably either patient signed AMA or discharge, different description from patient's and nursing staff. In PCU during last admission, the needles were found on patient bed. Patient very drowsy and lethargic and obtunded from last night and during day suspicious activity was seen on the camera not messing up with IV PICC line. Necessary steps were taken with calling of hospital police, housing reduction plant supervisor and charge nurse. No visitor is allowed. Clinical Impression(s) from Imaging Studies Ankle X-Ray 09/28/22 00:16 IMPRESSION: Osteomyelitis of the medial malleolus. Electronically Signed: Magalys Cross MD at 2:30 EDT , Chest X-Ray 09/28/22 00:16 IMPRESSION: Ill-defined airspace opacity in the right upper lobe suggesting pneumonia. Lower Extremity MRI 09/28/22 06:24 IMPRESSION: Extensive circumferential diffuse subcutaneous soft tissue edema compatible with cellulitis. Focal fluid collection compatible with abscess on the plantar surface of the foot as described. Loss of articular cartilage of the tibiotalar joint with tibiotalar joint effusion and extensive bone marrow edema in the distal tibia, distal fibula and talus. Given the distribution of the bone marrow edema, this is likely secondary to septic arthritis with adjacent osteomyelitis. Chest CTA 09/28/22 01:30 IMPRESSION: Pneumonia in the right upper lobe and right lower lobe. No demonstrated pulmonary embolism or arterial dissection. Electronically Signed: Magalys Cross MD at 3:58 EDT , Echocardiogram 09/28/22 06:24 Interpretation Summary LV systolic function is normal Contrast study using Definity. The estimated ejection fraction is 60 %. Trivial mitral valve insufficiency. Mild (1+) tricuspid valve insufficiency. Right ventricular systolic pressure estimated to be 25 mmHg. Mild (1+) aortic valve insufficiency. Compared to previous echo 09/15/22, the right ventricular systolic pressure has reduced. There is no definitive evidence for barcterial endocarditis. RV free wall is not well visualized In comparison to previous echocardiogram no significant change noted. Contrast injection was performed. Charges/Coding Visit Charges Inpatient E&M: 33023 Subs Hosp L2
[2022-10-01] MEDS: Pregabalin 75 MG Capsule 150 MG PO ×2 (12:10→21:28)
[2022-10-01 16:24] LABS: Vancomycin, Trough Level 23.7 ug/mL (5.0-15.0)
--- NOTE | 2022-10-01 16:35 | PCM.RX.CS ---
Consult Antibiotic Management Pharmacy has been consulted to manage selected antiobiotic: Vancomycin Type of Intervention Type of Consult: Follow-up Suspected Infection Suspected Infection: Osteomyelitis Labs Labs: Sodium 139 mmol/L (136-145) 10/01/22 07:49 Potassium 3.7 mmol/L (3.5-5.1) 10/01/22 07:49 Chloride 103 mmol/L (98-107) 10/01/22 07:49 Carbon Dioxide 30.0 mmol/L (21.0-32.0) 10/01/22 07:49 Anion Gap 6 (5-15) 10/01/22 07:49 BUN 7 mg/dL (7-18) 10/01/22 07:49 Creatinine 0.67 mg/dL (0.55-1.02) 10/01/22 07:49 Est GFR (MDRD) Af Amer 124 mL/min (>60) 10/01/22 07:49 Est GFR (MDRD) Non-Af 103 mL/min (>60) 10/01/22 07:49 BUN/Creatinine Ratio 10.4 RATIO (10-20) 10/01/22 07:49 Glucose 102 mg/dL (74-106) 10/01/22 07:49 Vancomycin Trough 23.7 ug/mL (5.0-15.0) H 10/01/22 15:51 Microbiology Microbiology: Microbiology 09/30/22 Unknown Bone - Other Gram Stain - Final 09/30/22 Unknown Bone - Other Wound Culture - Preliminary No growth-Final to follow 09/30/22 Unknown Bone - Other Gram Stain - Final 09/30/22 Unknown Bone - Other Wound Culture - Preliminary No growth-Final to follow 09/30/22 Unknown Wound Abcess - Right Foot Gram Stain - Final 09/30/22 Unknown Wound Abcess - Right Foot Wound Culture - Preliminary No growth-Final to follow 09/28/22 00:45 Blood Culture (Wb) - Anticubital Right Blood Culture - Preliminary No growth in 48 hours. 09/28/22 01:15 Blood Culture (Wb) - Anticubital Right Blood Culture - Preliminary No growth in 48 hours. 09/28/22 01:45 Urine Catheter - Catheter Urine Culture - Final Culture exhibits no growth. 09/29/22 00:45 Urine, Clean Catch Legionella Antigen - Final 09/29/22 00:45 Urine, Clean Catch Streptococcus pneumoniae Antigen (M - Final Pharmacy Plan for Drug Dosing Pharmacy Plan for Drug Dosing: VANCOMYCIN LEVEL RECEIVED Current Vancomycin Dose: 1000MG Q12 Number of Doses Received: 8 Vancomycin Level: 23.7 ML/MIN Hours Since Last Dose: TROUGH DRAWN AFTER DOSE WAS HUNG Renal Function: SCR 0.67 MG/DL, CRCL 98.4 ML/MIN Renal Function Trend: STABLE Vancomycin Plan/Comments: NURSE CALLED ~1600, TROUGH WAS DRAWN AT 1551 AFTER DOSE WAS HUNG AT 1539. WILL RESCHEDULE ANOTHER TROUGH BEFORE NEXT DOSE TO GET AN ACCURATE LEVEL. Pending Level: 10/02/22 @ 0330 Pharmacy Service will continue to monitor and adjust dosing as required.
[2022-10-01] MEDS: Zolpidem Tartrate 5 MG Tablet PO (21:28)
[2022-10-02] MEDS: oxyCODONE 5 MG Tablet 15 MG PO ×3 (00:59→17:20)
[2022-10-02 02:43] VITALS: BP 99/63; PULSE 105; RESP 16; TEMP 37.1; O2SAT 96
[2022-10-02] MEDS: 0.9% Saline Lock 10 ML Syringe IV ×3 (03:00→10:11)
[2022-10-02] MEDS: Vancomycin IV 1,000 MG/200 ML BAG 200 MG IV (03:49)
[2022-10-02] MEDS: HYDROmorphone 0.5 MG/0.5 ML SYRINGE IV ×3 (03:50→18:47)
[2022-10-02 04:19] LABS: Vancomycin, Trough Level 9.4 ug/mL (5.0-15.0)
--- NOTE | 2022-10-02 04:30 | PHA.PHARE_ITS ---
Consult Antibiotic Management Pharmacy has been consulted to manage selected antiobiotic: Vancomycin Type of Intervention Type of Consult: Follow-up Labs Labs: Sodium 139 mmol/L (136-145) 10/01/22 07:49 Potassium 3.7 mmol/L (3.5-5.1) 10/01/22 07:49 Chloride 103 mmol/L (98-107) 10/01/22 07:49 Carbon Dioxide 30.0 mmol/L (21.0-32.0) 10/01/22 07:49 Anion Gap 6 (5-15) 10/01/22 07:49 BUN 7 mg/dL (7-18) 10/01/22 07:49 Creatinine 0.67 mg/dL (0.55-1.02) 10/01/22 07:49 Est GFR (MDRD) Af Amer 124 mL/min (>60) 10/01/22 07:49 Est GFR (MDRD) Non-Af 103 mL/min (>60) 10/01/22 07:49 BUN/Creatinine Ratio 10.4 RATIO (10-20) 10/01/22 07:49 Glucose 102 mg/dL (74-106) 10/01/22 07:49 Vancomycin Trough 9.4 ug/mL (5.0-15.0) 10/02/22 03:35 Microbiology Microbiology: Microbiology 09/30/22 Unknown Bone - Other Gram Stain - Final 09/30/22 Unknown Bone - Other Wound Culture - Preliminary No growth-Final to follow 09/30/22 Unknown Bone - Other Gram Stain - Final 09/30/22 Unknown Bone - Other Wound Culture - Preliminary No growth-Final to follow 09/30/22 Unknown Wound Abcess - Right Foot Gram Stain - Final 09/30/22 Unknown Wound Abcess - Right Foot Wound Culture - Preliminary No growth-Final to follow 09/28/22 00:45 Blood Culture (Wb) - Anticubital Right Blood Culture - Prel iminary No growth in 48 hours. 09/28/22 01:15 Blood Culture (Wb) - Anticubital Right Blood Culture - Preliminary No growth in 48 hours. 09/28/22 01:45 Urine Catheter - Catheter Urine Culture - Final Culture exhibits no growth. 09/29/22 00:45 Urine, Clean Catch Legionella Antigen - Final 09/29/22 00:45 Urine, Clean Catch Streptococcus pneumoniae Antigen (M - Final Dosing Weight Weight used for dosin.6 kg Estimated Creatinine Clearance Estimated Creatinine Clearance: 98 Goal Trough Goal Trough: 15-20 mcg/mL Pharmacy Plan for Drug Dosing Pharmacy Plan for Drug Dosing: Vancomycin trough level of 9.4, drawn 12hrs post-dose, was below the target range of 15-20. Will increase dose to 1500mg q12h and re-draw a level prior to 4th dose of the new regimen. Pharmacy Service will continue to monitor and adjust dosing as required. Follow-Up Labs Follow-Up Labs: Trough: Vancomycin Date/Time Labs Ordered Labs to be done on [date and time ordered]: 10/04/22 @0330
[2022-10-02] MEDS: metroNIDAZOLE 500 MG Tablet PO ×3 (05:59→21:50)
[2022-10-02] MEDS: DULoxetine Hcl 60 MG Capsule PO (09:23)
[2022-10-02] MEDS: BREXPIPRAZOLE 2 MG TABLET PO (09:23)
[2022-10-02] MEDS: Pantoprazole Sodium 40 MG Tablet PO (09:23)
[2022-10-02] MEDS: Pregabalin 75 MG Capsule 150 MG PO ×2 (09:29→21:50)
[2022-10-02] MEDS: Ceftriaxone 1 GM/50 ML BAG IV (09:39)
[2022-10-02 09:42] VITALS: BP 112/82; PULSE 90; RESP 18; TEMP 37.2; O2SAT 92
[2022-10-02 10:00] VITALS: PULSE 90; RESP 18; O2SAT 92
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
[2022-10-02 16:00] VITALS: BP 106/67; PULSE 95; RESP 18; TEMP 36.6; O2SAT 95
[2022-10-02 21:34] VITALS: BP 105/62; PULSE 84; RESP 16; TEMP 36.7; O2SAT 95
[2022-10-02] MEDS: Lactated Ringers 1,000 ML 15 ML IV (21:49)
[2022-10-02] MEDS: clonazePAM 1 MG Tablet PO (21:50)
[2022-10-02] MEDS: Zolpidem Tartrate 5 MG Tablet PO (21:50)
[2022-10-03] MEDS: 0.9% Saline Lock 10 ML Syringe IV ×4 (00:41→23:36)
[2022-10-03] MEDS: HYDROmorphone 0.5 MG/0.5 ML SYRINGE IV ×3 (00:47→14:52)
[2022-10-03 03:16] VITALS: BP 110/69; PULSE 94; RESP 16; TEMP 36.8; O2SAT 95
[2022-10-03] MEDS: oxyCODONE 5 MG Tablet 15 MG PO ×3 (03:17→22:21)
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
[2022-10-03] MEDS: metroNIDAZOLE 500 MG Tablet PO (05:46)
[2022-10-03 06:29] LABS: Absolute Lymphocyte Count 3.01 X10^3/uL (0.83-4.51); Absolute Neutrophil Count 3.9 X10^3/uL (2.0-7.7); Basophil# 0.05 X10^3/uL; Basophil% 0.6 % (0-1); Eosinophil# 0.67 X10^3/uL; Hematocrit 32.2 % (37-47); Hemoglobin 10.2 g/dL (12.0-15.0); Lymphocyte # 3.01 X10^3/ul (0.83-4.51); Lymphocyte % 35.7 % (19-41); Mean Corp Hgb Conc 31.7 g/dL (32-36); Mean Corpuscular Hgb 29.2 pg (27.0-32.0); Mean Corpuscular Volume 92.3 fL (81-99); Mean Platelet Vol. 11.1 fl (6.2-12.0); Monocyte# 0.75 X10^3/uL; Monocyte% 8.9 % (0-10); NRBC Flagged by Analyzer 0 % (0-5); Neutrophil # 3.89 X10^3/uL (2.7-7.7); Neutrophil % 46.2 % (47-70); Platelet Count 496 K/mm3 (150-450); RBC Distribution Width CV 13.1 % (11.6-14.6); Red Blood Count 3.49 M/mm3 (4.2-5.4); White Blood Count 8.4 K/mm3 (4.4-11.0)
[2022-10-03 06:52] LABS: Anion Gap 3 (5-15); BUN 10 mg/dL (7-18); BUN/Creat Ratio 17.5 RATIO (10-20); Calcium,Total 8.6 mg/dL (8.5-10.1); Chloride 106 mmol/L (98-107); Creatinine, Serum 0.57 mg/dL (0.55-1.02); EST Glomerular Filtration Rate 123 mL/min (>60); Est Glom Filt Rate - Afr Amer 149 mL/min (>60); Estimated Creatinine Clearance 115.69 ml/min; Glucose 89 mg/dL (74-106); Potassium 3.3 mmol/L (3.5-5.1); Sodium Level 139 mmol/L (136-145)
--- NOTE | 2022-10-03 08:13 | PN_ITS ---
Subjective Subjective Patient seen early this a.m. and denies new events over the weekend. She does admit to continued pain post surgical intervention. Denies constitutional symptoms today. Denies further complaints today. Objective Data Objective Data Vital Signs: Vital Signs Temp Pulse Resp BP Pulse Ox O2 Del Method O2 Flow Rate 98.2 F 94 16 110/69 95 Room Air 0 10/03/22 03:16 10/03/22 03:16 10/03/22 03:16 10/03/22 03:16 10/03/22 03:16 10/03/22 03:16 10/01/22 21:13 Oxygen Flow Rate (L/min) 0 Oxygen Delivery Method Room Air Weight: 61.6 kg Body Mass Index (BMI) 22.6 Intake & Output: Intake and Output for Last 24 Hours 10/01/22 10/02/22 10/03/22 23:59 23:59 23:59 Intake Total 1393.5 / 1393.5 2430.00 / 2430.00 1115.5 / 1115.5 Output Total 650 / 650 700 / 800 100 / 100 Balance 743.5 / 743.5 1730.00 / 1630.00 1015.5 / 1015.5 Lab / Micro Data 10/03/22 05:33 10/03/22 05:33 Labs: Laboratory Results - last 24 hr 10/03/22 05:33: WBC 8.4, RBC 3.49 L, Hgb 10.2 L, Hct 32.2 L, MCV 92.3, MCH 29.2, MCHC 31.7 L, RDW Std Deviation 44.0 H, RDW Coeff of Sylvia 13.1, Plt Count 496 H, MPV 11.1, Immature Gran % (Auto) 0.600, Neut % (Auto) 46.2 L, Lymph % (Auto) 35. 7, [place] % (Auto) 8.9, Eos % (Auto) 8.0 H, Baso % (Auto) 0.6, Absolute Neuts ( auto) 3.9, Absolute Lymphs (auto) 3.01, Nucleated RBC % 0, Sodium 139, Potassium 3.3 L, Chloride 106, Carbon Dioxide 30.0, Anion Gap 3 L, BUN 10, Creatinine 0.57, Estim Creat Clear Calc 115.69, Est GFR (MDRD) Af Amer 149, Est GFR (MDRD) Non-Af 123, BUN/Creatinine Ratio 17.5, Glucose 89, Calcium 8.6 Micro: Microbiology 09/28/22 01:15 Blood Culture (Wb) - Anticubital Right Blood Culture - Final No growth in 5 days. 09/28/22 00:45 Blood Culture (Wb) - Anticubital Right Blood Culture - Final No growth in 5 days. 09/30/22 Unknown Bone - Other Gram Stain - Final 09/30/22 Unknown Bone - Other Wound Culture - Preliminary No growth-Final to follow 09/30/22 Unknown Bone - Other Anaerobic Culture - Preliminary No growth in 48 hours. 09/30/22 Unknown Bone - Other Gram Stain - Final 09/30/22 Unknown Bone - Other Wound Culture - Preliminary No growth-Final to follow 09/30/22 Unknown Bone - Other Anaerobic Culture - Preliminary No growth in 48 hours. 09/30/22 Unknown Wound Abcess - Right Foot Gram Stain - Final 09/30/22 Unknown Wound Abcess - Right Foot Wound Culture - Preliminary No growth-Final to follow 09/30/22 Unknown Wound Abcess - Right Foot Anaerobic Culture - Preliminary No growth in 48 hours. 09/28/22 01:45 Urine Catheter - Catheter Urine Culture - Final Culture exhibits no growth. 09/29/22 00:45 Urine, Clean Catch Legionella Antigen - Final 09/29/22 00:45 Urine, Clean Catch Streptococcus pneumoniae Antigen (M - Final Physical Exam Const alert, oriented x3 and no apparent distress General Appearance: cooperative HEENT normocephalic Eyes General Eye: normal appearance of both eyes Neck General: normal visual inspection Lymph Lymphatic: no lymphadenopathy noted and no lymphedema noted Resp normal respiratory effort Cardio regular rate and regular rhythm Extremity normal capillary refill and no calf tenderness Extremity Narrative: DP and PT pulses palpable. CFT < 2 seconds to digits of foot. Dermatological: Lateral incision site sutures intact. Anterior ankle sutures intact. Medial ankle sutures intact with iodoform packing gauze in place. No signs of localized infection. No local erythema, no purulent draiange, no malodor, no palpable fluctuance/bogginess, no visible abscess formation, no lymphangitic streaking. There is mild to moderate edema of the forefoot. Musculoskeletal: Muscle strength 5/5 and age appropriate. Pain to palpation about the medial and lateral ankle about wound margins. Skin no rashes or lesions noted, skin turgor normal and no jaundice Neuro moves all extremities Assessment & Plan Assessment/Plan (1) Non-pressure chronic ulcer of right ankle with fat layer exposed: (2) Wound of right ankle: (3) Ankle osteomyelitis, right: (4) Septic arthritis of ankle: QUALIFIERS: Laterality: right Septic arthritis organism: staphylococcal Qualified Code(s): M00.071 - Staphylococcal arthritis, right ankle and foot (5) MRSA bacteremia: (6) Ankle pain, right: PLAN: Plan Patient seen and evaluated Patient is s/p I&D of the right ankle abscess on 09/14/[address] Quinonez. POD #19 Currently 3 days out from return to the OR for I&D of right ankle by Dr. Elizabeth rose. Lateral incision site sutures intact, anterior ankle sutures intact, medial ankle sutures intact with iodoform packing gauze in place. No signs of localized infection. No palpable fluctuance/bogginess, no visible abscess formation. There is some mild edema to the forefoot. I reviewed diagnostic data. WBC currently 8.4 CRP 73.90, ESR 67, lactic acid 1.9, D-dimer 3.11, APTT 38.6. Patient did have positive urine testing for opioids, benzodiazepines, and cannabinoids. Patient did have CTA with no evidence of PE. Impression noted pneumonia right upper and lower lobe. Radiograph right ankle 09/28/2022 demonstrates soft tissue swelling anterior and medial ankle. There are possible bony erosions at the medial malleolus suggestive of osteomyelitis. Impression: Osteomyelitis of the medial malleolus. I did review these radiographs which does demonstrate subtle erosive changes of the medial malleolus versus previous imaging study from 09/13/2022. MRI performed 09/29/2022 demonstrates extensive circumferential diffuse subcutaneous soft tissue edema compatible with extensive cellulitis. Focal fluid collection on the plantar surface of the foot beneath the anterior process of the calcaneus measuring 2.1 cm x 1.4 cm x 1.1 cm. This fluid collection is compatible with focal abscess. Diffuse subcutaneous soft tissue edema within the plantar musculature and soft tissues of the dorsal aspect of the foot and ankle are noted compatible with cellulitis. Loss of articular cartilage of the tibiotalar joint with large tibiotalar joint effusion. Extensive bone marrow edema in distal tibia, distal fibula, and in the talus. This combination of findings is compatible with septic arthritis with adjacent osteomyelitis (sagittal series 4 images 4?18). Currently on IV vancomycin, ceftriaxone, Flagyl. Dressing changed with Adaptic, 4 x 4 gauze, ABD, Kerlix, 4 inch Rajan wrap rolled onto the foot. Iodoform packing remains in place to medial aspect of wound She is to remain nonweightbearing to the right lower extremity with assistance of crutches or walker. She is to elevate right lower extremity at all times of rest for edema control Medicine team currently following for medical management, they are greatly appreciated. Infectious disease currently following for antibiotic management. Their management is appreciated. Wound nurse assisting in dressing changes, she is appreciated. Currently ankle demonstrates no localized signs of infection. Sutures intact l ateral, anterior, and medial ankle with iodoform packing gauze medially. MRI was ordered demonstrating osteomyelitis of the fibula, talus, and tibia with likely septic arthritis and small abscess plantar foot. I discussed these findings with the patient and significant other today. Discussed all options with her in great detail. Discussed returning to the OR for I&D of the right ankle and foot with bone biopsy of the tibia on 09/30/22. Discussed if positive for osteomyelitis the likelihood of salvage does decrease. Discussed that she would require long-term IV antibiotics and SNF placement in addition to multiple surgical procedures and possible fusion of the ankle. Also discussed risk of amputation in the event of salvage being unsuccessful following multiple surgical interventions. Discussed option of BKA of the right lower extremity for definitive clearance of infection. Patient did ask what would occur if she refused surgical intervention and IV antibiotics only, this was discussed in detail as well. Discussed risk of infection spreading which may require more proximal amputation or in the event of sepsis the loss of life may occur. Patient states I do not want to lose my leg, I want to do everything I can to save this leg. I&D of the right ankle and bone biopsy of the tibia x4 was performed on 09/30/2022. Bone cultures currently demonstrating no growth, swab culture of abscess currently demonstrating no growth. Awaiting final results. Postoperative update: Patient did receive local proximal distal tibial block for postoperative pain control. Patient did tolerate procedure and anesthesia well. She will remain nonweightbearing to the right lower extremity. She will continue to elevate right lower extremity at all times of rest for postoperative edema control. During procedure ankle and tissues were irrigated copiously with Irrisept, followed by 3000 cc pulse lavage. 1 g of vancomycin powder was placed throughout ankle and soft tissues of the ankle and foot and Betadine soaked iodoform packing gauze was placed along the medial ankle at previous abscess site. Nursing may reinforce dressings for strikethrough as needed. Please not hesitate to call with any questions or concerns. Jr. Fazal Drake.P.M. [facility] [phone]
[2022-10-03] MEDS: Ceftriaxone 1 GM/50 ML BAG IV (09:18)
[2022-10-03] MEDS: DULoxetine Hcl 60 MG Capsule PO (09:19)
[2022-10-03] MEDS: Pregabalin 75 MG Capsule 150 MG PO ×2 (09:19→23:17)
[2022-10-03] MEDS: Potassium Chloride Oral Tablet 20 MEQ 40 MEQ PO (09:19)
[2022-10-03] MEDS: BREXPIPRAZOLE 2 MG TABLET PO (09:19)
[2022-10-03] MEDS: Pantoprazole Sodium 40 MG Tablet PO (09:20)
--- NOTE | 2022-10-03 09:31 | WOUNDNOTE ---
wound photo: right medial ankle
--- NOTE | 2022-10-03 09:32 | WOUNDNOTE ---
wound photo: right anterior ankle
--- NOTE | 2022-10-03 09:32 | WOUNDNOTE ---
wound photo: right lateral ankle
--- NOTE | 2022-10-03 12:12 | PN_ITS ---
Subjective Subjective Patient seen and examined. She is still complaining of pain in her lower extremity at the surgical site. She has no other complaints and review of systems otherwise negative. She has remained hemodynamically stable. Objective Data Objective Data Vital Signs: Vital Signs Temp Pulse Resp BP Pulse Ox O2 Del Method O2 Flow Rate 98.2 F 94 16 110/69 95 Room Air 0 10/03/22 03:16 10/03/22 03:16 10/03/22 03:16 10/03/22 03:16 10/03/22 03:16 10/03/22 03:16 10/01/22 21:13 Oxygen Flow Rate (L/min) 0 Oxygen Delivery Method Room Air Weight: 135 lb 12.876 oz Body Mass Index (BMI) 22.6 Intake & Output: Intake and Output for Last 24 Hours 10/01/22 10/02/22 10/03/22 23:59 23:59 23:59 Intake Total 1393.5 / 1393.5 2430.00 / 2430.00 1115.5 / 1115.5 Output Total 650 / 650 700 / 800 100 / 100 Balance 743.5 / 743.5 1730.00 / 1630.00 1015.5 / 1015.5 Lab / Micro Data 10/03/22 05:33 10/03/22 05:33 Labs: Laboratory Results - last 24 hr 10/03/22 05:33: WBC 8.4, RBC 3.49 L, Hgb 10.2 L, Hct 32.2 L, MCV 92.3, MCH 29.2, MCHC 31.7 L, RDW Std Deviation 44.0 H, RDW Coeff of Sylvia 13.1, Plt Count 496 H, MPV 11.1, Immature Gran % (Auto) 0.600, Neut % (Auto) 46.2 L, Lymph % (Auto) 35.7, [place] % (Auto) 8.9, Eos % (Auto) 8.0 H, Baso % (Auto) 0.6, Absolute Neuts (auto) 3.9, Absolute Lymphs (auto) 3.01, Nucleated RBC % 0, Sodium 139, Po tassium 3.3 L, Chloride 106, Carbon Dioxide 30.0, Anion Gap 3 L, BUN 10, Creatinine 0.57, Estim Creat Clear Calc 115.69, Est GFR (MDRD) Af Amer 149, Est GFR (MDRD) Non-Af 123, BUN/Creatinine Ratio 17.5, Glucose 89, Calcium 8.6 Micro: Microbiology 09/30/22 Unknown Bone - Other Gram Stain - Final 09/30/22 Unknown Bone - Other Wound Culture - Final No growth aerobically. 09/30/22 Unknown Bone - Other Anaerobic Culture - Preliminary No growth in 48 hours. 09/30/22 Unknown Bone - Other Gram Stain - Final 09/30/22 Unknown Bone - Other Wound Culture - Final No growth aerobically. 09/30/22 Unknown Bone - Other Anaerobic Culture - Preliminary No growth in 48 hours. 09/30/22 Unknown Wound Abcess - Right Foot Gram Stain - Final 09/30/22 Unknown Wound Abcess - Right Foot Wound Culture - Final No growth aerobically. 09/30/22 Unknown Wound Abcess - Right Foot Anaerobic Culture - Preliminary No growth in 48 hours. 09/28/22 01:15 Blood Culture (Wb) - Anticubital Right Blood Culture - Final No growth in 5 days. 09/28/22 00:45 Blood Culture (Wb) - Anticubital Right Blood Culture - Final No growth in 5 days. 09/28/22 01:45 Urine Catheter - Catheter Urine Culture - Final Culture exhibits no growth. 09/29/22 00:45 Urine, Clean Catch Legionella Antigen - Final 09/29/22 00:45 Urine, Clean Catch Streptococcus pneumoniae Antigen (M - Final Physical Exam Const alert, oriented x3 and no apparent distress General Appearance: cooperative HEENT normocephalic, moist oral mucous membranes and oropharynx normal Eyes PERRL and EOMs intact bilaterally Neck no lymphadenopathy, supple and no JVD Lymph Lymphatic: no lymphadenopathy noted Resp normal respiratory effort, normal air movement and clear to auscultation bilaterally Cardio regular rate, regular rhythm, S1 normal heart sound, S2 normal heart sound and n o murmurs GI normal to inspection, nondistended, normoactive bowel sounds, soft to palpation, non-tender and non-distended Extremity normal capillary refill, no clubbing, cyanosis or edema and no calf tenderness General Extremity: no tenderness to palpation of joints or extremities Skin Skin Narrative: RLE wrapped in bandage Neuro CN's II-XII intact bilaterally, no focal motor deficits, no sensory deficits noted and deep tendon reflexes 2+ bilaterally Motor Exam: strength 5/5 throughout and general weakness Psych thought process normal, cooperative and affect normal Appearance: appropriate Assessment & Plan Assessment/Plan (1) Ankle osteomyelitis, right: (2) Wound of right ankle: (3) Non-pressure chronic ulcer of right ankle with fat layer exposed: PLAN: Plan #RIght foot osteomyelitis * s/p surgery * on IV vancomycin and oral metronidazole * podaitry and ID on board. * MRI of foot showed extensive circumferential diffuse subcutaneous soft tissue edema compatible with cellulitis, focal fluid collection and compatible with abscess on the plantar surface of the foot * s/p Incision and drainage with debridement of right ankle and foot with bone biopsy of distal tibia on 09/30 * 2D echo done during this admission showed no evidence of endocarditis. * blood cultures grew MRSA. * #UTI: urine cultures pending. currently on IV vancomycin nad oral metronidazole as above #Hypokalemia: Potassium is 3.3. Replace and trend. #Community acquired pneumonia * CTA chest showed right upper lobe and right lower lobe pneuonia * on IV vancomycin * currently on room air * * #History of IV drug use * Per previous note, she was found to have helpful in the care home and during his last admission and there were needles found in a bed. * Will keep monitoring closely * * DVT prophylaxis; lovenox Charges/Coding Visit Charges Inpatient E&M: 20201 Subs Hosp L2
--- NOTE | 2022-10-03 12:15 | CASEMGMT ---
Addendum entered by Ngozi Daniels 10/03/22 12:36: Pt aware that hospitalist request pt to contact PCP for letter of living situation. Pt verbalizes understanding. Original Note: Pt nurse made aware that pt is requesting to speak to CM regarding her living situation. NAHOMY CORNEJO into pt room, pt tearful stating that the RN CLEMENTE told her landlord wrong. She does not want to stay on the second floor d/t a toilet but for the bathtub. Made pt aware this RN CLEMENTE spoke with her regarding this last week and that a letter could not be written d/t her wt bearing status and safety concern for being on the second floor. Pt states there is only a shower on the main floor and they will amputate my foot if I get it wet. Discussed with pt the possibility of placing a bag over her foot to keep from getting wet. Pt began crying and asks NAHOMY CORNEJO to ask her new hospitalist. NAHOMY CORNEJO sent message to hospitalist to discuss.
--- NOTE | 2022-10-03 14:29 | PCM.PN.ID ---
Physical Exam Narrative Feeling better, pain improved. No fever Const alert and no apparent distress General Appearance: cooperative Resp normal air movement and clear to auscultation bilaterally Cardio regular rate and regular rhythm GI soft to palpation, non-tender and non-distended Skin Skin Narrative: reviewed photos ID ID: Route of nutrition/ use of supplements: [] Nutritional Intake: [] IV Site: [] Mark Catheter: [] Assessment & Plan Assessment/Plan (1) Ankle osteomyelitis, right: (2) MRSA bacteremia: PLAN: MRSA bacteremia due to R ankle septic arthritis. Taken to OR 09/14/[address] Quinonez for I&D. Treated with vanc. Bcx cleared 09/15. No veg seen on TTE. Discharged to ECF on 4 weeks iv vanc, stop date 10/13/22 with weekly labs and ID followup in 2 weeks. 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 Returned after having to leave ECF, picc was removed, abx stopped. Came back with worsening RLE pain and with pneumonia seen on imaging, concern for possible aspiration. Bcx neg here. Neg UAgs. Ankle wounds appear to be doing well, but new xray with reported osteo. Podiatry consulted. Cont vanc. Will complete course for pneumonia with ceftriaxone/flagyl today. MRI shows new abscess and osteo. Taken to OR 09/30/22 for I&D. Surg cx neg so far. Will follow
[2022-10-03] MEDS: Enoxaparin 40 MG/0.4 ML Syringe SC (14:55)
--- NOTE | 2022-10-03 19:14 | NURSING ---
Pt has a visitor . He is escorted to the room by this nurse. He is notified it will be a monitored visit and just a quick visit. Nurse escorts visitor to the room and Pt is on the phone arguing with her significant other and is quite upset. Nurse and visitor noted pt is upset and tearful with the person on the other phone. Pt said it is her significant other is one line and is making her upset. Significant other return phone call at [phone] and this nurse and is updated that medication adjustment is made.
[2022-10-03] MEDS: HYDROmorphone 1 MG/ML Syringe IV ×2 (20:09→23:39)
[2022-10-03 20:15] VITALS: BP 120/69; PULSE 90; RESP 18; TEMP 37.1; O2SAT 97
[2022-10-03 22:11] VITALS: BP 114/81; PULSE 9; O2SAT 96
[2022-10-03] MEDS: Zolpidem Tartrate 5 MG Tablet PO (23:17)
[2022-10-03 23:35] VITALS: BP 106/78; PULSE 86
[2022-10-04 02:40] VITALS: BP 107/81; PULSE 89; RESP 14; TEMP 36.7; O2SAT 97
[2022-10-04 03:52] LABS: Absolute Lymphocyte Count 2.65 X10^3/uL (0.83-4.51); Absolute Neutrophil Count 2.4 X10^3/uL (2.0-7.7); Basophil# 0.05 X10^3/uL; Basophil% 0.8 % (0-1); Eosinophil# 0.75 X10^3/uL; Eosinophils% 11.5 % (0-5); Hematocrit 30.2 % (37-47); Hemoglobin 9.7 g/dL (12.0-15.0); Lymphocyte # 2.65 X10^3/ul (0.83-4.51); Lymphocyte % 40.8 % (19-41); Mean Corp Hgb Conc 32.1 g/dL (32-36); Mean Corpuscular Hgb 29.3 pg (27.0-32.0); Mean Corpuscular Volume 91.2 fL (81-99); Mean Platelet Vol. 10.8 fl (6.2-12.0); Monocyte# 0.61 X10^3/uL; Monocyte% 9.4 % (0-10); NRBC Flagged by Analyzer 0 % (0-5); Neutrophil # 2.41 X10^3/uL (2.7-7.7); Platelet Count 485 K/mm3 (150-450); RBC Distribution Width CV 13.1 % (11.6-14.6); RBC Distribution Width SD 43.9 fl (35.1-43.9); Red Blood Count 3.31 M/mm3 (4.2-5.4); White Blood Count 6.5 K/mm3 (4.4-11.0)
[2022-10-04] MEDS: HYDROmorphone 1 MG/ML Syringe IV ×4 (04:04→19:50)
[2022-10-04] MEDS: 0.9% Saline Lock 10 ML Syringe IV ×3 (04:04→19:50)
[2022-10-04 04:24] LABS: Anion Gap 2 (5-15); BUN 18 mg/dL (7-18); BUN/Creat Ratio 31.7 RATIO (10-20); Calcium,Total 8.6 mg/dL (8.5-10.1); Chloride 106 mmol/L (98-107); Creatinine, Serum 0.57 mg/dL (0.55-1.02); EST Glomerular Filtration Rate 124 mL/min (>60); Est Glom Filt Rate - Afr Amer 150 mL/min (>60); Estimated Creatinine Clearance 115.69 ml/min; Glucose 101 mg/dL (74-106); Potassium 3.9 mmol/L (3.5-5.1); Sodium Level 140 mmol/L (136-145)
--- NOTE | 2022-10-04 04:35 | PCM.RX.CS ---
Consult Antibiotic Management Pharmacy has been consulted to manage selected antiobiotic: Vancomycin Type of Intervention Type of Consult: Follow-up Suspected Infection Suspected Infection: Osteomyelitis Labs Labs: Sodium 140 mmol/L (136-145) 10/04/22 03:40 Potassium 3.9 mmol/L (3.5-5.1) 10/04/22 03:40 Chloride 106 mmol/L (98-107) 10/04/22 03:40 Carbon Dioxide 32.0 mmol/L (21.0-32.0) 10/04/22 03:40 Anion Gap 2 (5-15) L 10/04/22 03:40 BUN 18 mg/dL (7-18) 10/04/22 03:40 Creatinine 0.57 mg/dL (0.55-1.02) 10/04/22 03:40 Est GFR (MDRD) Af Amer 150 mL/min (>60) 10/04/22 03:40 Est GFR (MDRD) Non-Af 124 mL/min (>60) 10/04/22 03:40 BUN/Creatinine Ratio 31.7 RATIO (10-20) H 10/04/22 03:40 Glucose 101 mg/dL (74-106) 10/04/22 03:40 Vancomycin Trough 22.0 ug/mL (5.0-15.0) H 10/04/22 03:40 Microbiology Microbiology: Microbiology 09/30/22 Unknown Bone - Other Gram Stain - Final 09/30/22 Unknown Bone - Other Wound Culture - Final No growth aerobically. 09/30/22 Unknown Bone - Other Anaerobic Culture - Preliminary No growth in 48 hours. 09/30/22 Unknown Bone - Other Gram Stain - Final 09/30/22 Unknown Bone - Other Wound Culture - Final No growth aerobically. 09/30/22 Unknown Bone - Other Anaerobic Culture - Preliminary No growth in 48 hours. 09/30/22 Unknown Wound Abcess - Right Foot Gram Stain - Final 09/30/22 Unknown Wound Abcess - Right Foot Wound Culture - Final No growth aerobically. 09/30/22 Unknown Wound Abcess - Right Foot Anaerobic Culture - Preliminary No growth in 48 hours. 09/28/22 01:15 Blood Culture (Wb) - Anticubital Right Blood Culture - Final No growth in 5 days. 09/28/22 00:45 Blood Culture (Wb) - Anticubital Right Blood Culture - Final No growth in 5 days. 09/28/22 01:45 Urine Catheter - Catheter Urine Culture - Final Culture exhibits no growth. 09/29/22 00:45 Urine, Clean Catch Legionella Antigen - Final 09/29/22 00:45 Urine, Clean Catch Streptococcus pneumoniae Antigen (M - Final Dosing Weight Weight used for dosin.6 kg Estimated Creatinine Clearance Estimated Creatinine Clearance: >100 Goal Trough Goal Trough: 15-20 mcg/mL Pharmacy Plan for Drug Dosing Pharmacy Plan for Drug Dosing: Vancomycin trough level of 22.0, drawn 10.75hrs post-dose, was above the target range of 15-20. The next dose had already been hung before the lab result was received, so will hold further dosing until another level can be drawn in 12 hours. Pharmacy Service will continue to monitor and adjust dosing as required. Follow-Up Labs Follow-Up Labs: Trough: Vancomycin Date/Time Labs Ordered Labs to be done on [date and time ordered]: 10/04/22 @1600
[2022-10-04] MEDS: oxyCODONE 5 MG Tablet 15 MG PO ×3 (06:38→23:30)
[2022-10-04] MEDS: Enoxaparin 40 MG/0.4 ML Syringe SC (08:56)
[2022-10-04] MEDS: DULoxetine Hcl 60 MG Capsule PO (08:57)
[2022-10-04] MEDS: Pantoprazole Sodium 40 MG Tablet PO (08:57)
[2022-10-04] MEDS: BREXPIPRAZOLE 2 MG TABLET PO (08:57)
[2022-10-04] MEDS: Pregabalin 75 MG Capsule 150 MG PO ×2 (09:03→23:30)
[2022-10-04 09:15] VITALS: BP 123/89; PULSE 76; RESP 18; TEMP 37.1; O2SAT 96
--- NOTE | 2022-10-04 09:17 | PCM.PROGNOTE ---
Subjective Subjective Denies constitutionals pain controlled today no new issues overnight Objective Data Objective Data Vital Signs: Vital Signs Temp Pulse Resp BP Pulse Ox O2 Del Method O2 Flow Rate 98.7 F 76 18 123/89 H 96 Room Air 0 10/04/22 09:15 10/04/22 09:15 10/04/22 09:15 10/04/22 09:15 10/04/22 09:15 10/04/22 09:15 10/01/22 21:13 Oxygen Flow Rate (L/min) 0 Oxygen Delivery Method Room Air Weight: 61.6 kg Body Mass Index (BMI) 22.6 Intake & Output: Intake and Output for Last 24 Hours 10/02/22 10/03/22 10/04/22 23:59 23:59 23:59 Intake Total 2430.00 / 2430.00 3025.5 / 3145.5 950 / 950 Output Total 700 / 800 100 / 100 Balance 1730.00 / 1630.00 2925.5 / 3045.5 950 / 950 Lab / Micro Data 10/04/22 03:40 10/04/22 03:40 Labs: Laboratory Results - last 24 hr 10/04/22 03:40: WBC 6.5, RBC 3.31 L, Hgb 9.7 L, Hct 30.2 L, MCV 91.2, MCH 29.3, MCHC 32.1, RDW Std Deviation 43.9, RDW Coeff of Sylvia 13.1, Plt Count 485 H, MPV 10.8, Immature Gran % (Auto) 0.500, Neut % (Auto) 37.0 L, Lymph % (Auto) 40.8, [place] % (Auto) 9.4, Eos % (Auto) 11.5 H, Baso % (Auto) 0.8, Absolute Neuts (auto) 2.4, Absolute Lymphs (auto) 2.65, Nucleated RBC % 0, Sodium 140, Potassium 3.9, Chloride 106, Carbon Dioxide 32.0, Anion Gap 2 L, BUN 18, Creatinine 0.57, Estim Creat Clear Calc 115.69, Est GFR (MDRD) Af Amer 150, Est GFR (MDRD) Non-Af 124, BUN/Creatinine Ratio 31.7 H, Glucose 101, Calcium 8.6, Vancomycin Trough 22.0 H Micro: Microbiology 09/30/22 Unknown Bone - Other Gram Stain - Final 09/30/22 Unknown Bone - Other Wound Culture - Final No growth aerobically. 09/30/22 Unknown Bone - Other Anaerobic Culture - Preliminary No growth in 48 hours. 09/30/22 Unknown Bone - Other Gram Stain - Final 09/30/22 Unknown Bone - Other Wound Culture - Final No growth aerobically. 09/30/22 Unknown Bone - Other Anaerobic Culture - Preliminary No growth in 48 hours. 09/30/22 Unknown Wound Abcess - Right Foot Gram Stain - Final 09/30/22 Unknown Wound Abcess - Right Foot Wound Culture - Final No growth aerobically. 09/30/22 Unknown Wound Abcess - Right Foot Anaerobic Culture - Preliminary No growth in 48 hours. 09/28/22 01:15 Blood Culture (Wb) - Anticubital Right Blood Culture - Final No growth in 5 days. 09/28/22 00:45 Blood Culture (Wb) - Anticubital Right Blood Culture - Final No growth in 5 days. 09/28/22 01:45 Urine Catheter - Catheter Urine Culture - Final Culture exhibits no growth. 09/29/22 00:45 Urine, Clean Catch Legionella Antigen - Final 09/29/22 00:45 Urine, Clean Catch Streptococcus pneumoniae Antigen (M - Final Physical Exam Narrative NV status unchanged no sign of DVT Dressing left clean, dry and intact Const alert and oriented x3 Assessment & Plan Assessment/Plan (1) Non-pressure chronic ulcer of right ankle with fat layer exposed: (2) Wound of right ankle: (3) Ankle osteomyelitis, right: (4) Septic arthritis of ankle: QUALIFIERS: Septic arthritis organism: staphylococcal Laterality: right Qualified Code(s): M00.071 - Staphylococcal arthritis, right ankle and foot (5) MRSA bacteremia: (6) Ankle pain, right: PLAN: Plan Exam performed Patient doing well post op surgical cultures remain negative at current - previous cultures + MRSA (09/14/22) patient receiving ceftriaxone/metronidazole per ID for pneumonia SNF/supervisor intermediates IV abx likely not an option due to issues with IVDU/non-compliance recommend continued NWB until healing Recommend [facility] dressing changes 2-3 times a week on discharge consisting of adaptic to closed incisions and adaptic/dakin's to medial ankle with DSD and saray bandage will await final ID abx recommendations - patient stable for d/c with regards to right ankle infection
--- NOTE | 2022-10-04 10:07 | PCM.PN.ID ---
Physical Exam Narrative Feeling better today, leg less sore, no fever, no n/v/d. Const alert and no apparent distress Resp normal air movement and clear to auscultation bilaterally Cardio regular rate and regular rhythm GI soft to palpation, non-tender and non-distended Skin Skin Narrative: RLE wrapped ID ID: Route of nutrition/ use of supplements: [] Nutritional Intake: [] IV Site: [] Mark Catheter: [] Assessment & Plan Assessment/Plan (1) Ankle osteomyelitis, right: (2) MRSA bacteremia: PLAN: MRSA bacteremia due to R ankle septic arthritis. Taken to OR 09/14/[address] Quinonez for I&D. Treated with vanc. Bcx cleared 09/15. No veg seen on TTE. Discharged to ECF on 4 weeks iv vanc, stop date 10/13/22 with weekly labs and ID followup in 2 weeks. 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 Returned after having to leave ECF, picc was removed, abx stopped. Came back with worsening RLE pain and with pneumonia seen on imaging, concern for possible aspiration. Bcx neg here. Neg UAgs. Ankle wounds appear to be doing well, but new xray with reported osteo. Podiatry following. Cont vanc. MRI shows new abscess and osteo. Taken to OR 09/30/22 for I&D. Surg cx neg so far. Plan is for po abx at discharge given h/o noncompliance with picc and concern for ivdu. Will follow
--- NOTE | 2022-10-04 12:50 | PN_ITS ---
Subjective Subjective Patient seen and examined. She had no complaints today. She said pain had improved only a bit. Review of systems otherwise negative. She has made hemodynamically stable. Objective Data Objective Data Vital Signs: Vital Signs Temp Pulse Resp BP Pulse Ox O2 Del Method O2 Flow Rate 98.7 F 76 18 123/89 H 96 Room Air 0 10/04/22 09:15 10/04/22 09:15 10/04/22 09:15 10/04/22 09:15 10/04/22 09:15 10/04/22 10:00 10/01/22 21:13 Oxygen Flow Rate (L/min) 0 Oxygen Delivery Method Room Air Weight: 135 lb 12.876 oz Body Mass Index (BMI) 22.6 Intake & Output: Intake and Output for Last 24 Hours 10/02/22 10/03/22 10/04/22 23:59 23:59 23:59 Intake Total 2430.00 / 2430.00 3025.5 / 3145.5 1750 / 1750 Output Total 700 / 800 100 / 100 Balance 1730.00 / 1630.00 2925.5 / 3045.5 1750 / 1750 Lab / Micro Data 10/04/22 03:40 10/04/22 03:40 Labs: Laboratory Results - last 24 hr 10/04/22 03:40: WBC 6.5, RBC 3.31 L, Hgb 9.7 L, Hct 30.2 L, MCV 91.2, MCH 29.3, MCHC 32.1, RDW Std Deviation 43.9, RDW Coeff of Sylvia 13.1, Plt Count 485 H, MPV 10.8, Immature Gran % (Auto) 0.500, Neut % (Auto) 37.0 L, Lymph % (Auto) 40.8, Marion % (Auto) 9.4, Eos % (Auto) 11.5 H, Baso % (Auto) 0.8, Absolute Neuts (auto) 2.4, Absolute Lymphs (auto) 2.65, Nucleated RBC % 0, Sodium 140, Potassium 3.9, Chloride 106, Carbon Dioxide 32.0, Anion Gap 2 L, BUN 18, Creatinine 0.57, Estim Creat Clear Calc 115.69, Est GFR (MDRD) Af Amer 150, Est GFR (MDRD) Non-Af 124, BUN/Creatinine Ratio 31.7 H, Glucose 101, Calcium 8.6, Vancomycin Trough 22.0 H Micro: Microbiology 09/30/22 Unknown Bone - Other Gram Stain - Final 09/30/22 Unknown Bone - Other Wound Culture - Final No growth aerobically. 09/30/22 Unknown Bone - Other Anaerobic Culture - Preliminary No growth in 48 hours. 09/30/22 Unknown Bone - Other Gram Stain - Final 09/30/22 Unknown Bone - Other Wound Culture - Final No growth aerobically. 09/30/22 Unknown Bone - Other Anaerobic Culture - Preliminary No growth in 48 hours. 09/30/22 Unknown Wound Abcess - Right Foot Gram Stain - Final 09/30/22 Unknown Wound Abcess - Right Foot Wound Culture - Final No growth aerobically. 09/30/22 Unknown Wound Abcess - Right Foot Anaerobic Culture - Preliminary No growth in 48 hours. 09/28/22 01:15 Blood Culture (Wb) - Anticubital Right Blood Culture - Final No growth in 5 days. 09/28/22 00:45 Blood Culture (Wb) - Anticubital Right Blood Culture - Final No growth in 5 days. 09/28/22 01:45 Urine Catheter - Catheter Urine Culture - Final Culture exhibits no growth. 09/29/22 00:45 Urine, Clean Catch Legionella Antigen - Final 09/29/22 00:45 Urine, Clean Catch Streptococcus pneumoniae Antigen (M - Final Physical Exam Const alert, oriented x3 and no apparent distress General Appearance: cooperative HEENT normocephalic, moist oral mucous membranes and oropharynx normal Eyes PERRL and EOMs intact bilaterally Neck no lymphadenopathy, supple and no JVD Lymph Lymphatic: no lymphadenopathy noted Resp normal respiratory effort, normal air movement and clear to auscultation bilaterally Cardio regular rate, regular rhythm, S1 normal heart sound, S2 normal heart sound and no murmurs GI normal to inspection, nondistended, normoactive bowel sounds, soft to palpation, non-tender and non-distended Extremity normal capillary refill, no clubbing, cyanosis or edema and no calf tenderness General Extremity: no tenderness to palpation of joints or extremities Skin Skin Narrative: RLE wrapped in bandage Neuro CN's II-XII intact bilaterally, no focal motor deficits, no sensory deficits noted and deep tendon reflexes 2+ bilaterally Motor Exam: strength 5/5 throughout and general weakness Psych thought process normal, cooperative and affect normal Appearance: appropriate Assessment & Plan Assessment/Plan (1) Ankle osteomyelitis, right: (2) Wound of right ankle: (3) Non-pressure chronic ulcer of right ankle with fat layer exposed: PLAN: Plan #RIght foot osteomyelitis * s/p surgery * on IV vancomycin and oral metronidazole * podaitry and ID on board. * MRI of foot showed extensive circumferential diffuse subcutaneous soft tissue edema compatible with cellulitis, focal fluid collection and compatible with abscess on the plantar surface of the foot * s/p Incision and drainage with debridement of right ankle and foot with bone biopsy of distal tibia on 09/30 * 2D echo done during this admission showed no evidence of endocarditis. * blood cultures grew MRSA. * wound cultures negative. * #UTI: urine cultures pending. currently on IV vancomycin nad oral metronidazole as above #Hypokalemia: resolved. Potassium is 3.9. #Community acquired pneumonia * CTA chest showed right upper lobe and right lower lobe pneumonia * on IV vancomycin * currently on room air * * #History of IV drug use * Per previous note, she was found to have helpful in the [facility]dc and during his last admission and there were needles found in a bed. * Will keep monitoring closely * no visitors allowed during this admission as some of her previous visitors brought her illicit drugs * DVT prophylaxis; lovenox Charges/Coding Visit Charges Inpatient E&M: 90741 Subs Hosp L2
[2022-10-04 15:09] VITALS: BP 110/69; PULSE 79; RESP 16; TEMP 36.8; O2SAT 96
[2022-10-04] MEDS: clonazePAM 1 MG Tablet PO ×2 (15:16→23:30)
[2022-10-04 16:59] LABS: Vancomycin, Trough Level 21.6 ug/mL (5.0-15.0)
--- NOTE | 2022-10-04 17:46 | PCM.RX.CS ---
Consult Antibiotic Management Pharmacy has been consulted to manage selected antiobiotic: Vancomycin Type of Intervention Type of Consult: Follow-up Suspected Infection Suspected Infection: Osteomyelitis Labs Labs: Sodium 140 mmol/L (136-145) 10/04/22 03:40 Potassium 3.9 mmol/L (3.5-5.1) 10/04/22 03:40 Chloride 106 mmol/L (98-107) 10/04/22 03:40 Carbon Dioxide 32.0 mmol/L (21.0-32.0) 10/04/22 03:40 Anion Gap 2 (5-15) L 10/04/22 03:40 BUN 18 mg/dL (7-18) 10/04/22 03:40 Creatinine 0.57 mg/dL (0.55-1.02) 10/04/22 03:40 Est GFR (MDRD) Af Amer 150 mL/min (>60) 10/04/22 03:40 Est GFR (MDRD) Non-Af 124 mL/min (>60) 10/04/22 03:40 BUN/Creatinine Ratio 31.7 RATIO (10-20) H 10/04/22 03:40 Glucose 101 mg/dL (74-106) 10/04/22 03:40 Vancomycin Trough 21.6 ug/mL (5.0-15.0) H 10/04/22 15:55 Microbiology Microbiology: Microbiology 09/30/22 Unknown Bone - Other Gram Stain - Final 09/30/22 Unknown Bone - Other Wound Culture - Final No growth aerobically. 09/30/22 Unknown Bone - Other Anaerobic Culture - Preliminary No growth in 48 hours. 09/30/22 Unknown Bone - Other Gram Stain - Final 09/30/22 Unknown Bone - Other Wound Culture - Final No growth aerobically. 09/30/22 Unknown Bone - Other Anaerobic Culture - Preliminary No growth in 48 hours. 09/30/22 Unknown Wound Abcess - Right Foot Gram Stain - Final 09/30/22 Unknown Wound Abcess - Right Foot Wound Culture - Final No growth aerobically. 09/30/22 Unknown Wound Abcess - Right Foot Anaerobic Culture - Preliminary No growth in 48 hours. 09/28/22 01:15 Blood Culture (Wb) - Anticubital Right Blood Culture - Final No growth in 5 days. 09/28/22 00:45 Blood Culture (Wb) - Anticubital Right Blood Culture - Final No growth in 5 days. 09/28/22 01:45 Urine Catheter - Catheter Urine Culture - Final Culture exhibits no growth. 09/29/22 00:45 Urine, Clean Catch Legionella Antigen - Final 09/29/22 00:45 Urine, Clean Catch Streptococcus pneumoniae Antigen (M - Final Goal Trough Goal Trough: 15-20 mcg/mL Pharmacy Plan for Drug Dosing Pharmacy Plan for Drug Dosing: VANCOMYCIN LEVEL RECEIVED Current Vancomycin Dose: Vancomycin currently stopped (due to previous high trough or number of doses met?) Number of Doses Received: Vancomycin Level: 21.6 Hours Since Last Dose: Renal Function: SrCr 0.57 Renal Function Trend: stable Lab/Micro: Vancomycin Plan/Comments: recommend checking a random level 10/05/22 at 0600. dose Vancomcyin off of the random level results Pending Level: 10/05/22 @ 0600 (random level) Pharmacy Service will continue to monitor and adjust dosing as required. Follow-Up Labs Follow-Up Labs: Trough: Vancomycin (10/05/22 at 0600 (random level))
[2022-10-04 20:25] VITALS: BP 112/76; PULSE 77; RESP 16; TEMP 36.6; O2SAT 99
[2022-10-04] MEDS: Zolpidem Tartrate 5 MG Tablet PO (23:30)
[2022-10-05 02:28] VITALS: BP 110/72; PULSE 72; RESP 16; TEMP 36.8; O2SAT 95
[2022-10-05] MEDS: 0.9% Saline Lock 10 ML Syringe IV ×3 (02:30→15:07)
[2022-10-05] MEDS: HYDROmorphone 1 MG/ML Syringe IV ×3 (02:30→15:07)
[2022-10-05] MEDS: clonazePAM 1 MG Tablet PO ×3 (06:41→22:21)
--- NOTE | 2022-10-05 08:04 | PCM.PROGNOTE ---
Subjective Subjective Patient seen this a.m. resting with foot elevated. Nursing reports no overnight events. Patient believes swelling is improving. Patient denies constitutional symptoms. Patient denies further complaints. Objective Data Objective Data Vital Signs: Vital Signs Temp Pulse Resp BP Pulse Ox O2 Del Method O2 Flow Rate 98.3 F 72 16 110/72 95 Room Air 0 10/05/22 02:28 10/05/22 02:28 10/05/22 02:28 10/05/22 02:28 10/05/22 02:28 10/05/22 04:00 10/01/22 21:13 Oxygen Flow Rate (L/min) 0 Oxygen Delivery Method Room Air Weight: 61.6 kg Body Mass Index (BMI) 22.6 Intake & Output: Intake and Output for Last 24 Hours 10/03/22 10/04/22 10/05/22 23:59 23:59 23:59 Intake Total 3025.5 / 3145.5 2261.5 / 2761.5 1000 / 1000 Output Total 100 / 100 Balance 2925.5 / 3045.5 2261.5 / 2761.5 1000 / 1000 Lab / Micro Data 10/04/22 03:40 10/04/22 03:40 Labs: Laboratory Results - last 24 hr 10/04/22 15:55: Vancomycin Trough 21.6 H Micro: Microbiology 09/30/22 Unknown Bone - Other Gram Stain - Final 09/30/22 Unknown Bone - Other Wound Culture - Final No growth aerobically. 09/30/22 Unknown Bone - Other Anaerobic Culture - Preliminary No growth in 48 hours. 09/30/22 Unknown Bone - Other Gram Stain - Final 09/30/22 Unknown Bone - Other Wound Culture - Final No growth aerobically. 09/30/22 Unknown Bone - Other Anaerobic Culture - Preliminary No growth in 48 hours. 09/30/22 Unknown Wound Abcess - Right Foot Gram Stain - Final 09/30/22 Unknown Wound Abcess - Right Foot Wound Culture - Final No growth aerobically. 09/30/22 Unknown Wound Abcess - Right Foot Anaerobic Culture - Preliminary No growth in 48 hours. 09/28/22 01:15 Blood Culture (Wb) - Anticubital Right Blood Culture - Final No growth in 5 days. 09/28/22 00:45 Blood Culture (Wb) - Anticubital Right Blood Culture - Final No growth in 5 days. 09/28/22 01:45 Urine Catheter - Catheter Urine Culture - Final Culture exhibits no growth. 09/29/22 00:45 Urine, Clean Catch Legionella Antigen - Final 09/29/22 00:45 Urine, Clean Catch Streptococcus pneumoniae Antigen (M - Final Physical Exam Narrative NV status unchanged no sign of DVT Dressing left clean, dry and intact Const alert, oriented x3 and no apparent distress General Appearance: cooperative HEENT normocephalic Eyes General Eye: normal appearance of both eyes Neck General: normal visual inspection Lymph Lymphatic: no lymphadenopathy noted and no lymphedema noted Resp normal respiratory effort Cardio regular rate and regular rhythm Extremity normal capillary refill and no calf tenderness Extremity Narrative: DP and PT pulses palpable. CFT < 2 seconds to digits of foot. Dermatological: Lateral incision site sutures intact. Anterior ankle sutures intact. Medial ankle sutures intact with iodoform packing gauze in place. No signs of localized infection. No local erythema, no purulent draiange, no malodor, no palpable fluctuance/bogginess, no visible abscess formation, no lymphangitic streaking. There is mild to moderate edema of the forefoot. Musculoskeletal: Muscle strength 5/5 and age appropriate. Pain to palpation about the medial and lateral ankle about wound margins. Skin no rashes or lesions noted, skin turgor normal and no jaundice Neuro moves all extremities Assessment & Plan Assessment/Plan (1) Non-pressure chronic ulcer of right ankle with fat layer exposed: (2) Wound of right ankle: (3) Ankle osteomyelitis, right: (4) Septic arthritis of ankle: QUALIFIERS: Laterality: right Septic arthritis organism: staphylococcal Qualified Code(s): M00.071 - Staphylococcal arthritis, right ankle and foot (5) MRSA bacteremia: (6) Ankle pain, right: PLAN: Plan Patient seen and evaluated Patient is s/p I&D of the right ankle abscess on 09/14/[address] Quinonez. POD #21 Currently 5 days out from return to the OR for I&D of right ankle by Dr. Baig. Lateral incision site sutures intact, anterior ankle sutures intact, medial ankle sutures intact. No signs of localized infection. No palpable fluctuance/bogginess, no visible abscess formation. There is some mild edema to the forefoot. I reviewed diagnostic data. WBC currently WNL. Radiograph right ankle 09/28/2022 demonstrates soft tissue swelling anterior and medial ankle. There are possible bony erosions at the medial malleolus suggestive of osteomyelitis. Impression: Osteomyelitis of the medial malleolus. I did review these radiographs which does demonstrate subtle erosive changes of the medial malleolus versus previous imaging study from 09/13/2022. MRI performed 09/29/2022 demonstrates extensive circumferential diffuse subcutaneous soft tissue edema compatible with extensive cellulitis. Focal fluid collection on the plantar surface of the foot beneath the anterior process of the calcaneus measuring 2.1 cm x 1.4 cm x 1.1 cm. This fluid collection is compatible with focal abscess. Diffuse subcutaneous soft tissue edema within the plantar musculature and soft tissues of the dorsal aspect of the foot and ankle are noted compatible with cellulitis. Loss of articular cartilage of the tibiotalar joint with large tibiotalar joint effusion. Extensive bone marrow edema in distal tibia, distal fibula, and in the talus. This combination of findings is compatible with septic arthritis with adjacent osteomyelitis (sagittal series 4 images 4?18). Dressing changed with Adaptic, 4 x 4 gauze, ABD, Kerlix, 4 inch Rajan wrap rolled onto the foot. Iodoform packing removed today. She is to remain nonweightbearing to the right lower extremity with assistance of crutches or walker. She is to elevate right lower extremity at all times of rest for edema control Medicine team currently following for medical management, they are greatly appreciated. Infectious disease currently following for antibiotic management. Their management is appreciated. Wound nurse assisting in dressing changes, she is appreciated. Currently ankle demonstrates no localized signs of infection. Sutures intact lateral, anterior, and medial ankle. Currently on IV vancomycin, ceftriaxone, Flagyl. MRI was performed 09/29/22 demonstrating osteomyelitis of the fibula, talus, and tibia with likely septic arthritis and small abscess plantar foot. I&D of the right ankle and bone biopsy of the tibia x4 was performed on 09/30/2022. Bone cultures currently demonstrating no growth, swab culture of abscess currently demonstrating no growth. All cultures currently negative, awaiting final results. Previous cultures positive for MRSA on 09/14/2022. SNF/residential IV abx likely not an option due to issues with IVDU/non-compliance recommend continued NWB until healing Recommend [facility] dressing changes 2-3 times a week on discharge consisting of adaptic to closed incisions and adaptic/dakin's to medial ankle with DSD and rajan bandage will await final ID abx recommendations - patient stable for d/c with regards to right ankle infection Please not hesitate to call with any questions or concerns. Jr. Nina DrakeP.M. [facility] [phone]
[2022-10-05 08:14] LABS: Absolute Lymphocyte Count 2.85 X10^3/uL (0.83-4.51); Absolute Neutrophil Count 3.4 X10^3/uL (2.0-7.7); Basophil# 0.04 X10^3/uL; Basophil% 0.5 % (0-1); Eosinophil# 0.64 X10^3/uL; Eosinophils% 8.5 % (0-5); Hematocrit 30.9 % (37-47); Hemoglobin 10.1 g/dL (12.0-15.0); Lymphocyte # 2.85 X10^3/ul (0.83-4.51); Lymphocyte % 37.9 % (19-41); Mean Corp Hgb Conc 32.7 g/dL (32-36); Mean Corpuscular Hgb 29.5 pg (27.0-32.0); Mean Corpuscular Volume 90.4 fL (81-99); Mean Platelet Vol. 10.4 fl (6.2-12.0); Monocyte# 0.57 X10^3/uL; Monocyte% 7.6 % (0-10); NRBC Flagged by Analyzer 0 % (0-5); Neutrophil # 3.38 X10^3/uL (2.7-7.7); Neutrophil % 45.1 % (47-70); Platelet Count 545 K/mm3 (150-450); RBC Distribution Width CV 13.2 % (11.6-14.6); RBC Distribution Width SD 43.3 fl (35.1-43.9); Red Blood Count 3.42 M/mm3 (4.2-5.4); White Blood Count 7.5 K/mm3 (4.4-11.0)
[2022-10-05 08:15] LABS: Vancomycin, Random Level 6.8 ug/mL (0.0-15.0)
[2022-10-05 08:41] LABS: Anion Gap 5 (5-15); BUN 17 mg/dL (7-18); BUN/Creat Ratio 31.8 RATIO (10-20); Calcium,Total 8.9 mg/dL (8.5-10.1); Chloride 105 mmol/L (98-107); Creatinine, Serum 0.54 mg/dL (0.55-1.02); EST Glomerular Filtration Rate 133 mL/min (>60); Est Glom Filt Rate - Afr Amer 161 mL/min (>60); Estimated Creatinine Clearance 122.12 ml/min; Glucose 92 mg/dL (74-106); Potassium 4.1 mmol/L (3.5-5.1); Sodium Level 141 mmol/L (136-145)
[2022-10-05 09:40] VITALS: BP 114/89; PULSE 84; RESP 18; TEMP 37.1; O2SAT 97
[2022-10-05] MEDS: oxyCODONE 5 MG Tablet 15 MG PO ×3 (09:43→23:15)
[2022-10-05] MEDS: Pantoprazole Sodium 40 MG Tablet PO (09:43)
[2022-10-05] MEDS: BREXPIPRAZOLE 2 MG TABLET PO (09:43)
[2022-10-05] MEDS: DULoxetine Hcl 60 MG Capsule PO (09:43)
[2022-10-05] MEDS: DAKIN'S SOL HALF STRENGTH (=0.25%) 1 APPLIC TOPICAL (09:44)
[2022-10-05] MEDS: Enoxaparin 40 MG/0.4 ML Syringe SC (09:44)
[2022-10-05] MEDS: Pregabalin 75 MG Capsule 150 MG PO ×2 (09:46→22:21)
--- NOTE | 2022-10-05 09:57 | PCM.RX.CS ---
Consult Antibiotic Management Pharmacy has been consulted to manage selected antiobiotic: Vancomycin Type of Intervention Type of Consult: Follow-up Suspected Infection Suspected Infection: Osteomyelitis Prior Doses of Antibiotics Prior Doses of Antibiotics Received/Current Regimen: Had been on 1500mg iv q12h. Labs Labs: Sodium 141 mmol/L (136-145) 10/05/22 07:57 Potassium 4.1 mmol/L (3.5-5.1) 10/05/22 07:57 Chloride 105 mmol/L (98-107) 10/05/22 07:57 Carbon Dioxide 31.0 mmol/L (21.0-32.0) 10/05/22 07:57 Anion Gap 5 (5-15) 10/05/22 07:57 BUN 17 mg/dL (7-18) 10/05/22 07:57 Creatinine 0.54 mg/dL (0.55-1.02) L 10/05/22 07:57 Est GFR (MDRD) Af Amer 161 mL/min (>60) 10/05/22 07:57 Est GFR (MDRD) Non-Af 133 mL/min (>60) 10/05/22 07:57 BUN/Creatinine Ratio 31.8 RATIO (10-20) H 10/05/22 07:57 Glucose 92 mg/dL (74-106) 10/05/22 07:57 Vancomycin Trough 21.6 ug/mL (5.0-15.0) H 10/04/22 15:55 Random Vancomycin 6.8 ug/mL (0.0-15.0) 10/05/22 06:55 Microbiology Microbiology: Microbiology 09/30/22 Unknown Bone - Other Gram Stain - Final 09/30/22 Unknown Bone - Other Wound Culture - Final No growth aerobically. 09/30/22 Unknown Bone - Other Anaerobic Culture - Preliminary No growth in 48 hours. 09/30/22 Unknown Bone - Other Gram Stain - Final 09/30/22 Unknown Bone - Other Wound Culture - Final No growth aerobically. 09/30/22 Unknown Bone - Other Anaerobic Culture - Preliminary No growth in 48 hours. 09/30/22 Unknown Wound Abcess - Right Foot Gram Stain - Final 09/30/22 Unknown Wound Abcess - Right Foot Wound Culture - Final No growth aerobically. 09/30/22 Unknown Wound Abcess - Right Foot Anaerobic Culture - Preliminary No growth in 48 hours. 09/28/22 01:15 Blood Culture (Wb) - Anticubital Right Blood Culture - Final No growth in 5 days. 09/28/22 00:45 Blood Culture (Wb) - Anticubital Right Blood Culture - Final No growth in 5 days. 09/28/22 01:45 Urine Catheter - Catheter Urine Culture - Final Culture exhibits no growth. 09/29/22 00:45 Urine, Clean Catch Legionella Antigen - Final 09/29/22 00:45 Urine, Clean Catch Streptococcus pneumoniae Antigen (M - Final Dosing Weight Weight used for dosin.6 kg Estimated Creatinine Clearance Estimated Creatinine Clearance: >100 Goal Trough Goal Trough: 15-20 mcg/mL Pharmacy Plan for Drug Dosing Pharmacy Plan for Drug Dosing: Random level today was 6.8. Previous trough 21.6 and dosing had been held. Will start new dosing at 1250mg iv q12h with trough level before 4th dose. Pharmacy Service will continue to monitor and adjust dosing as required. Follow-Up Labs Follow-Up Labs: Trough: Vancomycin (8.24.23 @2230)
--- NOTE | 2022-10-05 13:29 | PN_ITS ---
Subjective Subjective Patient seen and examined. She complained of poorly controlled. Pain. She had no active complaints. Review of systems is otherwise negative. Objective Data Objective Data Vital Signs: Vital Signs Temp Pulse Resp BP Pulse Ox O2 Del Method O2 Flow Rate 98.8 F 84 18 114/89 H 97 Room Air 0 10/05/22 09:40 10/05/22 09:40 10/05/22 09:40 10/05/22 09:40 10/05/22 09:40 10/05/22 09:40 10/01/22 21:13 Oxygen Flow Rate (L/min) 0 Oxygen Delivery Method Room Air Weight: 135 lb 12.876 oz Body Mass Index (BMI) 22.6 Intake & Output: Intake and Output for Last 24 Hours 10/03/22 10/04/22 10/05/22 23:59 23:59 23:59 Intake Total 3025.5 / 3145.5 2261.5 / 2761.5 1275 / 1275 Output Total 100 / 100 Balance 2925.5 / 3045.5 2261.5 / 2761.5 1275 / 1275 Lab / Micro Data 10/05/22 07:57 10/05/22 07:57 Labs: Laboratory Results - last 24 hr 10/04/22 15:55: Vancomycin Trough 21.6 H 10/05/22 06:55: Random Vancomycin 6.8 10/05/22 07:57: WBC 7.5, RBC 3.42 L, Hgb 10.1 L, Hct 30.9 L, MCV 90.4, MCH 29.5, MCHC 32.7, RDW Std Deviation 43.3, RDW Coeff of Sylvia 13.2, Plt Count 545 H, MPV 10.4, Immature Gran % (Auto) 0.400, Neut % (Auto) 45.1 L, Lymph % (Auto) 37.9, Cocke % (Auto) 7.6, Eos % (Auto) 8.5 H, Baso % (Auto) 0.5, Absolute Neuts (auto) 3.4, Absolute Lymphs (auto) 2.85, Nucleated RBC % 0, Sodium 141, Potassium 4.1, Chloride 105, Carbon Dioxide 31.0, Anion Gap 5, BUN 17, Creatinine 0.54 L, Estim Creat Clear Calc 122.12, Est GFR (MDRD) Af Amer 161, Est GFR (MDRD) Non-Af 133, BUN/Creatinine Ratio 31.8 H, Glucose 92, Calcium 8.9 Micro: Microbiology 09/30/22 Unknown Bone - Other Gram Stain - Final 09/30/22 Unknown Bone - Other Wound Culture - Final No growth aerobically. 09/30/22 Unknown Bone - Other Anaerobic Culture - Preliminary No growth in 48 hours. 09/30/22 Unknown Bone - Other Gram Stain - Final 09/30/22 Unknown Bone - Other Wound Culture - Final No growth aerobically. 09/30/22 Unknown Bone - Other Anaerobic Culture - Preliminary No growth in 48 hours. 09/30/22 Unknown Wound Abcess - Right Foot Gram Stain - Final 09/30/22 Unknown Wound Abcess - Right Foot Wound Culture - Final No growth aerobically. 09/30/22 Unknown Wound Abcess - Right Foot Anaerobic Culture - Preliminary No growth in 48 hours. 09/28/22 01:15 Blood Culture (Wb) - Anticubital Right Blood Culture - Final No growth in 5 days. 09/28/22 00:45 Blood Culture (Wb) - Anticubital Right Blood Culture - Final No growth in 5 days. 09/28/22 01:45 Urine Catheter - Catheter Urine Culture - Final Culture exhibits no growth. 09/29/22 00:45 Urine, Clean Catch Legionella Antigen - Final 09/29/22 00:45 Urine, Clean Catch Streptococcus pneumoniae Antigen (M - Final Physical Exam Const alert, oriented x3 and no apparent distress General Appearance: cooperative HEENT normocephalic, moist oral mucous membranes and oropharynx normal Eyes PERRL and EOMs intact bilaterally Neck no lymphadenopathy, supple and no JVD Lymph Lymphatic: no lymphadenopathy noted and no lymphedema noted Resp normal respiratory effort, normal air movement and clear to auscultation bilate rally Cardio regular rate, regular rhythm, S1 normal heart sound, S2 normal heart sound and no murmurs GI normal to inspection, nondistended, normoactive bowel sounds, soft to palpation, non-tender and non-distended Extremity normal capillary refill, no clubbing, cyanosis or edema and no calf tenderness General Extremity: no tenderness to palpation of joints or extremities Skin Skin Narrative: RLE wrapped in bandage Neuro CN's II-XII intact bilaterally, no focal motor deficits, no sensory deficits noted and deep tendon reflexes 2+ bilaterally Motor Exam: strength 5/5 throughout and general weakness Psych thought process normal, cooperative and affect normal Appearance: appropriate Assessment & Plan Assessment/Plan (1) Ankle osteomyelitis, right: (2) Wound of right ankle: (3) Non-pressure chronic ulcer of right ankle with fat layer exposed: PLAN: Plan #RIght foot osteomyelitis * s/p surgery * on IV vancomycin and oral metronidazole * podiatry and ID on board. * MRI of foot showed extensive circumferential diffuse subcutaneous soft tissue edema compatible with cellulitis, focal fluid collection and compatible with abscess on the plantar surface of the foot * s/p Incision and drainage with debridement of right ankle and foot with bone biopsy of distal tibia on 09/30 * 2D echo done during this admission showed no evidence of endocarditis. * blood cultures grew MRSA. * wound cultures negative. * #UTI: urine cultures pending. currently on IV vancomycin nad oral metronidazole as above #Thrombocytosis: platelets are elevated. This may be related to the acute infection. Will monitor closely. #Hypokalemia: resolved. Potassium is 4.1 #Community acquired pneumonia * CTA chest showed right upper lobe and right lower lobe pneumonia * on IV vancomycin * currently on room air * #History of IV drug use * Per previous note, she was found to be using drugs in the care home and during his last admission and there were needles found in a bed. * Will keep monitoring closely * no visitors allowed during this admission as some of her previous visitors brought her illicit drugs * DVT prophylaxis; lovenox Charges/Coding Visit Charges Inpatient E&M: 80523 Subs Hosp L2
--- NOTE | 2022-10-05 13:32 | PCM.PN.ID ---
Physical Exam Narrative Feeling ok, no fever, no n/v/d, ongoing pain in ankle Const alert and no apparent distress General Appearance: cooperative Resp normal air movement and clear to auscultation bilaterally Cardio regular rate and regular rhythm GI soft to palpation, non-tender and non-distended Skin Skin Narrative: R foot wrapped ID ID: Route of nutrition/ use of supplements: [] Nutritional Intake: [] IV Site: [] Mark Catheter: [] Assessment & Plan Assessment/Plan (1) Ankle osteomyelitis, right: (2) MRSA bacteremia: PLAN: MRSA bacteremia due to R ankle septic arthritis. Taken to OR 09/14/[address] Quinonez for I&D. Treated with vanc. Bcx cleared 09/15. No veg seen on TTE. Discharged to [facility] on 4 weeks iv vanc, stop date 10/13/22 with weekly labs and ID followup in 2 weeks. 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 Returned after having to leave ECF, picc was removed, abx stopped. Came back with worsening RLE pain and with pneumonia seen on imaging, concern for possible aspiration. Bcx neg here. Neg UAgs. Ankle wounds appear to be doing well, but new xray with reported osteo. Podiatry following. Cont vanc. MRI shows new abscess and osteo. Taken to OR 09/30/22 for I&D. Surg cx neg so far. Plan is for po bactrim DS 1 tab bid at discharge given h/o noncompliance with picc and concern for ivdu. Wrote rx. Will follow
[2022-10-05] MEDS: Smz/Tmp Ds Tablet 1 TABLET PO ×2 (14:34→22:21)
[2022-10-05 14:40] VITALS: BP 119/79; PULSE 88; RESP 18; TEMP 36.9; O2SAT 98
[2022-10-05 22:17] VITALS: BP 114/74; PULSE 88; RESP 16; TEMP 36.6; O2SAT 96
[2022-10-05] MEDS: Zolpidem Tartrate 5 MG Tablet PO (22:21)
[2022-10-06 03:00] VITALS: BP 114/73; PULSE 70; RESP 16; TEMP 36.6; O2SAT 95
[2022-10-06] MEDS: oxyCODONE 5 MG Tablet 15 MG PO ×3 (04:11→14:24)
[2022-10-06] MEDS: clonazePAM 1 MG Tablet PO ×2 (05:48→14:36)
[2022-10-06 08:35] VITALS: BP 97/68; PULSE 96; RESP 18; TEMP 36.7; O2SAT 98
[2022-10-06] MEDS: Pregabalin 75 MG Capsule 150 MG PO (08:39)
[2022-10-06] MEDS: BREXPIPRAZOLE 2 MG TABLET PO (08:39)
[2022-10-06] MEDS: Pantoprazole Sodium 40 MG Tablet PO (08:39)
[2022-10-06] MEDS: Smz/Tmp Ds Tablet 1 TABLET PO (08:39)
[2022-10-06] MEDS: Enoxaparin 40 MG/0.4 ML Syringe SC (08:39)
[2022-10-06] MEDS: DULoxetine Hcl 60 MG Capsule PO (08:39)
--- NOTE | 2022-10-06 10:32 | WOUNDNOTE ---
wound photo: right lateral ankle
--- NOTE | 2022-10-06 10:32 | WOUNDNOTE ---
wound photo: right anterior ankle
--- NOTE | 2022-10-06 10:33 | WOUNDNOTE ---
wound photo: right medial ankle
--- NOTE | 2022-10-06 11:36 | CASEMGMT ---
Addendum entered by Reid Scott 10/06/22 14:48: [facility] SOC slated for tomorrow. Pt made aware. She is aware WW and BSC will be delivered to her room today. She voices appreciation. She states her dad will be taking her home. She denies other needs or concerns and thanked NAHOMY CORNEJO. Addendum entered by Reid Scott 10/06/22 13:22: scripts for BSC and WW received from Dr Melo and sent to [facility] via [employer]. Call to Liana @ [facility]. She was made aware and notified pt is discharging home today and will need WW delivered to pt's room today prior to discharge. She states they will most likely deliver BSC to the hospital today as well. Original Note: NAHOMY CORNEJO NOTE: Pt requesting to talk w/NAHOMY CORNEJO. Pt requesting a BSC and a WW. She states the bedroom she resides in in the basement is far away from the bathroom that is in the basement and she is concerned she won't be able to make it to the bathroom in time, stating she has issues w/urgency. She also states this bathroom is shared w/all the other tenants and it is very dirty and she has concerns w/infection to her wound. She has no preference of [employer]. NAHOMY CORNEJO states will work on getting scripts for BSC and WW. She inquired about HHC. She was made aware [facility] has accepted her and they will be notified when she is discharged. She voices appreciation. Rosendo KO RN, CM
--- NOTE | 2022-10-06 11:58 | DCINST_ITS ---
Discharge Instructions Diet Discharge Diet: Low fat / Low cholesterol Activity Discharge Activity: Return to Normal Activity Dressing / Incision Call your doctor if you observe: Fever of 101 or Higher, Shortness of breath, Dizziness, Swelling in the ankles and Uncontrolled pain Follow Up Care Test Results: Test results from this visit will be discussed in further detail at your follow- up appointment, if applicable. Discharge Plan Admission Admit Date/Time: 09/28/22 05:21 Primary Reason for Your Visit: osteomyelitis of lower extremity Attending Provider: Tiffanie Melo Primary Care Provider: SEBASTIAN MOORE Consulting Providers: Shekhar Baig; Rj Meng; Aidan Starks; Bradley Morelos; Geo Davila Instructions Patient Instructions: Osteomyelitis Dc Discharge Orders/Prescriptions Prescriptions: New sulfamethoxazole-trimethoprim 800-160 mg Tablet 1 tab PO BID 37 Days Qty: 74 0RF oxycodone 15 mg tablet 15 mg PO Q6H PRN (Reason: pain) 5 Days Qty: 20 0RF Continued Ambien 7.5 mg PO .hs pregabalin [Lyrica] 150 mg capsule 150 mg PO BID acetaminophen 325 mg Tablet 650 mg PO Q6H PRN PRN (Reason: TEMP > 100.5 F) Qty: 0 0RF Hold Instructions: ALLERGIC duloxetine [Cymbalta] 60 mg capsule,delayed release(DR/EC) 60 mg PO DAILY 30 Days Qty: 0 0RF tizanidine 4 mg tablet 4 mg PO Q12H Patient Comments: Take 1 tablet by mouth every 6 hours as needed. omeprazole 40 mg capsule,delayed release(DR/EC) 40 mg PO DAILY Patient Comments: TAKE 1 CAPSULE BY MOUTH DAILY Rexulti 2 mg tablet 2 mg PO DAILY Patient Comments: TAKE 1 TABLET BY MOUTH ONCE DAILY clonazepam 1 mg Tablet 2 mg PO TID Discontinued oxycodone 5 mg Tablet 15 mg PO Q4H PRN PRN (Reason: Pain Score 6-10) 3 Days Qty: 7 0RF Referrals / Follow Up: SEBASTIAN MOORE [Other] SEBASTIAN MOORE [Other] Disposition Discharge Orders: Discharge Patient (Routine); Ordered 10/06/22 Ordered By: Dr. Tiffanie Melo
--- NOTE | 2022-10-06 12:04 | PCM.DC.SUM ---
Providers Date of Admission: 09/28/22 Date of Discharge: 10/06/22 Primary Care Physician: SEBASTIAN MEDEL Consultations 09/28/22 06:24 Consult: Infectious Disease Routine Consulting Provider: Aidan Starks Reason for Consult: MRSA bacteremia EMERGENT Consult: No Notified: Yes Date Notified: 09/28/22 Time Notified: 08:18 Method of Notification: Text Consult: Podiatry Routine Consulting Provider: Shekhar Baig Reason for Consult: R foot osteomyelitis EMERGENT Consult: No Notified: Yes Date Notified: 09/28/22 Time Notified: 05:49 Method of Notification: Verbal 09/28/22 07:15 Consult: Onc/Wound/bleach maker Routine Comment: Reason for Consult:: right ankle wounds Reason For Visit: RIGHT ANKLE OSTEOMYELITIS Diagnosis Discharge Diagnosis (1) Ankle osteomyelitis, right: Status: Acute Code(s): M86.9 - Osteomyelitis, unspecified (2) Wound of right ankle: Status: Acute Code(s): S91.001A - Unspecified open wound, right ankle, initial encounter (3) Non-pressure chronic ulcer of right ankle with fat layer exposed: Status: Chronic Code(s): L97.312 - Non-pressure chronic ulcer of right ankle with fat layer exposed Plan #RIght foot osteomyelitis s/p surgery on IV vancomycin and oral metronidazole podiatry and ID on board. MRI of foot showed extensive circumferential diffuse subcutaneous soft tissue edema compatible with cellulitis, focal fluid collection and compatible with abscess on the plantar surface of the foot s/p Incision and drainage with debridement of right ankle and foot with bone biopsy of distal tibia on 09/30 2D echo done during this admission showed no evidence of endocarditis. blood cultures grew MRSA. wound cultures negative. #UTI: urine cultures pending. currently on IV vancomycin nad oral metronidazole as above #Thrombocytosis: platelets are elevated. This may be related to the acute infection. Will monitor closely. #Hypokalemia: resolved. Potassium is 4.1 #Community acquired pneumonia CTA chest showed right upper lobe and right lower lobe pneumonia on IV vancomycin currently on room air #History of IV drug use Per previous note, she was found to be using drugs in the [facility] and during his last admission and there were needles found in a bed. Will keep monitoring closely no visitors allowed during this admission as some of her previous visitors brought her illicit drugs DVT prophylaxis; lovenox Medications at Discharge Home Medications Ambien 7.5 mg PO .hs promote sleep 09/13/22 pregabalin 150 mg capsule (Lyrica) 150 mg PO BID pain 09/13/22 acetaminophen 325 mg tablet 650 mg (2 x 325 mg) PO Q6H PRN PRN TEMP > 100.5 F #0 tabs 09/23/22 duloxetine 60 mg capsule,delayed release (Cymbalta) 60 mg PO DAILY mental health 30 days #0 caps 09/23/22 brexpiprazole 2 mg tablet (Rexulti) 2 mg PO DAILY anxiety 09/27/22 omeprazole 40 mg capsule,delayed release 40 mg PO DAILY gerd 09/27/22 tizanidine 4 mg tablet 4 mg PO Q12H spasm 09/27/22 clonazepam 1 mg tablet 2 mg PO TID depression 09/28/22 sulfamethoxazole 800 mg-trimethoprim 160 mg tablet 1 tab PO BID 37 days #74 tabs 10/05/22 oxycodone 15 mg tablet 15 mg PO Q6H PRN pain 5 days #20 tabs 10/06/22 Hospital Course Operations - (Incision and drainage with wide debridement of the right ankle and foot as well as bone biopsy.) Procedures None Summary of Care Provided Minutes Spent on Discharge: 45 Hospital Course: Patient is a 42-year-old female with a past medical history of septic arthritis of the right ankle due to MRSA bacteremia who was [facility] to [facility] from the hospital on 09/23/2022. She came back to the ED with excruciating pain of her right foot. She had apparently been discharged from [facility] because Haldol was found in her garbage. She went to her house and subsequently started having pain so she came into the ED. She denied any fever chills or anorexia. She had had I&D during a previous stay in the hospital. X-ray of the ankle done showed osteomyelitis of the medial malleolus. Orthopedics and ID were consulted. She was started on IV vancomycin, ciprofloxacin and clindamycin. She had incision and drainage with biopsy of the right ankle. She had 2D echo which did not show any evidence of endocarditis. Hospital course was complicated by community-acquired pneumonia with CT of the chest showing right upper and right lower lobe pneumonia. She was continud on her antibiotics. Patient could not be accepted at the [facility] so decision was made to discharge her to [facility] home with home health care. She cannot have a PICC line put in due to concerns for IV drug use. She was switched to p.o. Bactrim per ID. She is was discharged home on p.o. Bactrim and is to follow-up with her PCP and infectious disease as well as podiatry. Patient seen and examined prior to discharge. She had no complaints and had an uneventful night. Review of systems otherwise negative. Labs and vitals reviewed. Home medication reviewed and reconciled. She was given a prescription for p.o. oxycodone 50 mg every 6 hours as needed for total of 5 days 20 tablets with 0 refills. OARRS score was checked. She did have an elevated overdose risk score but in light of the acute pain she was experiencing, I thought it prudent to give her some opiates for about 5 days and that she follows up with pain management or her PCP for further prescription as needed. Physical Exam Const alert, oriented x3 and no apparent distress General Appearance: cooperative and comfortable HEENT normocephalic, head/scalp atraumatic, hearing grossly normal bilaterally, moist oral mucous membranes and oropharynx normal Mouth: oral and palatal mucosa normal Eyes PERRL and EOMs intact bilaterally Neck no lymphadenopathy, supple and no JVD Lymph Lymphatic: no lymphadenopathy noted and no lymphedema noted Resp normal respiratory effort, normal air movement and clear to auscultation bilaterally Cardio regular rate, regular rhythm, S1 normal heart sound, S2 normal heart sound and no murmurs GI normal to inspection, nondistended, normoactive bowel sounds, soft to palpation, non-tender and non-distended Extremity normal capillary refill, no clubbing, cyanosis or edema and no calf tenderness General Extremity: no tenderness to palpation of joints or extremities Skin Skin Narrative: RLE wrapped in bandage Neuro oriented x3, CN's II-XII intact bilaterally, moves all extremities, no focal motor deficits, no sensory deficits noted and deep tendon reflexes 2+ bilaterally Motor Exam: strength 5/5 throughout and general weakness Psych thought process normal, cooperative and affect normal Appearance: appropriate Weight / BMI Weight Weight: 135 lb 12.876 oz Body Mass Index (BMI) 22.6 ABG / Lab / Microbiology Data 10/05/22 07:57 10/05/22 07:57 Microbiology: Microbiology 09/30/22 Unknown Wound Abcess - Right Foot Gram Stain - Final 09/30/22 Unknown Wound Abcess - Right Foot Wound Culture - Final No growth aerobically. 09/30/22 Unknown Wound Abcess - Right Foot Anaerobic Culture - Final No growth in 5 days. 09/30/22 Unknown Bone - Other Gram Stain - Final 09/30/22 Unknown Bone - Other Wound Culture - Final No growth aerobically. 09/30/22 Unknown Bone - Other Anaerobic Culture - Final No growth in 5 days. 09/30/22 Unknown Bone - Other Gram Stain - Final 09/30/22 Unknown Bone - Other Wound Culture - Final No growth aerobically. 09/30/22 Unknown Bone - Other Anaerobic Culture - Final No growth in 5 days. 09/28/22 01:15 Blood Culture (Wb) - Anticubital Right Blood Culture - Final No growth in 5 days. 09/28/22 00:45 Blood Culture (Wb) - Anticubital Right Blood Culture - Final No growth in 5 days. 09/28/22 01:45 Urine Catheter - Catheter Urine Culture - Final Culture exhibits no growth. 09/29/22 00:45 Urine, Clean Catch Legionella Antigen - Final 09/29/22 00:45 Urine, Clean Catch Streptococcus pneumoniae Antigen (M - Final D/C Instructions Discharge Diet: Low fat / Low cholesterol Call your doctor if you observe: Fever of 101 or Higher, Shortness of breath, Dizziness, Swelling in the ankles and Uncontrolled pain Meaningful Use Info Meaningful Use Diagnoses (Choose all that apply): None applicable Discharge Plan Admission Admit Date/Time: 09/28/22 05:21 Primary Reason for Your Visit: osteomyelitis of lower extremity Attending Provider: Tiffanie Melo Primary Care Provider: SEBASTIAN MOORE Consulting Providers: Shekhar Baig; Rj Meng; Aidan Starks; Bradley Morelos; Geo Davila Instructions Patient Instructions: Osteomyelitis Dc Discharge Orders/Prescriptions Prescriptions: New sulfamethoxazole-trimethoprim 800-160 mg Tablet 1 tab PO BID 37 Days Qty: 74 0RF oxycodone 15 mg tablet 15 mg PO Q6H PRN (Reason: pain) 5 Days Qty: 20 0RF Continued Ambien 7.5 mg PO .hs pregabalin [Lyrica] 150 mg capsule 150 mg PO BID acetaminophen 325 mg Tablet 650 mg PO Q6H PRN PRN (Reason: TEMP > 100.5 F) Qty: 0 0RF Hold Instructions: ALLERGIC duloxetine [Cymbalta] 60 mg capsule,delayed release(DR/EC) 60 mg PO DAILY 30 Days Qty: 0 0RF tizanidine 4 mg tablet 4 mg PO Q12H Patient Comments: Take 1 tablet by mouth every 6 hours as needed. omeprazole 40 mg capsule,delayed release(DR/EC) 40 mg PO DAILY Patient Comments: TAKE 1 CAPSULE BY MOUTH DAILY Rexulti 2 mg tablet 2 mg PO DAILY Patient Comments: TAKE 1 TABLET BY MOUTH ONCE DAILY clonazepam 1 mg Tablet 2 mg PO TID Discontinued oxycodone 5 mg Tablet 15 mg PO Q4H PRN PRN (Reason: Pain Score 6-10) 3 Days Qty: 7 0RF Referrals / Follow Up: SEBASTIAN MOORE [Other] SEBASTIAN MOORE [Other] Disposition Disposition (needs filled in before D/C Order can be placed): Home Health Service Charges/Coding Visit Charges Inpatient E&M: 77006 Disch Hosp >30min
--- NOTE | 2022-10-06 12:19 | PHA.DC.MC.R ---
Pharmacy [facility] Pharm[facility] Service has performed discharge medication reconciliation and counseling for this patient. The patient was counseled on the following discharge medications and changes in medications for homegoing were reviewed. 1. BACTRIM 2. OXYCODONE The Reason for Use, instructions for use, and potential side effects were reviewed for all new medications. The patient's questions regarding all of their medications were answered. The patient was able to verbally demonstrate an understanding of their discharge medications. The patient's discharge medication list was reviewed for discrepancies and discrepancies were resolved. The patient was counselled by Antonia Gallo, PharmD Candidate. Patient was counselled on importance of monitorign for oversedation d/t active rx for klonopin, as well as PRN zanaflex and now oxycodone PRN. Pt verbalized understanding of importance to monitor for side effects. Medications at Discharge Home Medications Ambien 7.5 mg PO .hs promote sleep 09/13/22 pregabalin 150 mg capsule (Lyrica) 150 mg PO BID pain 09/13/22 acetaminophen 325 mg tablet 650 mg (2 x 325 mg) PO Q6H PRN PRN TEMP > 100.5 F #0 tabs 09/23/22 duloxetine 60 mg capsule,delayed release (Cymbalta) 60 mg PO DAILY mental health 30 days #0 caps 09/23/22 brexpiprazole 2 mg tablet (Rexulti) 2 mg PO DAILY anxiety 09/27/22 omeprazole 40 mg capsule,delayed release 40 mg PO DAILY gerd 09/27/22 tizanidine 4 mg tablet 4 mg PO Q12H spasm 09/27/22 clonazepam 1 mg tablet 2 mg PO TID depression 09/28/22 sulfamethoxazole 800 mg-trimethoprim 160 mg tablet 1 tab PO BID 37 days #74 tabs 10/05/22 oxycodone 15 mg tablet 15 mg PO Q6H PRN pain 5 days #20 tabs 10/06/22
[2022-10-06 14:40] VITALS: BP 89/61; PULSE 87; RESP 18; TEMP 36.9; O2SAT 96
== END 2022-10-06 15:45 | disposition home health service (06) | DRG 317 ==
LOC: ED 09-28 05:24 → MS3 09-28 05:43
PROVIDERS: Internal Medicine; Student in an Organized Health Care Education/Training Program; Admitting Provider Hospitalist; Emergency Provider Emergency Medicine; Visit Provider Student in an Organized Health Care Education/Training Program
PROC: 0QBG0ZX Excision of Right Tibia, Open Approach, Diagnostic (ICD-10-PCS; principal; 2022-09-30 15:20)
DX: M86.071 Acute hematogenous osteomyelitis, right ankle and foot (principal); M00.071 Staphylococcal arthritis, right ankle and foot; J18.9 Pneumonia, unspecified organism; F31.9 Bipolar disorder, unspecified; F11.10 Opioid abuse, uncomplicated; L97.312 Non-pressure chronic ulcer of right ankle with fat layer exposed; F13.10 Sedative, hypnotic or anxiolytic abuse, uncomplicated; F12.10 Cannabis abuse, uncomplicated; F17.210 Nicotine dependence, cigarettes, uncomplicated; E87.6 Hypokalemia; F41.9 Anxiety disorder, unspecified; L02.415 Cutaneous abscess of right lower limb; B95.62 Methicillin resistant Staphylococcus aureus infection as the cause of diseases classified elsewhere; L03.115 Cellulitis of right lower limb; N39.0 Urinary tract infection, site not specified; Z79.2 Long term (current) use of antibiotics; Z91.198 Patient's noncompliance with other medical treatment and regimen for other reason; Z79.899 Other long term (current) drug therapy
CPT/HCPCS: 36415; 71045; 71275; 73600; 73610; 73721; 76000; 80048; 80202; 80307; 81001; 82077; 83605; 85025; 85027; 85379; 85610; 85652; 85730; 86140; 87015; 87040; 87070; 87075; 87086; 87102; 87116; 87176; 87205; 87206; 87449; 88307; 88311; 93005; 93308; 97110; 97162; 97166; 97530; 97535; 97802; 99285; J7030; J7040; J7050; J7120; Q9957; Q9967; A4216; C8924; J0744; J2405

== ENCOUNTER 2022-10-12 15:19 | Emergency (ER) | payer MEDICAID, SELFPAY ==
[2022-10-12 15:20] VITALS: BP 114/81; PULSE 60; RESP 18; TEMP 36.6; O2SAT 99; BMI 22.8
--- NOTE | 2022-10-12 15:51 | EDS_ITS ---
HPI History of Present Illness Chief Complaint: Lower Extremity Injury Detail of Chief Complaint: Pain and swelling to right ankle Informant: patient Narrative Narrative: Patient presents the emergency department with pain and swelling to her right ankle. Patient states that she had surgery September 13 for MRSA infection on her right ankle and then 2 weeks later had another surgery. She also tells me she had surgery on her ankle she thinks maybe 5 days ago. Patient currently on Bactrim. She noticed increased swelling today. She denies fevers or chills or sweats. Patient also try to get into pain management with Dr. Katz but has been unable to see him yet and she has been without pain medicine for the last 2 days. In reading through the notes she has history of IV drug abuse and therefore they did not place a PICC line for antibiotic treatment of osteomyelitis to her ankle. PFSH PFSH Medical History Ankle pain, right Bipolar disorder Cellulitis Depression Migraines MRSA (methicillin resistant Staphylococcus aureus) MRSA bacteremia Non-smoker Osteoporosis PTSD (post-traumatic stress disorder) Septic arthritis of ankle Smoker Home Medications Ambien 7.5 mg PO .hs promote sleep 09/13/22 [History Last Taken 09/25/22] pregabalin 150 mg capsule (Lyrica) 150 mg PO BID pain 09/13/22 [History Last Taken 09/25/22] acetaminophen 325 mg tablet 650 mg (2 x 325 mg) PO Q6H PRN PRN TEMP > 100.5 F #0 tabs 09/23/22 [Rx Last Taken Unknown] duloxetine 60 mg capsule,delayed release (Cymbalta) 60 mg PO DAILY mental health 30 days #0 caps 09/23/22 [Rx Last Taken 09/27/22] brexpiprazole 2 mg tablet (Rexulti) 2 mg PO DAILY anxiety 09/27/22 [History Last Taken 09/27/22] omeprazole 40 mg capsule,delayed release 40 mg PO DAILY gerd 09/27/22 [History Last Taken 09/27/22] tizanidine 4 mg tablet 4 mg PO Q12H spasm 09/27/22 [History Last Taken 09/25/22] clonazepam 1 mg tablet 2 mg PO TID depression 09/28/22 [History Last Taken 09/25/22] sulfamethoxazole 800 mg-trimethoprim 160 mg tablet 1 tab PO BID 37 days #74 tabs 10/05/22 [Rx Last Taken Unknown] oxycodone 15 mg tablet 15 mg PO Q6H PRN pain 5 days #20 tabs 10/06/22 [Rx Last Taken Unknown] oxycodone-acetaminophen 5 mg-325 mg tablet (Percocet) 1 tab PO Q8H PRN pain 3 days #10 tabs 10/12/22 [Rx Last Taken Unknown] Allergy/AdvReac Type Severity Reaction Status Date / Time amoxicillin Allergy Anaphylaxis Verified 09/28/22 00:10 hydrocodone [From Vicodin] Allergy Angioedema Verified 09/28/22 00:10 ibuprofen Allergy Itching Verified 09/28/22 00:10 morphine Allergy Hives Verified 09/28/22 00:10 acetaminophen [From Tylenol] AdvReac Other Verified 09/28/22 00:10 Family History Other Cancer Depression Diabetes Heart disease Thyroid disorder Surgical History History of appendectomy History of cholecystectomy Status post right foot surgery Social History household members: significant other Smoking Status: Current every day smoker tobacco type: cigarettes alcohol intake: current ROS ROS ED Review of Systems ROS Unobtainable: other Constitutional Constitutional ED: Reports lethargy; Denies chills, fever(s), sweats or weight loss Eyes Eyes: Denies blurry vision, change in vision or diplopia ENT ENT ED: Denies rhinorrhea or sore throat Cardiovascular Cardiovascular: Denies chest pain, orthopnea or racing heartbeat Respiratory/Chest Respiratory/Chest: Denies cough, dyspnea, dyspnea on exertion, orthopnea or sputum Gastrointestinal Gastrointestinal: Denies abdominal pain, diarrhea, nausea or vomiting Genitourinary Genitourinary ED: Denies dysuria, hematuria or urinary frequency Musculoskeletal Musculoskeletal: Reports other Details: Right ankle pain ; Denies arthralgias, back pain, myalgias or neck pain Integumentary Denies abscess, Abrasions or rash Neurologic Neurologic: Denies headache(s) or weakness Psychiatric Psychiatric: Denies anxiety, depression or suicidal thoughts Endocrine Endocrinology: Denies polydipsia, polyphagia or polyuria Hematologic/Lymphatic Hematologic/Lymphatic: Denies easy bleeding, easy bruising or lymphadenopathy Allergic/Immunologic Allergic/Immunologic ED: Denies mouth swelling, tongue swelling or urticaria EXAM Physical Exam Const Vital Signs: 10/12/22 15:20 10/12/22 18:31 Temperature 97.8 F 97.6 F L Temperature Source Temporal Pulse Rate 60 64 Respiratory Rate 18 14 Blood Pressure 114/81 H 126/78 H Blood Pressure Mean 92 Pulse Ox 99 99 Oxygen Delivery Method Room Air Positive well nourished and well developed General Appearance ED: well developed and NAD HEENT Reports TM's clear and moist mucous membranes normocephalic and atraumatic; Negative for trauma or tenderness Tympanic Membrane ED: Yes TM's clear Eyes PERRL and EOMs intact bilaterally General Eye ED: Negative for pale conjunctiva or scleral icterus Neck no lymphadenopathy, supple and no JVD General: Negative for tenderness Chest Wall inspection of chest normal and palpation of chest normal Chest: Negative for tenderness Resp normal respiratory effort and clear to auscultation bilaterally Effort and Inspection: Negative for respiratory distress or pain with movement Auscultation: Negative for rhonchi, wheezes or diminished lung sounds Cardio regular rate, regular rhythm, S1 normal heart sound, S2 normal heart sound and no murmurs Peripheral Pulses: pulses 2+ throughout GI normal to inspection, nondistended, normoactive bowel sounds, soft to palpation, non-tender, non-distended and no masses Back/Spine no CVA tenderness and no thoracic nor lumbar tenderness Extremity normal to inspection Extremity Narrative: Right ankle-patient has healing incisions to the medial and lateral aspect of the right ankle. No erythema or warmth noted. There are some diffuse soft tissue swelling noted. Neurovascular intact. No tenderness over the calf. General Extremety ED: Negative for edema General Extremity: Negative for edema Neuro oriented x3, CN's II-XII intact bilaterally, no sensory deficits noted and gait normal Sensorium / Orientation: awake, alert, oriented to person, oriented to place and oriented to time Motor Exam: strength 5/5 throughout and strength abnormal Psych mental status grossly normal Skin no rashes or lesions noted and no wounds MDM MDM MDM Narrative Medical decision making narrative: Patient presents to the emergency department complaint of right ankle pain and swelling. Patient's had 2 surgeries this month for suspected abscess of the ankle and osteomyelitis. She is currently on Bactrim and tells me she has been taking the Bactrim. An IV line was established. She had a CBC with differential that showed a normal white count of 7.6. Patient sed rate was normal at 25. C-reactive protein was slightly elevated 9.44 but this is down from the 70s 2 weeks ago. Patient had an x-ray of the right ankle that radiology felt showed still myelitis however the comparison view is 2 days prior to patient's surgery therefore I feel like they are probably noting sequela from surgery rather than worsening osteo. Patient case was discussed with podiatry Fazal Izaguirre who presented to the [place] to evaluate patient. Apparently the bone biopsies from surgery did not show osteomyelitis. He has that I put patient in a posterior splint and they will follow patient up in the office. I will give her a prescription for few Percocet for pain. Patient was placed in a posterior splint and will be discharged to home. Lab Data Attestation: I reviewed the patient's lab results. Labs: Laboratory Results - last 24 hr 10/12/22 16:06 WBC 7.6 RBC 3.62 L Hgb 10.5 L Hct 33.6 L MCV 92.8 MCH 29.0 MCHC 31.3 L RDW Std Deviation 49.6 H RDW Coeff of Sylvia 14.5 Plt Count 456 H MPV 10.7 Immature Gran % (Auto) 0.400 Neut % (Auto) 54.3 Lymph % (Auto) 36.2 [place] % (Auto) 5.2 Eos % (Auto) 3.4 Baso % (Auto) 0.5 Absolute Neuts (auto) 4.1 Absolute Lymphs (auto) 2.76 Nucleated RBC % 0 ESR 25 Sodium 138 Potassium 3.6 Chloride 110 H Carbon Dioxide 20.0 L Anion Gap 8 BUN 7 Creatinine 0.85 Estim Creat Clear Calc 77.58 Est GFR (MDRD) Af Amer 95 Est GFR (MDRD) Non-Af 78 BUN/Creatinine Ratio 8.3 L Glucose 78 Calcium 8.4 L C-React Prot Ext Range 9.44 H Radiography Diagnostic Testing: Clinical Impression(s) from Imaging Studies Ankle X-Ray 10/12/22 15:55 IMPRESSION: Findings suspicious for worsening septic arthritis/osteomyelitis. Electronically Signed: Christ Eastman MD at 16:48 EDT , Three-view x-rays of the right ankle obtained interpreted by myself as increased lucencies to the tibia and fibula concerning for osteomyelitis. Radiology in agreement. Discharge Plan Triage Chief Complaint: Lower Extremity Injury ED Provider: Harry Moore Dx/Rx/DC Orders Clinical Impression: Post-op pain, Ankle pain, right Instructions: ED Post Op Wound Check, Pain Prescriptions: New oxycodone-acetaminophen [Percocet] 5-325 mg tablet 1 tab PO Q8H PRN (Reason: pain) 3 Days Qty: 10 0RF No Action Ambien 7.5 mg PO .hs pregabalin [Lyrica] 150 mg capsule 150 mg PO BID acetaminophen 325 mg Tablet 650 mg PO Q6H PRN PRN (Reason: TEMP > 100.5 F) Qty: 0 0RF Hold Instructions: ALLERGIC duloxetine [Cymbalta] 60 mg capsule,delayed release(DR/EC) 60 mg PO DAILY 30 Days Qty: 0 0RF tizanidine 4 mg tablet 4 mg PO Q12H Patient Comments: Take 1 tablet by mouth every 6 hours as needed. omeprazole 40 mg capsule,delayed release(DR/EC) 40 mg PO DAILY Patient Comments: TAKE 1 CAPSULE BY MOUTH DAILY Rexulti 2 mg tablet 2 mg PO DAILY Patient Comments: TAKE 1 TABLET BY MOUTH ONCE DAILY clonazepam 1 mg Tablet 2 mg PO TID sulfamethoxazole-trimethoprim 800-160 mg Tablet 1 tab PO BID 37 Days Qty: 74 0RF oxycodone 15 mg tablet 15 mg PO Q6H PRN (Reason: pain) 5 Days Qty: 20 0RF Primary Care Provider: Care Physician,No Primary Referrals: Rikki Izaguirre DPM [Med Staff - Active Staff] - 5-7 Days Care Physician,No Primary [Primary Care Provider] - Disposition Disposition: Home, Self Care Discharge Date/Time: 10/12/22 18:31
--- NOTE | 2022-10-12 15:55 | RAD_ITS ---
INDICATION: pain, swelling, post op EXAMINATION/TECHNIQUE: X-RAY - RIGHT XR Ankle Min 3 Views COMPARISON: 09/28/2022.. FINDINGS: No acute fracture or malalignment. Erosive changes of the tibiotalar joint. Soft tissue swelling of ankle. RAD/Ankle min 3 Views IMPRESSION: Findings suspicious for worsening septic arthritis/osteomyelitis. Electronically Signed: Christ Eastman MD at 16:48 EDT ,
[2022-10-12] MEDS: Oxycodone/Apap 5/325 Tablet PO (16:02)
[2022-10-12 16:17] LABS: Absolute Lymphocyte Count 2.76 X10^3/uL (0.83-4.51); Absolute Neutrophil Count 4.1 X10^3/uL (2.0-7.7); Basophil# 0.04 X10^3/uL; Basophil% 0.5 % (0-1); Eosinophil# 0.26 X10^3/uL; Eosinophils% 3.4 % (0-5); Hematocrit 33.6 % (37-47); Hemoglobin 10.5 g/dL (12.0-15.0); Lymphocyte # 2.76 X10^3/ul (0.83-4.51); Lymphocyte % 36.2 % (19-41); Mean Corp Hgb Conc 31.3 g/dL (32-36); Mean Corpuscular Volume 92.8 fL (81-99); Mean Platelet Vol. 10.7 fl (6.2-12.0); Monocyte% 5.2 % (0-10); NRBC Flagged by Analyzer 0 % (0-5); Neutrophil # 4.14 X10^3/uL (2.7-7.7); Neutrophil % 54.3 % (47-70); Platelet Count 456 K/mm3 (150-450); RBC Distribution Width CV 14.5 % (11.6-14.6); RBC Distribution Width SD 49.6 fl (35.1-43.9); Red Blood Count 3.62 M/mm3 (4.2-5.4); White Blood Count 7.6 K/mm3 (4.4-11.0)
[2022-10-12 16:27] LABS: Anion Gap 8 (5-15); BUN 7 mg/dL (7-18); BUN/Creat Ratio 8.3 RATIO (10-20); CRP 9.44 mg/L (0.0-3.0); Calcium,Total 8.4 mg/dL (8.5-10.1); Chloride 110 mmol/L (98-107); Creatinine, Serum 0.85 mg/dL (0.55-1.02); EST Glomerular Filtration Rate 78 mL/min (>60); Est Glom Filt Rate - Afr Amer 95 mL/min (>60); Estimated Creatinine Clearance 77.58 ml/min; Glucose 78 mg/dL (74-106); Potassium 3.6 mmol/L (3.5-5.1); Sodium Level 138 mmol/L (136-145)
[2022-10-12 16:32] LABS: Erythrocyte Sedimentation Rate 25 mm/hr (0-30)
[2022-10-12 18:31] VITALS: BP 126/78; PULSE 64; RESP 14; TEMP 36.4; O2SAT 99
--- NOTE | 2022-10-12 18:36 | CON.PCM_ITS ---
Assessment & Plan Assessment/Plan (1) Surgical wound dehiscence: QUALIFIERS: Encounter type: initial encounter Qualified Code(s): T81.31XA - Disruption of external operation (surgical) wound, not elsewhere classified, initial encounter PLAN: Patient was examined and evaluated. All findings were discussed with the patient. All questions were answered to the patient's satisfaction. WBC: 7.6 CRP: 9.44 ESR: 25 Long discussion with the patient and her postoperative course. Educated the patient that she is still at risk for deep bone infection even though the pathology diagnosis says no evidence of osteomyelitis. She is to follow-up at the wound care center next Monday with Dr. Izaguirre for treatment and evaluation of the surgical wound dehiscence to the medial wound right ankle. She will be placed in a posterior splint and was instructed to be nonweightbearing until follow-up. Patient was told to continue to reach out to all the necessary providers and follow-up with her postoperative/hospital appointments. She is to call the office with any questions or concerns. Follow the wound care center next Monday. (2) Ankle pain, right: QUALIFIERS: Chronicity: acute Qualified Code(s): M25.571 - Pain in right ankle and joints of right foot (3) Post-op pain: (4) Ankle osteomyelitis, right: QUALIFIERS: Osteomyelitis type: other acute Qualified Code(s): M86.171 - Other acute osteomyelitis, right ankle and foot PLAN: Right medial tibia, bone core biopsy: Chronic reparative and reactive change. No evidence of osteomyelitis. Right lateral tibia, bone core biopsy: Chronic reparative and reactive change. No evidence of osteomyelitis. Patient will continue Bactrim for the next 7 days. She will follow-up with the wound care center with Dr. Izaguirre HPI Consult Data Date of Consult: 10/12/22 PCP / Referring MD: SEBASTIAN MOORE HPI Narrative HPI Narrative: RAHEL MCKEON, is a 42 F who presents To the emergency department with a chief complaint of right lower extremity pain and swelling to her right ankle. Patient was recently in the hospital who underwent status post incision and drainage for septic arthritis of the right ankle. After surgery, September 13 for MRSA infection to her right ankle and then 2 weeks later for another surgery for washout. Bone biopsies were taken which ruled out osteomyelitis per pathology. Patient is currently on Bactrim and has 7 days remaining of the antibiotic. She admits that she has increased pain and swelling. She denies any nausea, vomiting, fever, chills, diarrhea, sweats or shortness of breath or chest pain. Patient is currently trying to get into pain management with Dr. Katz but has not been to his office yet. Patient has a past medical history of IV drug use and did not have a PICC line placed. She denies any trauma. No other pedal complaints. [facility] Medical History Ankle pain, right Bipolar disorder Cellulitis Depression Migraines MRSA (methicillin resistant Staphylococcus aureus) MRSA bacteremia Non-smoker Osteoporosis PTSD (post-traumatic stress disorder) Septic arthritis of ankle Smoker Home Medications Ambien 7.5 mg PO .hs promote sleep 09/13/22 [History Last Taken 09/25/22] pregabalin 150 mg capsule (Lyrica) 150 mg PO BID pain 09/13/22 [History Last Taken 09/25/22] acetaminophen 325 mg tablet 650 mg (2 x 325 mg) PO Q6H PRN PRN TEMP > 100.5 F #0 tabs 09/23/22 [Rx Last Taken Unknown] duloxetine 60 mg capsule,delayed release (Cymbalta) 60 mg PO DAILY mental health 30 days #0 caps 09/23/22 [Rx Last Taken 09/27/22] brexpiprazole 2 mg tablet (Rexulti) 2 mg PO DAILY anxiety 09/27/22 [History Last Taken 09/27/22] omeprazole 40 mg capsule,delayed release 40 mg PO DAILY gerd 09/27/22 [History Last Taken 09/27/22] tizanidine 4 mg tablet 4 mg PO Q12H spasm 09/27/22 [History Last Taken 09/25/22] clonazepam 1 mg tablet 2 mg PO TID depression 09/28/22 [History Last Taken 09/25/22] sulfamethoxazole 800 mg-trimethoprim 160 mg tablet 1 tab PO BID 37 days #74 tabs 10/05/22 [Rx Last Taken Unknown] oxycodone 15 mg tablet 15 mg PO Q6H PRN pain 5 days #20 tabs 10/06/22 [Rx Last Taken Unknown] oxycodone-acetaminophen 5 mg-325 mg tablet (Percocet) 1 tab PO Q8H PRN pain 3 days #10 tabs 10/12/22 [Rx Last Taken Unknown] Allergy/AdvReac Type Severity Reaction Status Date / Time amoxicillin Allergy Anaphylaxis Verified 09/28/22 00:10 hydrocodone [From Vicodin] Allergy Angioedema Verified 09/28/22 00:10 ibuprofen Allergy Itching Verified 09/28/22 00:10 morphine Allergy Hives Verified 09/28/22 00:10 acetaminophen [From Tylenol] AdvReac Other Verified 09/28/22 00:10 Family History Other Cancer Depression Diabetes Heart disease Thyroid disorder Surgical History History of appendectomy History of cholecystectomy Status post right foot surgery Social History household members: significant other Smoking Status: Current every day smoker tobacco type: cigarettes alcohol intake: current Physical Exam Narrative Vascular: DP and PT pulse are palpable. CFT is brisk to all digits to right foot. Nonpitting edema appreciated to the right ankle. No erythema or proximal streaking. Neurological: Light touch and epicritic station is intact. Patient response to painful stimuli. Dermatological. Medial, lateral and anterior incision well coapted with suture. There is evidence of surgical wound dehiscence appreciated to the medial ankle. Wound base is granular nature. No drainage, no malodor no sign of infection. No palpable fluctuance or bogginess is noted. Muscle skeletal: Active and passive range of motion of the right lower extremity ankle is painful without crepitus. No pain with calf compression. Lab / Micro Data Attestation: I reviewed the patient's lab results. 10/12/22 16:06 10/12/22 16:06 Labs: Laboratory Results - last 24 hr 10/12/22 16:06: WBC 7.6, RBC 3.62 L, Hgb 10.5 L, Hct 33.6 L, MCV 92.8, MCH 29.0, MCHC 31.3 L, RDW Std Deviation 49.6 H, RDW Coeff of Sylvia 14.5, Plt Count 456 H, MPV 10.7, Immature Gran % (Auto) 0.400, Neut % (Auto) 54.3, Lymph % (Auto) 36.2, [place] % (Auto) 5.2, Eos % (Auto) 3.4, Baso % (Auto) 0.5, Absolute Neuts (auto) 4.1, Absolute Lymphs (auto) 2.76, Nucleated RBC % 0, ESR 25, Sodium 138, Potassium 3.6, Chloride 110 H, Carbon Dioxide 20.0 L, Anion Gap 8, BUN 7, Creatinine 0.85, Estim Creat Clear Calc 77.58, Est GFR (MDRD) Af Amer 95, Est GFR (MDRD) Non-Af 78, BUN/Creatinine Ratio 8.3 L, Glucose 78, Calcium 8.4 L, C- React Prot Ext Range 9.44 H Radiology Impression Ankle X-Ray 10/12/22 15:55 IMPRESSION: Findings suspicious for worsening septic arthritis/osteomyelitis. Electronically Signed: Christ Eastman MD at 16:48 EDT ,
== END 2022-10-12 18:31 | disposition home or self-care (01) ==
PROVIDERS: Emergency Provider Emergency Medicine; Visit Provider Emergency Medicine
DX: M25.571 Pain in right ankle and joints of right foot (principal); G89.18 Other acute postprocedural pain; F17.210 Nicotine dependence, cigarettes, uncomplicated
CPT/HCPCS: 73610; 80048; 85025; 85652; 86140; 99285; A4216

== ENCOUNTER 2022-10-16 17:12 | Emergency (ER) | payer MEDICAID, SELFPAY ==
[2022-10-16 17:13] VITALS: BP 142/91; PULSE 89; RESP 16; TEMP 36.6; O2SAT 99; BMI 23.4
--- NOTE | 2022-10-16 18:18 | EX.ED.DYSGE1 ---
HPI History of Present Illness Chief Complaint: Lower Extremity Injury Narrative Narrative: 42-year-old female had right ankle surgery in September. She states her leg splint was replaced on October 12 because they were evaluating her ankle for infection. The splint material shifted and is digging into her ankle and causing increased pain. She still getting good circulation and denies weakness or paresthesias. She is supposed to see Dr. Izaguirre her art historian in a couple days. PFSH PFSH Medical History Ankle pain, right Bipolar disorder Cellulitis Depression Migraines MRSA (methicillin resistant Staphylococcus aureus) MRSA bacteremia Non-smoker Osteoporosis PTSD (post-traumatic stress disorder) Septic arthritis of ankle Smoker Home Medications Ambien 7.5 mg PO .hs promote sleep 09/13/22 [History Last Taken 09/25/22] pregabalin 150 mg capsule (Lyrica) 150 mg PO BID pain 09/13/22 [History Last Taken 09/25/22] acetaminophen 325 mg tablet 650 mg (2 x 325 mg) PO Q6H PRN PRN TEMP > 100.5 F #0 tabs 09/23/22 [Rx Last Taken Unknown] duloxetine 60 mg capsule,delayed release (Cymbalta) 60 mg PO DAILY mental health 30 days #0 caps 09/23/22 [Rx Last Taken 09/27/22] brexpiprazole 2 mg tablet (Rexulti) 2 mg PO DAILY anxiety 09/27/22 [History Last Taken 09/27/22] omeprazole 40 mg capsule,delayed release 40 mg PO DAILY gerd 09/27/22 [History Last Taken 09/27/22] tizanidine 4 mg tablet 4 mg PO Q12H spasm 09/27/22 [History Last Taken 09/25/22] clonazepam 1 mg tablet 2 mg PO TID depression 09/28/22 [History Last Taken 09/25/22] sulfamethoxazole 800 mg-trimethoprim 160 mg tablet 1 tab PO BID 37 days #74 tabs 10/05/22 [Rx Last Taken Unknown] oxycodone 15 mg tablet 15 mg PO Q6H PRN pain 5 days #20 tabs 10/06/22 [Rx Last Taken Unknown] oxycodone-acetaminophen 5 mg-325 mg tablet (Percocet) 1 tab PO Q8H PRN pain 3 days #10 tabs 10/12/22 [Rx Last Taken Unknown] Allergy/AdvReac Type Severity Reaction Status Date / Time amoxicillin Allergy Anaphylaxis Verified 10/16/22 17:16 hydrocodone [From Vicodin] Allergy Angioedema Verified 10/16/22 17:16 ibuprofen Allergy Itching Verified 10/16/22 17:16 morphine Allergy Hives Verified 10/16/22 17:16 acetaminophen [From Tylenol] AdvReac Other Verified 10/16/22 17:16 Family History Other Cancer Depression Diabetes Heart disease Thyroid disorder Surgical History History of appendectomy History of cholecystectomy Status post right foot surgery Social History household members: significant other Smoking Status: Current every day smoker tobacco type: cigarettes alcohol intake: current ROS ROS ED ROS Narrative Constitutional: Negative for fever, chills, malaise. Neuro: Negative for motor/sensory dysfunction. Skin: Positive for chronic wounds. Musc: Negative for trauma. EXAM Physical Exam Narrative Exam Narrative: CONST: Patient sitting in no acute distress. EYES: Normal inspection. ENT: Normal inspection, moist mucous membranes. NECK: Normal inspection. RESP: No respiratory distress, CTAB. CVS: Regular rate and rhythm, no murmur, no gallop. SKIN: Healing incisions to medial and lateral ankle, no erythema or warmth, no swelling. EXTREMITIES: RLE: Posterior leg splint in place. Distal sensation intact, 2+ DP pulse, brisk cap refill. NEURO: Oriented x4. PSYCH: Normal affect. Const Vital Signs: 10/16/22 17:13 Temperature 97.8 F Temperature Source Temporal Pulse Rate 89 Respiratory Rate 16 Blood Pressure 142/91 H Blood Pressure Mean 108 Pulse Ox 99 Oxygen Delivery Method Room Air MDM MDM MDM Narrative Medical decision making narrative: I removed patient's right leg posterior splint and her pain improved. It seems to be digging into her medial ankle. Her incisions are healing without signs of infection and extremity is neurovascularly intact. I reapplied an Ortho-Glass posterior leg splint and she is neurovascularly intact after application. She is scheduled to see podiatry soon and was discharged in stable condition. Discharge Plan Triage Chief Complaint: Lower Extremity Injury Other Complaint: Wound Check ED Midlevel Provider: Gin Ruiz ED Provider: Akbar Boo Dx/Rx/DC Orders Clinical Impression: Cast discomfort Instructions: ED Cast Care, Fiberglass Prescriptions: No Action Ambien 7.5 mg PO .hs pregabalin [Lyrica] 150 mg capsule 150 mg PO BID acetaminophen 325 mg Tablet 650 mg PO Q6H PRN PRN (Reason: TEMP > 100.5 F) Qty: 0 0RF Hold Instructions: ALLERGIC duloxetine [Cymbalta] 60 mg capsule,delayed release(DR/EC) 60 mg PO DAILY 30 Days Qty: 0 0RF tizanidine 4 mg tablet 4 mg PO Q12H Patient Comments: Take 1 tablet by mouth every 6 hours as needed. omeprazole 40 mg capsule,delayed release(DR/EC) 40 mg PO DAILY Patient Comments: TAKE 1 CAPSULE BY MOUTH DAILY Rexulti 2 mg tablet 2 mg PO DAILY Patient Comments: TAKE 1 TABLET BY MOUTH ONCE DAILY clonazepam 1 mg Tablet 2 mg PO TID sulfamethoxazole-trimethoprim 800-160 mg Tablet 1 tab PO BID 37 Days Qty: 74 0RF oxycodone 15 mg tablet 15 mg PO Q6H PRN (Reason: pain) 5 Days Qty: 20 0RF oxycodone-acetaminophen [Percocet] 5-325 mg tablet 1 tab PO Q8H PRN (Reason: pain) 3 Days Qty: 10 0RF Primary Care Provider: Carmen Arciniega,Out of Referrals: [facility] Doctor,Out of [Primary Care Provider] - Activity Restrictions/Additional Instructions: Keep splint clean and dry and follow-up with podiatry Disposition Disposition: Home, Self Care
== END 2022-10-16 18:46 | disposition home or self-care (01) ==
LOC: ED 18:33
PROVIDERS: Emergency Provider Emergency Medicine; Visit Provider Emergency Medicine
DX: M25.571 Pain in right ankle and joints of right foot (principal); F17.210 Nicotine dependence, cigarettes, uncomplicated
CPT/HCPCS: 99285

== ENCOUNTER 2022-10-19 17:55 | Emergency (ER) | payer MEDICAID, SELFPAY ==
[2022-10-19 17:55] VITALS: BP 126/82; PULSE 115; RESP 19; TEMP 36.6; O2SAT 97
--- NOTE | 2022-10-19 20:46 | RAD_ITS ---
STUDY: X-RAY - RIGHT FOOT CLINICAL: Female, 42 years old. Injury/Pain TECHNIQUE: 3 view(s) of the foot. COMPARISON: None. FINDINGS: Normal talus, calcaneus, and tarsal bones. Normal visualized subtalar, talonavicular, calcaneocuboid, tarsal and tarsometatarsal articulations. Normal metatarsi. There is degenerative arthrosis of the metatarsophalangeal joint of the hallux with a hallux valgus deformity. Normal tibial and fibular sesamoid bones. Normal interphalangeal joint of the great toe. Normal phalanges of the great toe. Normal second through fifth metatarsophalangeal joints. Normal interphalangeal joints and phalanges of the lesser toes. Prominent dorsal soft tissue swelling. Screw holes seen in the distal tibia. Correlate with history. RAD/Foot min 3 Views IMPRESSION: Soft tissue swelling. No acute abnormality of the bones or joints. Electronically Signed: Nelson Barry MD at 21:57 EDT ,
[2022-10-19] MEDS: oxyCODONE 5 MG Tablet PO (20:58)
[2022-10-19 21:32] LABS: Absolute Lymphocyte Count 2.83 X10^3/uL (0.83-4.51); Absolute Neutrophil Count 7.5 X10^3/uL (2.0-7.7); Basophil# 0.05 X10^3/uL; Basophil% 0.4 % (0-1); Eosinophil# 0.35 X10^3/uL; Eosinophils% 3.1 % (0-5); Hematocrit 39.7 % (37-47); Hemoglobin 12.5 g/dL (12.0-15.0); Lymphocyte # 2.83 X10^3/ul (0.83-4.51); Lymphocyte % 24.7 % (19-41); Mean Corp Hgb Conc 31.5 g/dL (32-36); Mean Corpuscular Hgb 29.3 pg (27.0-32.0); Mean Platelet Vol. 10.5 fl (6.2-12.0); Monocyte# 0.68 X10^3/uL; Monocyte% 5.9 % (0-10); NRBC Flagged by Analyzer 0 % (0-5); Neutrophil # 7.48 X10^3/uL (2.7-7.7); Neutrophil % 65.3 % (47-70); Platelet Count 442 K/mm3 (150-450); RBC Distribution Width CV 15.1 % (11.6-14.6); RBC Distribution Width SD 51.3 fl (35.1-43.9); Red Blood Count 4.27 M/mm3 (4.2-5.4); White Blood Count 11.5 K/mm3 (4.4-11.0)
[2022-10-19 21:36] LABS: Erythrocyte Sedimentation Rate 11 mm/hr (0-30)
--- NOTE | 2022-10-19 21:39 | RAD_ITS ---
STUDY: X-RAY - RIGHT ANKLE REASON FOR EXAM: Female, 42 years old. Injury/Pain TECHNIQUE: 3 view(s) of the ankle. COMPARISON: Numerous prior studies reviewed including 10/12/2022. FINDINGS: Diffuse demineralization. Diffuse soft tissue swelling. Heterogeneous density of the distal tibia similar to prior study, which could represent osteomyelitis. Prominent narrowing of the ankle joint. Tiny bone density anterior to the talar dome, seen on the lateral view, also present previously and suggestive of a avulsion fracture. Normal visualized calcaneus. The visualized subtalar, talonavicular, calcaneocuboid and tarsal articulations are normal. RAD/Ankle min 3 Views IMPRESSION: Little if any significant change since 7 days prior. Heterogeneous demineralization of the tibia. Soft tissue swelling. Electronically Signed: Nelson Barry MD at 22:31 EDT ,
[2022-10-19 22:06] LABS: Anion Gap 7 (5-15); BUN 13 mg/dL (7-18); BUN/Creat Ratio 12.9 RATIO (10-20); CRP 3.86 mg/L (0.0-3.0); Chloride 108 mmol/L (98-107); Creatinine, Serum 1.01 mg/dL (0.55-1.02); EST Glomerular Filtration Rate 64 mL/min (>60); Est Glom Filt Rate - Afr Amer 77 mL/min (>60); Glucose 85 mg/dL (74-106); Potassium 3.9 mmol/L (3.5-5.1); Sodium Level 138 mmol/L (136-145)
--- NOTE | 2022-10-19 22:47 | ED.VIS.LOWEX ---
HPI History of Present Illness Chief Complaint: Lower Extremity Injury PFSH PFSH Medical History Ankle pain, right Bipolar disorder Cellulitis Depression Migraines MRSA (methicillin resistant Staphylococcus aureus) MRSA bacteremia Non-smoker Osteoporosis PTSD (post-traumatic stress disorder) Septic arthritis of ankle Smoker Home Medications Ambien 7.5 mg PO .hs promote sleep 09/13/22 [History Last Taken 09/25/22] pregabalin 150 mg capsule (Lyrica) 150 mg PO BID pain 09/13/22 [History Last Taken 09/25/22] acetaminophen 325 mg tablet 650 mg (2 x 325 mg) PO Q6H PRN PRN TEMP > 100.5 F #0 tabs 09/23/22 [Rx Last Taken Unknown] duloxetine 60 mg capsule,delayed release (Cymbalta) 60 mg PO DAILY mental health 30 days #0 caps 09/23/22 [Rx Last Taken 09/27/22] brexpiprazole 2 mg tablet (Rexulti) 2 mg PO DAILY anxiety 09/27/22 [History Last Taken 09/27/22] omeprazole 40 mg capsule,delayed release 40 mg PO DAILY gerd 09/27/22 [History Last Taken 09/27/22] tizanidine 4 mg tablet 4 mg PO Q12H spasm 09/27/22 [History Last Taken 09/25/22] clonazepam 1 mg tablet 2 mg PO TID depression 09/28/22 [History Last Taken 09/25/22] sulfamethoxazole 800 mg-trimethoprim 160 mg tablet 1 tab PO BID 37 days #74 tabs 10/05/22 [Rx Last Taken Unknown] oxycodone 15 mg tablet 15 mg PO Q6H PRN pain 5 days #20 tabs 10/06/22 [Rx Last Taken Unknown] oxycodone-acetaminophen 5 mg-325 mg tablet (Percocet) 1 tab PO Q8H PRN pain 3 days #10 tabs 10/12/22 [Rx Last Taken Unknown] oxycodone-acetaminophen 5 mg-325 mg tablet 1 tab PO Q6H PRN PRN Pain 3 days #12 TABLETS 10/19/22 [Rx Last Taken Unknown] Allergy/AdvReac Type Severity Reaction Status Date / Time amoxicillin Allergy Anaphylaxis Verified 10/19/22 17:55 hydrocodone [From Vicodin] Allergy Angioedema Verified 10/19/22 17:55 ibuprofen Allergy Itching Verified 10/19/22 17:55 morphine Allergy Hives Verified 10/19/22 17:55 acetaminophen [From Tylenol] AdvReac Other Verified 10/19/22 17:55 Family History Other Cancer Depression Diabetes Heart disease Thyroid disorder Surgical History History of appendectomy History of cholecystectomy Status post right foot surgery Social History household members: significant other Smoking Status: Current every day smoker tobacco type: cigarettes alcohol intake: current EXAM Physical Exam Const Vital Signs: 10/19/22 17:55 Temperature 97.8 F Temperature Source Oral Pulse Rate 115 H Respiratory Rate 19 H Blood Pressure 126/82 H Blood Pressure Mean 96 Pulse Ox 97 Oxygen Delivery Method Room Air MDM MDM MDM Narrative Medical decision making narrative: Differential diagnosis includes wound infection, fracture, osteomyelitis, contusion, and sprain. X-rays of the right foot and right ankle will be obtained to assess for osteomyelitis, and fracture. CBC will be obtained to assess for leukocytosis and anemia. Basic metabolic profile will be obtained to assess for electrolyte abnormality and renal function. Sed rate and CRP will be obtained to assess for inflammatory markers. History & Record Review Discussion w/independent historian: Patient Additional record(s) reviewed:: Prior labs Lab Data Attestation: I reviewed the patient's lab results. Lab results narrative: CBC was reviewed. There is a mild leukocytosis of 11.5. The remainder is within normal limits. Basic metabolic profile was reviewed and was within normal limits. Sed rate was reviewed and was normal at 11. C-reactive protein was reviewed and was slightly elevated at 3.86. This is improved compared to previous result. Labs: Laboratory Results - last 24 hr 10/19/22 21:15 WBC 11.5 H RBC 4.27 Hgb 12.5 Hct 39.7 MCV 93.0 MCH 29.3 MCHC 31.5 L RDW Std Deviation 51.3 H RDW Coeff of Sylvia 15.1 H Plt Count 442 MPV 10.5 Immature Gran % (Auto) 0.600 Neut % (Auto) 65.3 Lymph % (Auto) 24.7 Wythe % (Auto) 5.9 Eos % (Auto) 3.1 Baso % (Auto) 0.4 Absolute Neuts (auto) 7.5 Absolute Lymphs (auto) 2.83 Nucleated RBC % 0 ESR 11 Sodium 138 Potassium 3.9 Chloride 108 H Carbon Dioxide 23.0 Anion Gap 7 BUN 13 Creatinine 1.01 Est GFR (MDRD) Af Amer 77 Est GFR (MDRD) Non-Af 64 BUN/Creatinine Ratio 12.9 Glucose 85 Calcium 9.0 C-React Prot Ext Range 3.86 H Radiography Diagnostic Testing: Clinical Impression(s) from Imaging Studies Foot X-Ray 10/19/22 20:46 IMPRESSION: Soft tissue swelling. No acute abnormality of the bones or joints. Electronically Signed: Nelson Barry MD at 21:57 EDT , Ankle X-Ray 10/19/22 21:39 IMPRESSION: Little if any significant change since 7 days prior. Heterogeneous demineralization of the tibia. Soft tissue swelling. Electronically Signed: Nelson Barry MD at 22:31 EDT , X-rays of the right ankle were obtained. There are 3 views. On my independent interpretation, there is no acute fracture. There is no dislocation. There is some mild soft tissue swelling. Radiologist also interpreted the x-rays and agrees. X-rays of the right foot were obtained. There are 3 views. On my independent interpretation, there is no acute fracture. There is no dislocation. There is some mild soft tissue swelling. Radiologist also interpreted the x-rays and agrees. Treatment and Re-Evaluation Narrative: Patient was given a dose of oxycodone here. Patient was advised of her findings. Patient was instructed to ice and elevate her right foot and ankle. 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 Patient was given a prescription for a short course of Percocet. 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 Patient understood and was agreeable with the plan. All questions were answered. Discharge Plan Triage Chief Complaint: Lower Extremity Injury ED Provider: James Delgado Dx/Rx/DC Orders Clinical Impression: Post-op pain, Ankle pain, right Instructions: ED Post Op Wound Check, Pain Prescriptions: New oxycodone-acetaminophen [oxycodone-acetaminophen] 5-325 mg tablet 1 tab PO Q6H PRN PRN (Reason: Pain) 3 Days Qty: 12 0RF No Action Ambien 7.5 mg PO .hs pregabalin [Lyrica] 150 mg capsule 150 mg PO BID acetaminophen 325 mg Tablet 650 mg PO Q6H PRN PRN (Reason: TEMP > 100.5 F) Qty: 0 0RF Hold Instructions: ALLERGIC duloxetine [Cymbalta] 60 mg capsule,delayed release(DR/EC) 60 mg PO DAILY 30 Days Qty: 0 0RF tizanidine 4 mg tablet 4 mg PO Q12H Patient Comments: Take 1 tablet by mouth every 6 hours as needed. omeprazole 40 mg capsule,delayed release(DR/EC) 40 mg PO DAILY Patient Comments: TAKE 1 CAPSULE BY MOUTH DAILY Rexulti 2 mg tablet 2 mg PO DAILY Patient Comments: TAKE 1 TABLET BY MOUTH ONCE DAILY clonazepam 1 mg Tablet 2 mg PO TID sulfamethoxazole-trimethoprim 800-160 mg Tablet 1 tab PO BID 37 Days Qty: 74 0RF oxycodone 15 mg tablet 15 mg PO Q6H PRN (Reason: pain) 5 Days Qty: 20 0RF oxycodone-acetaminophen [Percocet] 5-325 mg tablet 1 tab PO Q8H PRN (Reason: pain) 3 Days Qty: 10 0RF Primary Care Provider: SEBASTIAN MOORE Referrals: SEBASTIAN MOORE [Other] - 3-5 Days Kimo Quinonez DPM [Med Staff - Active Staff] - 3-5 Days Disposition Disposition: Home, Self Care
[2022-10-19 23:00] VITALS: RESP 18
== END 2022-10-19 23:17 | disposition home or self-care (01) ==
PROVIDERS: Emergency Provider Emergency Medicine; Visit Provider Emergency Medicine
DX: G89.18 Other acute postprocedural pain (principal); M25.571 Pain in right ankle and joints of right foot; F17.210 Nicotine dependence, cigarettes, uncomplicated
CPT/HCPCS: 73610; 73630; 80048; 85025; 85652; 86140; 99283; A4216

== ENCOUNTER 2022-12-07 10:30 | Outpatient (RCR) | payer MEDICAID, SELFPAY ==
--- NOTE | 2022-11-24 12:16 | HP.PTEVAL_ITS ---
Patient's Visit Information Visit Information Visit Information: RAHEL MCKEON is a 42 year old F referred to Physical Therapy by Dr. Shekhar Baig DPM with a diagnosis of Septic Arthritis of the Left Ankle. Date of Evaluation: 11/24/22 Physical Therapist: Tana Chen DPT Visit Plan Frequency: 2x /Week Duration: 4 Weeks Plan: Focus on LE ROM, LE and core strength/stabilization, Proprioception and Functional Mobility- Pain Mgmt HEP Given IE: ankle ROM, seated HR/TR Subjective Subjective: Patient reports that she had 2 surgeries in Sep- thought her leg was broken- swelled up- ended up with MRSA- bone grafts thought she was going to lose her leg. She has nerve damage- swells up every day. She wears an ankle brace every day- she has pain all the time. The scars drive her crazy when she sleeps. She has three incisions on the bone- so she can't sleep. She has shooting pains up her leg and it twitches constantly. She can finally move her toes for the first time this week- due to the Lyrica. She has been walking on it. She just started using the brace for the first time yesterday. Ice does not help it makes it worse. She has been running it under the facet and sat in the hot tub and that helped. She feels that she has pins and needles and its numb the majority of the time on the right side of the foot and the heel. When she goes out of the house she wears the boot she uses the walker but when she is at home she is using an ankle brace without an AD- but does sometime use the the walker. She is on SSI for mental health but was fully I for all ADL's prior to the injury. Worst: 11/22 Best: 07/23 but its very rare that it goes that low. She has bought new flip flops and clothes to make sure that its clean. P MHx/Meds: see chart Objective Objective: Posture: forward head, rounded shoulder- can correct but does not maintain Gait: antalgic- CAM boot on the right LE with FWW- decreased stance on the right LE with poor heel/toe pattern- does not get the right foot flat on the floor Balance: weight shift only Observation: all incisions well healed no s/s of infection Flex: Gastroc: severe, Soleus: severe, Hamstring: severe Sensation: hypersensitive to touch to ankle and scars ROM: knee: WFL Ankle: DF: 15 degrees to neutral, PF: 30 degrees Inver: 20 degrees Ever: 10 degrees- very guarded and tearful with ROM Strength: Ankle: 2+/5, Knee: 4/5, Hip: 4/5 Core: fair Girth: Figure 8: 50 cm Malls: 25.5 cm Balance/Special Test Scores Lower Extremity Functional Score: 15 Goals Goal 1:: Patient will report participation in home exercise program activities a minimum of 5 days per week, as adjunct to skilled physical therapy intervention in preparation for independent home management upon discharge. Goal Time Frame: 4-6 Weeks Goal 2:: Patient will report an increase of 9 points on the LEFS to show minimal clinical significant difference on patients functional outcome measure. Goal Time Frame: 4-6 Weeks Goal 3:: Patient will decrease TUG test to less than 10 seconds with least restrictive device to demonstrate improved balance and increase safety with ADL?s. Goal Time Frame: 4-6 Weeks Goal 4:: Patient will stand on even surface with eyes open without loss of balance for 30 seconds to demonstrate improved balance and increase safety with ADL?s. Goal Time Frame: 4-6 Weeks Rehabilitation Potential Physical Therapy Diagnosis: Patient presents with hypomobility- she has decreased LE and core strength/stabilization, proprioception, ankle ROM and muscular endurance leading to poor balance, abnormal gait and increased pain with ADL's. Rehabilitation Potential: Good Anticipated Interventions Patient/Client Instruction: Educate patient on: Benefits of Fitness Program Therapeutic Exercise to Include: Strength training, Endurance training, Balance training, Coordination, Agility training, Body mechanics, Postural training, Flexibilty training, Gait and locomotor training, Neuromotor development, In an aquatic setting, Passive ROM, Active ROM and Dynamic Lumbar Stabilization For the Purpose of:: To improve muscle performance and motor function Text: Thank you for the opportunity to evaluate your patient. For Medicare and Medicare HMO plans, please review the plan of care and approve it. It will need to be FAXED BACK to us at [phone] for Medicare purposes. For Medicare only, by signing this I certify the plan of care. Please let me know if there are questions or concerns regarding this plan of care. Physician Signature: Date:
--- NOTE | 2023-02-09 08:44 | HP.PT.NRP ---
Patient Information Patient Information: RAHEL MCKEON was seen in my office for initial evaluation on 11/24/22. The following Plan of Care was established for this patient: POC Established Initial Frequency: 2x /Week Initial Duration: 4 Weeks Anticipated Interventions Patient/Client Instruction: Educate patient on: Benefits of Fitness Program Therapeutic Exercise to Include: Strength training, Endurance training, Balance training, Coordination, Agility training, Body mechanics, Postural training, Flexibilty training, Gait and locomotor training, Neuromotor development, In an aquatic setting, Passive ROM, Active ROM and Dynamic Lumbar Stabilization For the Purpose of:: To improve muscle performance and motor function Last Seen Last Seen: This patient was last seen in our office . Pertinent comments regarding their Physical therapy will appear below: Patient has no showed multiple appts and is appropriate to be discharged from physical therapy. At this point I will be discontinuing this patient from physical therapy. I would be happy to see this patient again in the future if found appropriate by the physician. Thank you! MOUSTAPHA WebbT Balance/Gait/Functional tests Balance/Special Test Scores Lower Extremity Functional Score: 15
== END 2022-12-07 19:00 | disposition home or self-care (01) ==
LOC: PT 10:30
PROVIDERS: Referring Provider Student in an Organized Health Care Education/Training Program; Visit Provider Student in an Organized Health Care Education/Training Program
DX: M00.871 Arthritis due to other bacteria, right ankle and foot (principal); M79.661 Pain in right lower leg
CPT/HCPCS: 97113; 97162

== ENCOUNTER 2023-10-07 22:28 | Emergency (ER) | payer MEDICAID, SELFPAY ==
[2023-10-07 22:30] VITALS: BP 114/79; PULSE 99; RESP 14; TEMP 37.1; O2SAT 95; BMI 21.6
--- NOTE | 2023-10-07 22:56 | RAD_ITS ---
INDICATION: pain EXAMINATION/TECHNIQUE: X-RAY - XR Spine Lumbar Min 4 Views COMPARISON: None. FINDINGS: 5 views of the lumbar spine. BONES: Normal anatomic alignment without evidence of fracture or subluxation. No concerning bony lesion or abnormal sclerosis to suggest lesion. DISCS/JOINTS: No significant degenerative change. SOFT TISSUES: Unremarkable. RAD/L/S Spine Min 4 Views IMPRESSION: Unremarkable lumbar spine. If there is persistent clinical concern for spine fracture in this trauma patient, recommend dedicated lumbar spine CT. Electronically Signed: Gen Ibrahim MD at 0:38 EDT ,
--- NOTE | 2023-10-07 22:56 | CT_ITS ---
INDICATION: head injury EXAMINATION: CT BRAIN - CT Head or Brain W/O Contrast Injection TECHNIQUE: Serial CT axial images were obtained of the head without intravenous contrast. A radiation dose optimization technique was used for this scan. COMPARISON: 03/04/[address] Findings: Serial CT axial images of the head without contrast. BRAIN PARENCHYMA: Normal moon-white matter differentiation. No evidence of intraparenchymal hemorrhage or hyperattenuating extra-axial fluid collection. BONES: Minimal left maxillary sinus mucosal thickening. SCALP/REMAINING SOFT TISSUES: Unremarkable. ASPECTS Score for Acute Strokes, if applicable: 10 CT/Brain/Head without Contrast IMPRESSION: No acute intracranial hemorrhage in this noncontrast head CT. Electronically Signed: Gen Ibrahim MD at 23:55 EDT ,
--- NOTE | 2023-10-07 22:58 | RAD_ITS ---
INDICATION: injury EXAMINATION/TECHNIQUE: X-RAY - LEFT XR Elbow Min 3 Views COMPARISON: None. FINDINGS: 3 views of the left elbow. BONES: Normal anatomic alignment without evidence of fracture or subluxation. No concerning bony lesion or abnormal sclerosis to suggest lesion. JOINTS: No significant degenerative change. SOFT TISSUES: Unremarkable. RAD/Elbow min 3 Views IMPRESSION: No acute osseous abnormality of the left elbow. Electronically Signed: Gen Ibrahim MD at 0:36 EDT ,
[2023-10-07 23:11] LABS: Internal QC Validated? YES +Cl - CLEAR BKGD; Pregnancy, Urine Negative Negative
[2023-10-07 23:12] LABS: Record Kit Lot#,Urine Preg 772476
[2023-10-07 23:29] VITALS: BP 110/80; PULSE 86; RESP 16; O2SAT 96
[2023-10-08] VITALS: PULSE 99; RESP 16; O2SAT 97
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
== END 2023-10-08 00:29 | disposition home or self-care (01) ==
PROVIDERS: Emergency Provider Emergency Medicine; Visit Provider Emergency Medicine
DX: S09.90XA Unspecified injury of head, initial encounter (principal); F31.9 Bipolar disorder, unspecified; S20.229A Contusion of unspecified back wall of thorax, initial encounter; S50.02XA Contusion of left elbow, initial encounter; F17.210 Nicotine dependence, cigarettes, uncomplicated; Y04.8XXA Assault by other bodily force, initial encounter
CPT/HCPCS: 70450; 72110; 73080; 81025; 99283